=== PATIENT | female | born 1960 | race Caucasian/White ===

== ENCOUNTER 2022-03-05 10:49 | Inpatient (IN) | payer BC, SELFPAY ==
[2022-03-05] VITALS (13 sets, daily range): BP systolic 105–129; BP diastolic 53–79; PULSE 79–110; RESP 18–20; TEMP 36.8–38.9; O2SAT 94–100; BMI 33.1; BMI 34.1
--- NOTE | 2022-03-05 10:53 | ED.GENADULT ---
HPI - General Adult General Time Seen by Provider: 10:53 Date Seen: 03/05/22 Chief complaint: Flank Pain Stated complaint: Possible kidney stones Time Seen by Provider: 03/05/22 10:53 Source: patient, RN notes reviewed, old records reviewed and other (Urgent care provider) Mode of arrival: ambulatory Limitations: no limitations History of Present Illness HPI narrative: Otilia is a very pleasant 61-year-old female who states that she has had cancer x2 and recent left knee replacement who notes the sudden onset of left flank pain early this morning. This is associated with nausea but no vomiting. Patient denies fever but feels very hot. She has had kidney infection in the past and thought that is what this may be. However, she has no dysuria or hematuria. She has not had any chest pain unusual cough or unusual lower extremity edema. She has taken Tylenol for discomfort. It has not really helped. Movement does not seem to change her pain. New Patient initially went to urgent care. Back pain onset at 0700. Related Data Home Medications Medication Instructions Recorded Confirmed calcium carbonate 600 mg calcium 600 mg PO DAILY 02/20/22 03/05/22 (1,500 mg) tablet cholecalciferol (vitamin D3) 50 2,000 unit PO DAILY 02/20/22 03/05/22 mcg (2,000 unit) tablet cyanocobalamin (vitamin B-12) 500 500 mcg PO DAILY 02/20/22 03/05/22 mcg tablet gemfibrozil 600 mg tablet 600 mg PO QDAY 02/20/22 03/05/22 letrozole 2.5 mg tablet 2.5 mg PO QDAY 02/20/22 03/05/22 multivitamin 1 tab PO QDAY 02/20/22 03/05/22 venlafaxine 37.5 mg tablet 37.5 mg PO QDAY 02/20/22 03/05/22 aspirin 81 mg tablet,delayed 81 mg PO QDAY 02/21/22 03/05/22 release Allergies Allergy/AdvReac Type Severity Reaction Status Date / Time adhesive AdvReac localized Verified 02/21/22 10:40 rash latex AdvReac Rash Verified 02/21/22 10:40 CHROMIUM AND DERIVATIVES Allergy Uncoded 02/21/22 10:40 Lactose intolerance AdvReac Diarrhea Uncoded 02/21/22 10:40 METALS AdvReac Hives Uncoded 02/21/22 10:40 Review of Systems Status of ROS: Reports: 10 or more systems reviewed and unremarkable except as noted in History and below PFSH [facility] Medical History Anxiety Breast cancer Meniere's disease of right ear Surgical History H/O tubal ligation (1989) Status post bilateral breast reconstruction Status post bilateral mastectomy (03/21/17) Status post lymph node biopsy (~2006) Status post total left knee replacement (07/18/21) Status post total right knee replacement (07/08/18) Family History Mother Aneurysm Lung cancer Sister Colon cancer Social History Smoking Status: Former smoker How often do you have a drink containing alcohol: never AUDIT-C Alcohol total score: 0 Non-prescribed substance use: denies use Exam Const: Vital Signs, click to edit/add: Vital Signs - 24 hr 03/05/22 10:53 03/05/22 13:00 Temperature 98.3 F Pulse Rate [Pulse Oximeter] 79 86 Respiratory Rate 18 18 Blood Pressure [Le ft Upper Arm] 123/79 Pulse Oximetry 98 100 Oxygen Delivery Me thod Room Air Room Air Course Reevaluation(s) Reevaluation #1: Patient notes significant improvement in discomfort after Toradol. She is informed that a urinalysis strongly suspicious for infection but given the rapid onset of symptoms would recommend CT to rule out any evidence of a stone. She is in agreement. 1 mg of IV Rocephin is given at this time. Patient remains nontoxic in appearance. Reevaluation #2: Patient notes that morphine really has not helped her and states that she was reminded by her daughter that that medication often does not work for her. Patient is given Dilaudid 0.5 mg IV. Consultations Consultation #1: Dr. Olmedo, customer care consultant from [facility] contacted. Given stone, elevated white count and urinalysis suggestive of infection he does agree that patient needs to have stone removed. Suggests transfer to either [facility] or [facility] where his group works. We are currently attempting that. Otilia does have some discomfort coming back after initial pain relief with Toradol. She is agreeable to try morphine 2 mg IV. Vital Signs Vital signs: Initial Vital Signs Temperature 98.3 F 03/05/22 10:53 Temperature Source Temporal Artery Scan 03/05/22 10:53 Pulse Rate 79 03/05/22 10:53 Respiratory Rate 18 03/05/22 10:53 Blood Pressure 123/79 03/05/22 10:53 Blood Pressure Mean 93 03/05/22 10:53 Blood Pressure Position Supine 03/05/22 10:53 Pulse Oximetry 98 03/05/22 10:53 Oxygen Delivery Method 03/05/22 10:53 Vital Signs Temperature 98.3 F 03/05/22 10:53 Pulse Rate 79 03/05/22 10:53 Respiratory Rate 18 03/05/22 10:53 Blood Pressure 123/79 03/05/22 10:53 Pulse Oximetry 98 03/05/22 10:53 Oxygen Delivery Method 03/05/22 10:53 Temperature 98.3 F 03/05/22 10:53 Pulse Rate 89 03/05/22 14:28 Respiratory Rate 18 03/05/22 14:28 Blood Pressure 128/72 03/05/22 14:28 Pulse Oximetry 98 03/05/22 14:28 Oxygen Delivery Method 03/05/22 14:28 Medical Decision Making MDM Narrative Medical decision making narrative: 1. Pyelonephritis-patient is given Rocephin 1 g IV. Culture is pending. Fortunately no evidence of sepsis with normal pulse temp [place] [address]. CRP minimally elevated at 1.2. Creatinine normal at 0.8. 2. Ureteral stone -this is at the UVJ and measures 6.6 mm. Obviously with complication of urinary tract infection will need to have this removed. Spoken with urologist Dr. Olmedo who suggests transfer to [facility] or [facility] for procedure. 3. Hypercalcemia- 11.3 3. Disposition-will contact [facility] for transfer possibility. Addendum: Unfortunately [facility] is unable to accommodate patient today. We were able to speak to urologist once again and have arranged for transfer tomorrow morning as they are holding a bed for Otilia for the stone removal. She will stay at the [facility]. We will strain her urine in the hopes that she is able to pass this stone although given its size it is somewhat doubtful. Will keep her hydrated. She has no signs of sepsis at this time but of course is at high risk for sepsis. Patient did receive Rocephin and urologist is in agreement with this particular antibiotic. Would suggest repeat does at approximately midnight or 0200 hours. Being hospitalist call so that we have an accepting physician. Will arrange EMS transport for tomorrow morning as well. They are suggesting patient be at [place] at 0800 hours. Accepting physician is Dr. Chavez at [facility]. I am told that we should expect a phone call by 0600 hours which is permission to send patient to [facility]. Dr. Aponte, [facility] hospitalist is the accepting physician on site here. SARs is pending. Patient will need to strain urine while at the [facility]. If her stone does past she will no longer need to go to [facility] I have spoken with EMS who will tentatively schedule transfer at 0700. Medical Records Medical records reviewed: Yes I reviewed the patient's medical records Lab Data Lab results reviewed: Yes I reviewed the patient's lab results Labs: Lab Results 03/05/22 03/05/22 03/05/22 Range/Units 11:08 11:20 11:20 WBC 18.41 H (4.50-11.00) K/uL RBC 4.21 (4.00-5.20) m/uL Hgb 13.0 (12.0-16.0) gm/dL Hct 38.4 (33.0-51.0) % MCV 91 (80-100) fL MCH 31 (26-34) pg MCHC 34 (32-36) gm/dL RDW Coeff of Angelica 12.5 (11.5-15.5) % Plt Count 430 (140-440) K/uL Neut % (Auto) 71.0 (42.0-72.0) % Lymph % (Auto) 17.9 L (20-44) % [place] % (Auto) 8.6 (0.0-11.0) % Eos % (Auto) 2.1 (0.0-7.0) % Baso % (Auto) 0.2 (0.0-3.0) % Neut # (Auto) 13.10 H (1.7-7.0) K/uL Lymph # (Auto) 3.30 H (0.90-2.90) K/uL [place] # (Auto) 1.60 H (0.00-0.90) K/UL Eos # (Auto) 0.40 (0.00-0.50) K/uL Baso # (Auto) 0.00 (0.00-0.30) K/uL Abs Immat Gran (auto) 0.03 (0.00-0.30) K/uL Sodium 138 (135-149) mmol/L Potassium 3.5 L (3.6-5.1) mmol/L Chloride 99 (96-114) mmol/L Carbon Dioxide 27 (20-32) mmol/L BUN 14 (7-30) mg/dL Creatinine 0.8 (0.5-1.5) mg/dL Estimated Creat Clear 44.58 Estimated GFR 84 ml/min Glucose 111 (60-115) mg/dL Lactate (0.5-1.9) mmol/L Calcium 11.3 H (8.4-10.6) mg/dL Total Bilirubin 0.5 (0.1-1.5) mg/dL AST 51 H (12-35) U/L ALT 37 H (4-35) U/L Alkaline Phosphatase 96 (40-150) U/L C-Reactive Protein 1.2 H (0.5-1.0) mg/dL Total Protein 8.5 H (6.0-8.3) g/dL Albumin 5.0 (3.3-5.0) g/dL Urine Color Yellow (Yellow) Urine Appearance Cloudy A (Clear) Urine pH 6.0 (5.0-8.5) Ur Specific Addison 1.015 (1.000-1.030) Urine Protein 2+ A (Negative) Urine Glucose (UA) Negative (Negative) Urine Ketones Negative (Negative) Urine Blood 3+ A (Negative) Urine Nitrite Positive A (Negative) Urine Bilirubin Negative (Negative) Urine Urobilinogen 0.2 (0.2-1.0) Ur Leukocyte Esterase 3+ A (Negative) Urine RBC 2-5 A (0-2) Urine WBC 50-100 A (0-5) Ur Squamous Epith Cells Few (None-Few) Urine Bacteria Many A (None) Urine Mucus Few A (None) 03/05/22 Range/Units 13:37 WBC (4.50-11.00) K/uL RBC (4.00-5.20) m/uL Hgb (12.0-16.0) gm/dL Hct (33.0-51.0) % MCV (80-100) fL MCH (26-34) pg MCHC (32-36) gm/dL RDW Coeff of Angelica (11.5-15.5) % Plt Count (140-440) K/uL Neut % (Auto) (42.0-72.0) % Lymph % (Auto) (20-44) % [place] % (Auto) (0.0-11.0) % Eos % (Auto) (0.0-7.0) % Baso % (Auto) (0.0-3.0) % Neut # (Auto) (1.7-7.0) K/uL Lymph # (Auto) (0.90-2.90) K/uL [place] # (Auto) (0.00-0.90) K/UL Eos # (Auto) (0.00-0.50) K/uL Baso # (Auto) (0.00-0.30) K/uL Abs Immat Gran (auto) (0.00-0.30) K/uL Sodium (135-149) mmol/L Potassium (3.6-5.1) mmol/L Chloride (96-114) mmol/L Carbon Dioxide (20-32) mmol/L BUN (7-30) mg/dL Creatinine (0.5-1.5) mg/dL Estimated Creat Clear Estimated GFR ml/min Glucose (60-115) mg/dL Lactate 1.7 (0.5-1.9) mmol/L Calcium (8.4-10.6) mg/dL Total Bilirubin (0.1-1.5) mg/dL AST (12-35) U/L ALT (4-35) U/L Alkaline Phosphatase (40-150) U/L C-Reactive Protein (0.5-1.0) mg/dL Total Protein (6.0-8.3) g/dL Albumin (3.3-5.0) g/dL Urine Color (Yellow) Urine Appearance (Clear) Urine pH (5.0-8.5) Ur Specific Addison (1.000-1.030) Urine Protein (Negative) Urine Glucose (UA) (Negative) Urine Ketones (Negative) Urine Blood (Negative) Urine Nitrite (Negative) Urine Bilirubin (Negative) Urine Urobilinogen (0.2-1.0) Ur Leukocyte Esterase (Negative) Urine RBC (0-2) Urine WBC (0-5) Ur Squamous Epith Cells (None-Few) Urine Bacteria (None) Urine Mucus (None) Imaging Data CT scan - abdomen: Attestation: I have reviewed the pertinent imaging results. My impression: Multiple stones in right kidney. Stone noted at the distal aspect of the left ureter. Hydroureter present hydronephrosis present Radiologist's impression: No abnormal intra pulmonary nodular densities through the lung bases. Bilateral breast implants. Normal size cardiac silhouette without any pericardial fusion. No focal hepatic or splenic pathology. No pancreatic pathology. Gallbladder is unremarkable. No adrenal pathology. A 6.6 mm obstructing calculus very? close to the ureterovesical junction on the left with marked hydronephrosis and hydroureter. Multiple nonobstructing calculi identified in the intrarenal calices right kidney without any obstructive uropathy or perinephric pathology. Normal appendix. No retroperitoneal lymphadenopathy. No evidence of abdominal or pelvic ascites. Diverticulosis sigmoid colon without any CT evidence of diverticulitis or abscess. Calcified uterine fibroids. IMPRESSION: 1. A 6.6 mm obstructing calculus left ureterovesical junction with marked left-sided hydronephrosis and hydroureter. 2. Multiple nonobstructing renal calculi right kidney. 3. Calcified uterine fibroids. Critical Care Time Critical Care Time Critical Care Time: Yes Attestation: The patient required my highest level preparedness to intervene emergently and I personally spent this critical care time directly and personally managing the patient. This critical care time included: Obtaining a history; Examining the patient; Pulse oximetry; Ordering and reviewing of studies; Arranging urgent treatment with development of a management plan; Evaluation of patients response to treatment; Frequent reassessment discussions with other providers. This critical care time was performed to assess and manage the high probability of imminent life-threatening deterioration that could result in multiorgan failure. It was exclusive of separate billable procedures and treating other patients and teaching time. Total Critical Care Time in Minutes: 60
[2022-03-05 11:14] LABS: Appearance Urine Cloudy (Clear); Bilirubin Urine Negative (Negative); Blood Urine 3+ (Negative); Color Urine Yellow (Yellow); Glucose Urine Negative (Negative); Ketones Urine Negative (Negative); Leukocyte Esterase Urine 3+ (Negative); Nitrite Urine Positive (Negative); Protein Urine 2+ (Negative); Specific Gravity Urine 1.015 (1.000-1.030); Urobilinogen Urine 0.2 (0.2-1.0)
[2022-03-05] MEDS: KETOROLAC 15 MG/ML inj IVP (11:21)
[2022-03-05] MEDS: 0.9 % SODIUM CHLORIDE 500 ML 500 ML IV (11:21)
--- OUTSIDE RECORDS SUMMARY | 2022-03-05 11:22 | XMS_ITS ---
:1960 Author Care Team Providers Name Role Phone Nicole Moffett Primary Care Provider Unavailable Allergies None recorded. Medications None recorded. Problems None recorded. Procedures None recorded. Results Lab Results None recorded. Past Encounters 12/10/2020 Administrative Reason for Encounter; His tory and Physical Examination, Occupation Nicole Moffett PA-C: [address], [place] [address], Ph. Social History None recorded. Vaccine List None recorded. Plan of Care Reminders Provider Appointments None recorded. ? ? Lab None recorded. ? ? Referral None recorded. ? ? Procedures None recorded. ? ? Surgeries None recorded. ? ? Imaging None recorded. ? ? Vitals None recorded.
--- OUTSIDE RECORDS SUMMARY | 2022-03-05 11:22 | XMS_ITS | Clinical Summary ---
:1960 Author Organization [employer] [facility] [employer] [facility] [place] [address] Care Team Providers Name Role Phone KaristJazmine Primary Care Provider Allergies Active Allergy Reactions Severity Noted Date Comments Adhesive Rash High 03/22/2021 Adhesive Tape Rash High 02/25/2007 Lactose Diarrhea 01/06/2015 Latex Rash 05/21/2017 Chromium And Derivatives Rash 07/29/2014 All metals except gold and silver Unlisted Allergen (Include *Unknown 02/21/2017 h ayfever Detail In Comments) Trace Metals Hives High 07/08/2018 Medications Medication Sig Dispensed Refills Start End Date Status Date multivitamin (MVI) Take 1 tablet by 0 Active tablet mouth once daily. 2 acetaminophen Take 3 tablets by 0 Active (TYLENOL) 325 mg mouth once daily. 2 tablet Max acetaminophen dose: 4000mg in 24 hrs. loperamide (IMODIUM Take 4mg by mouth 0 Active A-D) 2 mg tablet with 1st loose 7 stool, then 2mg with each subsequent loose stool. Max 16 mg in 24 hrs letrozole (FEMARA) TK 1 T PO QD 3 Active 2.5 mg tablet 7 calcium Take 1 tablet by 200 tablet 4 Ac tive carbonate-vitamin mouth 2 times 8 D3, 600 mg-400 daily with meals. unit, 600 mg(1,500mg) -400 unit tablet cyanocobalamin Take 1 tablet by 90 tablet 3 Active (VITAMIN B-12) mouth once daily. 8 1,000 mcg tablet aspirin chewable 81 Take 1 tablet by 0 Active mg chewable tablet mouth once daily 8 with a meal. cholecalciferol Take 1 Capsule 0 Active (Vitamin D) 1,000 (1,000 units) by 1 unit capsule mouth once daily. venlafaxine TAKE 1 90 Tablet 1 Active (EFFEXOR) 37.5 mg TABLET(37.5 MG) 2 tabletIndications: BY MOUTH EVERY Anxiety disorder, MORNING unspecified type gemfibroziL (LOPID) TAKE 1 TABLET(600 90 Tablet 0 Active 600 mg MG) BY MOUTH 2 tabletIndications: EVERY DAY Mixed hyperlipidemia gemfibroziL (LOPID) Take 1 Tablet 90 tablet. 2 02/05 Discontinued 600 mg (600 mg) by mouth 1 22 tabletIndications: once daily. 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 y early UA/pelvic US needed. EGD and colonoscopy 2-3 years. ASA recommended daily. 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 04/2021 NIL Plan: Pap/HPV due 04/2022. Noted in OV 1 06/13/2020: Guidelines for Pap smear screening at this time are yearly Pap smears until age 65. Resolved Problems Problem Noted Date Resolved Date Trapezius strain 08/04/2010 05/04/2012 Depression with anxiety 12/27/2009 02/14/2012 Knee pain, left 12/27/2009 12/29/2009 Encounters Date Type Specialty Care Team Description 02/02/2022 Refill Jazmine Montanez DO Refil l Request (Gemfibrozil) 12/19/2021 Office Visit Jazmine Montanez DO Derm Problem (irregular mole on right breast x couple years/) 12/19/2021 Travel 12/16/2021 Travel 12/15/2021 Refill Jazmine Montanez DO Refil l Request (Venlafaxine) 12/06/2021 Telephone Yue Ortiz MD Resul ts from Last 3 Months Immunizations Name Administration Dates Next Due Influenza, IIV3 (Age >=3 years) 02/13/2012 Influenza, IIV4 04/13/2021, 04/07/2019, 03/01/2018, 03/14/2017, 03/09/2014, 02/12/2013 Influenza, IIV4 (=>6mos) MDV 04/03/2020 Td (Age >=7 Years) 03/01/2018 Tdap 11/22/2006 Zoster (Shingrix-RZV, recombinant) 08/02/2021, 05/10/2021 Family History Medical History Relation Name Comments Dementia Maternal Grandmother Heart Disease Maternal Uncle [place] AT 42 YEARS Cancer Mother lung Dementia Mother Cancer Other niece with uteri ne cancer, age 27. 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 Sex Assigned at Date Recorded Not on file Obstetrics History Last Filed Vital Signs Vital Sign Reading Time Taken Comments Blood Pressure 111/73 12/19/2021 3:16 PM CDT Pulse 102 12/19/2021 3:16 PM CDT Temperature 37.3 ??C (99.1 ??F) 12/02/2021 9:42 AM CDT Respiratory Rate 18 03/27/2018 10:45 AM CDT Oxygen Saturation 98% 12/19/2021 3:16 PM CDT Inhaled Oxygen Concentration - - Weight 78 kg (172 lb) 12/19/2021 3:16 PM CDT Height 154 cm (5' 0.63) 04/13/2021 2:35 PM [facility] Body Mass Index 32.9 04/13/2021 2:35 PM [facility] Plan of Treatment Health Maintenance Due Date Last Done Comments Mammogram for age 45-75 02/02/2019 02/02/2017, 01/12/2016, 01/06/2015, Additional history exists COVID-19 vaccine series (4 - 06/14/2021 03/22/2021, 021, Booster for Pfizer series) 08/28/2020 Influenza for age 50-64 02/02/2022 04/13/2021, 04/03/2020, 04/07/2019, Additional history exists BMI (ht and wt on same day) for 04/13/2022 04/13/2021, 12/03, age 18+ 04/14/2020, Additional history exists Pap test for age 21-65 04/13/2022 04/13/2021, 12/02/2018, 01/06/2015, Additional history exists Depression screening for age 12+ 04/15/2022 04/15/2021, 03/2021, 04/14/2020, Additional history exists Colonoscopy through age 75 04/12/2025 04/12/2020, , 04/12/2020, Additional history exists Lipids for age 45-75 05/10/2026 05/10/2021, 12/02/2018, 09/19/2017, Additional history exists Tetanus booster 03/01/2028 03/01/2018, 11/22/2006 Tdap Completed 11/22/2006 Hepatitis C screening for age Completed 01/08/2015 18-79 Zoster (shingles) series for age Completed 08/02/2021, 12/2020 50+ Medical Devices Implanted Type Area Stripper Shovel Operator Device Shelf Model / Identifier Expiration Serial / Date Lot [id number] 330cc [place] Rnd High Smooth Saline Right: [employer] [place] 01/10/2022 [id number] / Implanted: Qty: 1 on 03/27/2018 by Tarun Marie MD at [facility] [employer] [id number] / Explanted: at [facility] (Quantity not on file) [id number] Procedures Procedure Name Priority Date/Time Associated Diagnosis Comme nts PATH TISSUE EXAM Routine 12/19/2021 4:29 PM Skin lesion of Res ults for this CDT breast procedure are i n the results section. from Last 3 Months Results PATH TISSUE EXAM (12/19/2021 4:29 PM CDT) Component Value Ref Test Analysis Performed At [facility] gist Range Method Time Signature Case Report Pathology Report ?Case: [id number] ? 12/22/2021 [facility] Authorizing Provider: ??Jazmine Nogueira, DO ? Collected: ? 12/19/2021 1629 ? 2:48 PM CDT HEALTH Ordering Location: ? [facility] ?? Received: ?12/19/2021 1645 ? LABOR ATORY-C ? Clinic ? ENTRAL Pathologist: ? Katlyn Ray MD ? LABORATORY Specimen: ?Right Breast ? Final A) SKIN, RIGHT BREAST, LESION, EXCISION: 12/22/2021 [facility] Electronically Diagnosis 1. Cavernous hemangioma 2:48 PM T [facility] TH signed by 2. Negative for malignancy LAB ORDULCE-ARVIN Cedillo MD on LABORATORY 12/22/2021 at 2:48 PM Comment Seen in 12/22/2021 [facility] consultation 2:48 PM [facility] with Dr. Thompson. LABORATORY-C ENTRAL LABORATORY Clinical History of left 12/22/2021 [facility] Information breast cancer 2:48 PM [facility] treated with LABORATORY-C lumpectomy and ENTRAL radiation in LABORATORY 2006 and right breast cancer in 2017, treated with bilateral mastectomy ([id number]) and radiation. Changing skin lesion in the skin of the right breast. Gross A) Received in formalin, lab eled with the patient's name and date of , is a 1.2 x 1.0 cm skin biopsy. There is a 0.7 x 0.7 x 0.2 cm raised blue- bergeron lesion. The specimen is inked yellow, serially sectioned and entirely submitted in one cassette. 12/22/2021 [facility] Description 2:48 PM T [facility] Kemal Garg 12/20/2021 3:47 PM LABORATORY-C ENTRAL LABORATORY Microscopic The final diagnosis is based on microscopic examination of appropriate sections of all specimens. 12/22/2021 [facility] Description 2:48 PM [facility] LABORATORY-C ENTRAL LABORATORY Additional 12/22/2021 [facility] Information Interpreted at [facility], Central Laboratory - [address] [facility] [address], [place] [address] 2:48 PM CDT HEALTH LABORATORY-C ENTRAL LABORATORY Specimen Anatomical Collection Method Collection Time Receive d Time (Source) Location / / Volume Laterality Other (Right Non-Blood / 12/19/2021 4:29 PM 4:45 Breast) Unknown CDT PM CDT Jazmine Montanez DO PATHOLOGY/CYTOLOGY Performing Organization Address City/State/ZIP Code Phon e Number [employer] [address] [place] [address] LABORATORY-CENTRAL 2000 LABORATORY from Last 3 Months Insurance Payer Benefit Plan / Subscriber ID Effective Dates Phone Addre ss Type Group WC WORKERS WC TRAVELERS [id number] 2020-Presen [address] [place] [address] [employer] [place] [employer] [id number] 2018-Present [address] [address] [place] [address] ([place]) [place] [id number] CAREN GUERRA Workers Comp 06/04/[address] ([place]) [place] [phone] (Work) [employer] Comp Self [address] ([place] [facility] [place] [phone] (Work) Advance Directives Latest Code Status on File Code Status Date Activated Date Inactivated Comments Full Code 03/27/2018 6:47 AM 03/28/2018 2:35 AM Care Teams Go Cart Mechanic Relationship Specialty Start Date End Date Jazmine Montanez DO PCP - General 05/29/08
[2022-03-05 11:27] LABS: Basophils Percent Auto 0.2 % (0.0-3.0); Eosinophils Percent Auto 2.1 % (0.0-7.0); Hematocrit 38.4 % (33.0-51.0); Immature Granulocytes Abs Auto 0.03 K/uL (0.00-0.30); Lymphocytes Percent Auto 17.9 % (20-44); Mean Corpuscular HGB Conc 34 gm/dL (32-36); Mean Corpuscular Hemoglobin 31 pg (26-34); Mean Corpuscular Volume 91 fL (80-100); Monocytes Percent Auto 8.6 % (0.0-11.0); Platelet Count* 430 K/uL (140-440); RDW Coefficient of Variation % 12.5 % (11.5-15.5); Red Blood Count 4.21 m/uL (4.00-5.20); White Blood Count* 18.41 K/uL (4.50-11.00)
[2022-03-05 11:34] LABS: Slide Review Reflex No
[2022-03-05 11:38] LABS: Bacteria Urine Many; Mucus Urine Few; Squamous Epithelial Cell Urine Few (None-Few); WBC Urine 50-100 (0-5)
[2022-03-05 11:49] LABS: Chloride* 99 mmol/L (96-114); Potassium* 3.5 mmol/L (3.6-5.1); Sodium* 138 mmol/L (135-149)
[2022-03-05 11:51] LABS: Bilirubin Total* 0.5 mg/dL (0.1-1.5); Creatinine* 0.8 mg/dL (0.5-1.5); Est. Creatinine Clearance* 44.58; Estimated Glomerular Filt Rate 84 ml/min
[2022-03-05 11:52] LABS: Alanine Aminotransferase* 37 U/L (4-35); Alkaline Phosphatase* 96 U/L (40-150); Aspartate Amino Transferase* 51 U/L (12-35); Carbon Dioxide* 27 mmol/L (20-32); Total Protein* 8.5 g/dL (6.0-8.3)
[2022-03-05 11:53] LABS: Blood Urea Nitrogen* 14 mg/dL (7-30); Calcium* 11.3 mg/dL (8.4-10.6); Glucose* 111 mg/dL (60-115)
[2022-03-05 11:55] LABS: C Reactive Protein* 1.2 mg/dL (0.5-1.0)
--- NOTE | 2022-03-05 12:00 | CRLHL7_ITS ---
For Patients: As a result of the Century Cures Act, medical imaging exams and procedure reports are released immediately into your electronic medical record. You may view this report before your referring provider. If you have questions, please contact your health care provider. INDICATION: Left flank pain; history of breast cancer. Comparison: None. TECHNIQUE: CT abdomen and pelvis with intravenous contrast; coronal and sagittal reformats. FINDINGS: No abnormal intra pulmonary nodular densities through the lung bases. Bilateral breast implants. Normal size cardiac silhouette without any pericardial fusion. No focal hepatic or splenic pathology. No pancreatic pathology. Gallbladder is unremarkable. No adrenal pathology. A 6.6 mm obstructing calculus very close to the ureterovesical junction on the left with marked hydronephrosis and hydroureter. Multiple nonobstructing calculi identified in the intrarenal calices right kidney without any obstructive uropathy or perinephric pathology. Normal appendix. No retroperitoneal lymphadenopathy. No evidence of abdominal or pelvic ascites. Diverticulosis sigmoid colon without any CT evidence of diverticulitis or abscess. Calcified uterine fibroids. IMPRESSION: 1. A 6.6 mm obstructing calculus left ureterovesical junction with marked left-sided hydronephrosis and hydroureter. 2. Multiple nonobstructing renal calculi right kidney. 3. Calcified uterine fibroids. Please note that all CT scans at this facility use dose modulation, iterative reconstruction, and/or weight-based dosing when appropriate to reduce radiation dose to as low as reasonably achievable. Dictated by Edouard Ventura MD @ 03/05/2022 1:09:51 PM (Electronically Signed)
[2022-03-05] MEDS: cefTRIAXone 1 GM in 0.9 % SODIUM CHLORIDE Mini-bag 100 ML IVPB (13:00)
[2022-03-05] MEDS: MORPHINE 2 MG/ML inj IVP (14:07)
[2022-03-05 14:09] LABS: Lactate* 1.7 mmol/L (0.5-1.9)
[2022-03-05] MEDS: 0.9 % SODIUM CHLORIDE 1000 ml 1,000 ML IV ×2 (14:16→20:31)
[2022-03-05] MEDS: HYDROmorphone 0.5 mg/0.5 ml inj IVP ×2 (14:26→19:27)
[2022-03-05] MEDS: ONDANSETRON 2 MG/ML inj 4 MG IVP (14:26)
--- NOTE | 2022-03-05 14:27 | ED.NURSE ---
pt just received morphine but then talked to her daughter who reminded her morphine does not work for her. pt pain increasing to 5/10, dilaudid iv given
[2022-03-05 15:06] LABS: SARS PCR* Negative SARS-CoV-2 (Negative)
--- NOTE | 2022-03-05 16:43 | P.IMHP_ITS ---
Hospitalist- H&P: HPI History of Present Illness Time Seen by Provider: 16:30 Date Seen: 03/05/22 Chief complaint: Possible kidney stones Narrative: Otilia Florentino is a 61 year old female with h/o breast cancer who woke up this morning with malaise and left back/flank pain. She felt fine when she went to bed last night. She had a kidney infection a month ago that was treated as an outpatient with oral antibiotics and resolved. She says this pain feels like that. She tells me she has never had a stone before. She took acetaminophen this morning and the pain got better. She got coffee, fed the cats and cleaned their litter boxes, and then the pain came back and was more intense. She has had some increased frequency of urination this morning, feeling like she is not going completely and having to go again in just a few minutes. No other urinary symptoms. No fevers. She did have chills and nausea this morning. She went to urgent care and was told she would need a CT scan, so she came to the hospital ER where she was found to have a 6.6 mm obstructing calculus at the left ureterovesical junction. Dr. Mansfield spoke with Dr. Olmedo from [facility] [facility] who recommended giving Rocephin, admit, strain urine and transfer to [place] in the morning. She is feeling better now after Toradol and dilaudid. She tells me that morphine does not really work for her, but the Toradol and Dilaudid were helpful. Review of Systems Const: Reports: chills, fatigue and malaise; Denies: fever ENMT: Reports: post nasal drip; Denies: throat pain or dry mouth Cardio: Denies: chest pain, palpitations or shortness of breath with exertion Resp: Reports: cough (post nasal drip, seasonal allergies); Denies: shortness of breath or chest congestion GI: Reports: nausea; Denies: abdominal pain, vomiting, diarrhea, constipation, bloating or blood in stool : Reports: urinary frequency; Denies: painful urination, urinary urgency or blood in urine Musculo: Reports: back pain Integ/Breast: Denies: rash Neuro: Denies: headache or dizziness Endo: Reports: fatigue PFSH [facility] Medical History (Updated 03/05/22 @ 17:47 by Cheri Aponte MD) Anemia Anxiety Arthritis Breast cancer Diabetes Family history of colon cancer Hyperlipidemia Meniere's disease of right ear Pyelonephritis Surgical History (Updated 03/05/22 @ 17:41 by Cheri Aponte MD) H/O dilation and curettage H/O tubal ligation (1989) Status post bilateral breast reconstruction Status post bilateral mastectomy (03/21/17) Status post lymph node biopsy (~2006) 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 Denies EtOH, quit 1980. Denies recreational drug use. Full code. Highest level of school completed/degree received: Associate degree: academic program Smoking Status: Former smoker Do you use any of these nicotine containing products: None Second hand tobacco smoke exposure: Yes How often do you have a drink containing alcohol: never AUDIT-C Alcohol total score: 0 Non-prescribed substance use: denies use Caffeine: Yes service: No Meds Home Medications and Allergies Home Medications Medication Instructions Recorded Confirmed Type calcium carbonate 600 mg calcium 600 mg PO DAILY 02/20/22 03/05/22 History (1,500 mg) tablet cholecalciferol (vitamin D3) 50 2,000 unit PO DAILY 02/20/22 03/05/22 History mcg (2,000 unit) tablet cyanocobalamin (vitamin B-12) 500 500 mcg PO DAILY 02/20/22 03/05/22 History mcg tablet gemfibrozil 600 mg tablet 600 mg PO QDAY 02/20/22 03/05/22 History letrozole 2.5 mg tablet 2.5 mg PO QDAY 02/20/22 03/05/22 History multivitamin 1 tab PO QDAY 02/20/22 03/05/22 History venlafaxine 37.5 mg tablet 37.5 mg PO QDAY 02/20/22 03/05/22 History aspirin 81 mg tablet,delayed 81 mg PO QDAY 02/21/22 03/05/22 History release Allergies Allergy/AdvReac Type Severity Reaction Status Date / Time adhesive AdvReac localized Verified 02/21/22 10:40 rash latex AdvReac Rash Verified 02/21/22 10:40 CHROMIUM AND DERIVATIVES Allergy Uncoded 02/21/22 10:40 Lactose intolerance AdvReac Diarrhea Uncoded 02/21/22 10:40 METALS AdvReac Hives Uncoded 02/21/22 10:40 Exam Narrative: Exam Narrative: General: No acute distress. Awake alert oriented x3. Pleasant, talkative. HEENT: Normocephalic atraumatic, pupils equally round and reactive to light and accommodation. Oropharynx clear. Mucous membranes are dry. No cervical lymphadenopathy, thyromegaly or carotid bruits. No JVD. Cardiovascular: Regular rate and rhythm. No murmurs, gallops, or rubs. Chest: No increased work of breathing. Clear to auscultation bilaterally. No crackles or wheezes. Abdomen: Bowel sounds present. Soft, nondistended, nontender. No hepatosplenomegaly or masses. Some tenderness in the left CVA. Extremities: No edema, no cyanosis or clubbing. Skin: No jaundice, no pallor, no rashes. Const: Vital Signs, click to edit/add: Vital Signs - 24 hr 03/05/22 10:53 03/05/22 13:00 03/05/22 14:28 Temperature 98.3 F Pulse Rate [Pulse Oximeter] 79 86 89 Respiratory Rate 18 18 18 Blood Pressure [Le ft Arm] Blood Pressure [Le ft Upper Arm] 123/79 128/72 Pulse Oximetry 98 100 98 Oxygen Delivery Me thod Room Air Room Air Room Air 03/05/22 15:43 03/05/22 15:59 Temperature 98.3 F Pulse Rate [Pulse Oximeter] Respiratory Rate 18 18 Blood Pressure [Le ft Arm] 129/62 Blood Pressure [Le ft Upper Arm] Pulse Oximetry 98 98 Oxygen Delivery Me thod Room Air Room Air Hospitalist - H&P: Result Labs Labs: Short CBC 03/05/22 Range/Units 11:20 WBC 18.41 H (4.50-11.00) K/uL Hgb 13.0 (12.0-16.0) gm/dL Hct 38.4 (33.0-51.0) % Plt Count 430 (140-440) K/uL BMP 03/05/22 11:20 Sodium 138 Potassium 3.5 L Chloride 99 Carbon Dioxide 27 BUN 14 Creatinine 0.8 Glucose 111 Calcium 11.3 H Liver Function 03/05/22 Range/Units 11:20 Total Bilirubin 0.5 (0.1-1.5) mg/dL AST 51 H (12-35) U/L ALT 37 H (4-35) U/L Alkaline Phosphatase 96 (40-150) U/L Albumin 5.0 (3.3-5.0) g/dL Urine 03/05/22 Range/Units 11:08 Urine Color Yellow (Yellow) Urine Appearance Cloudy A (Clear) Urine pH 6.0 (5.0-8.5) Ur Specific [place] 1.015 (1.000-1.030) Urine Protein 2+ A (Negative) Urine Glucose (UA) Negative (Negative) Ordering Physician: Erika Mansfield MD Date of Service: 03/05/22 Procedure(s): CT abdomen pelvis w con Accession Number(s): [id number] cc: Jazmine Montanez DO; Erika Mansfield MD~ For Patients: As a result of the Century Cures Act, medical imaging exams and procedure reports are released immediately into your electronic medical record. You may view this report before your referring provider. If you have questions, please contact your health care provider. INDICATION: Left flank pain; history of breast cancer. Comparison: None. TECHNIQUE: CT abdomen and pelvis with intravenous contrast; coronal and sagittal reformats. FINDINGS: No abnormal intra pulmonary nodular densities through the lung bases. Bilateral breast implants. Normal size cardiac silhouette without any pericardial fusion. No focal hepatic or splenic pathology. No pancreatic pathology. Gallbladder is unremarkable. No adrenal pathology. A 6.6 mm obstructing calculus very close to the ureterovesical junction on the left with marked hydronephrosis and hydroureter. Multiple nonobstructing calculi identified in the intrarenal calices right kidney without any obstructive uropathy or perinephric pathology. Normal appendix. No retroperitoneal lymphadenopathy. No evidence of abdominal or pelvic ascites. Diverticulosis sigmoid colon without any CT evidence of diverticulitis or abscess. Calcified uterine fibroids. IMPRESSION: 1. A 6.6 mm obstructing calculus left ureterovesical junction with marked left-sided hydronephrosis and hydroureter. 2. Multiple nonobstructing renal calculi right kidney. 3. Calcified uterine fibroids. Please note that all CT scans at this facility use dose modulation, iterative reconstruction, and/or weight-based dosing when appropriate to reduce radiation dose to as low as reasonably achievable. Dictated by Edouard Ventura MD @ 03/05/2022 1:09:51 PM (Electronically Signed) Assessment and Plan Assessment and plan (1) Calculus of ureterovesical junction (UVJ): Problem comment: left Status: Acute Assessment and Plan: Hold ASA, planning transfer to [facility], Dr. Chavez, around 8 am tomorrow morning for urologic consultation and probable ureteral stent. Admit, IVF for volume depletion, strain urine, IV toradol and PO narcotics for pain control with IV narcotics for breakthrough pain. No further cardiopulmonary w/u needed prior to procedure. (2) Pyelonephritis of left kidney: Problem comment: associated with UVJ stone, no sepsis or hypotension Status: Acute Assessment and Plan: Rocephin IV, started in ER. (3) Volume depletion: Status: Acute Assessment and Plan: Give IVF. Encourage po fluids. (4) Hypokalemia: Problem comment: mild, asymptomatic Status: Acute Assessment and Plan: Replace orally, recheck in am. (5) Hypercalcemia: Problem comment: 11.3 Status: Acute Assessment and Plan: Asymptomatic. Give IVF and recheck in am. If remains elevated, will need further w/u including PTH.
[2022-03-05] MEDS: 0.9 % SODIUM CHLORIDE 1000 ml 1,000 ML 125 ML IV (17:05)
[2022-03-05] MEDS: POTASSIUM BICARB 25 MEQ EFFERVESCENT TAB PO ×2 (17:48→19:36)
--- NOTE | 2022-03-05 17:53 | P.DS_ITS ---
Transfer Discharge Sum: Prov Provider Date Seen: 03/05/22 Date of admission: 03/05/22 17:04 Primary care physician: Jazmine Montanez DO Admitting clinician: Cheri Aponte Attending physician on admission: Cheri Aponte Anticipated date of transfer: 03/06/22 Receiving physician/facility: Dr. Scott Roy, [facility] service DS: Diagnosis Discharge Diagnosis (1) Hypercalcemia: Status: Acute Problem details: 11.3 (2) Hypokalemia: Status: Acute Problem details: mild, asymptomatic (3) Volume depletion: Status: Acute (4) Calculus of ureterovesical junction (UVJ): Status: Acute Problem details: left (5) Pyelonephritis of left kidney: Status: Acute Problem details: associated with UVJ stone Transfer Discharge Sum: Med Medications Active and Home Medications: Home Medications calcium carbonate 600 mg calcium (1,500 mg) tablet 600 mg PO DAILY 02/20/22 [History Confirmed 03/05/22] cholecalciferol (vitamin D3) 50 mcg (2,000 unit) tablet 2,000 unit PO DAILY 02/20/22 [History Confirmed 03/05/22] cyanocobalamin (vitamin B-12) 500 mcg tablet 500 mcg PO DAILY 02/20/22 [History Confirmed 03/05/22] gemfibrozil 600 mg tablet 600 mg PO QDAY 02/20/22 [History Confirmed 03/05/22] letrozole 2.5 mg tablet 2.5 mg PO QDAY 02/20/22 [History Confirmed 03/05/22] multivitamin 1 tab PO QDAY 02/20/22 [History Confirmed 03/05/22] venlafaxine 37.5 mg tablet 37.5 mg PO QDAY 02/20/22 [History Confirmed 03/05/22] aspirin 81 mg tablet,delayed release 81 mg PO QDAY 02/21/22 [History Confirmed 03/05/22] Active Medications Hydromorphone HCl (Hydromorphone 0.5 Mg/0.5 Ml Inj) 0.2 - 0.5 mg IVP Q1H PRN PRN Reason: Pain Sodium Chloride (0.9 % Sodium Chloride 1000 Ml) 1,000 mls @ 125 mls/hr IV .Q8H CARLOS Last Admin: 03/05/22 17:05 Dose: 125 mls/hr Ceftriaxone Sodium 1 gm/ (Sodium Chloride) 100 mls @ 200 mls/hr IVPB Q24H [facility] Ketorolac Tromethamine (Ketorolac 15 Mg/Ml Inj) 15 mg IVP Q6H PRN Ondansetron HCl (Ondansetron 2 Mg/Ml Inj) 4 mg IVP Q4H PRN PRN Reason: Nausea Oxycodone HCl (Oxycodone 5 Mg Tablet) 5 - 10 mg PO Q4H PRN Potassium Bicarbonate (Potassium Bicarb 25 Meq Effervescent Tab) 25 meq PO Q2H CARLOS Stop: 03/05/22 19:31 Last Admin: 03/05/22 17:48 Dose: 25 meq Transfer Discharge Sum: Hosp Hospital Course Hospital course: Otilia Florentino is a 61 year old female admitted for obstructing left UVJ sto ne of 6.6 mm associated with pyelonephritis without sepsis. Given rocephin, pain control and IVF. Admitted with phone consultation to urology, Dr. Olmedo at [facility] and plan to transfer to [place] in am for urology consultation and ureteral stent. Time Spent with Patient Time attestation: Total time spent providing and/or coordinating transfer services: Exam Const: Vital Signs, click to edit/add: Vital Signs - 24 hr 03/05/22 10:53 03/05/22 13:00 03/05/22 14:28 Temperature 98.3 F Pulse Rate [Pulse Oximeter] 79 86 89 Respiratory Rate 18 18 18 Blood Pressure [Le ft Arm] Blood Pressure [Le ft Upper Arm] 123/79 128/72 Pulse Oximetry 98 100 98 Oxygen Delivery Me thod Room Air Room Air Room Air 03/05/22 15:43 03/05/22 15:59 Temperature 98.3 F Pulse Rate [Pulse Oximeter] Respiratory Rate 18 18 Blood Pressure [Le ft Arm] 129/62 Blood Pressure [Le ft Upper Arm] Pulse Oximetry 98 98 Oxygen Delivery Me thod Room Air Room Air Transfer Discharge Sum: Data Data Completed and Pending Completed studies during hospitalization: Ordering Physician: Erika Mansfield MD Date of Service: 03/05/22 Procedure(s): CT abdomen pelvis w con Accession Number(s): [id number] cc: Jazmine Montanez DO; Erika Mansfield MD~ For Patients: As a result of the 21st Century Cures Act, medical imaging exams and procedure reports are released immediately into your electronic medical record. You may view this report before your referring provider. If you have questions, please contact your health care provider. INDICATION: Left flank pain; history of breast cancer. Comparison: None. TECHNIQUE: CT abdomen and pelvis with intravenous contrast; coronal and sagittal reformats. FINDINGS: No abnormal intra pulmonary nodular densities through the lung bases. Bilateral breast implants. Normal size cardiac silhouette without any pericardial fusion. No focal hepatic or splenic pathology. No pancreatic pathology. Gallbladder is unremarkable. No adrenal pathology. A 6.6 mm obstructing calculus very close to the ureterovesical junction on the left with marked hydronephrosis and hydroureter. Multiple nonobstructing calculi identified in the intrarenal calices right kidney without any obstructive uropathy or perinephric pathology. Normal appendix. No retroperitoneal lymphadenopathy. No evidence of abdominal or pelvic ascites. Diverticulosis sigmoid colon without any CT evidence of diverticulitis or abscess. Calcified uterine fibroids. IMPRESSION: 1. A 6.6 mm obstructing calculus left ureterovesical junction with marked left-sided hydronephrosis and hydroureter. 2. Multiple nonobstructing renal calculi right kidney. 3. Calcified uterine fibroids. Please note that all CT scans at this facility use dose modulation, iterative reconstruction, and/or weight-based dosing when appropriate to reduce radiation dose to as low as reasonably achievable. Dictated by Edouard Ventura MD @ 03/05/2022 1:09:51 PM (Electronically Signed) Transfer Discharge Sum: A/P Plan Functional capacity at transfer: independent ambulation Discharge Plan Discharge Disposition: [facility] Date of Admission: 03/05/22 17:04 Primary Care Provider: Jazmine Montanez Discharge Medications: Continued letrozole 2.5 mg tablet 2.5 mg PO QDAY Label Comments: TAKE 1 TABLET BY MOUTH DAILY gemfibrozil 600 mg tablet 600 mg PO QDAY venlafaxine 37.5 mg tablet 37.5 mg PO QDAY multivitamin Tablet 1 tab PO QDAY calcium carbonate 600 mg calcium (1,500 mg) tablet 600 mg PO DAILY cyanocobalamin (vitamin B-12) 500 mcg tablet 500 mcg PO DAILY cholecalciferol (vitamin D3) 50 mcg (2,000 unit) tablet 2,000 unit PO DAILY aspirin 81 mg tablet,delayed release (DR/EC) 81 mg PO QDAY Discharge Orders: Discharge Order (Routine); Ordered 03/06/22 Ordered By: Liz Grullon Activity Level: No Restrictions Discharge Diet: Regular Follow Up Appointments: Jazmine Montanez DO [Primary Care Provider] - Forms: [facility] Info Instructions Hospital Course: Patient admitted on 03/05 with pyelonephritis, associated with a left UVJ stone, measuring 6.6 mm on imaging. No bed is available for transfer on hospital day 1, patient admitted overnight and transferred to [facility] on 03/06 for definitive Urological management. Overnight, patient did develop a fever with T-max of 102?. Her ceftriaxone was broadened to Zosyn. She had intermittent tachycardia, was never hypotensive. Urine culture is currently growing Gram-negative rods. Patient was comfortable with pain management and amenable to transfer to [facility] on hospital day 1.
--- NOTE | 2022-03-05 18:37 | PC.NURSE ---
Pt. up to floor from ED at 1520. Alert and oriented x4. pleasant and cooperative. Pt. complained of left flank pain and Dilaudid was administered in the ED with relief. Pt. has since reported pain to be 2-10. Pt. has a right arm restriction and an allergy to latex. Pt.'s urine will be strained for kidney stones. Plan for pt to be transferred to [place] for possible surgery 03/06.
[2022-03-05] MEDS: ACETAMINOPHEN 325 MG TABLET 650 MG PO (20:30)
--- NOTE | 2022-03-05 21:32 | PM.IMPN1 ---
Progress Note: A&P Assessment and plan (1) Calculus of ureterovesical junction (UVJ): Problem details: left Status: Acute (2) Pyelonephritis of left kidney: Problem details: associated with UVJ stone Status: Acute Assessment and Plan: Now signs of sepsis. Responding to IVF bolus. Increase VS checks to q2H. I have called Dr. Olmedo at [facility] urology who agrees that she would benefit from more urgent urologic intervention. There are currently no med/surg beds available at [facility]. We have also called [facility], [facility], [facility], and [facility] are no available beds at this time. Fortunately she is responding to IVF at this time. Will continue to monitor closely and attempt transfer again if requiring pressors as then she would meet criteria for an ICU bed. She remains accepted at [place] in the morning. (3) Volume depletion: Status: Acute Subjective Time Seen by Provider: 21:00 Date Seen: 03/05/22 Interval history: Nursing reported fever, lower BP and elevated HR. Otilia says she felt chilled, but is already feeling better after IVF bolus got started. Fever coming down again, SBP back up to 129 and HR now 116. Exam Narrative: Exam Narrative: General: No acute distress. Awake, alert, oriented x3. No pallor. No jaundice. Oropharynx: Clear. Mucous membranes slightly dry. Const: Vital Signs, click to edit/add: Vital Signs - 24 hr 03/05/22 10:53 03/05/22 13:00 03/05/22 14:28 Temperature 98.3 F Pulse Rate [Pulse Oximeter] 79 86 89 Pulse Rate [Right Pulse Oximeter] Respiratory Rate 18 18 18 Blood Pressure [Le ft Arm] Blood Pressure [Le ft Upper Arm] 123/79 128/72 Pulse Oximetry 98 100 98 Oxygen Delivery Me thod Room Air Room Air Room Air 03/05/22 15:43 03/05/22 15:59 03/05/22 17:04 Temperature 98.3 F 98.3 F Pulse Rate [Pulse Oximeter] Pulse Rate [Right Pulse Oximeter] 91 Respiratory Rate 18 18 18 Blood Pressure [Le ft Arm] 129/62 129/62 Blood Pressure [Le ft Upper Arm] Pulse Oximetry 98 98 98 Oxygen Delivery Ne thod Room Air Room Air Room Air 03/05/22 17:07 03/05/22 19:35 03/05/22 20:30 Temperature 102.0 F H 102 F H Pulse Rate [Pulse Oximeter] Pulse Rate [Right Pulse Oximeter] 110 H Respiratory Rate 20 Blood Pressure [Le ft Arm] 105/53 L Blood Pressure [Le ft Upper Arm] Pulse Oximetry 95 95 Oxygen Delivery Me thod Room Air 03/05/22 20:36 Temperature Pulse Rate [Pulse Oximeter] Pulse Rate [Right Pulse Oximeter] Respiratory Rate Blood Pressure [Le ft Arm] Blood Pressure [Le ft Upper Arm] Pulse Oximetry 94 Oxygen Delivery Me thod Labs Labs: Laboratory Results - last 24 hr 03/05/22 03/05/22 03/05/22 11:08 11:20 11:20 WBC 18.41 H RBC 4.21 Hgb 13.0 Hct 38.4 MCV 91 MCH 31 MCHC 34 RDW Coeff of Angelica 12.5 Plt Count 430 Neut % (Auto) 71.0 Lymph % (Auto) 17.9 L [place] % (Auto) 8.6 Eos % (Auto) 2.1 Baso % (Auto) 0.2 Neut # (Auto) 13.10 H Lymph # (Auto) 3.30 H [place] # (Auto) 1.60 H Eos # (Auto) 0.40 Baso # (Auto) 0.00 Abs Immat Gran (auto) 0.03 Sodium 138 Potassium 3.5 L Chloride 99 Carbon Dioxide 27 BUN 14 Creatinine 0.8 Estimated Creat Clear 44.58 Estimated GFR 84 Glucose 111 Lactate Calcium 11.3 H Total Bilirubin 0.5 AST 51 H ALT 37 H Alkaline Phosphatase 96 C-Reactive Protein 1.2 H Total Protein 8.5 H Albumin 5.0 Urine Color Yellow Urine Appearance Cloudy A Urine pH 6.0 Ur Specific [place] 1.015 Urine Protein 2+ A Urine Glucose (UA) Negative Urine Ketones Negative Urine Blood 3+ A Urine Nitrite Positive A Urine Bilirubin Negative Urine Urobilinogen 0.2 Ur Leukocyte Esterase 3+ A Urine RBC 2-5 A Urine WBC 50-100 A Ur Squamous Epith Cells Few Urine Bacteria Many A Urine Mucus Few A SARS-CoV-2 (PCR) 03/05/22 03/05/22 13:37 14:11 WBC RBC Hgb Hct MCV MCH MCHC RDW Coeff of Angelica Plt Count Neut % (Auto) Lymph % (Auto) [place] % (Auto) Eos % (Auto) Baso % (Auto) Neut # (Auto) Lymph # (Auto) [place] # (Auto) Eos # (Auto) Baso # (Auto) Abs Immat Gran (auto) Sodium Potassium Chloride Carbon Dioxide BUN Creatinine Estimated Creat Clear Estimated GFR Glucose Lactate 1.7 Calcium Total Bilirubin AST ALT Alkaline Phosphatase C-Reactive Protein Total Protein Albumin Urine Color Urine Appearance Urine pH Ur Specific [place] Urine Protein Urine Glucose (UA) Urine Ketones Urine Blood Urine Nitrite Urine Bilirubin Urine Urobilinogen Ur Leukocyte Esterase Urine RBC Urine WBC Ur Squamous Epith Cells Urine Bacteria Urine Mucus SARS-CoV-2 (PCR) Negative SARS-CoV-2
[2022-03-06 00:30] VITALS: BP 117/50; PULSE 95; RESP 20; TEMP 37.2; O2SAT 97
[2022-03-06 00:43] LABS: Lactate* 1.7 mmol/L (0.5-1.9)
[2022-03-06] MEDS: 0.9 % SODIUM CHLORIDE 1000 ml 1,000 ML 125 ML IV (02:45)
[2022-03-06] MEDS: OXYCODONE 5 MG TABLET PO (02:46)
[2022-03-06 04:30] VITALS: BP 116/61; PULSE 104; RESP 20; TEMP 37.7; O2SAT 92
--- NOTE | 2022-03-06 06:35 | PC.NURSE ---
Shift note: Low BP, increased temp and increased HR in PM, sepsis was triggered, charge nurse and MD were notified. Orders for IV bolus and close monitoring received. Pt is up independently, voiding frequently, urine is strained with no findings. Temperature subsided, pt's pain treated per eMAR with relief.
[2022-03-06 06:41] LABS: Ionized Calcium* 1.14 mmol/L (1.11-1.30)
[2022-03-06 06:45] LABS: Basophils Percent Auto 0.2 % (0.0-3.0); Eosinophils Percent Auto 0.8 % (0.0-7.0); Hematocrit 33.5 % (33.0-51.0); Hemoglobin* 11.3 gm/dL (12.0-16.0); Immature Granulocytes Abs Auto 0.16 K/uL (0.00-0.30); Lymphocytes Percent Auto 9.5 % (20-44); Mean Corpuscular HGB Conc 34 gm/dL (32-36); Mean Corpuscular Hemoglobin 31 pg (26-34); Mean Corpuscular Volume 93 fL (80-100); Monocytes Percent Auto 7.7 % (0.0-11.0); Neutrophils Percent Auto 81.1 % (42.0-72.0); Platelet Count* 361 K/uL (140-440); RDW Coefficient of Variation % 12.8 % (11.5-15.5); Red Blood Count 3.61 m/uL (4.00-5.20); White Blood Count* 23.26 K/uL (4.50-11.00)
[2022-03-06 06:54] LABS: Slide Review Reflex No
[2022-03-06 07:00] VITALS: PULSE 99; RESP 18
[2022-03-06 07:01] LABS: Chloride* 106 mmol/L (96-114)
[2022-03-06 07:02] LABS: Potassium* 4.2 mmol/L (3.6-5.1); Sodium* 138 mmol/L (135-149)
[2022-03-06 07:04] LABS: Creatinine* 0.9 mg/dL (0.5-1.5); Est. Creatinine Clearance* 44.58; Estimated Glomerular Filt Rate 73 ml/min
[2022-03-06 07:05] LABS: Blood Urea Nitrogen* 12 mg/dL (7-30); Calcium* 9.3 mg/dL (8.4-10.6); Carbon Dioxide* 24 mmol/L (20-32); Glucose* 110 mg/dL (60-115)
[2022-03-06] MEDS: PIPERACILLIN/TAZOBACTAM 3.375 GM in 0.9 % SODIUM CHLORIDE Mini-bag 100 ML IVPB (07:46)
[2022-03-06 08:00] VITALS: BP 126/56; PULSE 99; RESP 15; TEMP 37.2; O2SAT 93
[2022-03-06] MEDS: KETOROLAC 15 MG/ML inj IVP (08:30)
--- NOTE | 2022-03-06 09:29 | P.DS_ITS ---
DS: Providers Provider Date Seen: 03/06/22 Date of admission: 03/05/22 17:04 Primary care physician: Jazmine Montanez DO Admitting Clinician: Cheri Aponte MD Consults: Urology by phone 03/05 Attending Physician on discharge: Liz Grullon MD DS: Diagnosis Discharge Diagnosis (1) Calculus of ureterovesical junction (UVJ): Status: Acute Problem details: left (2) Pyelonephritis of left kidney: Status: Acute Problem details: associated with UVJ stone DS: Summary Hospital Course Hospital Course: Patient admitted on 03/05 with pyelonephritis, associated with a left UVJ stone, measuring 6.6 mm on imaging. No bed is available for transfer on hospital day 1, patient admitted overnight and transferred to [facility] on 03/06 for definitive Urological management. Overnight, patient did develop a fever with T-max of 102?. Her ceftriaxone was broadened to Zosyn. She had intermittent tachycardia, was never hypotensive. Urine culture is currently growing Gram-negative rods. Patient was comfortable with pain management and amenable to transfer to [facility] on hospital day 1. Status at Discharge Functional status at discharge: independent ambulation Time Spent with Patient Time attestation: Total time spent providing and/or coordinating discharge services: Time spent: Greater than 30 minutes Specific discharge activities: Coordinating discharge transfer, chart review, updating patient Exam Narrative: Exam Narrative: GEN: Alert and oriented, answering questions appropriate HEENT: Normal external ears, EOMIs bilaterally, no scleral icterus CV: RRR (rate in the 90s during my exam), no concerning murmurs, rubs, or gallops R: LCTA bilaterally without concerning wheezing, rales, or rhonchi Ext: wwp, no concerning edema Skin: No concerning skin lesions or rashes on exposed skin Neuro: Nonfocal Psych: Appropriate Const: Vital Signs, click to edit/add: Vital Signs - 24 hr 03/05/22 10:53 03/05/22 13:00 03/05/22 14:28 Temperature 98.3 F Pulse Rate [Pulse Oximeter] 79 86 89 Pulse Rate [Right Pulse Oximeter] Respiratory Rate 18 18 18 Blood Pressure [Le ft Arm] Blood Pressure [Le ft Upper Arm] 123/79 128/72 Pulse Oximetry 98 100 98 Oxygen Delivery Me thod Room Air Room Air Room Air 03/05/22 15:43 10/02/22 15:59 03/05/22 17:04 Temperature 98.3 F 98.3 F Pulse Rate [Pulse Oximeter] Pulse Rate [Right Pulse Oximeter] 91 Respiratory Rate 18 18 18 Blood Pressure [Le ft Arm] 129/62 129/62 Blood Pressure [Le ft Upper Arm] Pulse Oximetry 98 98 98 Oxygen Delivery Hi thod Room Air Room Air Room Air 03/05/22 17:07 03/05/22 19:35 03/05/22 20:30 Temperature 102.0 F H 102 F H Pulse Rate [Pulse Oximeter] Pulse Rate [Right Pulse Oximeter] 110 H Respiratory Rate 20 Blood Pressure [Le ft Arm] 105/53 L Blood Pressure [Le ft Upper Arm] Pulse Oximetry 95 95 Oxygen Delivery Hi thod Room Air 03/05/22 20:36 03/05/22 22:03 03/05/22 23:00 Temperature 99.6 F Pulse Rate [Pulse Oximeter] Pulse Rate [Right Pulse Oximeter] 110 H Respiratory Rate 20 Blood Pressure [Le ft Arm] Blood Pressure [Le ft Upper Arm] Pulse Oximetry 94 Oxygen Delivery Hi thod 03/05/22 22:30 03/06/22 00:30 03/06/22 04:30 Temperature 98.9 F 98.9 F 99.8 F H Pulse Rate [Pulse Oximeter] Pulse Rate [Right Pulse Oximeter] 104 H 95 104 H Respiratory Rate 20 20 20 Blood Pressure [Le ft Arm] 109/55 L 117/50 L 116/61 Blood Pressure [Le ft Upper Arm] Pulse Oximetry 97 97 92 Oxygen Delivery Hi thod Room Air Room Air Room Air DS: Data Data Completed and Pending Pending studies at discharge: Sensitivities for urine culture Labs on day of discharge: Labs from last 24 hours 03/06/22 03/06/22 03/06/22 06:39 06:39 06:39 WBC 23.26 H RBC 3.61 L Hgb 11.3 L Hct 33.5 MCV 93 MCH 31 MCHC 34 RDW Coeff of Angelica 12.8 Plt Count 361 Neut % (Auto) 81.1 H Lymph % (Auto) 9.5 L Weakley % (Auto) 7.7 Eos % (Auto) 0.8 Baso % (Auto) 0.2 Neut # (Auto) 18.90 H Lymph # (Auto) 2.20 Weakley # (Auto) 1.80 H Eos # (Auto) 0.20 Baso # (Auto) 0.00 Abs Immat Gran (auto) 0.16 Sodium 138 Potassium 4.2 Chloride 106 Carbon Dioxide 24 BUN 12 Creatinine 0.9 Estimated Creat Clear 44.58 Estimated GFR 73 Glucose 110 Lactate Calcium 9.3 Ionized Calcium Dee Dee 1.14 Total Bilirubin AST ALT Alkaline Phosphatase C-Reactive Protein Total Protein Albumin Urine Color Urine Appearance Urine pH Ur Specific [place] Urine Protein Urine Glucose (UA) Urine Ketones Urine Blood Urine Nitrite Urine Bilirubin Urine Urobilinogen Ur Leukocyte Esterase Urine RBC Urine WBC Ur Squamous Epith Cells Urine Bacteria Urine Mucus SARS-CoV-2 (PCR) 03/06/22 03/05/22 03/05/22 00:25 14:11 13:37 WBC RBC Hgb Hct MCV MCH MCHC RDW Coeff of Angelica Plt Count Neut % (Auto) Lymph % (Auto) Weakley % (Auto) Eos % (Auto) Baso % (Auto) Neut # (Auto) Lymph # (Auto) Weakley # (Auto) Eos # (Auto) Baso # (Auto) Abs Immat Gran (auto) Sodium Potassium Chloride Carbon Dioxide BUN Creatinine Estimated Creat Clear Estimated GFR Glucose Lactate 1.7 1.7 Calcium Ionized Calcium Dee Dee Total Bilirubin AST ALT Alkaline Phosphatase C-Reactive Protein Total Protein Albumin Urine Color Urine Appearance Urine pH Ur Specific [place] Urine Protein Urine Glucose (UA) Urine Ketones Urine Blood Urine Nitrite Urine Bilirubin Urine Urobilinogen Ur Leukocyte Esterase Urine RBC Urine WBC Ur Squamous Epith Cells Urine Bacteria Urine Mucus SARS-CoV-2 (PCR) Negative SARS-CoV-2 03/05/22 03/05/22 03/05/22 11:20 11:20 11:08 WBC 18.41 H RBC 4.21 Hgb 13.0 Hct 38.4 MCV 91 MCH 31 MCHC 34 RDW Coeff of Angelica 12.5 Plt Count 430 Neut % (Auto) 71.0 Lymph % (Auto) 17.9 L Weak[place] % (Auto) 8.6 Eos % (Auto) 2.1 Baso % (Auto) 0.2 Neut # (Auto) 13.10 H Lymph # (Auto) 3.30 H Weakley # (Auto) 1.60 H Eos # (Auto) 0.40 Baso # (Auto) 0.00 Abs Immat Gran (auto) 0.03 Sodium 138 Potassium 3.5 L Chloride 99 Carbon Dioxide 27 BUN 14 Creatinine 0.8 Estimated Creat Clear 44.58 Estimated GFR 84 Glucose 111 Lactate Calcium 11.3 H Ionized Calcium [place] Total Bilirubin 0.5 AST 51 H ALT 37 H Alkaline Phosphatase 96 C-Reactive Protein 1.2 H Total Protein 8.5 H Albumin 5.0 Urine Color Yellow Urine Appearance Cloudy A Urine pH 6.0 Ur Specific [place] 1.015 Urine Protein 2+ A Urine Glucose (UA) Negative Urine Ketones Negative Urine Blood 3+ A Urine Nitrite Positive A Urine Bilirubin Negative Urine Urobilinogen 0.2 Ur Leukocyte Esterase 3+ A Urine RBC 2-5 A Urine WBC 50-100 A Ur Squamous Epith Cells Few Urine Bacteria Many A Urine Mucus Few A SARS-CoV-2 (PCR) Preliminary micro results at discharge 03/05/22 11:08 Urine Culture - Preliminary Urine,Clean Catch Gram negative tracy Discharge Plan Discharge Disposition: [facility] Date of Admission: 03/05/22 17:04 Primary Care Provider: Jazmine Montanez Discharge Medications: Continued letrozole 2.5 mg tablet 2.5 mg PO QDAY Label Comments: TAKE 1 TABLET BY MOUTH DAILY gemfibrozil 600 mg tablet 600 mg PO QDAY venlafaxine 37.5 mg tablet 37.5 mg PO QDAY multivitamin Tablet 1 tab PO QDAY calcium carbonate 600 mg calcium (1,500 mg) tablet 600 mg PO DAILY cyanocobalamin (vitamin B-12) 500 mcg tablet 500 mcg PO DAILY cholecalciferol (vitamin D3) 50 mcg (2,000 unit) tablet 2,000 unit PO DAILY aspirin 81 mg tablet,delayed release (DR/EC) 81 mg PO QDAY Discharge Orders: Discharge Order (Routine); Ordered 03/06/22 Ordered By: Liz Grullon Activity Level: No Restrictions Discharge Diet: Regular Follow Up Appointments: Jazmine Montanez DO [Primary Care Provider] - Forms: [facility] Info Instructions Hospital Course: Patient admitted on 03/05 with pyelonephritis, associated with a left UVJ stone, measuring 6.6 mm on imaging. No bed is available for transfer on hospital day 1, patient admitted overnight and transferred to [facility] on 03/06 for definitive Urological management. Overnight, patient did develop a fever with T-max of 102?. Her ceftriaxone was broadened to Zosyn. She had intermittent tachycardia, was never hypotensive. Urine culture is currently growing Gram-negative rods. Patient was comfortable with pain management and amenable to transfer to [facility] on hospital day 1.
[2022-03-06] MEDS: CYANOCOBALAMIN (VITAMIN B-12) 500 MCG TABLET PO (09:31)
[2022-03-06] MEDS: CALCIUM CARBONATE 500 MG TABLET PO (09:32)
[2022-03-06] MEDS: VENLAFAXINE HCL 37.5 MG TABLET PO (09:32)
[2022-03-06] MEDS: MULTIVITAMIN/MINERALS 1 TABLET 1 TAB PO (09:32)
[2022-03-06] MEDS: gemfibroziL 600 MG TABLET PO (09:32)
--- NOTE | 2022-03-06 10:46 | PC.NURSE ---
shift [id number] pt this shift pleasant and cooperative. Conversing nicely, pain rated as mild per pt. Increased around 0900 and pain meds given see eMAR. Independent and walking in room, EMS here for transfer to [place]. Nurse to nurse report given. IV left in place.
== END 2022-03-06 09:45 | disposition short-term general hospital (02) | DRG 463 ==
LOC: ED 11:20 → MEDSURG 14:27
PROVIDERS: Admitting Provider Family Medicine; Emergency Provider Family Medicine; PCP Family Medicine; Visit Provider Family Medicine
DX: N13.6 Pyonephrosis (principal); N20.2 Calculus of kidney with calculus of ureter; E87.6 Hypokalemia; E86.9 Volume depletion, unspecified; R00.0 Tachycardia, unspecified; F41.9 Anxiety disorder, unspecified; E11.9 Type 2 diabetes mellitus without complications; Z96.653 Presence of artificial knee joint, bilateral; E78.5 Hyperlipidemia, unspecified; Z85.3 Personal history of malignant neoplasm of breast; H81.01 Meniere's disease, right ear
CPT/HCPCS: 36415; 74177; 80048; 80053; 81001; 82330; 83605; 85025; 86140; 87086; 87186; 87635; 99285; 99291; A9153; A9270; J0696; J1170; J1885; J2270; J2405; J2543; J7030; J7120; Q9967

== ENCOUNTER 2022-03-06 09:37 | Outpatient (CLI) | payer BC, SELFPAY ==
--- OUTSIDE RECORDS SUMMARY | 2022-04-14 11:11 | XMS_ITS | Encounter Summary ---
:1960 Author Care Team Providers Name Role Phone Jazmine Montanez Primary Care Provider [phone] Reason for Visit Kidney Stones Assessment and Plan 1. Kidney stone 1. Kidney stones - reviewed CT scan (03/05/22) - Left - 6 mm stone (UVJ) - Right - 14, 9, 6 mm stones (upper pole) - plan Right and Left ureteroscopy with laser lithotripsy, stone removal, and Right stent placement / Left removal /exchange - will need 24 Hr urine study in near fu ture ? cystoscopy, with ureteroscopy, with l ithotripsy, with insertion of ureteral stent (SURG) Discussion Note: None recorded.Patient educational handouts: No information available. Plan of Care Reminders Provider Appointments Established 10 05/15/2022 Gilbert willis MD 3:30PM Lab None recorded. ? ? Referral None recorded. ? ? Procedures None recorded. ? ? Surgeries Cystoscopy, with 03/20/2022 ? Ureteroscopy, with Lithotripsy, with Insertion of Ureteral Stent (SURG) Imaging None recorded. ? ? Medications Name Start Date ? ? acetaminophen 500 mg tablet ? aspirin 81 mg tablet,delayed release ? TAKE 1 TABLET BY MOUTH TWICE DAILY POST SURGERY FOR C LOT PREVENTION cholecalciferol (vit D3) 1,000 unit-vitamin K2 (MK4) 1 00 mcg tablet ? Take by oral route. cyanocobalamin (B12)-cobamamide 5,000 mcg-100 mcg subl ingual lozenge ? Place by sublingual route. gemfibrozil 600 mg tablet ? TAKE 1 TABLET BY MOUTH EVERY DAY letrozole 2.5 mg tablet ? TAKE 1 TABLET BY MOUTH DAILY Multi Vitamin ? venlafaxine 37.5 mg tablet ? TAKE 1 TABLET BY MOUTH EVERY MORNING Medications Administered None recorded. Vitals Height Weight 5 ft 1 in 172 lbs Results Lab Results None recorded. Allergies Code Code System Name Reaction Severity Onset Adhesive Tape ? ? ? 6211 RxNorm Lactose ? ? ? 5984245 RxNorm Latex ? ? ? Notes: trace metals Problems None recorded. Procedures Date Name Performed by ? 03/23/2022 Cystoscopy, with Ureteroscopy, with Info rmation not available Lithotripsy, with Insertion of Ureteral Stent (Surg) 04/04/2020 Colonoscopy Information not avai lable Notes: [facility] ? Ligation of Fallopian Tube Information n ot available ? Lumpectomy of Breast Information not mera ilable ? Breast Reconstruction Information not av ailable Vaccine List None recorded. Social History Tobacco Smoking Status Former Smoker What was the date of your most recent tobacco 04/03/2022 screening? When did you quit smoking? 16+yearssincelastcigarette Family History Relation Problem Onset Age of Age Notes Paternal Grandmother Family history of (No Information) N/A (No Notes) cancer of colon Sister Family history of (No Information) N/A (No No omar) cancer of colon Mother Family history of (No Information) N/A (No No omar) cancer Paternal Aunt Family history of (No Information) N/A (No N otes) cancer of colon Functional Status Unknown. Past Encounters 03/20/2022 Kidney Stone Gilbert Golden MD: [address] [place] [address], Ph. 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 </div><div>- s/p Left ureteral stent (03/07/22)</div><div>
</div><div>03/20/22 - She presents for follow-up on kidney stones. She has completed a course of Ceftin. She is feeling much better. She reports mild-moderatebladder irritation from hay stent. No fevers, chills, dysuria, or flank pain.</div><div>_ </div><div>CT scan (03/05/22) - Left - 6 mm stone (UVJ) - Right - 14, 9, 6 mm stones (upper pole)</div> Review of Systems ? Comprehensive General Adult ROS Reported By: Patient Constitutional: Constitutional: no fever, no chills Eyes: Eyes: no dry eyes, no vision change, no irritation Endocrine: Endocrine: no fatigue, no in creased thirst Cardiovascular: Cardiovascular: no chest sara n, no palpitations Integumentary: Skin: no rashes, no change i n skin color Respiratory: Respiratory: no wheezing, no cough, no shortness of breath Gastrointestinal: Gastrointestinal: no abdomin al pain, no nausea, no vomiting, no constipation, no GERD Musculoskeletal: Musculoskeletal: no neck sara n, no back pain Neurologic: Neurologic: no tremor, no di zziness, no numbness, no headaches Genitourinary: Genitourinary: no incontinen ce, no difficulty urinating ENMT: Ears: no ear pain. Mouth/Thr oat: no sore throat Allergic/Immunologic: Allergy/Immunologic: no itch ing, no hives Hematologic/Lymphatic: Hematologic/Lymphatic no swo llen glands, no excessive bleeding Psychiatric: Psych: no hallucinations, (n ormal) sleep disturbances: mismatch of sleep / wake pasha edule with lifestyle needs Physical Exam ? Urology Female Reported By: Patient Constitutional: General Appearance: healthy- appearing, well-nourished. Level of Distress: no acute distress Abdomen: Inspection and Palpation: so ft, no tenderness, no masses, no CVA tenderness Skin: General Appearance of extrem ities: no edema. Inspection and palpation: normal temperatur e, no rash, no lesions
--- OUTSIDE RECORDS SUMMARY | 2022-04-14 11:11 | XMS_ITS ---
:1960 Author Care Team Providers Name Role Phone LORENA FRANCE DO Primary Care Provider [phone] Allergies Code Code System Name Reaction Severity Status Onset Adhesive Tape ? ? Active ? 6211 RxNorm Lactose ? ? Active ? 5450186 RxNorm Latex ? ? Active ? Notes: trace metals Medications Name Status Start Date Stop Date ? ? acetaminophen 500 mg tablet Active ? Not available aspirin 81 mg tablet,delayed release Active ? Not available TAKE 1 TABLET BY MOUTH TWICE DAILY POST SURGERY FOR CLOT PREVEN TION cefuroxime axetil 250 mg tablet Completed ? 04/03/2022 cefuroxime axetil 500 mg tablet Completed ? 03/20/2022 celecoxib 200 mg capsule Completed ? 022 TAKE 1 CAPSULE BY MOUTH TWICE DAILY cephalexin 500 mg capsule Completed ? 2021 cholecalciferol (vit D3) 1,000 unit-vitamin K2 (MK4) 100 mcg tab let Active ? Not available Take by oral route. cyanocobalamin (B12)-cobamamide 5,000 mcg-100 mcg sublingual norman enge Active ? Not available Place by sublingual route. gemfibrozil 600 mg tablet Active ? Not av ailable letrozole 2.5 mg tablet Active ? Not avai lable TAKE 1 TABLET BY MOUTH DAILY loperamide Completed ? 04/03/2022 Multi Vitamin Active ? Not available oxycodone 5 mg tablet Completed ? 03/20/2022 oxycodone-acetaminophen 5 mg-325 mg tablet Completed ? 04/03/2022 phenazopyridine 200 mg tablet Completed ? Stimulant Laxative Plus 8.6 mg-50 mg tablet Completed ? 03/20/2022 TAKE 1 TABLET BY MOUTH TWICE DAILY. HOL D MEDICATION IF EXPERIENCING LOOSE STOOLS. sulfamethoxazole 800 mg-trimethoprim 160 mg tablet Completed ? 03/20/2022 TAKE 1 TABLET BY MOUTH EVERY MORNING AND EVERY EVENING FOR 5 DA YS venlafaxine 37.5 mg tablet Active ? Not a vailable Problems None recorded. Procedures Date Name Performed by ? 03/23/2022 Cystoscopy, with Ureteroscopy, with Info rmation not available Lithotripsy, with Insertion of Ureteral Stent (Surg) 04/04/2020 Colonoscopy Information not avai lable Notes: [facility] ? Ligation of Fallopian Tube Information n ot available ? Lumpectomy of Breast Information not mera ilable ? Breast Reconstruction Information not av ailable Results Lab Results None recorded. Past Encounters 04/03/2022 Kidney Stone Gilbert Golden MD: [address] [place] [address], Ph. 03/20/2022 Kidney Stone Gilbert Golden MD: [address] [place] [address], Ph. Social History Tobacco Smoking Status Former Smoker Vaccine List None recorded. Plan of Care Reminders Provider Appointments None recorded. ? ? Lab None recorded. ? ? Referral None recorded. ? ? Procedures None recorded. ? ? Surgeries None recorded. ? ? Imaging None recorded. ? ? Vitals 04/03/2022 09:40AM POST OP 10 Height Weight BMI 5 ft 1 in 172 lbs 32.5 kg/m2 03/20/2022 09:40AM POST OP 10 Height Weight 5 ft 1 in 172 lbs
--- OUTSIDE RECORDS SUMMARY | 2022-04-14 11:11 | XMS_ITS | Encounter Summary ---
:1960 Author Care Team Providers Name Role Phone Jazmine Montanez Primary Care Provider [phone] Reason for Visit Post Op Stent Removal Assessment and Plan 1. Kidney stone 1. Kidney stones - CT scan (03/05/22) - Left - 6 mm stone (UVJ) - Right - 14, 9, 6 mm stones (upper pole) - s/p Bilateral ureteroscopy with laser lithotripsy, stone removal - 03/23/22 - check 24 Hr urine study - assess risk factors for stone formation - encourage fluid intake (2.5 L per day) and Citrate intake - Follow-up in 4-6 weeks to discuss resu lts ? kidney stone, 24-hour urine panel Discussion Note: None recorded.Patient educational handouts: No information available. Plan of Care Reminders Provider Appointments Established 10 05/15/2022 Gilbert willis MD 3:30PM Lab Kidney Stone, 24-Hour Urine 04/03/2022 Giulia herrera Panel Referral None recorded. ? ? Procedures None recorded. ? ? Surgeries None recorded. ? ? Imaging None recorded. ? ? Medications Name [...] Medications Administered None recorded. Vitals Height Weight BMI 5 ft 1 in 172 lbs 32.5 kg/m2 Results Lab Results None recorded. Allergies Code Code System Name Reaction Severity Onset Adhesive Tape ? ? ? 6211 RxNorm Lactose ? ? ? 6532595 RxNorm Latex ? ? ? Notes: trace [...] of colon Functional Status Unknown. Past Encounters 04/03/2022 Kidney Stone Gilbert Golden MD: [email or web address] [address], Ph. 03/20/2022 Kidney Stone Gilbert Golden MD: [email or web address] [address], Ph. 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 </div><div>
</div><div>- s/p Left ureteral stent (03/07/22)</div><div>- s/p Bilateral URS / HLL (03/23/22) </div><div>- stone - 70% CaOx dihydrate and 30% CaOx monohydrate</div><div>
</div><div>03/20/22 - She presents for follow-up on kidney stones. She has completed a course of Ceftin. She is feeling much better. She reports mild-moderate bladder irritation from hay stent. No fevers, chills, dysuria, or flank pain.</div><div>
</div><div>04/03/22 - She presents for Right and Left stent removal. She reports bladder irritation and Right flank pain with activity.</div><div> </div><div>CT scan (03/05/22) - Left - 6 mm stone (UVJ) - Right - 14, 9, 6 mm stones (upper pole)</div> Review of Systems ? Comprehensive General Adult ROS Reported By: Patient Constitutional: Constitutional: no fever, no chills Eyes: Eyes: no dry eyes Endocrine: Endocrine: no fatigue Cardiovascular: Cardiovascular: no chest sara n Respiratory: Respiratory: no wheezing, no cough, no shortness of breath Gastrointestinal: Gastrointestinal: no abdomin al pain, no nausea Physical Exam ? Urology Female Reported By: Patient Constitutional: General Appearance: healthy- appearing, overweight. Level of Distress: no acute distress Abdomen: Inspection and Palpation: so ft, no tenderness, no masses, no CVA tenderness Skin: General Appearance of extrem ities: no edema. Inspection and palpation: normal temperatur e, no rash, no lesions
--- OUTSIDE RECORDS SUMMARY | 2022-04-14 11:11 | XMS_ITS | Clinical Summary ---
:1960 Author Organization [employer] [facility] [place] [address] Care Team Providers Name Role Phone Jazmine Montanez DO Primary Care Provider Allergies Active Allergy Reactions Severity Noted Date Comments Adhesive Rash High 03/22/2021 Adhesive Tape Rash High 02/25/2007 Lactose Diarrhea 01/06/2015 Latex Rash 05/21/2017 Chromium And Derivatives Rash 07/29/2014 All metals except gold and silver Unlisted Allergen (Include *Unknown 02/21/2017 h ayfever Detail In Comments) Trace Metals Hives High 07/08/2018 Medications Medication Sig Dispensed Refills Start End Status Date Date multivitamin (MVI) Take 1 tablet by 0 03/04/20 Active tablet mouth once daily. 12 acetaminophen Take 975 mg by 0 03/04/20 A ctive (TYLENOL) 325 mg mouth every 6 12 tablet hours if needed. Max acetaminophen dose: 4000mg in 24 hrs. loperamide Take 4mg by mouth 0 03/14/20 A ctive (IMODIUM) 2 mg with 1st loose 17 tablet stool, then 2mg with each subsequent loose stool. Max 16 mg in 24 hrs letrozole (FEMARA) Take 2.5 mg by 3 05/10/20 Active 2.5 mg tablet mouth once daily. 17 cyanocobalamin Take 1 tablet by 90 tablet 3 01/08/20 Active (VITAMIN B12) 1,000 mouth once daily. 18 mcg tablet aspirin chewable 81 Take 1 tablet by 0 01/08/20 Active mg chewable tablet mouth once daily 18 with a meal. cholecalciferol Take 1 Capsule 0 12/28/19 Active (VITAMIN D3) 1,000 (1,000 units) by 21 unit capsule mouth once daily. venlafaxine TAKE 1 90 Tablet 1 12/18/19 Active (EFFEXOR) 37.5 mg TABLET(37.5 MG) 22 tabletIndications: BY MOUTH EVERY Anxiety disorder, MORNING unspecified type gemfibroziL (LOPID) TAKE 1 TABLET(600 90 Tablet 0 02/06/20 Active 600 mg MG) BY MOUTH 22 tabletIndications: EVERY DAY Mixed hyperlipidemia oxyCODONE-acetamino Take 1 Tablet by 12 Tablet 0 03/23/20 Active phen (PERCOCET) mouth every 6 22 5-325 mg per hours if needed tabletIndications: for Pain. Max Post-operative acetaminophen state dose: 4000mg in 24 hrs. calcium Take 1 tablet. by 200 tablet 4 09/20/19 D iscontinued carbonate-vitamin mouth once daily 18 022 (*Med D3, 600 mg-400 with a meal. co mplete/Regime unit, 600 n mg(1,500mg) -400 com plete/Level unit tablet of care change) cefuroxime axetil Take 1 Tablet 16 Tablet 0 03/07/20 Discontinued (CEFTIN) 500 mg (500 mg) by mouth 22 022 (*Med tabletIndications: two times daily complete/Regime Left ureteral for 8 days. n stone, complete/L evel Pyelonephritis of ca re change) cefuroxime axetil Take 1 Tablet 6 Tablet 0 03/23/20 (CEFTIN) 250 mg (250 mg) by mouth 22 022 tabletIndications: two times daily Post-operative for 3 days. state phenazopyridine Take 1 Tablet 6 Tablet 0 03/23/20 (PYRIDIUM) 200 mg (200 mg) by mouth 22 022 tabletIndications: 3 times daily if Post-operative needed for Pain state for up to 2 days. 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 y early UA/pelvic US needed. EGD and colonoscopy 2-3 years. ASA recommended daily. Colonoscopy 04/2020 normal, repeat in 1 year for Álvarez syndrome Epicondylitis, lateral (tennis elbow) 05/04/2012 Colon polyp 04/18/2010 Overview: Colonoscopy 04/2010 polyps repeat in 3 y ears Colonoscopy 12/2013 normal repeat in 5 ye ars Colonoscopy 04/2020 normal, repeat in 1 year for Álvarez syndrome Chondromalacia, knee 12/29/2009 Mixed hyperlipidemia 12/27/2009 HSIL (high grade squamous intraepithelial lesion) on P ap smear of cervix 06/04/1997 Overview: 1997 HSIL, follow up not noted in chart. 04/2021 NIL Plan: Pap/HPV due 04/2022. Noted in OV 1 06/13/2020: Guidelines for Pap smear screening at this time are yearly Pap smears until age 65. Left ureteral stone Resolved Problems Problem Noted Date Resolved Date Trapezius strain 08/04/2010 05/04/2012 Depression with anxiety 12/27/2009 02/14/2012 Knee pain, left 12/27/2009 12/29/2009 Encounters Date Type Specialty Care Team Description 03/23/2022 Anesthesia Event Eliud Hennessy MD Janisch, Michael, NAVAL ARCHITECT SPECIALIST Student 03/23/2022 Surgery Gilbert Golden, Cystosc opy, bilateral MD ureteroscopy wi th laser lithotrip sy, right ureteral stent placement and l eft ureteral stent exchange. 03/23/2022 Hospital Encounter Gilbert Golden, P ost-operative state (Primary Dx) 03/22/2022 Travel 03/20/2022 Nurse/Clinic Staff Testing ( Pre-Procedure Only Testing ) 03/19/2022 Travel 03/17/2022 Preop Visit Jazmine Montanez, Pre-Op E felicity ROSEN (Procedure: cystoscopy, lef t ureteroscopy, w ith holmium laser lithotripsy , s tone removal 03/23 ) 03/17/2022 Travel 03/14/2022 Travel 03/10/2022 Office Visit Yu Pastor, Hospit al F/U PA (infection and stone); Immunization/In jection ; Immunization/In jection (COVID-19 vacci ne) 03/09/2022 Orders Only Staff, Other Clinical <No sc ans attached> 03/09/2022 Travel 03/08/2022 Patient Outreach Cassandra Huerta, RN Jasmin vera RN Care Management (LAC E 40 ); Hospital F/U (D D 03/07/22 Left ur eteral stone, Acute pyelonephritis, cystoscopy with left ureteral stent placement.) 03/07/2022 Anesthesia Event Jose Hernandez MD Chau, Ban James MD 03/07/2022 Surgery Gilbert Golden, CYSTOSC OPY LEFT RETROGRADE, LEF T URETERAL STENT PLACEMENT 03/06/2022 - Hospital Encounter [facility], Anw Hospitalists Left ureteral stone (Primary Dx); 03/07/2022 Of Pyelonephritis Altagracia Olea MD [facility], MD Radha Gimenez Ghaziuddin Ahmed, MEL Discharge Summary - Danelle Garcia MBBS - 03/07/2022 2:55 PM CDT Images from the original not e were not included. HOSPITALIST DISCHARGE SUMMAR Y ? ? [facility] Admission Date: 03/06/2022 Discharge Date: 03/07/2022 Discharge Plan: Otilia lindsey was discharged to home. 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 Hospital Course Ms. Otilia Florentino is a 61 y.o. female with a history of Álvarez syndrome, breast cancer and hypercholesterolemia who presents with left flank pain. ?? Per Chart Review, patient wa s in her usual state of health when she did develop left flank pain along with fever and chills. Patient was seen in outside emergency room. Her urine was suggestive of pyuri a and had significant flank tenderness. Urinalysis and blood cultures were done and patient was started on Rocephin. CT abdomen showed left UVJ 6.6mm stone. Patient was transferred to [facility] for further evaluation. On admission started on IV f luids and pain medicine and also on ceftriaxone. Urology consulted and patient underwent cystoscopy with left ureteral stent placement. Pain improved. Patient switched from c eftriaxone to Ceftin on disc harge for 8 more days. Stool cultures are pending at the time of discharge. Patient advised to follow-up with her PCP in 5 days and with urology in 2 weeks for stent removal and definitive treatment for her left ureteral stone. Recommendations for Outpatie nt Provider ? ? PCP: Jazmine Montanez, DO Recommendations for outpati ent provider Specific recommendations to be addressed at the follow up visit: Urien cultures pending at th e time of discharge. I have prescribd ceftin for 8 more days Got 2 doses of Ceftriaxone in the hospital. Please adjust according to culture and sensitivity results. Medication regimen changes: Ceftin for 8 days . Follow-up labs/imaging: CBC and BMP at the time of clinic appointment Other specialty follow-up no t included in DC orders: Urology in 2 weeks Special considerations: none . Functional evaluations: Fall Risk: Total Score (If 5 or > is High Risk): 1 (03/07/22 0200) NuDESC (>/=2 abnormal): 0 ( 03/07/22 0800) MOCA: // SLUMS: Discharge Medications Your Home Medicines START taking these medicines Instructions cefuroxime axetil 500 mg tab let For diagnoses: Left ureteral stone, Pyelonephritis Commonly known as: CEFTIN Take 1 Tablet (500 mg) by m outh two times daily for 8 days. CONTINUE taking these medici shakira Instructions acetaminophen 325 mg tablet Commonly known as: TYLENOL Take 975 mg by mouth every 6 hours if needed. Max acetaminophen dose: 4000mg in 24 hrs. aspirin chewable 81 mg chewa ble tablet Take 1 tablet by mouth once daily with a meal. calcium carbonate-vitamin D3 (600 mg-400 unit) 600 mg-10 mcg (400 unit) tablet Take 1 tablet. by mouth onc e daily with a meal. cholecalciferol 1,000 unit c apsule Commonly known as: VITAMIN D 3 Take 1 Capsule (1,000 units ) by mouth once daily. cyanocobalamin 1,000 mcg tab let Commonly known as: VITAMIN B 12 Take 1 tablet by mouth once daily. gemfibroziL 600 mg tablet For diagnoses: Mixed hyperli pidemia Commonly known as: LOPID TAKE 1 TABLET(600 MG) BY MO UTH EVERY DAY letrozole 2.5 mg tablet Commonly known as: FEMARA TK 1 T PO QD loperamide 2 mg tablet Commonly known as: IMODIUM Take 4mg by mouth with 1st loose stool, then 2mg with each subsequent loose stool. Max 16 mg in 24 hrs multivitamin tablet Commonly known as: MVI Take 1 tablet by mouth once daily. venlafaxine 37.5 mg tablet For diagnoses: Anxiety disor andrez, unspecified type Commonly known as: EFFEXOR TAKE 1 TABLET(37.5 MG) BY M OUTH EVERY MORNING Where to get your medicines These medications were sent to [facility] [phone] [id number] [id number] Hours: Open 24 Hours ?? cefuroxime axetil 500 mg tablet Pertinent Findings / Procedu res First weight: Last weight: Consultants Encounter Notes Consults from Tee Chang PA (Physician Efficiency Clerk) Diet / Activity / Follow-Up After Discharge Orders and I nstructions After Hospital Follow Up Ap pointment(s) Please call [phone] to make an appointment with Dr. Gilbert Golden in 2 weeks When to follow up: 11 to 14 days Patient Instruction post bl adder scan Same Day Discharge patients If unable to urinate in 6-8 hours after discharge, return to Emergency Room with your discharge instructions. Primary Care Provider follo w up appointment(s) Jazmine Montanez, DO When to follow up: 1 to 5 d ays Regular diet: - eat a wide variety of gaby ds, including fruits and vegetable, dairy, grains and meats - limit the amount of solid fat such as butter, margarine and shortening - get most of your fat sourc es from fish, nuts and vegetable oils Up as tolerated It is important to slowly r eturn to your regular level of activity. Start with 5-10 minutes at one time and slowly build to 30 minutes at one time. Save your energy by spreading out activities that make you tired. Rest as needed. Why were you at the [facility]? You were in the hospital fo r Left ureteral stone. Pending Studies Lab results that may not be resulted at time of discharge: (From admission through now) Start Ordered 03/06/22 1230 Blood culture Q1MIN, TODAY Start Priority Status 03/06/22 1230 TODAY Prelimin lauren result Details 03/06/22 1235 TODAY Prelimin lauren result Details 03/06/22 1223 Total time spent on discharg e coordination: 32 minutes. Patient was seen and examined today. MEL Nguyen Hospitalist, [facility] ? ? [phone] 03/05/2022 Orders Only Scanner <No scans attac hed> 02/02/2022 Refill Karist, Jazmine Goodrich, Refil l Request (Gemfibrozil) from Last 3 Months Immunizations Name Administration Dates Next Due COVID-19 vaccine ([facility] 03/10/2022 30mcg/0.3mL) 12YO+ BIVALENT BOOSTER PF, MDV Influenza, IIV3 (Age >=3 years) 02/13/2012 Influenza, IIV4 03/10/2022, 04/13/2021, 04/07/2019, 03/01/2018, 03/14/2017, 03/09/2014, 02/12/2013 Influenza, IIV4 (=>6mos) MDV 04/03/2020 Td (Age >=7 Years) 03/01/2018 Tdap 11/22/2006 Zoster (Shingrix-RZV, recombinant) 08/02/2021, 05/10/2021 Family History Medical History Relation Name Comments Dementia Maternal Grandmother Heart Disease Maternal Uncle [place] AT 42 YEARS Cancer Mother lung Dementia [...] Assigned at Date Recorded Not on file COVID-19 Exposure Response Date Recorded In the last 10 days, have you been in contact No / Unsure 03/22/2022 12:25 PM CDT with someone who was confirmed or suspected to have Coronavirus/COVID-19? Obstetrics History Last Filed Vital Signs Vital Sign Reading Time Taken Comments Blood Pressure 118/25 03/23/2022 1:00 PM CDT Pulse 80 03/23/2022 1:00 PM CDT Temperature 36.2 ??C (97.2 ??F) 03/23/2022 11:15 AM CDT Respiratory Rate 14 03/23/2022 12:45 PM CDT Oxygen Saturation 96% 03/23/2022 1:00 PM CDT Inhaled Oxygen Concentration - - Weight 78.1 kg (172 lb 1.6 oz) 03/23/2022 7:40 AM CDT Height 154.9 cm (5' 1) 03/23/2022 7:40 AM CDT Body Mass Index 32.52 03/23/2022 7:40 AM CDT Plan of Treatment Health Maintenance Due Date Last Done Comments Pneumococcal series for age 19-64 1966 (1 - PCV) Mammogram for age 45-75 02/02/2019 02/02/2017, 01/12/2016, 01/06/2015, Additional history exists BMI (ht and wt [...] series for age Completed 08/02/2021, 12/2020 50+ COVID-19 vaccine series Completed 03/10/2022, 03/22/2021, 09/18/2020, Additional history exists Influenza for age 50-64 Completed 03/10/2022, 04/13/2021, 04/03/2020, Additional history exists Medical Devices Implanted Type Area Math Interventionist Device Shelf Model / Identifier Expiration Serial / Date Lot [id number] 330cc Hazel Rnd High Smooth Saline Right: Mike Hazel 01/10/2022 [id number] / Implanted: Qty: 1 on 03/27/2018 by Tarun Marie MD at [facility] ViClone [id number] / Explanted: at [facility] (Quantity not on file) [id number] Stent Uret [id number] Silhouette - [id number] Left: A pplied Medical 03/21/2024 [id number] / Implanted: Qty: 1 on 03/07/2022 by Gilbert Workman MD at [facility] [employer] Gerda / [id number] Stent Uret [id number] Percuflex Hydroplus - [id number] Left: [facility] 01/12/2025 [id number] / Implanted: Qty: 1 on 03/23/2022 by Gilbert Workman MD at [facility] Ureter / [id number] Procedures Procedure Name Priority Date/Time Associated Comments Diagnosis XR RETROGRADE Routine 03/23/2022 11:05 Results fo r this PYELOGRAM W/WO KUB AM CDT procedure are in the results section. STONE ANALYSIS Today 03/23/2022 11:02 Results f or this AM CDT procedure are i n the results section. ENDOTRACHEAL TUBE Routine 03/23/2022 9:41 AM Resu lts for this CDT procedure are i n the results section. ENDOTRACHEAL TUBE Routine 03/23/2022 9:41 AM Resu lts for this CDT procedure are i n the results section. ENDOTRACHEAL TUBE Routine 03/23/2022 9:41 AM Resu lts for this CDT procedure are i n the results section. CYSTOSCOPY PLACEMENT Tier 2 03/23/2022 9:00 AM ureteral stone s and URETERAL STENT CDT kidney stones Case Notes C-ARM, HOLMIUM LITHOTRIPSY URETEROSCOPY WITH Tier 2 03/23/2022 9:00 AM CDT u reteral stones and LASER kidney stones Case Notes C-ARM, HOLMIUM COVID 19 Routine 03/20/2022 8:24 Screening Results for this AM CDT examination for procedure ar e in infectious disease the resul ts section. COVID 19 COLLECTION Routine 03/20/2022 8:24 Screening Resul ts for this AM CDT examination for procedure ar e in infectious disease the resul ts section. SCAN 03/09/2022 12:00 Results for this CORRESP-LABORATORY AM CDT procedure are in RESULTS the results section. XR RETROGRADE Routine 03/07/2022 12:45 Results fo r this PYELOGRAM W/WO KUB PM CDT procedure are in the results section. SUPRAGLOTTIC-LMA Routine 03/07/2022 11:42 Results for this AM CDT procedure are i n the results section. CYSTOSCOPY Class D Urgent 03/07/2022 11:06 UBJ STONE AND UTI PLACEMENT URETERAL AM CDT STENT RETROGRADES Special Needs WT 172 PLATELET COUNT Timed 03/07/2022 5:17 AM CDT Res ults for this procedure are in the resu lts section. WHITE BLOOD COUNT Early AM 03/07/2022 5:17 AM CDT Results for this procedure are in the resu lts section. MAGNESIUM Early AM 03/07/2022 5:17 AM CDT Resul ts for this procedure are in the resu lts section. BASIC METABOLIC PANEL Early AM 03/07/2022 5:17 AM CDT Results for this procedure are in the resu lts section. COVID 19 FEDERICA 03/07/2022 12:20 AM CDT Resu lts for this procedure are in the resu lts section. COVID 19 COLLECTION FEDERICA 03/07/2022 12:20 AM CDT Results for this procedure are in the resu lts section. SCAN-CARDIAC STRIP 03/07/2022 12:00 AM CDT Results for this procedure are in the resu lts section. BLOOD CULTURE Today 03/06/2022 4:28 PM CDT Resu lts for this procedure are in the resu lts section. POTASSIUM Timed 03/06/2022 4:21 PM CDT Resul ts for this procedure are in the resu lts section. MAGNESIUM Timed 03/06/2022 4:21 PM CDT Resul ts for this procedure are in the resu lts section. BLOOD CULTURE Today 03/06/2022 4:21 PM CDT Resu lts for this procedure are in the resu lts section. URINE CULTURE Today 03/06/2022 1:59 PM CDT Resu lts for this procedure are in the resu lts section. SCAN-CT INTERPRETATION 03/05/2022 12:00 AM CDT from Last 3 Months Results XR RETROGRADE PYELOGRAM W/WO KUB (03/23/2022 11:05 AM CDT)Only the most recent of2 resultswithin the time period is included. Anatomical Region Laterality Modality KIDNEYS, Abdomen Radio Fluoroscopy Specimen (Source) Anatomical Collection Method Collection Time Re ceived Time Location / / Volume Laterality 03/23/2022 11:50 AM CDT Narrative 03/23/2022 11:50 AM CDT For Patients: ??As a result of the Cures Act, medical imaging exams and procedure report s are released immediately into your [facility] medical record. ??You may view this report before your referring provider. ??If you have questions, please contact your health care provider. INDICATION: Stones. FINDINGS: Six views from a retrograde pyelogram sh ow placement of bilateral ureteral stents. 0.7 minutes of fluoro time. Dictated by Kartik Heart MD @ Mar 23 11:50AM (Electronically Signed) ?? Procedure Note Kartik Heart MD - 03/23/2022Forma tting of this note might be different from the original. For Patients: As a result of the Cures Act, medical imaging exams and procedure reports are released immediately into your electronic medical record. You may view this report before your referring provider. If you have questions, please contact [facility] health care provider. INDICATION: Stones. FINDINGS: Six views from a retrograde pyelogram sh ow placement of bilateral ureteral stents. 0.7 minutes of fluoro time. Dictated by Kartik Heart MD @ Mar 23 11:50AM (Electronically Signed) Gilbert Golden MD GENERAL IMAGING STONE ANALYSIS (03/23/2022 11:02 AM CDT) P athologist Signature Source Comment 03/28/2022 [facility] 1:08 PM T [facility] (CET) Comment: Left Ureter Color Brown 03/28/2022 1:08 PM CDT [facility] Size 3x3 mm 03/28/2022 1:08 PM CDT [facility] (CET) Comment: Multiple pieces received. ??Dimensions o f the largest piece reported. Weight 13 mg 03/28/2022 1:08 PM T [facility] (CE T) Composition Comment 03/28/2022 1:08 PM T [facility] (CE T) Comment: Percentage (Represents the % co mposition) Calcium Oxalate Monoh 30 % 03/28/2022 1:08 PM CDT [facility] (CET) Calcium Oxalate Dihyd 70 % 03/28/2022 1:08 PM T [facility] (CET) Comment Comment 03/28/2022 1:08 PM T [facility] (CET) Comment: Calculus received wet. Wet calculi must be dried before analysis, which delays reporting of resu lts. Leaving calculi wet (such as water, saline, blood, urine ) may lead to changes in composition. Photo Comment 03/28/2022 1:08 PM T [facility] (CET) Comment: Photograph will follow under a separate cover Comment: Comment 03/28/2022 1:08 PM T [facility] (CE T) Comment: Physician questions regarding Calculi An alysis contact [facility] at: [phone]. Please note: Comment 03/28/2022 1:08 PM CDT LAB ORP [facility] (CE T) Comment: Calculi report will follow via computer, mail or dental financial coordinator delivery. Disclaimer: Comment 03/28/2022 1:08 PM CDT [facility] Comment: This test was developed and its performa nce characteristics determined by [facility]. ??It has not been cleared or approved by the Food and Drug Administration. Specimen Anatomical Collection Method Collection Time Receive d Time (Source) Location / / Volume Laterality Calculi (stone) CALCULUS SPECIMEN Non-Blood / 03/23/2022 11:02 / Unknown Unknown AM CDT 11:41 AM CDT Narrative [facility] (CET) - 03/28/2022 1:08 PM CDT Performed at: ??01 - [facility] [address] [place], [place], [place] [id number] Computer Video Game Designer: Edison Reyna PhD, Phone: ?? [phone] Gilbert Golden MD SEND OUTS Performing Organization Address City/State/ZIP Code Phon e Number [facility] [address] [place], [place] [address] [facility]IC TESTING (CET) HCHG TUBE PR1, HCHG STYLET PR1, HCHG MOUTHPIECE PR1 (03/23/2022 9:41 AM CDT) Narrative Sandy Carr CRNA - 03/23/2022 9: 41 AM CDT Sandy Carr CRNA ? 03/23/2022 ??9:42 AM Procedure: ETT Patient location during procedure: OR ETT Properties Mask Ventilation: easy Final Technique: direct laryngoscopy Type: straight Cuffed: yes Tube Size: 7.5 mm Stylet: yes Laryngoscope Blade: Mac Blade Size: 3 Cormack-Lehane Grade View: 1 Insertion Attempts: 1 Placement Verification: auscultation, en d tidal CO2 and cuff palpation Assessment: pharynx clear, atraumatic an d dentition unchanged Secured at: 23 Measured From: lips Tooth guard used and removed: yes Bite Block: soft Difficulty: 0 (not difficult) Electronically signed by Janisch, Michae l, NAVAL ARCHITECT SPECIALIST Student ? Sandy Carr NAVAL ARCHITECT SPECIALIST ANESTHESIA PX NOTE ORDERABLE S COVID 19 (03/20/2022 8:24 AM CDT) [facility] Signature COVID 19 Negative Negative 03/21/2022 [facility] 12:52 PM CDT [facility] Comment: All PCR tests are subject to fa lse negative result due to variability in viral load and collection technique. A n egative result does not rule out a SARS-CoV-2 infection. Clinical correlation required . Specimen Anatomical Location / Collection Method Collection Idris e Received Time (Source) Laterality / Volume Other SPECIMEN FROM Non-Blood / 03/20/2022 8:24 03/21/2022 6:06 NASOPHARYNGEAL Unknown AM CDT AM CDT STRUCTURE / Unknown Narrative [facility] - 03/21/2022 12:52 PM CDT This test has been authorized by FDA und er an Emergency Use Authorization (EUA). This test is only authorized for the duration of time the declaration that circumstances exist justifying the authorization of th e emergency use of in vitro diagnostic tests for detection of SARS-CoV-2 virus and/or diagnosis of COVID-19 infection under section 564(b)(1) of the Act, 21 U.S.C. 360bbb-3(b)(1), unless the authorization is terminated or revoked sooner. Simon Pinedo MD MICROBIOLOGY Performing Organization Address City/State/ZIP Code Phon e Number [facility] [address] [place] [address] LABORATORY-CENTRAL 2000 LABORATORY COVID 19 COLLECTION [[id number]] (03/20/2022 8:24 AM CDT)Only the most recent of2 resultswithin the time period is included. [facility] Method Time Signature TESTING [facility] 03/21/2022 [facility] Laboratory 6:06 AM CDT LABORATORY-CE [facility] Comment: Specimen submitted to [facility] for testing. Specimen Anatomical Location / Collection Method Collection Idris e Received Time (Source) Laterality / Volume Other SPECIMEN FROM Non-Blood / 03/20/2022 8:24 03/20/2022 8:54 NASOPHARYNGEAL Unknown AM CDT AM CDT STRUCTURE / Unknown Simon Pinedo MD SEND OUTS Performing Organization Address City/State/ZIP Code Phon e Number [facility] [address] [place] [address] LABORATORY-CENTRAL 1999 LABORATORY SCAN CORRESP-LABORATORY RESULTS (03/09/2022 12:00 AM CDT) Narrative 03/09/2022 12:00 AM CDT This result has an attachment that is no t available. Ordered by an unspecified provider. Other Clinical Staff OTHER [facility] MASK PR5 (03/07/2022 11:42 AM CDT) Narrative Sandy Carr CRNA - 03/07/2022 11 :42 AM CDT Sandy Carr CRNA ? 03/07/2022 11:43 AM Procedure: Supraglottic Patient location during procedure: OR Supraglottic Airway Properties Mask Ventilation: easy Type: unique Tube Size: 4 Insertion Attempts: 1 [address] Verification: auscultation and CO2 detection Assessment Assessment: atraumatic Electronically signed by Meka Carr CRNA ? Sandy Carr [employer] SPECIALIST ANESTHESIA PX NOTE ORDERABLE S PLATELET COUNT (03/07/2022 5:17 AM CDT) P athologist Signature PLATELET COUNT 304 140 - 440 03/07/2022 [facility] thou/cu mm 6:01 AM CDT LABORATORY-CENT RAL LABORATORY MPV 10.2 6.5 - 11.0 03/07/2022 [facility] fL 6:01 AM CDT LABORATORY-CENT RAL LABORATORY Specimen Anatomical Collection Method / Collection Time Recei delilah Time (Source) Location / Volume Laterality Blood BLOOD SPECIMEN / Non-Lab 03/07/2022 5:17 03/07/20 22 5:44 Unknown Venipuncture / AM CDT AM CDT Unknown Altagracia Olea MD HEMATOLOGY Performing Organization Address City/[facility]/ZIP Code Phon e Number [facility] [address] [place] [address] LABORATORY-CENTRAL 1999 LABORATORY (ABNORMAL) White Blood Count (03/07/2022 5:17 AM CDT) Analysis Performed At Patho logist Time Signature WHITE BLOOD 14.3 (H) 4.5 - 11.0 03/07/2022 [facility] COUNT thou/cu mm 6:01 AM CDT LABORATORY-SONG TRAL LABORATORY NRBC 0.0 % 03/07/2022 [facility] 6:01 AM CDT LABORATORY-[facility] TRAL LABORATORY ABS NRBC 0.0 thou /cu 03/07/2022 [facility] mm 6:01 AM CDT LABORATORY-SONG TRAL LABORATORY Specimen Anatomical Collection Method / Collection Time Recei delilah Time (Source) Location / Volume Laterality Blood BLOOD SPECIMEN / Non-Lab 03/07/2022 5:17 03/07/20 22 5:44 Unknown Venipuncture / AM CDT AM CDT Unknown Altagracia Olea MD HEMATOLOGY Performing Organization Address City/State/ZIP Code Phon e Number [facility] [address] [place] [address] LABORATORY-CENTRAL 2000 LABORATORY Magnesium (03/07/2022 5:17 AM CDT)Only the most recent of2 resultswithin the time period is included. P athologist Signature MAGNESIUM 1.8 1.6 - 2.6 03/07/2022 [facility] mg/dL 6:20 AM CDT LABORATORY-CENTR AL LABORATORY Specimen Anatomical Collection Method / Collection Time Recei delilah Time (Source) Location / Volume Laterality Blood BLOOD SPECIMEN / Non-Lab 03/07/2022 5:17 03/07/20 22 5:44 Unknown Venipuncture / AM CDT AM CDT Unknown Altagracia Olea MD CHEMISTRY Performing Organization Address City/State/ZIP Code Phon e Number [facility] [address] [place] [address] LABORATORY-CENTRAL 2000 LABORATORY (ABNORMAL) Basic Metabolic Panel (03/07/2022 5:17 AM CDT) Analysis Performed At Patho logist Time Signature SODIUM 137 135 - 145 03/07/2022 [facility] mmol/L 6:19 AM CDT LABORATORY-SONG TRAL LABORATORY POTASSIUM 3.7 3.5 - 5.0 03/07/2022 [facility] mmol/L 6:19 AM CDT LABORATORY-SONG TRAL LABORATORY CHLORIDE 107 98 - 110 03/07/2022 [facility] mmol/L 6:19 AM CDT LABORATORY-SONG TRAL LABORATORY CO2,TOTAL 23 21 - 31 03/07/2022 [facility] mmol/L 6:19 AM CDT LABORATORY-SONG TRAL LABORATORY ANION GAP 7 5 - 18 03/07/2022 [facility] 6:19 AM CDT LABORATORY-SONG TRAL LABORATORY GLUCOSE 143 (H) 65 - 100 03/07/2022 [facility] mg/dL 6:19 AM CDT LABORATORY-SON[facility] TRAL LABORATORY CALCIUM 8.9 8.5 - 10.5 03/07/2022 [facility] mg/dL 6:19 AM CDT LABORATORY-SON[facility] TRAL LABORATORY BUN 11 8 - 25 03/07/2022 [facility] mg/dL 6:19 AM CDT LABORATORY-SON[facility] TRAL LABORATORY CREATININE 0.79 0.57 - 03/07/2022 [facility] 1.11 mg/dL 6:19 AM CDT LABORATORY-SON[facility] TRAL LABORATORY BUN/CREAT RATIO 14 10 - 20 03/07/2022 [facility] 6:19 AM CDT LABORATORY-SON[facility] TRAL LABORATORY eGFR 85 (L) >90 03/07/2022 [facility] mL/min/1.7 6:19 AM CDT LABORATORY-SONG 3m2 TRAL LABORATORY Comment: As of 2021, eGFR is calcu lated by the CKD-EPI creatinine equation without race adjustment. eGFR can be inf luenced by muscle mass, exercise, and diet. The reported eGFR is an estimation only and is only applicable if the renal function is stable. Specimen Anatomical Collection Method / Collection Time Recei delilah Time (Source) Location / Volume Laterality Blood BLOOD SPECIMEN / Non-Lab 03/07/2022 5:17 03/07/20 22 5:44 Unknown Venipuncture / AM CDT AM CDT Unknown Altagracia Olea MD CHEMISTRY Performing Organization Address City/State/ZIP Code Phon e Number [facility] [address] [place] [address] LABORATORY-CENTRAL 2000 LABORATORY COVID 19 (03/07/2022 12:20 AM CDT) Analysis Performed At Path logist Time Signature COVID 19 Negative Negative 03/07/2022 [facility] 5:03 AM CDT LABORATORY-[facility] MOLE[facility]ULAR TRAL LABORATORY Specimen Anatomical Location / Collection Method Collection Idris e Received Time (Source) Laterality / Volume Other SPECIMEN FROM Non-Blood / 03/07/2022 12:20 03/07/2022 NASOPHARYNGEAL Unknown AM CDT 12:45 AM CDT STRUCTURE / Unknown Narrative [facility] LABORATORY-CENTRAL LABORAT ORY - 03/07/2022 5:03 AM CDT All PCR tests are subject to false negative result due to variability in viral load and collection te chnique. A negative result does not rule out a SARS-CoV-2 infection. Clinical correlation required. This test has been authorized by FDA und er an Emergency Use Authorization (EUA). This test is only authorized for the duration of time the declaration that circumstances exist justifying the authorizati on of the emergency use of in vitro diag nostic tests for detection of SARS-CoV-2 virus and/or diagnosis of COVID-19 infection under section 564(b)(1) of the Act, 21 U.S.C. 360bbb-3(b) (1), unless the authorization is terminated or revoked sooner. Anneliese Elizondo RN MICROBIOLOGY Performing Organization Address City/State/ZIP Code Phon e Number [facility] [employer] [phone] [place] [id number] LABORATORY-CENTRAL 2000 LABORATORY SCAN-CARDIAC STRIP (03/07/2022 12:00 AM CDT) Narrative 03/07/2022 12:00 AM CDT This result has an attachment that is no t available. Ordered by an unspecified provider. Other Clinical Staff OTHER Blood culture (03/06/2022 4:28 PM CDT)Only the most recent of2 resultswithin the time period is included. athologist Signature CULTURE No Growth. 03/13/2022 [facility] 2:42 PM CDT LABORATORY-[facility] LABORATORY Specimen Anatomical Collection Method Collection Time Receive d Time (Source) Location / / Volume Laterality Blood BLOOD SPECIMEN / Butterfly / 03/06/2022 4:28 PM 03/06 4:38 Unknown Unknown CDT PM CDT Narrative [facility] LABORATORY-CENTRAL LABORAT ORY - 03/13/2022 2:42 PM CDT Low volume blood culture received; possi ble false negative culture. Altagracia Olea MD MICROBIOLOGY Performing Organization Address [facility]/ZIP Code Phon e Number [facility] [address] [place] [address] LABORATORY-CENTRAL 1999 LABORATORY POTASSIUM (03/06/2022 4:21 PM CDT) [facility] Signature POTASSIUM 3.6 3.5 - 5.0 03/06/2022 [facility] mmol/L 5:00 PM CDT LABORATORY-CENTR AL LABORATORY Specimen Anatomical Collection Method Collection Time Receive d Time (Source) Location / / Volume Laterality Blood BLOOD SPECIMEN / Line/Port / 03/06/2022 4:21 PM 03/06 4:36 Unknown Unknown CDT PM CDT Anneliese Elizondo RN CHEMISTRY Performing Organization Address City/State/ZIP Code Phon e Number [facility] [address] [place] [phone] LABORATORY-CENTRAL 2000 LABORATORY Urine culture - clean catch (03/06/2022 1:59 PM CDT) athologist Signature CULTURE No growth 03/07/2022 [facility] (<1,000 2:04 PM CDT LABORATORY-CENT CFU/mL) RAL LABORATORY Specimen Anatomical Collection Method Collection Time Receive d Time (Source) Location / / Volume Laterality Urine URINE SPECIMEN / Non-Blood / 03/06/2022 1:59 PM 03/06 2:27 Unknown Unknown CDT PM CDT Altagracia Olea MD MICROBIOLOGY Performing Organization Address City/State/ZIP Code Phon e Number [facility] [address] [place] [address] LABORATORY-CENTRAL 1999 LABORATORY SCAN-CT INTERPRETATION (03/05/2022 12:00 AM CDT) Narrative This result has an attachment that is no t available. Scanner OTHER from Last 3 Months Insurance Payer Benefit Plan / Subscriber ID Effective Dates Phone Addre ss Type Group WC WORK[employer] [id number] 2020-Presen [address] [place] [address] [employer] [place] [employer] [id number] 2018-Present [address] [address] [place] [address] (Home) [place]AM[place]UM[place] [id number] OTILIA FLORENTINO Workers Comp 06/04/[address] (Home) OLAMIDE KUMAR [phone] (Work) Otilia Florentino Workers Comp Self [address] (Home) [place]AM[place] KUMAR [phone] (Work) Advance Directives Latest Code Status on File Code Status Date Activated Date Inactivated Comments Full Code 03/23/2022 7:26 AM 03/23/2022 5:18 PM Code Status Discussion: Unable to Assess Preferences, Provid er to review later Full Code 03/06/2022 12:23 PM 03/07/2022 9:06 PM Code Status Discussion: Reviewed Preferences Full Code 03/27/2018 6:47 AM 03/28/2018 2:35 AM Care Teams [employer] Supervisor Relationship Specialty Start Date End Date Jazmine Montanez DO PCP - General 05/29/08
== END 2022-03-06 09:38 | disposition home or self-care (01) ==
LOC: AMB 04-14 11:09
PROVIDERS: PCP Family Medicine; Visit Provider Family Medicine
DX: N20.0 Calculus of kidney (principal)
CPT/HCPCS: A0425; A0426

== ENCOUNTER 2022-11-23 15:00 | Outpatient (RCR) | payer BC, SELFPAY | END 2023-03-27 23:59 | disposition home or self-care (01) | LOC: CCIC 15:00 | PROVIDERS: PCP Family Medicine; Visit Provider Physician Assistant | DX: C50.911 Malignant neoplasm of unspecified site of right female breast (principal); Z17.0 Estrogen receptor positive status [ER+]; Z79.811 Long term (current) use of aromatase inhibitors; Z90.13 Acquired absence of bilateral breasts and nipples; M81.0 Age-related osteoporosis without current pathological fracture; Z96.652 Presence of left artificial knee joint | CPT/HCPCS: 99212; 99213; 99214; 99215 ==

== ENCOUNTER 2023-09-10 07:56 | Outpatient (CLI) | payer BC, SELFPAY ==
--- OUTSIDE RECORDS SUMMARY | 2023-09-10 08:00 | XMS_ITS | Continuity of Care Document ---
Author Name Unknown Address [address] [place] [address] Phone [phone] Organization [facility] Address [address] [facility] [address] [place] [address] Care Team Providers Care Bill Checker Name Role Phone LORENA FRANCE Primary Care Provider Assessment No assessment recorded. Plan of Treatment Reminders Order Date Submit Date Provider Last Modified By Organization Details Last Modified Time Details Appointments None recorded. Lab None recorded. Referral None recorded. Procedures None recorded. Surgeries None recorded. Imaging XR, kidney + ureter + bladder 2023 024 [email or web address] [address] [facility] , [address] [place], [address], 4 08:43:58 US, kidney - Check Renal U/S - H/O Left hydronephro sis - [facility] ) 2023 024 [facility], [address] [place], [address], 4 04:38:31 Medication Orders None recorded. Patient TargetsNo targets recorded. Patient InstructionsNo instructions recorded. Reason for Referral None Reported. Results Created Date Observation Date Name Description Value Unit Range Abnormal Flag LastModifiedBy Organization Detail LastModifiedTime 08/16/1903/05/2022 CT, abdom en + pelvi s, w/ contr ast No observ ation record ed. [email or web address] Not Available 08/16/2023 14:12:18 08/22/19 24 08/22/2023 XR, kidne y + urete r + bladd er EXAM: XR, KIDNEY + URETER + BLADDE R LOCATI ON: [facility] DATE: 2023 INDICA TION: Calcul us of kidney . COMPAR RACHANA: CT abdome n and pelvis 2022. IMPRES MARLEEN: Simila r right renal calcul i, the larges t in the lower pole measur ing 8-9 mm. No convin cing calcul i overly ing the left kidney or ureter s. Nonobs tructi ve bowel gas patter n. Calcif ied uterin e fibroi ds. This report was electr onical ly interp reted by: Margie carranza MD on 2023 at 11:55 [email or web address] [facility] [address] [facility] [address], [place], [address], 08/30/2023 16:05:59 Result Notes Documentation Provider Name and Address Organization Details Recorded Time Xr, Kidney + Ureter + Bladder : EXAM: XR, KIDNEY + URETER + BLADDER LOCATION: [facility] DATE: 08/22/2023 INDICATION: Calculus of kidney. COMPARISON: CT abdomen and pelvis 02/21/2023. IMPRESSION: Similar right renal calculi, the largest in the lower pole measuring 8-9 mm. No convincing calculi overlying the left kidney or ureters. Nonobstructive bowel gas pattern. Calcified uterine fibroids. This report was electronically interpreted by: Howard Gonzalez MD on 08/22/2023 at 11:55 Gilbert Golden MD [address] [place] [address],[address], [place], [address], [facility] 08/30/2023 16:05:59 Problems Name Status Onset Date Resolution Date Notes Provider Name and Address Organization Details Recorded Time History of calculus of kidney Active 2 Gilbert Golden MD [address] [place] [address],[address], [place], [address], [facility] 05/15/2022 16:40:09 Problem Notes None recorded. Procedures Surgical History Date Name Laterality Status Provider Name and Address Organization Details Recorded Time 07/12/19 24 Colonoscopy completed Charlene fairchild [facility] 08/22/2023 12:05:57 04/16/20 23 Cystoscopy with foreign body/stent removal completed Gilbert Golden MD [address] [facility] [address], [place], [address], [facility] 04/15/2023 22:48:02 04/03/20 22 Cystoscopy with foreign body/stent removal completed Gilbert Golden MD [address] [facility] [address], [place], [address], [facility] 04/03/2022 09:37:49 04/03/20 22 Keflex post Cysto completed Charlene fairchild [facility] 04/03/2022 10:40:54 03/23/20 22 CYSTOSCOPY, WITH URETEROSCOPY, WITH LITHOTRIPSY, WITH INSERTION OF URETERAL STENT (SURG) [facility]28[facility] 12:46:24 Breast reconstruction completed Charlene fairchild [facility] 03/20/2022 10:22:36 [facility] 03/20/2022 10:22:46 [facility] fall[facility] tube [facility] 03/20/[facility]22 10:22:55 Imaging Results None recorded. Procedure Notes None recorded. Medical Equipment None Reported. Allergies Allergen ID Allergen Name Allergen Category Reaction Reaction Severity Criticality Documentation Date Start Date Code Code System Note Provider Name and Address Organization Details Recorded Time 481800 adhesive tape environme nt,medica tion Not available Not available Not available 03/20/2022 Charlene fairchild [facility] 2 10:19:53 789327 lactose food,medi cation Not available Not available Not available 03/20/2022 6211 RxNorm Charlene fairchild [facility] 2 10:20:17 563794 latex environme nt,medica tion Not available Not available Not available 03/20/2022 26855 91 RxNorm Charlene fairchild [facility] 2 10:20:34 Medications Name Sig Start Date Stop Date Status Note LastModified by Organization Details LastModified Time celecoxib 200 mg capsule TAKE 1 CAPSULE BY MOUTH TWICE DAILY 03/20 completed Not Available Not Available Not Available cefuroxime axetil 250 mg tablet 04/03 completed Not Available Not Available Not Available phenazopyri dine 200 mg tablet 08/21 completed Not Available Not Available Not Available alendronate 70 mg tablet active Not Available Not Available Not Available sulfamethox azole 800 mg-trimetho prim 160 mg tablet TAKE 1 TABLET BY MOUTH EVERY MORNING AND EVERY EVENING FOR 5 DAYS 03/20 completed Not Available Not Available Not Available peg-electro lyte solution 420 gram oral solution 02/21 completed Not Available Not Available Not Available aspirin 81 mg tablet,myra yed release TAKE 1 TABLET BY MOUTH TWICE DAILY POST SURGERY FOR CLOT PREVENTIO N active Not Available Not Available No t Available acetaminoph en 500 mg tablet active Not Available Not Available Not Available oxycodone-a cetaminophe n 5 mg-325 mg tablet TAKE 1 TABLET BY MOUTH EVERY 4 TO 8 HOURS NEEDED FOR PAIN 04/16 completed Not Available Not Available Not Available gemfibrozil 600 mg tablet TAKE 1 TABLET BY MOUTH DAILY active Not Available Not Available No t Available cephalexin 500 mg capsule 03/20 completed Not Available Not Available Not Available venlafaxine 37.5 mg tablet TAKE 1 TABLET BY MOUTH EVERY MORNING active Not Available Not Available No t Available cefuroxime axetil 500 mg tablet 03/20 completed Not Available Not Available Not Available letrozole 2.5 mg tablet TAKE 1 TABLET BY MOUTH DAILY 02/21 completed Not Available Not Available Not Available amoxicillin 875 mg-potassiu m clavulanate 125 mg tablet TAKE 1 TABLET BY MOUTH TWICE DAILY FOR 10 DAYS 04/16 completed Not Available Not Available Not Available oxycodone 5 mg tablet TAKE ONE-HALF TO 1 TABLET EVERY 4 TO 6 HOURS NEEDED. MAXIMUM DAILY DOSE IS 6. MINIMIZE WEAN OFF AND DISCONTIN UE FEDERICA 03/20 completed Not Available Not Available Not Available calcium 06/27 completed Not Available Not Available Not Available loperamide 04/03 completed Not Available Not Available Not Available Zyrtec active Not Available Not Availa ble Not Available Gavilyte-C 240 gram-22.72 gram-6.72 gram-5.84 gram oral solution DRINK 2 LITERS THE DAY BEFORE COLONOSCO PY AND 2 LITERS 6HR PRIOR TO COLONOSCO PY APPT 08/21 completed Not Available Not Available Not Available cyanocobala min (B12)-cobam amide 5,000 mcg-[address] by sublingua l route. active Not Available Not Available No t Available Multi Vitamin active Not Available Not Available Not Available Stimulant Laxative Plus 8.6 mg-50 mg tablet TAKE 1 TABLET BY MOUTH TWICE DAILY. HOLD MEDICATIO N IF EXPERIENC ING LOOSE STOOLS. 03/20 completed Not Available Not Available Not Available cholecalcif ariane (vit D3) 1,000 unit-vitami n K2 (MK4) 100 mcg tablet Take by oral route. active Not Available Not Available No t Available Vitals Date Recorded Body height Body mass index (BMI) Body weight Provider Name and Address Organization Details Last Updated DateTime 08/22/2023 154.94 cm 34 kg/m2 68344.63 g Charlene fairchild [facility] 08/22/2023 12:05:27 Social History Question Answer Notes LastModified by Organizat ion Details LastModified Time Tobacco Smoking Status Former Smoker OLAM[facility] 03/20/2022 10:23:13 When Did You Quit Smoking? 16+yearssinc elastcigaret te Information not available 03/20/2022 What Was The Date Of Your Most Recent Tobacco Screening? 08/22/2023 Information not available 08/22/2023 Sex: Female Functional Status None recorded. Mental Status None recorded. Family History Relationship Description Onset Age of this Age Resolved Age Notes Paternal Grandmother Family history of cancer of colon Sister Family history of cancer of colon Mother Family history of cancer Paternal Aunt Family history of cancer of colon Medical History Condition Response Other Y Kidney Stones Y Cancer Y Depression Y High Cholesterol Y Gynecological HistoryNo gynecological history recorded. Obstetrics History GPAL:G 0 P 0 0 0 0 Immunizations Vaccine Type Date Status Provider Name and Address Organization Details Recorded Time influenza, injectable, quadrivalent 04/03/2020 completed Gilbert Golden MD [address] [place] [address],[address], [place], [address], [facility] 02/21/2023 11:42:45 zoster recombinant 08/02/2021 completed Gilbert simmons MD [address] [place] [address],[address], [place], [address], [facility] 02/21/2023 11:42:45 zoster recombinant 05/10/2021 completed Gilbert simmons MD [address] [place] [address],[facility] [address], [place], [address] [place] [address], [facility] 02/21/2023 11:42:45 COVID-19, mRNA, LNP-S, PF, 30 mcg/0.3 mL dose 08/28/2020 completed Gilbert Golden MD [address] [place] [address],[address], [address], [facility] 02/21/2023 11:42:45 COVID-19, mRNA, LNP-S, PF, 30 mcg/0.3 mL dose 09/18/2020 completed Gilbert Golden MD [address] [place] [address],[address] [facility], [place], [address], [facility] 02/21/2023 11:42:45 COVID-19, mRNA, LNP-S, PF, 30 mcg/0.3 mL dose 03/22/2021 completed Gilbert Golden MD [address] [place] [address],[address] [place] [address], [address], [facility] 02/21/2023 11:42:45 COVID-19, mRNA, LNP-S, bivalent, PF, 30 mcg/0.3 mL dose 03/10/2022 completed Gilbert Golden MD [address] [place] [address],[address], [place], [address], [facility] 02/21/2023 11:42:45 Tdap 11/22/2006 completed Gilbert Golden MD [address] [place] [address],[address], [address], [facility] 02/21/2023 11:42:45 Influenza, seasonal, injectable 02/13/2012 completed Gilbert Golden MD [address] [place] [address],[address], [address], [facility] 02/21/2023 11:42:45 Td (adult), 2 Lf tetanus toxoid, preservative free, adsorbed 03/01/2018 completed Gilbert Golden MD [address] [place] [address],[address] [place] [address], [address], [facility] 02/21/2023 11:42:46 influenza, injectable, quadrivalent, preservative free 02/12/2013 completed Gilbert Golden MD [address] [place] [address],[address] [place] [address], [address], [facility] 02/21/2023 11:42:46 influenza, injectable, quadrivalent, preservative free 03/01/2018 completed Gilbert Golden MD [address] [place] [address],[address], [address], [facility] 02/21/2023 11:42:46 influenza, injectable, quadrivalent, preservative free 03/09/2014 completed Gilbert Golden MD [address] [place] [address],[address] [place] [address], [address], [facility] 02/21/2023 11:42:46 influenza, injectable, quadrivalent, preservative free 03/10/2022 completed Gilbert Golden MD [address] [place] [address],[address] [place] [address], [phone], [facility] 02/21/2023 11:42:46 influenza, injectable, quadrivalent, preservative free 03/14/2017 completed Gilbert Golden MD [address] [place] [address],[address] [place] [address], [address], [facility] 02/21/2023 11:42:46 influenza, injectable, quadrivalent, preservative free 04/07/2019 popeye Golden MD [address] [place] [address],[address] [place] [address], [address], [facility] 02/21/2023 11:42:46 influenza, injectable, quadrivalent, preservative free 04/13/2021 popeye Golden MD [address] [place] [address],[address] [place] [address], [address], [facility] 02/21/2023 11:42:46 Past Encounters Encounter ID Performer Location Encounter Start Date Encounter Closed Date Diagnosis/Indication Diagnosis SNOMED-CT Code [id number] Gilbert Golden MD [facility] [address] [place] [address] 08/22/2023 11:51:51 08/23/2023 08:43:58 History of calculus of kidney [id number] Kidney stone 86904018 Hydronephrosis 65030369 Health Concerns Section Related Observation LastModified by Organization Detai ls LastModified Time None Recorded Concern Status LastModified by Organization Details LastModified Time None Recorded Payers Encounter Date Sequence Insurance Name Policy Number Policy Sandoval Covered Member ID Sandoval Member ID Guarantor Name 08/22/2023 1 [employer] - [place]MO[place] [id number] Otilia Florentino [id number] Otilia Florentino Notes Date Note Type Note Provider Name and Address Organization Details Recorded Time 08/22/2023 text/html HPI Notes: 62 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 - s/p Left ureteral stent (03/07/22) - s/p Bilateral URS / HLL (03/23/22) - stone - 70% CaOx dihydrate and 30% CaOx monohydrate - s/p Bilateral ureteroscopy, Dilation of L ureteral stricture (distal) - (03/15/23) (Right kidney stones not seen) 05/15/22 - She presents for follow-up on kidney stones. She denies abdominal or flank pain - no bladder irritation. She states she is feeling much better - more energy. 02/21/23 - She presents for follow-up on kidney stones. She denies abdominal or flank pain. 04/16/23 - She presents for Left ureteral stent removal. She reports mild stent irritation in bladder. 06/27/23 - She presents for follow-up on kidney stones. She denies flank pain. 08/22/23 - She presents for follow-up on kidney stones. She denies flank pain. - KUB (08/22/23) - Right - 5 mm stone (upper pole) - 9 mm and 3 mm stones (mid-kidney) CT scan (03/05/22) - Left - 6 mm stone (UVJ) - Right - 14, 9, 6 mm stones (upper pole) CT scan (02/21/23) - Right - 9 mm (upper pole) - 10 mm & 8 mm stones (posterior mid-kidney) - Left - + severe hydronephrosis -with parenchymal thinning - ureter dilated to distal ureter) - no stones 24 Hr urine (04/24/22) - low UO (1.73 L) - high Calcium (233 mg) - normal - Oxalate (29 mg) - Citrate (507 mg) - Mg (64 mg) - Phos (0.556) - Uric acid (0.412) 24 Hr urine (05/07/23) - low UP (1.9 L) - high Calcium (219 mg) - low Citrate (444 mg) - high Sodium (172 mg) - normal - Oxalate (32 mg) - Mg (47 mg) - Phos (628 mg) - Uric acid (376 mg) KUB (08/22/23) - Right - 5 mm stone (upper pole) - 9 mm and 3 mm stones (mid-kidney) Gilbert Golden MD [address] [place] [address],[facility] [address], [place], [address], [facility] 08/22/2023 13:47:28 OBGyn Episode No OBEpisode recorded.
--- OUTSIDE RECORDS SUMMARY | 2023-09-10 08:00 | XMS_ITS | Continuity of Care Document ---
Author Name Unknown Address [address] [place] [address] Phone [phone] Organization [facility], [facility] Address [address] [place] [address] Care Team Providers Care Wood Last Maker Name Role Phone LORENA FRANCE Primary Care Provider Assessment No assessment recorded. Plan of Treatment Reminders Order Date Submit Date Provider Last Modified By Organization Details Last Modified Time Details Appointments None record ed. Lab None record ed. Referral None record ed. Procedures None record ed. Surgeries None record ed. Imaging None record ed. Medication Orders None record ed. Patient TargetsNo targets recorded. Patient Instructions Encounter Date Encounter Id Patient Instructions Last Modified By Organization Details Last Modified Time 06/27/2023 [id number] telephone - 6 minutes [email or web address] Not available 06/27/2023 13:26:13 Reason for Referral None Reported. 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 Problems Name Status Onset Date Resolution Date Notes Provider Name and Address Organization Details Recorded Time History of calculus of kidney Active Gilbert Golden MD [address] [place] [address],[address], [place], [address], [facility] 05/15/2022 16:40:09 Problem Notes None recorded. Procedures Surgical History Date Name Laterality Status Provider Name and Address Organization Details Recorded Time 07/12/19 24 Colonoscopy completed Charlene fairchild [facility] 08/22/2023 12:05:57 04/16/20 23 Cystoscopy with foreign body/stent removal completed Gilbert Golden MD [address] [place] [address],[address], [place], [address], [facility] 04/15/2023 22:48:02 04/03/20 22 Cystoscopy with foreign body/stent removal completed Gilbert Golden MD [address] [place] [address],[address], [place], [address], [facility] 04/03/2022 09:37:49 04/03/20 22 Keflex post Cysto completed Charlene fairchild [facility] 04/03/2022 10:40:54 03/23/20 22 CYSTOSCOPY, WITH URETEROSCOPY, WITH LITHOTRIPSY, WITH INSERTION OF URETERAL STENT (SURG) completed Mohini fairchild [facility] 03/28/2022 12:46:24 Breast reconstruction completed Charlene fairchild [facility] 03/20/2022 10:22:36 lumpectomy of breast completed Charlene fairchild [facility] 03/20/2022 10:22:46 [facility] 10:22:55 Imaging Results None recorded. Procedure Notes None recorded. Medical Equipment None Reported. Allergies Allergen ID Allergen Name Allergen Category Reaction Reaction Severity Criticality Documentation Date Start Date Code Code System Note Provider Name and Address Organization Details Recorded Time 692181 adhesive tape environme nt,medica tion Not available Not available Not available 03/20/2022 Charlene fairchild [facility] 2 10:19:53 844648 lactose food,medi cation Not available Not available Not available 03/20/2022 6211 RxNorm Charlene fairchild [facility] 2 10:20:17 911860 latex environme nt,medica tion Not available Not available Not available 03/20/2022 22379 91 RxNorm [facility] 10:20:34 Medications Name Sig Start Date [...] and Address Organization Details Last Updated DateTime 06/27/2023 154.94 cm 33.1 kg/m2 47634.66 g OLAMIDE Haq [facility] 06/27/2023 12:31:15 Social History Question Answer Notes LastModified by Organizat ion Details LastModified Time Tobacco Smoking Status Former Smoker Charlene Peralta [facility] 03/20/2022 10:23:13 When Did You Quit Smoking? 16+yearssinc elastcigaret te [id number] Information not available 03/20/2022 What Was The [...] Condition Response Other Y Kidney Stones Y Depression Y Cancer Y High Cholesterol Y Gynecological HistoryNo gynecological history recorded. Obstetrics History GPAL:G 0 P 0 0 0 0 Immunizations Vaccine Type Date Status Provider Name and Address Organization Details Recorded Time influenza, injectable, quadrivalent 04/03/2020 completed Gilbert Golden MD [address] [place] [address],[place] [address], [facility] 02/21/2023 11:42:45 zoster recombinant 08/02/2021 completed Gilbert simmons MD [address] [place] [address],[place] [address], [facility] 02/21/2023 11:42:45 zoster recombinant 05/10/2021 completed Gilbert simmons MD [address] [place] [address],[place] [address], [facility] 02/21/2023 11:42:45 COVID-19, mRNA, LNP-S, PF, 30 mcg/0.3 mL dose 08/28/2020 completed Gilbert Golden MD [address] [place] [address],[place] [address], [facility] 02/21/2023 11:42:45 COVID-19, mRNA, LNP-S, PF, 30 mcg/0.3 mL dose 09/18/2020 completed Gilbert Golden MD [address] [place] [address],[place] [address], [facility] 02/21/2023 11:42:45 COVID-19, mRNA, LNP-S, PF, 30 mcg/0.3 mL dose 03/22/2021 completed Gilbert Golden MD [address] [place] [address],[address], [address], [facility] 02/21/2023 11:42:45 COVID-19, mRNA, LNP-S, bivalent, PF, 30 mcg/0.3 mL dose 03/10/2022 completed Gilbert Golden MD [address] [place] [address],[address], [address], [facility] 02/21/2023 11:42:45 Tdap 11/22/2006 completed Gilbert Golden MD [address] [place] [address],[address], [address], [facility] 02/21/2023 11:42:45 Influenza, seasonal, injectable 02/13/2012 completed Gilbert Golden MD [address] [place] [address],[address], [address], [facility] 02/21/2023 11:42:45 Td (adult), 2 Lf tetanus toxoid, preservative free, adsorbed 03/01/2018 completed Gilbert Golden MD [address] [place] [address],[address], [address], [facility] 02/21/2023 11:42:46 influenza, injectable, quadrivalent, preservative free 02/12/2013 completed Gilbert Golden MD [address] [place] [address],[address], [address], [facility] 02/21/2023 11:42:46 influenza, injectable, quadrivalent, preservative free 03/01/2018 completed Gilbetr Golden MD [address] [place] [address],[address] [place] [address], [address], [facility] 02/21/2023 11:42:46 influenza, injectable, quadrivalent, preservative free 03/09/2014 completed Gilbert Golden MD [address] [place] [address],[address] [place] [address], [phone], [facility] 02/21/2023 11:42:46 influenza, injectable, quadrivalent, preservative free 03/10/2022 popeye Golden, MD [address] [place] [address],[address], [place], [address], [facility] 02/21/2023 11:42:46 influenza, injectable, quadrivalent, preservative free 03/14/2017 completed Gilbert Golden MD [address] [place] [address],[address], [place], [address], [facility] 02/21/2023 11:42:46 influenza, injectable, quadrivalent, preservative free 04/07/2019 popeye Golden MD [address] [place] [address],[address], [place], [address], [facility] 02/21/2023 11:42:46 influenza, injectable, quadrivalent, preservative free 04/13/2021 popeye Golden MD [address] [place] [address],[address] [place] [address], [phone], [facility] 02/21/2023 11:42:46 Past Encounters Encounter ID Performer Location Encounter Start Date Encounter Closed Date Diagnosis/Indication Diagnosis SNOMED-CT Code [id number] Gilbert Golden MD [facility] [address] [place] [address] 06/27/2023 12:30:09 06/27/2023 15:13:55 Kidney stone 08132617 Hydronephrosis 47978564 Health Concerns Section Related Observation LastModified by Organization Detai ls LastModified Time None Recorded Concern Status LastModified by Organization Details LastModified Time None Recorded Payers Encounter Date Sequence Insurance Name Policy Number Policy Sandoval Covered Member ID Sandoval Member ID Guarantor Name 06/27/2023 1 [facility] (MEDICAID REPLACEMENT - HMO) [id number] Otilia Florentino [id number] Otilia Florentino Notes Date Note Type Note Provider Name and Address Organization Details Recorded Time 06/27/2023 text/html HPI Notes: 62 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 - s/p Left ureteral stent (03/07/22) - s/p Bilateral URS / HLL (03/23/22) - stone - 70% CaOx dihydrate and 30% CaOx monohydrate - s/p Bilateral ureteroscopy, Dilation of L ureteral stricture (distal) - (03/15/23) 05/15/22 - She presents for follow-up on [...] on kidney stones. She denies flank pain. CT scan (03/05/22) - Left - 6 [...] (628 mg) - Uric acid (376 mg) Prior to conducting our telephone visit, the patient was apprised of the risks, benefits and alternatives to telephone visits including but not limited to poor audio quality, interrupted visits due to technological limitations, delays in medical evaluation and treatment due to deficiencies or failures of equipment, failure of security protocols resulting in a breach of privacy of personal medical information and a lack of access to complete medical records resulting in not fully informed. It was not possible for the patient to sign the privacy regulations, HIPAA release and assignment of benefits forms. The patient was given the opportunity to ask questions about these policies and gave verbal acknowledgement and approval of these policies as well as to hold this meeting by telephone. Lastly, the patient agreed to allowing their medication history to be pulled from a national pharmacy database to facilitate and coordinate their care. Gilbert Golden MD [address] [place] [address],[address], [place], [address], [facility] 06/27/2023 13:27:28 OBGyn Episode No OBEpisode recorded.
--- OUTSIDE RECORDS SUMMARY | 2023-09-10 08:00 | XMS_ITS | Data Portability ---
Author Name Unknown Address [address] [place] [address] Phone [phone] Organization [facility], [facility] Address [address] [facility] [address] [place] [address] Care Team Providers Care Counsel Name Role Phone EDILMALORENA Primary Care Provider Assessment No assessment recorded. Plan of Treatment Reminders Order Date Submit Date Provider Last Modified By Organization Details Last Modified Time Details Appointments None recorde d. Lab kidney stone, 24-hour urine panel 2022 023 [email or web address] Geno, [address], [place], [address], 3 08:35:02 kidney stone, 24-hour urine panel 2021 022 [email or web address] Diditz, [address], [place], [address], 2 10:44:06 Referral None recorde d. Procedures None recorde d. Surgeries cystosc opy, with uretero scopy, with retrogr oz uretero pyelogr am, with stent placeme nt (SURG) 2022 023 [email or web address] Not available 3 15:19:18 cystosc opy, with uretero scopy, with lithotr ipsy, with inserti on of uretera l stent (SURG) 2021 022 [email or web address] Not available 2 12:29:09 Imaging XR, kidney + ureter + bladder 03/20/ 2024 03/20/2 024 [email or web address] [facility] , [address] [place], [address], 4 08:43:58 US, kidney - Check Renal U/S - H/O Left hydrone phrosis - [facility]) 2023 024 [facility], [address] [place], [address], 4 04:38:31 XR, kidney + ureter + bladder 2022 023 [email or web address] [facility] , [address] [place], [address], 3 13:12:43 US, kidney 2022 023 [email or web address] [facility], [address] [place], [address], 3 09:10:46 XR, kidney + ureter + bladder - PREV HERE 02/21/232022 023 [facility] , [facility] [place], [address], 4 12:58:01 Medication Orders None recorde d. Patient TargetsNo targets recorded. Patient Instructions Encounter Date Encounter Id Patient Instructions Last Modified By Organization Details Last Modified Time 06/27/2023 [id number] telephone - 6 minutes [email or web address] Not available 06/27/2023 13:26:13 Reason for Referral None Reported. Results Created Date Observation Date Name Description Value Unit Range Abnormal Flag LastModifiedBy Organization Detail LastModifiedTime 05/07/2005/10/2023 LITHO LINK 24HR URINE PANEL cystine, urine, qualitative commen t Not Available [facility] ([facility]) [address] [facility], [place], [address], 05/10/2023 22:06:13 05/07/20 23 05/10/2023 LITHO LINK 24HR URINE PANEL urine volume (preserved) 1900 mL/24 _HR 500-40 00 Not Available [facility] ([facility]) [address] [facility], [place], [address], 05/10/2023 22:06:13 05/07/20 23 05/10/2023 LITHO LINK 24HR URINE PANEL calcium oxalate saturation 7.51 6.00-1 0.00 Not Available [facility] ([facility]) [address] [place], [address], 05/10/2023 22:06:13 05/07/20 23 05/10/2023 LITHO LINK 24HR URINE PANEL calcium, urine 219 mg/24 _HR <200 above high normal Not Available [facility] ([facility]) [address] [place], [address], 05/10/2023 22:06:13 05/07/20 23 05/10/2023 LITHO LINK 24HR URINE PANEL oxalate, urine 32 mg/24 _HR 20-40 Not Available [facility] ([facility]) [address] [place], [address], 05/10/2023 22:06:13 05/07/20 23 05/10/2023 LITHO LINK 24HR URINE PANEL citrate, urine 444 mg/24 _HR >550 below low normal Not Available [facility] ([facility]) [address] [place], [address], 05/10/2023 22:06:13 05/07/20 23 05/10/2023 LITHO LINK 24HR URINE PANEL calcium phosphate saturation 0.47 0.50-2 .00 below low normal Not Available [facility] ([facility]) [address] [place], [address], 05/10/2023 22:06:13 05/07/20 23 05/10/2023 LITHO LINK 24HR URINE PANEL pH, 24 HR, urine 5.757 5.800- 6.200 below low normal Not Available [facility] ([facility]) [address] [place], [address], 05/10/2023 22:06:13 05/07/20 23 05/10/2023 LITHO LINK 24HR URINE PANEL uric acid saturation 0.60 <1.00 Not Available [facility] ([facility]) [address] [place], [address], 05/10/2023 22:06:13 05/07/20 23 05/10/2023 LITHO LINK 24HR URINE PANEL uric acid, urine 367 mg/24 _HR <750 Not Available [facility] ([facility]) [address] [place], [address], 05/10/2023 22:06:13 05/07/20 23 05/10/2023 LITHO LINK 24HR URINE PANEL sodium, urine 172 mmol/ 24_HR 50-150 above high normal Not Available [facility] ([facility]) [address] [place], [address], 05/10/2023 22:06:13 05/07/20 23 05/10/2023 LITHO LINK 24HR URINE PANEL potassium, urine 43 mmol/ 24_HR 20-100 Not Available [facility] ([facility]) [address] [place], [address], 05/10/2023 22:06:13 05/07/20 23 05/10/2023 LITHO LINK 24HR URINE PANEL magnesium, urine 47 mg/24 _HR 30-120 Not Available [facility] ([facility]) [address] [place], [address], 05/10/2023 22:06:13 05/07/20 23 05/10/2023 LITHO LINK 24HR URINE PANEL phosphorus, urine 628 mg/24 _HR 600-12 00 Not Available [facility] ([facility]) [address] [place], [address], 05/10/2023 22:06:13 05/07/20 23 05/10/2023 LITHO LINK 24HR URINE PANEL ammonium, urine 22 mmol/ 24_HR 15-60 Not Available [facility] ([facility]) [address] [facility] [place], [address], 05/10/2023 22:06:13 05/07/20 23 05/10/2023 LITHO LINK 24HR URINE PANEL chloride, urine 173 mmol/ 24_HR 70-250 Not Available [facility] ([facility]) [address] [facility] [place], [address], 05/10/2023 22:06:13 05/07/20 23 05/10/2023 LITHO LINK 24HR URINE PANEL sulfate, urine 25 mEq/2 4_HR 20-80 Not Available [facility] ([facility]) [address] [facility] [place], [address], 05/10/2023 22:06:13 05/07/20 23 05/10/2023 LITHO LINK 24HR URINE PANEL urea nitrogen, urine 5.86 g/24_ HR 6.00-1 4.00 below low normal Not Available [facility] ([facility]) [address] [place] [place], [address], 05/10/2023 22:06:13 05/07/20 23 05/10/2023 LITHO LINK 24HR URINE PANEL protein catabolic rate 0.6 g/kg/ 24_HR 0.8-1. 4 below low normal Not Available [facility] ([facility]) [address] [place] [place], [address], 05/10/2023 22:06:13 05/07/20 23 05/10/2023 LITHO LINK 24HR URINE PANEL creatinine, urine 1123 mg/24 _HR not applic . Not Available [facility] ([facility]) [address] [place] [place], [address], 05/10/2023 22:06:13 05/07/20 23 05/10/2023 LITHO LINK 24HR URINE PANEL creatinine/k g body weight 14.2 mg/24 _HR/k g 8.7-20 .3 Not Available [facility] ([facility]) [address] [facility], [place], [address], 05/10/2023 22:06:13 05/07/20 23 05/10/2023 LITHO LINK 24HR URINE PANEL calcium/kg body weight 2.8 mg/24 _HR/k g <4.0 Not Available [facility] ([facility]) [address] [facility], [place], [address], 05/10/2023 22:06:13 05/07/20 23 05/10/2023 LITHO LINK 24HR URINE PANEL calcium/crea tinine ratio 195 mg/g_ creat 51-262 Not Available [facility] ([facility]) [address] [facility], [place], [address], 05/10/2023 22:06:13 05/07/20 23 05/10/2023 LITHO LINK 24HR URINE PANEL comment note Not Available [facility] ([facility]) [address] [facility], [place], [address], 05/10/2023 22:06:13 02/23/20 23 02/21/2023 CT, abdom en + pelvi s, w/o contr ast EXAM: CT, ABDOME N + PELVIS , W/O CONTRA ST [facility]ATI ON: [facility] DATE: 023 INDICA TION: Calcul us of kidney COMPAR RACHANA: None. TECHNI QUE: CT scan of the abdome n and pelvis was perfor med withou t IV contra st. Multip lanar reform ats were obtain ed. Dose reduct ion techni ques were used. CONTRA ST: None. FINDIN GS: LOWER CHEST: Normal . HEPATO BILIAR Y: Liver and gallbl adder within normal limits . PANCRE : Normal . SPLEEN : Normal . ADRENA L GLANDS : Normal . KIDNEY S/BLAD JACQUE: 9 x 5 mm, 8 x 7 mm and 9 x4 mm stones are noted within the right kidney . No right hydron ephros is. There is severe left hydron ephros is with atroph y of the left kidney . There is marked left hydrou reter with the ureter measur ing up to 2.3 cm in diamet er to the level of the distal ureter with narrow ing of the distal ureter sugges ting possib le strict ure. No left ureter al stone is identi fied. BOWEL: Divert iculos is of the colon. No acute inflam matory change . No obstru ction. LYMPH NODES: Normal . VASCUL ATURE: Unrema rkable . PELVIC ORGANS : Bladde r within normal limits . Fibroi ds are noted within the uterus . MUSCUL OSKELE BRAN: Bilate ral breast implan ts. Degene rative change s of the spine. IMPRES MARLEEN: 1. Marked left hydron ephros is and hydrou reter to the level of the distal ureter where there is narrow ing with no eviden ce of a stone sugges ting possib le distal ureter al strict ure. There is atroph y of the left kidney sugges ting long standi ng obstru ction. Recomm end consul tation with urolog y. 2. Three stones measur ing up to 9 mm are noted within the right kidney . No right hydron ephros is. This report was electr onical ly interp reted by: Pepe Sanchez MD on 2022 at 08:28 [facility] [address] [facility] [address], [place], [address], 02/27/2023 13:41:39 08/16/1903/05/2022 CT, abdom en + pelvi s, w/ contr ast No observ ation record ed. Not Available 08/16/2023 14:12:18 08/22/19 24 08/22/2023 XR, kidne y + urete r + bladd er EXAM: XR, KIDNEY + URETER + BLADDE R LOCATI ON: [facility] [place] DATE: 2023 INDICA TION: [...] carranza MD on 2023 at 11:55 [email or web address] [facility] [address], [place], [address], 08/30/2023 16:05:59 Result Notes Documentation Provider Name and Address Organization Details Recorded Time Ct, Abdomen + Pelvis, W/o Contrast : EXAM: CT, ABDOMEN + PELVIS, W/O CONTRAST [facility] DATE: 02/21/2023 INDICATION: Calculus of kidney COMPARISON: None. TECHNIQUE: CT scan of the abdomen and pelvis was performed without IV contrast. Multiplanar reformats were obtained. Dose reduction techniques were used. CONTRAST: None. FINDINGS: LOWER CHEST: Normal. HEPATOBILIARY: Liver and gallbladder within normal limits. PANCREAS: Normal. SPLEEN: Normal. ADRENAL GLANDS: Normal. KIDNEYS/BLADDER: 9 x 5 mm, 8 x 7 mm and 9 x4 mm stones are noted within the right kidney. No right hydronephrosis. There is severe left hydronephrosis with atrophy of the left kidney. There is marked left hydroureter with the ureter measuring up to 2.3 cm in diameter to the level of the distal ureter with narrowing of the distal ureter suggesting possible stricture. No left ureteral stone is identified. BOWEL: Diverticulosis of the colon. No acute inflammatory change. No obstruction. LYMPH NODES: Normal. VASCULATURE: Unremarkable. PELVIC ORGANS: Bladder within normal limits. Fibroids are noted within the uterus. MUSCULOSKELETAL: Bilateral breast implants. Degenerative changes of the spine. IMPRESSION: 1. Marked left hydronephrosis and hydroureter to the level of the distal ureter where there is narrowing with no evidence of a stone suggesting possible distal ureteral stricture. There is atrophy of the left kidney suggesting long standing obstruction. Recommend consultation with urology. 2. Three stones measuring up to 9 mm are noted within the right kidney. No right hydronephrosis. This report was electronically interpreted by: Pepe Sanchez MD on 02/22/2023 at 08:28 Charlene fairchild [facility] 02/27/2023 13:41:39 Xr, Kidney + Ureter + Bladder : EXAM: XR, KIDNEY + URETER + BLADDER LOCATION: [facility] DATE: 08/22/2023 INDICATION: Calculus of kidney. COMPARISON: CT abdomen and pelvis 02/21/2023. IMPRESSION: Similar right renal calculi, the largest in the lower pole measuring 8-9 mm. No convincing calculi overlying the left kidney or ureters. Nonobstructive bowel gas pattern. Calcified uterine fibroids. This report was electronically interpreted by: Howard Gonzalez MD on 08/22/2023 at 11:55 Gilbert Golden MD [address] [place] [address],[address], [address], [facility] 08/30/2023 16:05:59 Problems Name Status Onset Date Resolution Date Notes Provider Name and Address Organization Details Recorded Time History of calculus of kidney Active 2 Gilbert Golden MD [address] [place] [address],[address], [address], [facility] 05/15/2022 16:40:09 Problem Notes None recorded. Procedures Surgical History Date Name Laterality Status Provider Name and Address Organization Details Recorded Time 07/12/19 24 Colonoscopy completed Charlene fairchild [facility] 08/22/2023 12:05:57 04/16/20 23 Cystoscopy with foreign body/stent removal completed Gilbert Golden MD [address] [place] [address],[address] [place] [address], [address], [facility] 04/15/2023 22:48:02 04/03/20 22 Cystoscopy with foreign body/stent removal completed Gilbert Golden MD [address] [place] [address],[address], [address], [facility] 04/03/2022 09:37:49 04/03/20 22 Keflex post Cysto completed Charlene fairchild [facility] 04/03/2022 10:40:54 03/23/20 CYSTOSCOPY, WITH URETEROSCOPY, WITH LITHOTRIPSY, WITH INSERTION OF URETERAL STENT (SURG) [facility] 03/28/2022 12:46:24 Breast reconstruction completed Charlene Zuluagamoses fairchild [facility] 03/20/2022 10:22:36 lumpectomy of breast completed Charlenedaren fairchild [facility] 03/20/2022 10:22:46 ligation of fallopian tube completed [facility] 03/20/2022 10:22:55 Imaging Results Imaging Date Name Status LastModified by Organiz ation Details LastModified Time 02/21/2023 CT, abdomen + pelvis, w/o contrast completed [email or web address] [facility] [address], [place], [address], 02/27/2023 13:41:39 03/05/2022 CT, abdomen + pelvis, w/ contrast completed Information not available 08/16/2023 14:12:18 08/22/2023 XR, kidney + ureter + bladder completed [email or web address] [facility] [address], [place], [address], 08/30/2023 16:05:59 Procedure Notes None recorded. Medical Equipment None Reported. Allergies Allergen ID Allergen Name Allergen Category Reaction Reaction Severity Criticality Documentation Date Start Date Code Code System Note Provider Name and Address Organization Details Recorded Time 547057 adhesive tape environme nt,medica tion Not available Not available Not available 03/20/2022 Charlene fairchild [facility] 2 10:19:53 824879 lactose food,medi cation Not available Not available Not available 03/20/2022 6211 RxNorm Charlene fairchild [facility] 2 10:20:17 167006 latex environme nt,medica tion Not available Not available Not available 03/20/2022 40736 91 RxNorm Charlene Peralta [facility] 10:20:34 Medications Name Sig Start Date Stop [...] Available Vitals Date Recorded Body height Body weight Provider Name and Address Organization Details Last Updated DateTime 03/20/2022 154.94 cm 85297.89 g Charlene fairchild, [facility] 03/20/2022 10:30:15 Date Recorded Body height Body mass index (BMI) Body weight Provider Name and Address Organization Details Last Updated DateTime 04/03/2022 154.94 cm 32.5 kg/m2 25358.89 g Gilbert Golden MD [address] [place] [address], [phone] [place] [address] [facility] 04/03/2022 10:35:24 Date Recorded Body height Body mass index (BMI) Body weight Provider Name and Address Organization Details Last Updated DateTime 05/15/2022 154.94 cm 32.5 kg/m2 54829.89 g Gilbert Golden MD [address] [place] [address], [phone] [place] [address] [facility]rology 05/15/2022 16:39:40 Date Recorded Body height Body mass index (BMI) Body weight Provider Name and Address Organization Details Last Updated DateTime 02/21/2023 154.94 cm 33.1 kg/m2 55627.66 g Gilbert Golden MD [address] [place] [address],[address], [address] 02/21/2023 11:42:39 Date Recorded Body height Body mass index (BMI) Body weight Provider Name and Address Organization Details Last Updated DateTime 04/16/2023 154.94 cm 33.1 kg/m2 63362.66 g Joanne Villalobos [facility] 04/16/2023 10:31:35 Date Recorded Body height Body mass index (BMI) Body weight Provider Name and Address Organization Details Last Updated DateTime 06/27/2023 154.94 cm 33.1 kg/m2 68726.66 g Charlene Peralta [facility] 06/27/2023 12:31:15 Date Recorded Body height Body mass index (BMI) Body weight Provider Name and Address Organization Details Last Updated DateTime 08/22/2023 154.94 cm 34 kg/m2 43323.63 g Charlene Peralta [facility] 08/22/2023 12:05:27 Social History Question Answer Notes LastModified by Organizat ion Details LastModified Time Tobacco Smoking Status Former Smoker Charlene Peralta [facility] 03/20/2022 10:23:13 When Did You Quit Smoking? 16+yearssinc elastcigaret te Information not available 03/20/2022 What Was The Date Of Your Most Recent Tobacco Screening? 08/22/2023 [email or web address] Information not available 08/22/2023 Sex: Female Functional [...] injectable, quadrivalent 04/03/2020 completed Gilbert Golden MD [address] [facility] [address], [place], [address], [facility] 02/21/2023 11:42:45 zoster recombinant 08/02/2021 completed Gilbert simmons MD [address] [place] [address],[address], [place], [address], [facility] 02/21/2023 11:42:45 zoster recombinant 05/10/2021 completed Gilbert simmons MD [address] [place] [address],[address], [place], [address], [facility] 02/21/2023 11:42:45 COVID-19, mRNA, LNP-S, PF, 30 mcg/0.3 mL dose 08/28/2020 completed Gilbert Golden MD [address] [place] [address],[address], [place], [address], [facility] 02/21/2023 11:42:45 COVID-19, mRNA, LNP-S, PF, 30 mcg/0.3 mL dose 09/18/2020 completed Gilbert Golden MD [address] [place] [address],[address], [place], [address], [facility] 02/21/2023 11:42:45 COVID-19, mRNA, LNP-S, PF, 30 mcg/0.3 mL dose 03/22/2021 completed Gilbert Golden MD [address] [place] [address],[address], [place], [address], [facility] 02/21/2023 11:42:45 COVID-19, mRNA, LNP-S, bivalent, PF, 30 mcg/0.3 mL dose 03/10/2022 completed Gilbert Golden MD [address] [place] [address],[address], [address], [facility] 02/21/2023 11:42:45 Tdap 11/22/2006 completed Gilbert Golden MD [address] [place] [address],[address], [address], [facility] 02/21/2023 11:42:45 Influenza, seasonal, injectable 02/13/2012 completed Gilbert Golden MD [address] [place] [address],[address], [place], [address], [facility] 02/21/2023 11:42:45 Td (adult), 2 Lf tetanus toxoid, preservative free, adsorbed 03/01/2018 completed Gilbert Golden MD [address] [place] [address],[address], [address], [facility] 02/21/2023 11:42:46 influenza, injectable, quadrivalent, preservative free 02/12/2013 completed Gilbert Golden MD [address] [place] [address],[address], [place], [address], [facility] 02/21/2023 11:42:46 influenza, injectable, quadrivalent, preservative free 03/01/2018 completed Gilbert Golden MD [address] [place] [address],[address], [address], [facility] 02/21/2023 11:42:46 influenza, injectable, quadrivalent, preservative free 03/09/2014 completed Gilbert Golden MD [address] [place] [address],[address] [place] [address], [address], [facility] 02/21/2023 11:42:46 influenza, injectable, quadrivalent, preservative free 03/10/2022 completed Gilbert Golden MD [address] [place] [address],[address] [place] [address], [address], [facility] 02/21/2023 11:42:46 influenza, injectable, quadrivalent, preservative free 03/14/2017 completed Gilbert Golden MD [address] [place] [address],[address], [address], [facility] 02/21/2023 11:42:46 influenza, injectable, quadrivalent, preservative free 04/07/2019 completed Gilbert Golden MD [address] [place] [address],[address], [address], [facility] 02/21/2023 11:42:46 influenza, injectable, quadrivalent, preservative free 04/13/2021 completed Gilbert Golden MD [address] [place] [address],[address] [address], [facility] 02/21/2023 11:42:46 Past Encounters Encounter ID Performer Location Encounter Start Date Encounter Closed Date Diagnosis/Indication Diagnosis SNOMED-CT Code [id number] Gilbert Golden MD [facility] [address] [place] [id number] 03/20/2022 10:15:08 03/23/2022 16:37:09 Kidney stone [id number] MD EVER [facility]rett[facility] [address] [place] [id number] 04/03/2022 10:22:37 04/06/2022 14:32:09 Kidney stone [id number] MD EVER [facility] [address] [place] [id number] 05/15/2022 16:13:10 05/19/2022 13:26:11 Kidney stone [id number] MD EVER [facility] [address] [place] [id number] 02/21/2023 11:34:05 03/03/2023 15:27:44 Kidney stone 26306969 Hydronephrosis 10261631 [id number] MD EVER [facility] [address] [place] [id number] 04/16/2023 10:29:09 04/23/2023 20:19:01 Kidney stone 10246048 Hydronephrosis [id number] MD EVER [facility]rett[facility] [address] [place] [id number] 06/27/2023 12:30:09 06/27/2023 15:13:55 Kidney stone [id number] Hydronephrosis 26672564 [id number] MD EVER [facility] [address] [place] [id number] 08/22/2023 11:51:51 08/23/2023 08:43:58 History of calculus of kidney 783418834 Kidney stone 46952704 Hydronephrosis [id number] Health Concerns Section Related Observation LastModified by Organization Detai ls LastModified Time None Recorded Concern Status LastModified by Organization Details LastModified Time None Recorded Advance Directives Directive None Recorded Payers Encounter Date Sequence Insurance Name Policy Number Policy Sandvoal Covered Member ID Sandoval Member ID Guarantor Name 08/22/2023 1 [place] [id number] Otilia Florentino [id number] Otilia Clayton Chadd 06/27/2023 1 [place] [id number] Otilia L Chadd [id number] Otilia L Chadd 04/16/2023 1 [place] [id number] Otilia L Chadd [id number] Otilia L Chadd 02/21/2023 1 [place] [id number] Otilia L Chadd [id number] Otilia L Chadd 05/15/2022 1 [place] [id number] Otilia L Chadd [id number] Otilia L Chadd 04/03/2022 1 [place] [id number] Otilia L Chadd [id number] Otilia Clayton Chadd 03/20/2022 1 [place] [id number] Otilia Clayton Chadd [id number] tOilia Clayton Chadd Notes Date Note Type Note Provider Name and Address Organization Details Recorded Time 03/20/2022 text/html HPI Notes: 61 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 - s/p Left ureteral stent (03/07/22) 03/20/22 - She presents for follow-up on kidney stones. She has completed a course of Ceftin. She is feeling much better. She reports mild-moderate bladder irritation from hay stent. No fevers, chills, dysuria, or flank pain. _ CT scan (03/05/22) - Left - 6 mm stone (UVJ) - Right - 14, 9, 6 mm stones (upper pole) Gilbert Golden MD [address] [place] [address],[address], [id number], 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 - s/p Left ureteral stent (03/07/22) - s/p Bilateral URS / HLL (03/23/22) - stone - 70% CaOx dihydrate and 30% CaOx monohydrate 03/20/22 - She presents for follow-up on kidney stones. She has completed a course of Ceftin. She is feeling much better. She reports mild-moderate bladder irritation from hay stent. No fevers, chills, dysuria, or flank pain. 04/03/22 - She presents for Right and Left stent removal. She reports bladder irritation and Right flank pain with activity. _ CT scan (03/05/22) - Left - 6 mm stone (UVJ) - Right - 14, 9, 6 mm stones (upper pole) Gilbert Golden MD [address] [place] [address],[address], [address], 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 - s/p Left ureteral stent (03/07/22) - s/p Bilateral URS / HLL (03/23/22) - stone - 70% CaOx dihydrate and 30% CaOx monohydrate 03/20/22 - She presents for follow-up on kidney stones. She has completed a course of Ceftin. She is feeling much better. She reports mild-moderate bladder irritation from the stent. No fevers, chills, dysuria, or flank pain. 04/03/22 - She presents for Right and Left stent removal. She reports bladder irritation and Right flank pain with activity. 05/15/22 - She presents for follow-up on kidney stones. She denies abdominal or flank pain - no bladder irritation. She states she is feeling much better - more energy. _ CT scan (03/05/22) - Left - 6 mm stone (UVJ) - Right - 14, 9, 6 mm stones (upper pole) 24 Hr urine (04/24/22) - low UO (1.73 L) - high Calcium (233 mg) - normal - Oxalate (29 mg) - Citrate (507 mg) - Mg (64 mg) - Phos (0.556) - Uric acid (0.412) Gilbert Golden MD [address] [place] [address],[facility] [address], [place], [address], [facility] [place] [facility] 05/15/2022 19:07:04 02/21/2023 text/html HPI Notes: 62 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 - s/p Left ureteral stent (03/07/22) - s/p Bilateral URS / HLL (03/23/22) - stone - 70% CaOx dihydrate and 30% CaOx monohydrate 05/15/22 - She presents for follow-up on kidney stones. She denies abdominal or flank pain - no bladder irritation. She states she is feeling much better - more energy. 02/21/23 - She presents for follow-up on kidney stones. She denies abdominal or flank pain. - CT scan (02/21/23) - Right - 9 mm (upper pole) - 10 mm & 8 mm stones (posterior mid-kidney) - Left - + severe hydronephrosis - with parenchymal thinning - ureter dilated to distal ureter) - no stones CT scan (03/05/22) - Left - 6 [...] - Phos (0.556) - Uric acid (0.412) Gilbert Golden MD [address] [facility],[address], [place], [address], [facility] 02/27/2023 12:35:35 04/16/2023 text/html HPI Notes: 62 yo female with [...] She reports mild stent irritation in bladder. CT scan (03/05/22) - Left - 6 [...] - Phos (0.556) - Uric acid (0.412) Gilbert Golden MD [address] [place] [address],[address], [place], [address], [facility] 04/16/2023 14:22:21 06/27/2023 text/html HPI Notes: 62 yo female [...] and coordinate their care. Gilbert Golden MD [address] [place] [address],[address], [place], [address] 06/27/2023 13:27:28 08/22/2023 text/html HPI Notes: 62 yo female [...] 3 mm stones (mid-kidney) Gilbert Golden MD [address] [facility],[address], [place], [address], [facility] 08/22/2023 13:47:28 OBGyn Episode No OBEpisode recorded.
--- OUTSIDE RECORDS SUMMARY | 2023-09-10 08:00 | XMS_ITS | Clinical Summary ---
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 0 03/04/2012 Active acetaminophen (TYLENOL) 325 mg tablet Take 975 mg by mouth every 6 hours if needed. Max acetaminophen dose: 4000mg in 24 hrs. 0 03/04/2012 Active loperamide (IMODIUM) 2 mg tablet Take 4mg by mouth with 1st loose stool, then 2mg with each subsequent loose stool. Max 16 mg in 24 hrs 0 03/14/2017 Active cyanocobalamin (VITAMIN B12) 1,000 mcg tablet Take 1 tablet by mouth once daily. 90 tablet 3 01/07/2018 Active aspirin chewable 81 mg chewable tablet Take 1 tablet by mouth once daily with a meal. 0 01/07/2018 Active cholecalciferol (VITAMIN D3) 1,000 unit capsule Take 1 Capsule (1,000 units) by mouth once daily. 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 Take on empty stomach with full glass of water. Do not lie down for 1 hr. 12 Tablet 3 02/09/2023 Active polyethylene glycol-electrolyte (GOLYTELY) 236-22.74-6.74 -5.86 gram suspensionIndication s:Álvarez syndrome Drink 2 liters the day before colonoscopy and 2 liters 6 hours before colonoscopy appointment 4000 mL 07/02/2023 Active venlafaxine (EFFEXOR) 37.5 mg tabletIndications:An xiety disorder, unspecified type TAKE 1 TABLET(37.5 MG) BY MOUTH EVERY MORNING 90 Tablet 1 06/03/2023 Active gemfibroziL (LOPID) 600 mg tabletIndications:Mi xed hyperlipidemia TAKE 1 TABLET BY MOUTH DAILY 90 Tablet 3 06/06/2023 Active Hospital, Clinic, or Other Facility Administered Medication Ordered Dose Route Frequency Start Date End Date Status triamcinolone acetonide (KENALOG) injection 40 mgIndications:Arthritis of left glenohumeral joint,Biceps tendinosis of left shoulder,Labral tear of shoulder, degenerative, left 40 mg IArtic ONE TIME 09/07/2023 09/07/2023 Ended Active Problems Problem Noted Date Diagnosed Date Biceps tendinosis of left shoulder 09/07/2023 Labral tear of shoulder, degenerative, left 10/2023 Arthritis of left glenohumeral joint 09/07/2023 Chronic left shoulder pain 09/07/2023 Pyelonephritis 03/06/2022 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 yearly UA/pelvic US needed. EGD and colonoscopy 2-3 years. ASA recommended daily. 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 04/2021 NIL 11/2022 NIL/HPV negative Provider plan: next Pap smear will be at the time of her physical in April or May 2024 Left ureteral stone Resolved Problems Problem Noted Date Diagnosed Date Resolved Date Álvarez syndrome 04/14/2021 11/03/2022 Trapezius strain 08/04/2010 05/04/2012 Depression with anxiety 12/27/200902/02 Knee pain, left 12/27/2009 12/29/2009 Encounters Date Type Department Care Team Description 09/07/2023 8:15 AM CDT Ancillary Procedure [facility] [address] [place] [address] Arrived 09/07/2023 8:00 AM CDT Office Visit [facility] [address] [place] [address] Rick Cárdenas MD Consult (Left Shoulder) 09/07/2023 Travel 09/05/2023 Travel 09/03/2023 Telephone [facility] [address] [place] [address] Rick Cárdenas MD Appointment (Dr. Cárdenas 09/07/2023) 08/20/2023 8:00 AM CDT Ancillary Procedure [facility] [place] [address] 08/20/2023 Orders Only [facility] [address] [place] [address] KaristJazmine, <No scans attached> 08/20/2023 Travel 08/06/2023 7:45 AM RAZOR GRINDER Office Visit [facility] [address] [place] [address] Jazmine Montanez DO Arm Pain/problem (left arm-OMT); Immunization/Injecti on (COVID-19 vaccine) 08/06/2023 Travel 07/12/2023 10:00 AM RAZOR GRINDER Procedure Only [facility] [address] [place] [address] Ramos Le MD Procedure (Colonoscopy) 07/12/2023 Travel 07/09/2023 Travel 07/04/2023 10:15 AM RAZOR GRINDER Office Visit [facility] [address] [place] [address] Jazmine Montanez DO Arm Pain/problem (upper left arm pain-fell last October/getting worse range of motion/); Immunization/Injecti on (COVID-19 vaccine) 07/04/2023 Telephone [facility] [address] [place] [address] Ramos Le MD Appointment Reminder (Colonoscopy 07/12/23) 07/03/2023 Travel from Last 3 Months Immunizations Name Administration Dates Next Due COVID-19 Vaccine Spikevax (M oderna 50mcg/0.5mL) 12YO+ [id number] Formula PF 08/06/2023 COVID-19 vaccine (Pfizer-Bio NTech 30mcg/0.3mL) 12YO+ BIVALENT PF, MDV 03/10/2022 Influenza, IIV3 (Age >=3 years) 02/13/2012 Influenza, IIV4 03/07/2023, 2,04/13/2021,04/07/20 19,03/01/2018,03/14/2017,03/09/2014,02/12 Influenza, IIV4 (=>6mos) MDV 04/03/2020 Td (Age >=7 Years) 03/01/2018 Tdap 11/22/2006 Zoster (Shingrix-RZV, recombinant) 08/02/2021, Family History Medical History Relation Name Comments Dementia Maternal Grandmother Heart Disease Maternal Uncle [place] AT 42 YEA RS Cancer Mother lung Dementia Mother Cancer Other niece with uter ine cancer, age 27. Has had a hysterectomy Cancer-colon Paternal Aunt AT 39 YEARS Cancer-colon Paternal Grandmother Cancer Sister liver Cancer-colon Sister Relation Name Status Comments Maternal Grandmother Maternal Uncle Mother Other Paternal Aunt Paternal Grandmother Sister Social History Tobacco Use Types Packs/Day Years Used Date Smoking Tobacco: Former Cigarettes 1.5 20 1 07/05/1980 - 05/04/2001 Smokeless Tobacco: Never Tobacco Cessation:Counseling Given: Not Answered Comments:second hand smoke exposure Alcohol Use Standard Drinks/Week Comments No 0 (1 standard drink = 0.6 oz pur e alcohol) sober since 1980 PHQ-2 Answer Date Recorded PHQ-2 TOTAL SCORE 0 03/07/2023 Social Connections Answer Date Recorded Frequency of Communication with Friends and Fami ly 0 02/09/2023 Financial Resource Strain Answer Date R ecorded Difficulty of Paying Living Expenses 3 02/09/2023 Difficulty of Paying Living Expenses Not on file 02/09/2023 Food Insecurity Answer Date Recorded Worried About Running Out of Food in the Last Ye ar 1 02/09/2023 Transportation Needs Answer Date Record ed Lack of Transportation (Medical) 1 02/09/2023 Housing Stability Answer Date Recorded Unable to Pay for Housing in the Last Year 1 02/09/2023 Sex and Gender Information Value Date Recorded Sex Assigned at Not on file Gender Identity Not on file Sexual Orientation Not on file Obstetrics History Last Filed Vital Signs Vital Sign Reading Time Taken Comments Blood Pressure 148/82 08/06/2023 7:51 AM RAZOR GRINDER Pulse 79 08/06/2023 7:51 AM RAZOR GRINDER Temperature 36 ??C (96.8 ??F) 03/15/2023 4:15 PM CDT Respiratory Rate 14 07/12/2023 11:20 AM RAZOR GRINDER Oxygen Saturation 97% 08/06/2023 7:51 AM RAZOR GRINDER Inhaled Oxygen Concentration - - Weight 80.3 kg (177 lb) 07/04/2023 10:14 AM RAZOR GRINDER Height 154.9 cm (5' 1) 03/15/2023 11:53 AM CDT Body Mass Index 33.44 03/15/2023 11:53 AM CDT Plan of Treatment Upcoming Encounters Date Type Department Care Team (Late st Contact Info) Description 09/24/2023 11:30 AM CDT Office Visit [facility] [address] [place] [address] Jazmine Montanez DO [address] [place] [address] Health Maintenance Due Date Last Done Comments HIV for age 15-65 12/02/1975 Influenza for age 50-64 02/03/2024 03/07/20 23, 03/10/2022, 04/13/2021, Additional history exists BMI (ht and wt on same day) for age 18+ 03/07/2024 03/07/2023, 11/03/2022, 04/13/2021, Additional history exists Depression screening for age 12+ 03/07/2024 03/07/2023, 04/15/2021, 04/13/2021, Additional history exists Colonoscopy through age 75 07/12/202507/12, 07/12/2023, 07/12/2023, Additional history exists Pap test for age 21-65 11/03/2025 3, 11/03/2022, 04/13/2021, Additional history exists Lipids for age 45-75 05/10/2026 05/10/2021, 12/02/2018, 09/19/2017, Additional history exists Tetanus booster 03/01/2028 03/01/2018, 11/22/2006 Tdap Completed 11/22/2006 Hepatitis C screening for age 18-79 Completed 01/08/2015 Zoster (shingles) series for age 50+ Completed 08/02/2021, 05/10/2021 COVID-19 vaccine series Completed 08/06/19 24, 03/10/2022, 03/22/2021, Additional history exists Pneumococcal series for age 6-64 Aged Out No longer eligible based on patient's age to complete this topic Medical Devices Implanted Type Area Director Of Catering Device Identifier Shelf Expiration Date Model / Serial / Lot [id number] 8breast 330cc Hurricane Rnd High Smooth Saline Implanted:Qty: 1 on 03/27/2018 by Tarun Cardozo MD at [facility] Explanted:at [facility] (Quantity not on file) Left: Breast [employer] E[employer]ome 02/06/2022 [id number] / [id number] / [id number] 5breast 330cc Hurricane Rnd High Smooth Saline Implanted:Qty: 1 on 03/27/2018 by Tarun Cardozo MD at [facility] Explanted:at [facility] (Quantity not on file) Right: Breast J And J Hurricane Konjekt 01/10/2022 [id number]# / [id number] / [id number] Stent Uret [id number] Silhouette - [id number] Implanted:Qty: 1 on 03/07/2022 by Gilbert Golden MD at [facility] Left: Ureter [employer] Gerda 03/21/2024 [id number] / / [id number] Stent Uret [id number] Contour - [id number] Implanted:Qty: 1 on 03/23/2022 by Gilbert Golden MD at [facility] Right: Ureter [facility] 02/18/2024 [id number] / / [id number] Stent Uret [id number] Percuflex Hydroplus - [id number] Implanted:Qty: 1 on 03/23/2022 by Gilbert Golden MD at [facility] Left: Ureter [facility] 01/12/2025 [id number] / / [id number] Stent Uret [id number] Percuflex Hydroplus - [id number] Implanted:Qty: 1 on 03/15/2023 by Gilbert Golden MD at [facility] Left: Ureter [facility] [id number] / / [id number] Stent Tria Soft 6f X 22cm Implanted:Qty: 1 on 03/15/2023 by Gilbert Golden MD at [facility] Right: Ureter [id number] / / [id number] Description:STENT TRIA SOFT 6F X 22CM Procedures Procedure Name Priority Date/Time Associated Diagnosis Comments XR SHOULDER 4 VIEWS LEFT Routine 09/07/2023 8:04 AM CDT Left shoulder pain, unspecified chronicity MR SHOULDER LEFT WO Routine 08/20/2023 8 :42 AM CDT Arm pain, lateral, left Chronic left shoulder pain PATH TISSUE EXAM Routine 07/12/2023 10:5 2 AM RAZOR GRINDER History of colon polyps COLONOSCOPY 07/12/2023 10:16 AM RAZOR GRINDER HPV THIN PREP Routine 11/03/2022 2:30 PM CDT Screening for cervical cancer LIPID PANEL Routine 05/10/2021 8:30 AM RAZOR GRINDER Mixed hyperlipidemia ANTI HCV Routine 01/08/2015 8:07 AM CDT Need for hepatitis C screening test from Last 3 Months or Most Recently Relevant to Health Maintenance Results * XR SHOULDER 4 VIEWS LEFT (09/07/2023 8:04 AM CDT) Anatomical Region Laterality Modality SHOULDERS, SHOULDER L Computed R adiography 09/07/2023 4:22 PM CDT Impressions 09/07/2023 4:22 PM CDT Narrowing and spurring at the acromioclavicular and glenohumeral joints. No fracture. No rotator cuff calcific tendinitis. No fracture. Intact visualized ribs. Dictated by Yoandy Atkins MD @ 09/07/2023 4:22:56 PM (Electronically Signed) Narrative 09/07/2023 4:22 PM CDT For Patients: ??As a result of the Cures Act, medical imaging exams and procedure reports are released immediately into your electronic medical record. ??You may view this report before your referring provider. ??If you have questions, please contact your health care provider. Indication: Left shoulder pain Technique: Four views left shoulder Procedure Note Yoandy Atkins MD - 09/07/2023 For Patients: As a result of the Cures Act, medical imagingexams and procedure reports are released immediately into your electronicmedical record. You may view this report before your referring provider.If you have questions, please contact your health care provider. Indication: Left shoulder pain Technique: Four views left shoulder IMPRESSION: Narrowing and spurring at the acromioclavicular and glenohumeral joints.No fracture. No rotator cuff calcific tendinitis. No fracture. Intactvisualized ribs. Dictated by Yoandy Atkins MD @ 09/07/2023 4:22:56 PM (Electronically Signed) Rick Cárdenas MD GENERAL IMAGING * MR SHOULDER LEFT WO (08/20/2023 8:42 AM CDT) Anatomical Region Laterality Modality SHOULDER L Magnetic Resonan ce 08/20/2023 11:3 9 AM CDT Impressions 08/20/2023 11:39 AM CDT 1. Mucoid degeneration and some mild marginal tearing superior labrum with intra-articular biceps tendinosis and extra-articular mild tenosynovitis. 2. Mild subacromial/subdeltoid bursitis. 3. Moderate tendinosis and some shallow degenerative partial tearing supraspinatus. Tendinosis without significant tearing subscapularis and infraspinatus. 4. Moderate AC DJD. Dictated by Karri Ballesteros MD @ 08/20/2023 11:39:02 AM (Electronically Signed) Narrative 08/20/2023 11:39 AM CDT For Patients: ??As a result of the Cures Act, medical imaging exams and procedure reports are released immediately into your electronic medical record. ??You may view this report before your referring provider. ??If you have questions, please contact your health care provider. INDICATION: Lateral arm pain. COMPARISON: None provided. TECHNIQUE: Axial T1 and PD fat-sat, coronal PD, T2 and PD fat sat and sagittal PD and T2 left shoulder sequences. FINDINGS: Rotator cuff: Patchy tendinosis through the slightly thinned distal supraspinatus from some shallow marginal tearing. No high-grade partial or full-thickness tear. Intact footplate. Mild intermediate signal tendinosis without tearing infraspinatus. Intact teres minor. Intact subscapularis with some hazy tendinosis mildly expanding the inserting tendon. No rotator cuff muscle atrophy or edema. - Acromioclavicular joint and coracoacromial arch: Curved type 2 acromial undersurface. Moderate hypertrophic arthrosis AC joint without widening or significant inferior osteophyte. Thin line of fluid and synovitis in the subacromial/subdeltoid bursa. No clavicular dislocation or fracture. Subcoracoid interval is patent. - Biceps labral complex: Patchy intermediate signal mucoid change and minor degenerative tearing in the biceps anchor and superior labrum with extension into the intra-articular biceps without high-grade partial or full-thickness tear. Some mild intermediate signal expansion of the distal intra-articular biceps. Distal tendon has normal caliber and signal. Some fluid and synovitis in the tendon sheath for tenosynovitis. Mild blunting at the margins of the anterior, inferior and posterior labrum but no other significant tear or displacement. - Glenohumeral joint: Heterogeneous increased T2 signal and shallow irregular grade 2 thinning humeral head and upper half of the glenoid. No secondary degenerative change of significance. Small to near moderate-sized effusion with some hazy synovitis but no erosion and no intra-articular body. No capsulitis. - Bones and soft tissues: Deltoid bulk and signal is normal. No acute fracture or significant bone lesion. Visualized axilla is clear. Procedure Note Karri Ballesteros MD - 08/20/2023 For Patients: As a result of the Century Cures Act, medical imagingexams and procedure reports are released immediately into your electronicmedical record. You may view this report before your referring provider.If you have questions, please contact your health care provider. INDICATION: Lateral arm pain. COMPARISON: None provided. TECHNIQUE: Axial T1 and PD fat-sat, coronal PD, T2 and PD fat sat and sagittal PD andT2 left shoulder sequences. FINDINGS: Rotator cuff: Patchy tendinosis through the slightly thinned distalsupraspinatus from some shallow marginal tearing. No high-grade partial orfull-thickness tear. Intact footplate. Mild intermediate signal tendinosiswithout tearing infraspinatus. Intact teres minor. Intact subscapulariswith some hazy tendinosis mildly expanding the inserting tendon. Norotator cuff muscle atrophy or edema. - Acromioclavicular joint and coracoacromial arch: Curved type 2 acromialundersurface. Moderate hypertrophic arthrosis AC joint without widening orsignificant inferior osteophyte. Thin line of fluid and synovitis in thesubacromial/subdeltoid bursa. No clavicular dislocation or fracture.Subcoracoid interval is patent. - Biceps labral complex: Patchy intermediate signal mucoid change and minordegenerative tearing in the biceps anchor and superior labrum withextension into the intra-articular biceps without high-grade partial orfull-thickness tear. Some mild intermediate signal expansion of the distalintra-articular biceps. Distal tendon has normal caliber and signal. Somefluid and synovitis in the tendon sheath for tenosynovitis. Mild bluntingat the margins of the anterior, inferior and posterior labrum but no othersignificant tear or displacement. - Glenohumeral joint: Heterogeneous increased T2 signal and shallowirregular grade 2 thinning humeral head and upper half of the glenoid. Nosecondary degenerative change of significance. Small to nearmoderate-sized effusion with some hazy synovitis but no erosion and nointra-articular body. No capsulitis. - Bones and soft tissues: Deltoid bulk and signal is normal. No acutefracture or significant bone lesion. Visualized axilla is clear. IMPRESSION: 1. Mucoid degeneration and some mild marginal tearing superior labrum withintra-articular biceps tendinosis and extra-articular mildtenosynovitis. 2. Mild subacromial/subdeltoid bursitis. 3. Moderate tendinosis and some shallow degenerative partial tearingsupraspinatus. Tendinosis without significant tearing subscapularis andinfraspinatus. 4. Moderate AC DJD. Dictated by Karri Ballesteros MD @ 08/20/2023 11:39:02 AM (Electronically Signed) Jazminegee Dysonpapo DO MR * PATH TISSUE EXAM (07/12/2023 10:52 AM RAZOR GRINDER) Case Report Pathology Report ?Case: [id number] ? Authorizing Provider: ??Ramos Le MD ?? Collected: ? 07/12/2023 1052 ? Ordering Location: ? [facility] ?? Received: ?07/12/2023 1130 ? Clinic ? Pathologist: ? David Wells MD ? Specimen: ?Transverse Colon Polyp ? 07/13/2023 2:48 PM [facility]ZOR GRINDER [facility] Final Diagnosis A) COLON, TRANSVERSE, POLYPECTOMIES x 3: 1. Tubular adenomas (3) 2. Negative for high grade dysplasia 3. Per the colonoscopy report: ?? a. Polyp sizes: 2 mm - 3 mm ?? b. Resection: Complete ?? c. Retrieval: Complete 07/13/2023 2:48 PM RAZOR GRINDER [facility] Comment The clinical history of Álvarez syndrome is noted. 07/13/2023 2:48 PM RAZOR GRINDER [facility] Clinical Information Ms. Florentino is a 62 y.o. with history of Álvarez syndrome, undergoes surveillance colonoscopy resulting in polypectomy x 3. 07/13/2023 2:48 PM RAZOR GRINDER [facility] Gross Description A) Received in formalin are 3 leslie mucosal fragments ranging from 2 mm to 5 mm in greatest dimension, which are entirely submitted in one cassette. It is labeled with the patient's name and designated Ron Frank 07/12/2023 3:26 PM 07/13/2023 2:48 PM RAZOR GRINDER [facility] Microscopic Description The final diagnosis is based on microscopic examination of appropriate sections of all specimens. 07/13/2023 2:48 PM RAZOR GRINDER [facility] Additional Information Interpreted at [facility] [place] [facility] - [address] [place] [address] 07/13/2023 2:48 PM RAZOR GRINDER [facility] Other (Transverse Colon Polyp) Non-Blood / Unknown 07/12/2023 10:52 AM RAZOR GRINDER 07/12/2023 11:30 AM RAZOR GRINDER Ramos Le MD PATHOLOGY/CYTOLOG Y [facility] 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 The patient had a stable cardiopulmonary status and judged an adequate candidate for conscious sedation. The endoscope PCF-H190L [id number] was passed through the anus andadvanced to the cecum, identified by appendiceal orifice and ileocecal valve.The colonoscopy was performed without difficulty. The patient toleratedthe procedure well. The quality of the bowel preparation was good. The ileocecal valve, appendiceal orifice, and rectum were photographed. Complications: No immediate complications. Estimated Blood Loss & Specimen: Estimated blood loss: none. Specimen collected - Yes and sent to Laboratory Findings: The perianal and digital rectal examinations were normal. Two sessile polyps were found in the transverse colon. The polypswere 3 mm in size. These polyps were removed with a cold snare. Resectionand retrieval were complete. A 2 mm polyp was found in the transverse colon. The polyp wassessile. The polyp was removed with a cold biopsy forceps. Resection and retrieval were complete. The exam was otherwise without abnormality. Impressions/Post-Op Diagnosis: - Two 3 mm polyps in the transverse colon, removed with a cold snare. Resected and retrieved. - One 2 mm polyp in the transverse colon, removed with a cold biopsy forceps. Resected and retrieved. - The examination was otherwise normal. Recommendation: - Patient has a contact number available for emergencies. The signsand symptoms of potential delayed complications were discussed with the patient. Return to normal activities tomorrow. Written discharge instructions were provided to the patient. - Resume previous diet. - Continue present medications. - Await pathology results. - Repeat colonoscopy in 2 years for surveillance. Moderate Sedation: A time out was performed before the procedure. Moderate (conscious) sedation was administered by the endoscopy nurse and supervised bythe endoscopist. The following parameters were monitored: oxygensaturation, heart rate, blood pressure, EKG, CO2, respiratory rate, adequacy of pulmonary ventilation and reponse to care. Please refer to the patient's medical record flowsheets and nursing notes for moderate sedation details. Total physician intraservice time was 17 minutes. Ramos Le MD 07/12/2023 11:14:39 AM This report has been signed electronically. Note Initiated On: 07/12/2023 10:16 AM Procedure Code(s): --- Professional --- 62818, Colonoscopy, flexible; with removalof tumor(s), polyp(s), or other lesion(s) bysnare technique 22095, 59, Colonoscopy, flexible; withbiopsy, single or multiple Diagnosis Code(s): --- Professional --- D12.3, Benign neoplasm of transverse colon (hepatic flexure or splenic flexure) Z15.09, Genetic susceptibility to other malignant neoplasm CPT copyright 2021 [employer]. All rights reserved. The codes documented in this report are preliminary and upon supervisor vat house reviewmay be revised to meet current compliance requirements. Scope In: 10:45:01 AM Scope Withdrawal Time 0 hours 12 minutes 22 seconds Scope Out: 11:00:33 AM Ramos Le MD PROCEDURE ORD * HPV HIGH RISK (11/03/2022 2:30 PM CDT) TYPE 16 Negative Negative 11/08/2022 1:54 PM CDT [facility] TYPE 18 Negative Negative 11/08/2022 1:54 PM CDT [facility] OTHER HIGH RISK TYPES Negative Negative 11/08/2022 1:54 PM CDT [facility] Other (Cervical) Non-Blood / Unknown 11/03/2022 2:30 PM CDT 11/07/2022 9:29 AM CDT Narrative [facility] - 11/08/2022 1:54 PM CDT HPV types 16, 18, 31, 33, 35, 39, 45, 51, 52, 56, 58, 59, 66 and 68 DNA were undetectable or below the pre-set threshold. Methodology: Ryann Lisa 4800 HPV Test Jazmine Joleen Montanez DO MICROBIOLOGY [facility] [address] [place] [address], [place] * (ABNORMAL) LIPID PANEL (05/10/2021 8:30 AM RAZOR GRINDER) Pathologist [facility] CHOLESTEROL,TOTAL 177 100 - 199 mg/dL 05/10/2021 6:04 PM RAZOR GRINDER [facility] TRIGLYCERIDES 183(H) <150 mg/dL 05/10/2021 6:04 PM RAZOR GRINDER [facility] HDL CHOLESTEROL 39(L) >40 mg/dL 6:04 PM RAZOR GRINDER [facility] NON-HDL CHOLESTEROL 138 <145 mg/dl 05/10/2021 6:04 PM RAZOR GRINDER [facility] CHOL/HDL RATIO 4.54(H) <4.50 05/10/2021 6:04 PM RAZOR GRINDER [facility] LDL CHOLESTEROL 101 <=130 mg/dL 05/10/2021 6:04 PM RAZOR GRINDER [facility] VLDL CHOLESTEROL 37(H) <=30 mg/dL 05/10/2021 6:04 PM RAZOR GRINDER [facility] PROVIDER ORDERED STATUS RANDOM 05/10/2021 6:04 PM RAZOR GRINDER [facility] Blood BLOOD SPECIMEN / Unknown Venipuncture / Unknown 05/10/2021 8:30 AM RAZOR GRINDER 05/10/2021 8:34 AM RAZOR GRINDER Jazmine Montanez DO CHEMISTRY [facility] [address] [place] [address], [place] * ANTI HCV [53145.2] (01/08/2015 8:07 AM CDT) HEPATITIS C ANTIBODY Non-Reacti ve Non-Reacti ve 01/08/2015 1:31 PM CDT [facility] Blood specimen (specimen) BLOOD SPECIMEN / Unknown Venipuncture / Unknown 01/08/2015 8:07 AM CDT 01/08/2015 8:10 AM CDT Narrative [facility] - 01/08/2015 1:31 PM CDT Antibodies to HCV not detected; does not exclude the possibility of exposure to HCV. Jazmine Montanez DO SEND OUTS [facility] [address] [place] [address], from Last 3 Months or Most Recently Relevant to Health Maintenance Advance Directives * Full Code (Latest Code Status on File) Date Activated Date Inactivated Comments 03/15/2023 11:15 AM 03/15/2023 7:20 PM Question Answer Comments Code Status Discussion: Unable to Assess Preferences, Provider to review later * Full Code Date Activated Date Inactivated Comments 03/23/2022 7:26 AM 03/23/2022 5:18 PM Question Answer Comments Code Status Discussion: Unable to Assess Preferences, Provider to review later * Full Code Date Activated Date Inactivated Comments 03/06/2022 12:23 PM 03/07/2022 9:06 PM Question Answer Comments Code Status Discussion: Reviewed Preferences * Full Code Date Activated Date Inactivated Comments 03/27/2018 6:47 AM 03/28/2018 2:35 AM Care Teams Tieing Machine Operator Relationship Specialty Start Date End Date Jazmine Montanez DO PCP - General 05/29/08
--- NOTE | 2023-09-10 08:15 | US_ITS ---
Patient: CAREN GUERRA Facility:?[facility] Patient ID:?[id number] Site Patient ID:?[id number]. Site :?[id number] Study:?US-Abdomen/Pelvis RENAL-09/10/2023 8:58:54 AM Ordering Physician:?DORENE MANN M.D. Final Report: CLINICAL HISTORY: Follow-up hydronephrosis COMPARISON: CT 03/05/2022 TECHNIQUE: Cabrera scale and color Doppler images were acquired of the kidneys and urinary bladder. FINDINGS: Echogenic stones in the upper pole of the right kidney are present, measuring up to 8 millimeters, probably similar to the prior study. Incidental extrarenal pelvis bilaterally. No solid renal mass. The right kidney measures 11.0cm in length and the left kidney measures 8.8cm in length. The renal cortex measures 14 millimeters on the right and 8 millimeters on the left. The urinary bladder appears normal. Color Doppler images reveal a normal appearance of both ureteral jets. There is no evidence of bladder calculi or diverticula. IMPRESSION: Nonobstructing right renal calculi are probably similar. Resolution of previously noted left-sided hydronephrosis. Dictated by Yoandy Atkins MD @ 09/10/2023 11:40:23 AM Signed by:?Yoandy Atkins MD @09/10/2023 11:40:23 AM (Electronic Signature)
== END 2023-09-10 07:57 | disposition home or self-care (01) ==
LOC: US 07:57
PROVIDERS: PCP Family Medicine; Visit Provider Urology
DX: N13.30 Unspecified hydronephrosis (principal); N20.0 Calculus of kidney
CPT/HCPCS: 76775

== ENCOUNTER 2023-10-26 07:46 | Emergency (ER) | payer BC, SELFPAY ==
[2023-10-26 07:54] VITALS: BP 128/67; PULSE 82; RESP 18; TEMP 36.9; O2SAT 97; BMI 34.0
--- NOTE | 2023-10-26 08:11 | ED_ITS ---
HPI - Skin/Abscess/Foreign Bdy General Time Seen by Provider: 08:05 Date Seen: 10/26/23 Chief complaint: Skin/Abscess/Foreign Body Stated complaint: Infected cat bitr Time Seen by Provider: 10/26/23 08:04 Source: patient and RN notes reviewed Mode of arrival: ambulatory Limitations: no limitations History of Present Illness HPI narrative: This 62-year-old female presents with an infected cat bite on her right forearm. She was bit by a feral cat. There has been increasing pain, swelling and some clear drainage. She has had no fevers or chills. The feral cat is contained in the house and has been since 09/25/2023. It is eating and drinking, no change in behavior that they were concerned about. She will continue to quarantine this cat. MD complaint: other (Cat bite, infected) Tetanus up to date: yes (2017) Related Data Home Medications ?Medication ?Instructions ?Recorded ?Confirmed cholecalciferol (vitamin D3) 50 1,000 unit PO DAILY 02/20/22 09/17/23 mcg (2,000 unit) tablet cyanocobalamin (vitamin B-12) 500 1,000 mcg PO DAILY 02/20/22 09/17/23 mcg tablet gemfibrozil 600 mg tablet 600 mg PO QDAY 02/20/22 09/17/23 multivitamin 1 tab PO QDAY 02/20/22 09/17/23 venlafaxine 37.5 mg tablet 37.5 mg PO QDAY 02/20/22 09/17/23 aspirin 81 mg tablet,delayed 81 mg PO QDAY 02/21/22 09/17/23 release acetaminophen 325 mg tablet mg PRN 10/13/22 09/17/23 loperamide 2 mg capsule mg PRN 10/13/22 09/17/23 alendronate [Fosamax] PO 04/04/23 09/17/23 cetirizine 10 mg capsule (Zyrtec) 10 mg PO QDAY PRN 09/17/23 09/17/23 Previous Rx's ?Medication ?Instructions ?Recorded amoxicillin 875 mg-potassium 1 tab PO BID #20 tabs 10/26/23 clavulanate 125 mg tablet Allergies Allergy/AdvReac Type Severity Reaction Status Date / Time adhesive Allergy Intermediate localized Verified 09/17/23 13:33 rash latex Allergy Mild Rash Verified 09/17/23 13:33 tree and shrub pollen Allergy Mild Verified 09/17/23 13:33 contact metal agent Allergy Rash Verified 09/17/23 13:33 lactose Allergy Verified 09/17/23 13:33 Review of Systems Narrative: As per HPI. 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) Epicondylitis, lateral (tennis elbow) ?M77.10 - Lateral epicondylitis, unspecified elbow (ICD-10) Colon polyp ?K63.5 - Polyp of colon (ICD-10) Chondromalacia, knee ?M94.269 - Chondromalacia, unspecified knee (ICD-10) Family history of colon cancer ?Z80.0 - Family history of malignant neoplasm of digestive organs (ICD-10) Pyelonephritis ?N12 - Tubulo-interstitial nephritis, not specified as acute or chronic (ICD- 10) Breast cancer ?C50.919 - Malignant neoplasm of unspecified site of unspecified female breast (ICD-10) Anemia ?D64.9 - Anemia, unspecified (ICD-10) Diabetes ?E11.9 - Type 2 diabetes mellitus without complications (ICD-10) Hyperlipidemia ?E78.5 - Hyperlipidemia, unspecified (ICD-10) Arthritis ?M19.90 - Unspecified osteoarthritis, unspecified site (ICD-10) Anxiety ?F41.9 - Anxiety disorder, unspecified (ICD-10) Meniere's disease of right ear ?H81.01 - Meniere's disease, right ear (ICD-10) Surgical History S/P debridement (10/16/22) ?Z98.890 - Other specified postprocedural states (ICD-10) H/O dilation and curettage ?Z98.890 - Other specified postprocedural states (ICD-10) H/O tubal ligation (1989) ?Z98.51 - Tubal ligation status (ICD-10) Status post lymph node biopsy (~2006) ?Z98.890 - Other specified postprocedural states (ICD-10) Status post bilateral breast reconstruction ?Z98.890 - Other specified postprocedural states (ICD-10) Status post bilateral mastectomy (03/21/17) ?Z90.13 - Acquired absence of bilateral breasts and nipples (ICD-10) Status post total right knee replacement (07/08/18) ?Z96.651 - Presence of right artificial knee joint (ICD-10) Status post total left knee replacement (07/18/21) ?Z96.652 - Presence of left artificial knee joint (ICD-10) Family History Mother Aneurysm Lung cancer Dementia Tobacco abuse Sister Colon cancer Social History Narrative: Currently unemployed, quit smoking in 2000. Denies EtOH, quit 1980. Denies recreational drug use. Full code. Highest level of school completed/degree received: Associate degree: academic program Smoking Status: Former smoker Do you use any of these nicotine containing products: None Second hand tobacco smoke exposure: Yes How often do you have a drink containing alcohol: never AUDIT-C Alcohol total score: 0 Non-prescribed substance use: denies use Caffeine: Yes service: No Exam Const: Vital Signs, click to edit/add: Vital Signs - 24 hr 10/26/23 07:54 Temperature 98.4 F Pulse Rate [Pulse Oximeter] 82 Respiratory Rate 18 Blood Pressure [Le ft Upper Arm] 128/67 Pulse Oximetry 97 Oxygen Delivery Me thod Room Air Patient is alert, interactive, no apparent distress. She is ambulatory into the ED of her own accord. CV regular rate and rhythm no murmur, breathing easily on room air, lungs clear anteriorly. She has mild erythema and warmth surrounding for puncture wounds in her dorsal right forearm. There is about an 8 x 10 a belong area where this erythema and warmth is. I do not feel any fluctuance. She can fully flex and extend the elbow, has full mobility about the wrist, can make a full hand fitness specialist on the right, distal neurovascular is intact. I see no other evidence of erythema swelling outside the forearm. She has no limitation in motor abilities in the forearm at this point. Documenting provider has reviewed patient's vital signs: yes Course Course ED Course: This is a 62-year-old female with an infected cat bite on her right forearm. Her tetanus is up-to-date. It does not sound like she needs rabies as the CT is contained and not worrisome for any features of rabies itself. She is going to keep this animal contained. We will initiate oral antibiotics. I do not think she needs any baseline blood work or IV antibiotics at this point. We have discussed signs and symptoms for worsening including signs and symptoms of infected tenosynovitis. Vital Signs Vital signs: Initial Vital Signs Temperature 98.4 F 10/26/23 07:54 Temperature Source Temporal Artery Scan 10/26/23 07:54 Pulse Rate 82 10/26/23 07:54 Pulse Rhythm Regular 10/26/23 07:54 Respiratory Rate 18 10/26/23 07:54 Blood Pressure 128/67 10/26/23 07:54 Blood Pressure Mean 87 10/26/23 07:54 Blood Pressure Position Supine 10/26/23 07:54 Pulse Oximetry 97 10/26/23 07:54 Oxygen Delivery Method Room Air 10/26/23 07:54 Vital Signs Temperature 98.4 F 10/26/23 07:54 Pulse Rate 82 10/26/23 07:54 Respiratory Rate 18 10/26/23 07:54 Blood Pressure 128/67 10/26/23 07:54 Pulse Oximetry 97 10/26/23 07:54 Oxygen Delivery Method Room Air 10/26/23 07:54 Temperature 98.4 F 10/26/23 07:54 Pulse Rate 82 10/26/23 07:54 Respiratory Rate 18 10/26/23 07:54 Blood Pressure 128/67 10/26/23 07:54 Pulse Oximetry 97 10/26/23 07:54 Oxygen Delivery Method Room Air 10/26/23 07:54 Discharge Plan Discharge Clinical Impression: Infected cat bite of forearm Patient Disposition: Home, Self-Care Condition: Stable Instructions: Animal Bite (ED) Additional Instructions: Start Augmentin as soon as possible and take as prescribed, do complete the prescription. If you develop fever, have significant increasing erythema, pain any arm, start having limitations of ability to move the wrist due to pain in the forearm, feel the infection is worsening, you do need to be re-evaluated. Otherwise recommend elevating this arm, warm compresses or heat to the forearm until the infection is improving. Activity Level: Activity as Tolerated Prescriptions: New amoxicillin-pot clavulanate 875-125 mg tablet 1 tab PO BID Qty: 20 0RF No Action gemfibrozil 600 mg tablet 600 mg PO QDAY venlafaxine 37.5 mg tablet 37.5 mg PO QDAY multivitamin Tablet 1 tab PO QDAY cyanocobalamin (vitamin B-12) 500 mcg tablet 1,000 mcg PO DAILY cholecalciferol (vitamin D3) 50 mcg (2,000 unit) tablet 1,000 unit PO DAILY aspirin 81 mg tablet,delayed release (DR/EC) 81 mg PO QDAY Zyrtec 10 mg capsule 10 mg PO QDAY PRN alendronate [Fosamax] PO acetaminophen 325 mg tablet PRN Rx Instructions: NO MORE THAN 4000 MG/DAY loperamide 2 mg capsule PRN Follow Up/Referrals: Jazmine Montanez DO [Primary Care Provider] - Stand Alone Forms: [facility] Info Instructions
--- OUTSIDE RECORDS SUMMARY | 2023-10-26 08:27 | XMS_ITS | Clinical Summary ---
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 0 2 Active acetaminophen (TYLENOL) 325 mg tablet Take 975 mg by mouth every 6 hours if needed. Max acetaminophen dose: 4000mg in 24 hrs. 0 2 Active loperamide (IMODIUM) 2 mg tablet Take 4mg by mouth with 1st loose stool, then 2mg with each subsequent loose stool. Max 16 mg in 24 hrs 0 7 Active cyanocobalamin (VITAMIN B12) 1,000 mcg tablet Take 1 tablet by mouth once daily. 90 tablet 3 8 Active aspirin chewable 81 mg chewable tablet Take 1 tablet by mouth once daily with a meal. 0 08/06/201 8 Active cholecalciferol (VITAMIN D3) 1,000 unit capsule Take 1 Capsule (1,000 units) by mouth once daily. 0 1 Active venlafaxine (EFFEXOR) 37.5 mg tabletIndications: Anxiety disorder, unspecified type TAKE 1 TABLET(37.5 MG) BY MOUTH EVERY MORNING 90 Tablet 1 3 Active gemfibroziL (LOPID) 600 mg tabletIndications: Mixed hyperlipidemia TAKE 1 TABLET BY MOUTH DAILY 90 Tablet 3 4 Active Cetirizine (ZyrTEC) 10 mg cap 4 Active alendronate (FOSAMAX) 70 mg tabletIndications: Age-related osteoporosis without current pathological fracture TAKE 1 TABLET(70 MG) BY MOUTH 1 TIME A WEEK IN THE MORNING ON AN EMPTY STOMACH AND WITH FULL GLASS OF WATER. DO NOT LIE DOWN FOR 1 HOUR 12 Tablet 3 4 Active alendronate (FOSAMAX) 70 mg tabletIndications: Age-related osteoporosis without current pathological fracture Take 1 Tablet (70 mg) by mouth once a week in the morning. Take on empty stomach with full glass of water. Do not lie down for 1 hr. 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 01/08/2018 09/25/2023 Trapezius strain 08/04/2010 05/04/2012 Depression with anxiety 12/27/200902/02 Knee pain, left 12/27/2009 12/29/2009 Encounters Date Type Department Care Team Description 10/10/[address] [address] Jazmine Montanez DO Results (biopsy) 10/08/[address] [address] Jazmine Montanez DO Follow Up (Questions about directions following procedure) 10/06/[address] [address] Jazmine Montanez DO Refill Request (Alendronate) 10/05/2023 10:40 AM CDT Procedure Only [address] [address] Jazmine Montanez DO Procedure (endometrial biopsy) 10/05/2023 Travel 10/04/[address] [address] Jazmine Montanez DO Appointment (endobx) 10/02/2023 7:30 AM CDT Ancillary Procedure [address] [address] 10/02/2023 Telephone [facility] [address] [place] [address] Jazmine Montanez DO Referral (endometrial bx//) 10/02/2023 Travel 09/30/2023 Travel 09/24/2023 11:30 AM CDT Office Visit [facility] [address] [facility] [place] [address] Jazmine Montanez DO Vaginal Bleeding 09/23/2023 Travel 09/10/2023 Orders Only [facility] Scanner 1 scan: (1-Ord) [facility], 09/10/2023 09/07/2023 8:15 AM CDT Ancillary Procedure [facility] [address] [place] [address] 09/07/2023 8:00 AM CDT Office Visit [facility] [address] [facility] [address] Rick Cárdenas MD Consult (Left Shoulder) 09/07/2023 Travel 09/05/2023 Travel 09/03/2023 Telephone [facility] [place] [address] Rick Cárdenas MD Appointment (Dr. Cárdenas 09/07/2023) 08/20/2023 8:00 AM CDT Ancillary Procedure [facility] [address] [place] [address] 08/20/2023 Orders Only [address] [place] [address] Jazmine Montanez DO <No scans attached> 08/20/2023 Travel 08/06/2023 7:45 AM FILLER PICKER Office Visit [facility] [facility] [address] Jazmine Montanez DO Arm Pain/problem (left arm-OMT); Immunization/Injecti on (COVID-19 vaccine) 08/06/2023 Travel from Last 3 Months Immunizations Name Administration Dates Next Due COVID-19 Vaccine Spikevax (Zulay fernández 50mcg/0.5mL) 12YO+ [id number] Formula PF 08/06/2023 COVID-19 vaccine (Pfizer-Bio NTech 30mcg/0.3mL) 12YO+ BIVALENT PF, MDV 03/10/2022 Influenza, IIV3 (Age >=3 years) 02/13/2012 Influenza, IIV4 03/07/2023, 2,04/13/2021,04/07/20 19,03/01/2018,03/14/2017,03/09/2014,02/12 Influenza, IIV4 (=>6mos) MDV 04/03/2020 Td (Age >=7 Years) 03/01/2018 Tdap 11/22/2006 Zoster (Shingrix-RZV, recombinant) 08/02/2021, Family History Medical History Relation Name Comments Dementia Maternal Grandmother Heart Disease Maternal Uncle [place] AT 42 YEA RS Cancer Mother lung [...] Sign Reading Time Taken Comments Blood Pressure 134/82 10/05/2023 10:40 AM CDT Pulse 99 10/05/2023 10:40 AM CDT Temperature 36 ??C (96.8 ??F) 03/15/2023 4:15 PM CDT Respiratory Rate 14 07/12/2023 11:20 AM FILLER PICKER Oxygen Saturation 95% 10/05/2023 10:40 AM CDT Inhaled Oxygen Concentration - - Weight 81.2 kg (179 lb) 10/05/2023 10:40 AM CDT Height 154.9 cm (5' 1) 03/15/2023 11:53 AM CDT Body Mass Index 33.82 03/15/2023 11:53 AM CDT Plan of Treatment Upcoming Encounters Date Type Department Care Team (Late st Contact Info) Description 11/02/2023 1:00 PM CDT Orders Only [facility] [address] [place] [address] Lab, [facility] Maintenance Due Date Last Done Comments [...] Completed 08/02/2021, 05/10/2021 COVID-19 vaccine series Completed 08/06/19, 03/10/2022, 03/22/2021, Additional history exists Pneumococcal series for age 6-64 Aged Out No longer eligible based on patient's age to complete this topic Medical Devices Implanted Type Area Radiation Protection Technician Device Identifier Shelf Expiration Date Model / Serial / Lot [id number] 8breast 330cc Colrain Rnd High Smooth Saline Implanted:Qty: 1 on 03/27/2018 by Tarun Cardozo MD at [facility] Explanted:at [facility] (Quantity not on file) Left: Breast J And J Colrain Sunpreme 02/06/2022 [id number]# / [id number] / [id number] 5breast 330cc Colrain Rnd High Smooth Saline Implanted:Qty: 1 on 03/27/2018 by Tarun Cardozo MD at [facility] Explanted:at [facility] (Quantity not on file) Right: Breast [employer] Colrain Sunpreme 01/10/2022 [id number]# / [id number] / [id number] Stent Uret [id number] Silhouette - [id number] Implanted:Qty: 1 on 03/07/2022 by Gilbert Golden MD at [facility] Left: Ureter [employer] Gerda 03/21/2024 [id number] / / [id number] Stent Uret [id number] Contour - [id number] Implanted:Qty: 1 on 03/23/2022 by Gilbert Golden MD at [facility] Right: Ureter [facility] 02/18/2024 [id number] / / [id number] Stent Uret [id number] Percuflex Hydroplus - [id number] Implanted:Qty: 1 on 03/23/2022 by Gilbert Golden MD at [facility] Left: Ureter [facility] 01/12/2025 [id number] / / [id number] Stent Uret [id number] Percuflex Hydroplus - [id number] Implanted:Qty: 1 on 03/15/2023 by Gilbert Golden MD at [facility] Left: Ureter [facility] [id number] / / [id number] Stent Tria Soft 6f X 22cm Implanted:Qty: 1 on 03/15/2023 by Gilbert Golden MD at [facility] Right: Ureter [id number] / / [id number] Description:STENT TRIA SOFT 6F X 22CM Procedures Procedure Name Priority Date/Time Associated Diagnosis Comments PATH TISSUE EXAM Routine 10/05/2023 10:5 9 AM CDT Postmenopausal vaginal bleeding 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 PELVIS COMPLETE TA AND TV Routine 10/02/2023 8:05 AM CDT Postmenopausal vaginal bleeding Álvarez syndrome C-REACTIVE PROTEIN Add On 09/24/2023 12 :42 PM CDT Other elevated white blood cell (WBC) count CBC WITH AUTO DIFFERENTIAL Routine 09/24/2023 12:42 PM CDT Fatigue, unspecified type COMP METABOLIC PANEL Routine 09/24/2023 12:42 PM CDT Fatigue, unspecified type TSH WITH REFLEX Routine 09/24/2023 12:42 PM CDT Fatigue, unspecified type FERRITIN Routine 09/24/2023 12:42 PM CDT Fatigue, unspecified type CBC WITH AUTO DIFFERENTIAL Routine 09/24/2023 12:42 PM CDT Fatigue, unspecified type SCAN-ULTRASOUND REPORT 09/10/2023 12:00 AM CDT XR SHOULDER 4 VIEWS LEFT Routine 09/07/2023 8:04 AM CDT Left shoulder pain, unspecified chronicity MR SHOULDER LEFT WO Routine 08/20/2023 8 :42 AM CDT Arm pain, lateral, left Chronic left shoulder pain COLONOSCOPY 07/12/2023 10:16 AM FILLER PICKER HPV THIN PREP Routine 11/03/2022 2:30 PM CDT Screening for cervical cancer LIPID PANEL Routine 05/10/2021 8:30 AM FILLER PICKER Mixed hyperlipidemia ANTI HCV Routine 01/08/2015 8:07 AM CDT Need for hepatitis C screening test from Last 3 Months or Most Recently Relevant to Health Maintenance Results * PATH TISSUE EXAM (10/05/2023 10:59 AM CDT) Case Report Pathology Report ?Case: [id number] ? Authorizing Provider: ??Jazmine Montanez, ? Collected: ? 10/05/2023 1059 ? Ordering Location: ? [facility] ?? Received: ?10/05/2023 1306 ? Clinic ? Pathologist: ? Rico Ca MD ? Specimen: ?Endometrial Biopsy ? 10/10/2023 2:28 PM CDT [facility] Final Diagnosis A) ENDOMETRIUM, BIOPSY: 1. Fragments of benign endometrial polyp(s) 2. Background inactive endometrium 3. Negative for atypia and malignancy 4. Small fragments of benign endocervix are present 10/10/2023 2:28 PM CDT [facility] EN[facility]AL LAB[facility] Comment Case seen in consultation with Dr. Lou. 10/10/2023 2:28 PM CDT [facility] Clinical Information Post menopausal bleeding and thickened endometrium. History of recurrent breast cancer. 10/10/2023 2:28 PM CDT [facility] Gross Description A) Received in formalin, labeled with the patient's name and A, is a 2.4 x 1.6 x 0.3 cm aggregate of pink-leslie mucosa admixed with clotted blood and mucous. The specimen is entirely submitted in 1 cassette. JKT 10/08/2023 10/10/2023 2:28 PM CDT [facility]AL [facility] Microscopic Description The final diagnosis is based on microscopic examination of appropriate sections of all specimens. 10/10/2023 2:28 PM CDT [facility] ENTRAL LAB[facility] Additional Information Interpreted at [facility], Central Laboratory - [address] [facility] [address] [address] 10/10/2023 2:28 PM CDT [facility] EN[facility] Other (Endometrial Biopsy) Non-Blood / Unknown 10/05/2023 10:59 AM CDT 10/05/2023 1:06 PM CDT Jazmine Goodrich Detert DO PATHOLOGY/CYTOLOGY [facility]CENTRAL LAB[facility]ATORY [address] [place] [address], [place] * US PELVIS COMPLETE TA AND TV (10/02/2023 8:05 AM CDT) Anatomical Region Laterality Modality Pelvis Ultrasound 10/02/2023 10:2 0 AM CDT Impressions 10/02/2023 10:20 AM CDT Heterogeneous endometrium measuring 7 millimeters. Multiple uterine fibroids, some of which are calcified, similar to the prior study, measuring up to 2.3 cm. No mass effect upon the endometrium. Nonvisualization of the ovaries. Dictated by Yoandy Atkins MD @ 10/02/2023 10:20:36 AM (Electronically Signed) Narrative 10/02/2023 10:20 AM CDT For Patients: ??As a result of the Cures Act, medical imaging exams and procedure reports are released immediately into your electronic medical record. ??You may view this report before your referring provider. ??If you have questions, please contact your health care provider. INDICATION: Álvarez syndrome, postmenopausal bleeding COMPARISON: 12/09/2018 TECHNIQUE: 2D soto scale and color Doppler images were acquired of the pelvis using a transabdominal and transvaginal approach. FINDINGS: Sonographic images demonstrate a normal size and smooth outer contour of the uterus. Uterus measures 8.8 cm in length by 4.1 cm in AP diameter by 4.7 cm in transverse dimension. Posterior mid intramural fibroid with calcifications measures 10 x 7 x 11 millimeters. Partially exophytic right-sided uterine fibroid is present without calcifications measuring 2.3 x 1.5 x 2.0 cm. Calcified anterior mid fibroid measures 17 x 16 x 19 millimeters. Fibroids are similar to the prior study. The endometrial lining appears heterogeneous and measures 7 mm in composite thickness. The ovaries are not visualized. There are no suspicious fluid collections within the cul-de-sac. Procedure Note Yoandy Atkins MD - 10/02/2023 For Patients: As a result of the Cures Act, medical imagingexams and procedure reports are released immediately into your electronicmedical record. You may view this report before your referring provider.If you have questions, please contact your health care provider. INDICATION: Álvarez syndrome, postmenopausal bleeding COMPARISON: 12/09/2018 TECHNIQUE: 2D soto scale and color Doppler images were acquired of the pelvis using atransabdominal and transvaginal approach. FINDINGS: Sonographic images demonstrate a normal size and smooth outer contour ofthe uterus. Uterus measures 8.8 cm in length by 4.1 cm in AP diameter by4.7 cm in transverse dimension. Posterior mid intramural fibroid withcalcifications measures 10 x 7 x 11 millimeters. Partially exophyticright-sided uterine fibroid is present without calcifications measuring2.3 x 1.5 x 2.0 cm. Calcified anterior mid fibroid measures 17 x 16 x 19millimeters. Fibroids are similar to the prior study. The endometriallining appears heterogeneous and measures 7 mm in composite thickness. The ovaries are not visualized. There are no suspicious fluid collectionswithin the cul-de-sac. IMPRESSION: Heterogeneous endometrium measuring 7 millimeters. Multiple uterine fibroids, some of which are calcified, similar to theprior study, measuring up to 2.3 cm. No mass effect upon the endometrium. Nonvisualization of the ovaries. Dictated by Yoandy Atkins MD @ 10/02/2023 10:20:36 AM (Electronically Signed) Jazmine Montanez DO US * (ABNORMAL) CBC WITH AUTO DIFFERENTIAL (09/24/2023 12:42 PM CDT) WHITE BLOOD COUNT 11.2(H) 4.5 - 11.0 thou/cu mm 09/24/2023 12:50 PM CDT [facility] RED BLOOD COUNT 4.34 4.00 - 5.20 mil/cu mm 09/24/2023 12:50 PM CDT [facility] HEMOGLOBIN 13.5 12.0 - 16.0 g/dL 09/24/2023 12:50 PM CDT [facility] HEMATOCRIT 40.1 33.0 - 51.0 % 09/24/2023 12:50 PM CDT [facility] MCV 92 80 - 100 fL 09/24/2023 12:50 PM CDT [facility] MCH 31.1 26.0 - 34.0 pg 09/24/2023 12:50 PM CDT [facility] MCHC 33.7 32.0 - 36.0 g/dL 09/24/2023 12:50 PM CDT [facility] RDW 13.2 11.5 - 15.5 % 09/24/2023 12:50 PM CDT [facility] PLATELET COUNT 399 140 - 440 thou/cu mm 09/24/2023 12:50 PM CDT [facility] MPV 9.3 6.5 - 11.0 fL 09/24/2023 12:50 PM CDT [facility] % NEUT 64.6 % 09/24/2023 12:50 PM CDT [facility] % LYMPH 24.4 % 09/24/2023 12:50 PM CDT [facility] % MONO 8.2 % 09/24/2023 12:50 PM CDT [facility] % EOS 2.4 % 09/24/2023 12:50 PM CDT [facility] % BASO 0.4 % 09/24/2023 12:50 PM CDT [facility] ABSOLUTE NEUTROPHILS 7.2(H) 1.7 - 7.0 thou/cu mm 09/24/2023 12:50 PM CDT [facility] ABSOLUTE LYMPHOCYTES 2.7 0.9 - 2.9 thou/cu mm 09/24/2023 12:50 PM CDT [facility] ABSOLUTE MONOCYTES 0.9(H) <0.9 thou/cu mm 09/24/2023 12:50 PM CDT [facility] ABSOLUTE EOSINOPHILS 0.3 <0.5 thou/cu mm 09/24/2023 12:50 PM CDT [facility] ABSOLUTE BASOPHILS 0.0 <0.3 thou/cu mm 09/24/2023 12:50 PM CDT [facility] Blood BLOOD SPECIMEN / Unknown Venipuncture / Unknown 09/24/2023 12:42 PM CDT 09/24/2023 12:45 PM CDT Jzamine Montanez DO HEMATOLOGY [facility] [address] [place] [address], * TSH WITH REFLEX (09/24/2023 12:42 PM CDT) TSH 1.85 0.27 - 4.20 uIU/mL 09/25/2023 4:35 AM CDT [facility] Blood BLOOD SPECIMEN / Unknown Venipuncture / Unknown 09/24/2023 12:42 PM CDT 09/24/2023 12:45 PM CDT Narrative [facility] - 09/25/2023 4:35 AM CDT In Adults, TSH values between 5.00 and 10.00 uIU/ml do not necessarily indicate the presence of Hypothyroidism. Correlation with clinical findings such as presence of goiter and/or Thyroperoxidase (TPO) Antibody may be helpful. For more information please refer to DANNIE 2004; 291: 228-238. Jazmine Montanez DO CHEMISTRY Performing Organization Address [facility] Co de Phone Number [facility] [address] [place] [address], * C-REACTIVE PROTEIN (09/24/2023 12:42 PM CDT) C-REACTIVE PROTEIN 0.4 <0.5 mg/dL 09/25/2023 5:11 AM CDT [facility] Blood BLOOD SPECIMEN / Unknown Venipuncture / Unknown 09/24/2023 12:42 PM CDT 09/24/2023 12:45 PM CDT Jazmine Montanez DO CHEMISTRY [facility] [address] [place] [address], * FERRITIN (09/24/2023 12:42 PM CDT) FERRITIN 64.6 15.0 - 150.0 ng/mL 09/25/2023 4:35 AM CDT [facility] Blood BLOOD SPECIMEN / Unknown Venipuncture / Unknown 09/24/2023 12:42 PM CDT 09/24/2023 12:45 PM CDT Jazmine Goodrich Tarik DO CHEMISTRY [facility] [address] [place] [address], [place] * (ABNORMAL) COMP METABOLIC PANEL (09/24/2023 12:42 PM CDT) SODIUM 139 136 - 145 mmol/L 09/25/2023 4:35 AM CDT [facility] POTASSIUM 4.5 3.5 - 5.1 mmol/L 09/25/2023 4:35 AM T [facility] CHLORIDE 102 98 - 107 mmol/L 09/25/2023 4:35 AM T [facility] CO2,TOTAL 25 22 - 29 mmol/L 09/25/2023 4:35 AM T [facility] ANION GAP 12 5 - 18 09/25/2023 4:35 AM T [facility] GLUCOSE 82 70 - 99 mg/dL 09/25/2023 4:35 AM T [facility] CALCIUM 10.3(H) 8.8 - 10.2 mg/dL 09/25/2023 4:35 AM T [facility] BUN 14 8 - 23 mg/dL 09/25/2023 4:35 AM T [facility] CREATININE 1.04(H) 0.50 - 0.90 mg/dL 09/25/2023 4:35 AM T [facility] BUN/CREAT RATIO 13 10 - 20 4:35 AM T [facility] eGFR 61(L) >90 mL/min/1.7 3m2 09/25/2023 4:35 AM T [facility] Comment:As of 2021, eG FR is calculated by the CKD-EPI creatinine equation without race adjustment. ??eGFR can be influenced by muscle mass, exercise, and diet. ??The reported eGFR is an estimation only and is only applicable if the renal function is stable. ALBUMIN 5.0(H) 4.0 - 4.9 g/dL 09/25/2023 4:35 AM CDT [facility] PROTEIN,TOTAL 8.0 6.0 - 8.0 g/dL 09/25/2023 4:35 AM CDT [facility] BILIRUBIN,TOTAL 0.4 0.0 - 1.2 mg/dL 09/25/2023 4:35 AM CDT [facility] ALK PHOSPHATASE 101 35 - 104 IU/L 09/25/2023 4:35 AM CDT [facility] ALT (SGPT) 25 10 - 35 IU/L 09/25/2023 4:35 AM CDT [facility] AST (SGOT) 30 10 - 35 IU/L 09/25/2023 4:35 AM CDT [facility] Blood BLOOD SPECIMEN / Unknown Venipuncture / Unknown 09/24/2023 12:42 PM CDT 09/24/2023 12:45 PM CDT Jazmine Montanez DO [facility] [address] [place] [address], * SCAN-ULTRASOUND REPORT (09/10/2023 12:00 AM CDT) Anatomical Region Laterality Modality Other Scanner OTHER * XR SHOULDER 4 VIEWS LEFT (09/07/2023 [...] For Patients: As a result of the 21st Century Cures Act, medical imagingexams and procedure [...] MD @ 08/20/2023 11:39:02 AM (Electronically Signed) Jazmine Montanez DO MR * COLONOSCOPY (07/12/2023 10:16 AM FILLER PICKER) 07/12/2023 10:1 6 AM FILLER PICKER Narrative Transcriptions Ramos Le MD - 07/12/2023 [...] candidate for conscious sedation. The endoscope [id number] was passed through the anus andadvanced to [...] 10:16 AM Procedure Code(s): --- Professional --- 03959, Colonoscopy, flexible; with removalof tumor(s), polyp(s), or other lesion(s) byhong technique 07068, 59, Colonoscopy, flexible; withbiopsy, single or multiple Diagnosis Code(s): --- Professional --- D12.3, Benign neoplasm of transverse colon (hepatic flexure or splenic flexure) Z15.09, Genetic susceptibility to other malignant neoplasm CPT copyright 2021 [employer]. All rights reserved. The codes documented in this report are preliminary and upon desk monitor reviewmay be revised to meet current compliance requirements. Scope In: 10:45:01 AM Scope Withdrawal Time 0 hours 12 minutes 22 seconds Scope Out: 11:00:33 AM Ramos Le MD PROCEDURE ORD * HPV HIGH RISK (11/03/2022 2:30 PM CDT) TYPE 16 Negative Negative 11/08/2022 1:54 PM CDT [facility] TYPE 18 Negative Negative 11/08/2022 1:54 PM CDT [facility] OTHER HIGH RISK TYPES Negative Negative 11/08/2022 1:54 PM CDT [facility] Other (Cervical) Non-Blood / Unknown 11/03/2022 2:30 PM CDT 11/07/2022 9:29 AM CDT Narrative [facility] - 11/08/2022 1:54 PM CDT HPV types 16, 18, 31, 33, 35, 39, 45, 51, 52, 56, 58, 59, 66 and 68 DNA were undetectable or below the pre-set threshold. Methodology: Ryann Lisa 4800 HPV Test Jazmine Montanez DO MICROBIOLOGY [facility] [address] [place] [address], * (ABNORMAL) LIPID PANEL (05/10/2021 8:30 AM FILLER PICKER) CHOLESTEROL,TOTAL 177 100 - 199 mg/dL 05/10/2021 6:04 PM FILLER PICKER [facility] TRIGLYCERIDES 183(H) <150 mg/dL 05/10/2021 6:04 PM FILLER PICKER [facility] HDL CHOLESTEROL 39(L) >40 mg/dL 6:04 PM FILLER PICKER [facility] NON-HDL CHOLESTEROL 138 <145 mg/dl 05/10/2021 6:04 PM FILLER PICKER [facility] CHOL/HDL RATIO 4.54(H) <4.50 05/10/2021 6:04 PM FILLER PICKER [facility] LDL CHOLESTEROL 101 <=130 mg/dL 05/10/2021 6:04 PM FILLER PICKER [facility] VLDL CHOLESTEROL 37(H) <=30 mg/dL 05/10/2021 6:04 PM [facility] PROVIDER ORDERED STATUS RANDOM 05/10/2021 6:04 PM FILLER PICKER [facility] Blood BLOOD SPECIMEN / Unknown Venipuncture / Unknown 05/10/2021 8:30 AM FILLER PICKER 05/10/2021 8:34 AM FILLER PICKER Jazmine Montanez DO CHEMISTRY Performing Organization Address City/[facility]/ZIP Co de Phone Number [facility] [address] [place] [address], [place] * ANTI HCV [47597.2] (01/08/2015 8:07 AM CDT) HEPATITIS C ANTIBODY Non-Reacti ve Non-Reacti ve 01/08/2015 1:31 PM CDT [facility] Blood specimen (specimen) BLOOD SPECIMEN / Unknown Venipuncture / Unknown 01/08/2015 8:07 AM CDT 01/08/2015 8:10 AM CDT Narrative [facility] - 01/08/2015 1:31 PM CDT Antibodies to HCV not detected; does not exclude the possibility of exposure to HCV. Jazmine Montanez DO SEND OUTS [facility] [address] [place] [address], [place] from Last 3 Months or Most Recently [...] 6:47 AM 03/28/2018 2:35 AM Care Teams Senior Mechanical Estimator Relationship Specialty Start Date End Date Jazmine Montanez DO PCP - General 05/29/08
--- OUTSIDE RECORDS SUMMARY | 2023-10-26 08:27 | XMS_ITS | Continuity of Care Document ---
Author Organization [facility] Address [address] [place] [address] Care Team Providers Care Drop Shipment Clerk Name Role Phone LORENA FRANCE Primary Care Provider Assessment No assessment recorded. Plan of Treatment Reminders Order Date Submit Date Provider Last Modified By Organization Details Last Modified Time Details Appointments None recorded. Lab None recorded. Referral None recorded. Procedures None recorded. Surgeries None recorded. Imaging XR, kidney + ureter + bladder 2023 024 [facility] , [address] [place], [address], 4 10:02:02 US, kidney - Check Renal U/S - H/O Left hydronephro sis - [facility] [facility] 2023 024 [facility], [address] [place], [address], 4 08:47:18 Medication Orders None recorded. Patient TargetsNo targets [...] carranza MD on 2023 at 11:55 [email or web address] [facility] [place] [address] [facility] [address], [place], [address], 08/30/2023 16:05:59 09/11/19 24 09/10/2023 US, kidne y No observ ation record ed. [facility] [address] [place], [address], 09/12/2023 08:22:26 Result Notes Documentation Provider Name and Address Organization Details Recorded Time Xr, Kidney + Ureter + Bladder : EXAM: XR, KIDNEY + URETER + BLADDER [facility] DATE: 08/22/2023 INDICATION: Calculus of kidney. COMPARISON: CT abdomen and pelvis 02/21/2023. IMPRESSION: Similar right renal calculi, the largest in the lower pole measuring 8-9 mm. No convincing calculi overlying the left kidney or ureters. Nonobstructive bowel gas pattern. Calcified uterine fibroids. This report was electronically interpreted by: Howard Gonzalez MD on 08/22/2023 at 11:55 Gilbert Golden MD [address] [place] [address],[address], [address], [facility] 08/30/2023 16:05:59 Problems Name Status Onset Date Resolution Date Notes Provider Name and Address Organization Details Recorded Time History of calculus of kidney Active 2 Gilbert Golden MD [address] [place] [address],[address], [address], [facility] 05/15/2022 16:40:09 Problem Notes None recorded. Procedures Surgical History Date Name Laterality Status Provider Name and Address Organization Details Recorded Time 07/12/19 24 [facility] 12:05:57 04/16/20 23 Cystoscopy with foreign body/stent removal completed Gilbert Golden MD [address], [place], [address], [facility] 04/15/2023 22:48:02 04/03/20 22 Cystoscopy with foreign body/stent removal completed Gilbert Golden MD [address], [place], [address], [facility] 04/03/2022 09:37:49 04/03/20 22 Keflex post Cysto [facility] 04/03/2022 10:40:54 03/23/20 22 CYSTOSCOPY, WITH URETEROSCOPY, WITH LITHOTRIPSY, WITH INSERTION OF URETERAL STENT (SURG) completed Mohini Rasheed [facility] 03/28/2022 12:46:24 Breast reconstruction [facility] 03/20/2022 10:22:36 lumpectomy of breast completed Charlene Peralta [facility] 03/20/2022 10:22:46 ligation of fallopian tube completed Charlenedaren Zuluagaoza [facility] 03/20/2022 10:22:55 Imaging Results None recorded. Procedure Notes None recorded. Medical Equipment None Reported. Allergies Allergen ID Allergen Name Allergen Category Reaction Reaction Severity Criticality Documentation Date Start Date Code Code System Note Provider Name and Address Organization Details Recorded Time 257440 adhesive tape environme nt,medica tion Not available Not available Not available 03/20/2022 Charlene fairchild [facility] 2 10:19:53 340500 lactose food,medi cation Not available Not available Not available 03/20/2022 6211 RxNorm [facility] 2 10:20:17 513276 latex environme nt,medica tion Not available Not available Not available 03/20/2022 98052 91 RxNorm Charlene Peralta [facility] 2 10:20:34 Medications Name Sig Start Date [...] Updated DateTime 08/22/2023 154.94 cm 34 kg/m2 18154.63 g Charlene Peralta [facility] 08/22/2023 12:05:27 Social History Question Answer Notes LastModified by Organizat ion Details LastModified Time Tobacco Smoking Status Former Smoker Charlene fairchild [facility] 03/20/2022 10:23:13 When Did You Quit Smoking? 16+yearssinc elastcigaret te [id number] Information not available 03/20/2022 What Was The [...] injectable, quadrivalent 04/03/2020 completed Gilbert Golden MD [address] [place] [address],[address] [facility], [place], [address], [facility] 02/21/2023 11:42:45 zoster recombinant 08/02/2021 completed Gilbert simmons MD [address] [place] [address],[address], [address], [facility] 02/21/2023 11:42:45 zoster recombinant 05/10/2021 completed Gilbert simmons MD [address] [place] [address],[address], [place], [address], [facility] 02/21/2023 11:42:45 COVID-19, mRNA, LNP-S, PF, 30 mcg/0.3 mL dose 08/28/2020 completed Gilbert Golden MD [address] [place] [address],[address] [place] [address], [address], [facility] 02/21/2023 11:42:45 COVID-19, mRNA, LNP-S, PF, 30 mcg/0.3 mL dose 09/18/2020 completed Gilbert Golden MD [address] [place] [address],[address], [address], [facility] 02/21/2023 11:42:45 COVID-19, mRNA, LNP-S, PF, 30 mcg/0.3 mL dose 03/22/2021 completed Gilbert Golden MD [address] [place] [address],[address], [address], [facility] 02/21/2023 11:42:45 COVID-19, mRNA, LNP-S, bivalent, PF, 30 mcg/0.3 mL dose 03/10/2022 completed Gilbert Golden MD [address] [place] [address],[address], [address], [facility] 02/21/2023 11:42:45 Tdap 11/22/2006 completed Gilbert Golden MD [address] [place] [address],[address] [place] [address], [address], [facility] 02/21/2023 11:42:45 Influenza, seasonal, injectable 02/13/2012 completed Gilbert Golden MD [address] [facility] [address], [place], [address], [facility] 02/21/2023 11:42:45 Td (adult), 2 Lf tetanus toxoid, preservative free, adsorbed 03/01/2018 completed Gilbert Golden MD [address] [place] [address],[address], [place], [address], [facility] 02/21/2023 11:42:46 influenza, injectable, quadrivalent, preservative free 02/12/2013 completed Gilbert Golden MD [address] [place] [address],[address], [place], [address], [facility] 02/21/2023 11:42:46 influenza, injectable, quadrivalent, preservative free 03/01/2018 completed Gilbert Golden MD [address] [place] [address],[address], [place], [address], [facility] 02/21/2023 11:42:46 influenza, injectable, quadrivalent, preservative free 03/09/2014 completed Gilbert Golden MD [address] [place] [address],[address], [place], [address], [facility] 02/21/2023 11:42:46 influenza, injectable, quadrivalent, preservative free 03/10/2022 completed Gilbert Golden MD [address] [place] [address],[address], [place], [address], [facility] 02/21/2023 11:42:46 influenza, injectable, quadrivalent, preservative free 03/14/2017 completed Gilbert Golden MD [address] [place] [address],[address], [place], [address], [facility] 02/21/2023 11:42:46 influenza, injectable, quadrivalent, preservative free 04/07/2019 completed Gilbert Golden MD [address] [place] [address],[address], [place], [address], [facility] 02/21/2023 11:42:46 influenza, injectable, quadrivalent, preservative free 04/13/2021 completed Gilbert Golden MD [address] [place] [address],[address], [place], [address], [facility] 02/21/2023 11:42:46 Past Encounters Encounter ID Performer Location Encounter Start Date Encounter Closed Date Diagnosis/Indication Diagnosis SNOMED-CT Code [id number] Gilbert Golden MD [facility] [address] [place] [id number] 08/22/2023 11:51:51 08/23/2023 08:43:58 History of calculus of kidney 468444384 Kidney stone 25729736 Hydronephrosis 97356024 Health Concerns Section Related Observation LastModified by Organization Detai ls LastModified Time None Recorded Concern Status LastModified by Organization Details LastModified Time None Recorded Payers Encounter Date Sequence Insurance Name Policy Number Policy Sandoval Covered Member ID Sandoval Member ID Guarantor Name 08/22/2023 1 [employer] ([place] - [place]MO) [id number] Otilia Clayton Chadd [id number] Otilia Clayton Chadd Notes Date Note Type Note [...] 3 mm stones (mid-kidney) Gilbert Golden MD [address] [place] [address],[facility] [address], [place], [address], [facility] 08/22/2023 13:47:28 OBGyn Episode No OBEpisode recorded.
--- OUTSIDE RECORDS SUMMARY | 2023-10-26 08:27 | XMS_ITS | Data Portability ---
Author Organization [facility] Address [address] [place] [address] Care Team Providers Care Insurance Adjustor Name Role Phone LORENA FRANCE Primary Care Provider Assessment No assessment recorded. Plan of Treatment Reminders Order Date Submit Date Provider Last Modified By Organization Details Last Modified Time Details Appointments None recorde d. Lab kidney stone, 24-hour urine panel 2022 023 [email or web address] [employer]uling [employer], [address], [place], [address], 3 08:35:02 kidney stone, 24-hour urine panel 2021 022 [email or web address] [facility], [address], [place], [address], 2 10:44:06 Referral None recorde d. Procedures [...] kidney + ureter + bladder 2023 024 [email or web address] [facility] , [address] [place], [address], 4 10:02:02 US, kidney - Check Renal U/S - H/O Left hydrone phrosis - [facility] 2023 024 [facility], [address] [place], [address], 4 08:47:18 XR, kidney + ureter + bladder 2022 023 [email or web address] [facility] , [address] [place], [address], 3 13:12:43 US, kidney 2022 023 [email or web address] [facility], [address] [place], [address], 3 09:10:46 XR, kidney + ureter + bladder - PREV HERE 02/21/232022 023 [facility] , [address] [place], [address], 4 12:58:01 Medication Orders None recorde d. Patient TargetsNo targets recorded. Patient Instructions Encounter Date Encounter Id Patient Instructions Last Modified By Organization Details Last Modified Time 06/27/2023 [id number] telephone - 6 minutes [email or web address] Not available 06/27/2023 13:26:13 Reason for Referral None Reported. Results Created Date Observation Date Name Description Value Unit Range Abnormal Flag LastModifiedBy Organization Detail LastModifiedTime 05/07/2005/10/2023 LITHO LINK 24HR URINE PANEL cystine, urine, qualitative COMMEN T Not Available [facility] ([facility]) [address] [facility], [place], [address], 05/10/2023 22:06:13 05/07/20 23 05/10/2023 LITHO LINK 24HR URINE PANEL urine volume (preserved) 1900 mL/24 _HR 500-40 00 Not Available [facility] ([facility]) [address] [place], [address], 05/10/2023 22:06:13 05/07/20 23 05/10/2023 LITHO LINK 24HR URINE PANEL calcium oxalate saturation 7.51 6.00-1 0.00 Not Available [facility] ([facility]) [address] [place], [address], 05/10/2023 22:06:13 05/07/20 23 05/10/2023 LITHO LINK 24HR URINE PANEL calcium, urine 219 mg/24 _HR <200 above high normal Not Available [facility] ([facility]) [address] [facility], [place], [address], 05/10/2023 22:06:13 05/07/20 23 05/10/2023 LITHO LINK 24HR URINE PANEL oxalate, urine 32 mg/24 _HR 20-40 Not Available [facility] ([facility]) [address] [place], [address], 05/10/2023 22:06:13 05/07/20 23 05/10/2023 LITHO LINK 24HR URINE PANEL citrate, urine 444 mg/24 _HR >550 below low normal Not Available [facility] ([facility]) [address] [place], [address], 05/10/2023 22:06:13 05/07/20 23 05/10/2023 LITHO LINK 24HR URINE PANEL calcium phosphate saturation 0.47 0.50-2 .00 below low normal Not Available [facility] ([facility]) [address] [place], [address], 05/10/2023 22:06:13 05/07/20 23 05/10/2023 LITHO LINK 24HR URINE PANEL pH, 24 HR, urine 5.757 5.800- 6.200 below low normal Not Available [facility] ([facility]) [address] [facility], [place], [address], 05/10/2023 22:06:13 05/07/20 23 05/10/2023 LITHO LINK 24HR URINE PANEL uric acid saturation 0.60 <1.00 Not Available [facility] ([facility]) [address] [facility], [place], [address], 05/10/2023 22:06:13 05/07/20 23 05/10/2023 LITHO LINK 24HR URINE PANEL uric acid, urine 367 mg/24 _HR <750 Not Available [facility] ([facility]) [address] [facility], [place], [address], 05/10/2023 22:06:13 05/07/20 23 05/10/2023 LITHO LINK 24HR URINE PANEL sodium, urine 172 mmol/ 24_HR 50-150 above high normal Not Available [facility] ([facility]) [address] [facility], [place], [address], 05/10/2023 22:06:13 05/07/20 23 05/10/2023 LITHO LINK 24HR URINE PANEL potassium, urine 43 mmol/ 24_HR 20-100 Not Available [facility] ([facility]) [address] [facility], [place], [address], 05/10/2023 22:06:13 05/07/20 23 05/10/2023 LITHO LINK 24HR URINE PANEL magnesium, urine 47 mg/24 _HR 30-120 Not Available [facility] ([facility]) [address] [facility], [place], [address], 05/10/2023 22:06:13 05/07/20 23 05/10/2023 LITHO LINK 24HR URINE PANEL phosphorus, urine 628 mg/24 _HR 600-12 00 Not Available [facility] ([facility]) [address] [facility], [place], [address], 05/10/2023 22:06:13 05/07/20 23 05/10/2023 LITHO LINK 24HR URINE PANEL ammonium, urine 22 mmol/ 24_HR 15-60 Not Available [facility] ([facility]) [address] [facility], [place], [address], 05/10/2023 22:06:13 05/07/20 23 05/10/2023 LITHO LINK 24HR URINE PANEL chloride, urine 173 mmol/ 24_HR 70-250 Not Available [facility] ([facility]) [address] [facility], [place], [address], 05/10/2023 22:06:13 05/07/20 23 05/10/2023 LITHO LINK 24HR URINE PANEL sulfate, urine 25 mEq/2 4_HR 20-80 Not Available [facility] ([facility]) [address] [facility], [place], [address], 05/10/2023 22:06:13 05/07/20 23 05/10/2023 LITHO LINK 24HR URINE PANEL urea nitrogen, urine 5.86 g/24_ HR 6.00-1 4.00 below low normal Not Available [facility] ([facility]) [address] [facility], [place], [address], 05/10/2023 22:06:13 05/07/20 23 05/10/2023 LITHO LINK 24HR URINE PANEL protein catabolic rate 0.6 g/kg/ 24_HR 0.8-1. 4 below low normal Not Available [facility] ([facility]) [address] [facility], [place], [address], 05/10/2023 22:06:13 05/07/20 23 05/10/2023 LITHO LINK 24HR URINE PANEL creatinine, urine 1123 mg/24 _HR not applic . Not Available [facility] ([facility]) [address] [facility], [place], [address], 05/10/2023 22:06:13 05/07/20 23 05/10/2023 LITHO LINK 24HR URINE PANEL creatinine/k g body weight 14.2 mg/24 _HR/k g 8.7-20 .3 Not Available [facility] ([facility]) [address] [facility], [place], [address], 05/10/2023 22:06:13 05/07/20 23 05/10/2023 LITHO LINK 24HR URINE PANEL calcium/kg body weight 2.8 mg/24 _HR/k g <4.0 Not Available [facility] ([facility]) [address] [facility], [place], [address], 05/10/2023 22:06:13 05/07/20 23 05/10/2023 LITHO LINK 24HR URINE PANEL calcium/crea tinine ratio 195 mg/g_ creat 51-262 Not Available [facility] ([facility]) [address] [facility], [place], [address], 05/10/2023 22:06:13 05/07/20 23 05/10/2023 LITHO LINK 24HR URINE PANEL comment Note Not Available [facility] ([facility]) [address] [facility], [place], [address], 05/10/2023 22:06:13 02/23/20 23 02/21/2023 CT, abdom en + pelvi s, w/o contr ast EXAM: CT, ABDOME N + PELVIS , W/O CONTRA ST [facility]ATI [facility]: [facility] DATE: 023 INDICA TION: Calcul us of [...] Pepe Sanchez MD on 2022 at 08:28 [email or web address] [facility] [address], [place], [address], 02/27/2023 13:41:39 08/16/1903/05/2022 CT, abdom en + pelvi s, w/ contr ast No observ ation record ed. Not Available 08/16/2023 14:12:18 08/22/19 24 08/22/2023 XR, kidne y + urete r + bladd er EXAM: XR, KIDNEY + URETER + BLADDE R LOCATI ON: [facility] [place] DATE: 2023 INDICA TION: [...] carranza MD on 2023 at 11:55 [email or web address] [facility] [place] [address], [place], [address], 08/30/2023 16:05:59 09/11/19 24 09/10/2023 US, tabatha y Paz observ ation record ed. [facility] [address] [place], [address], 09/12/2023 08:22:26 Result Notes Documentation Provider Name and Address Organization Details Recorded Time Ct, Abdomen + Pelvis, W/o Contrast : EXAM: CT, ABDOMEN + PELVIS, W/O CONTRAST LOCATION: [facility] DATE: 02/21/2023 INDICATION: Calculus of kidney COMPARISON: [...] MD on 02/22/2023 at 08:28 Charlene fairchild [facility] 02/27/2023 13:41:39 Xr, Kidney + Ureter + Bladder : EXAM: XR, KIDNEY + URETER + BLADDER LOCATION: [facility] DATE: 08/22/2023 INDICATION: Calculus of kidney. COMPARISON: CT abdomen and pelvis 02/21/2023. IMPRESSION: Similar right renal calculi, the largest in the lower pole measuring 8-9 mm. No convincing calculi overlying the left kidney or ureters. Nonobstructive bowel gas pattern. Calcified uterine fibroids. This report was electronically interpreted by: Howard Gonzalez MD on 08/22/2023 at 11:55 Gilbert Golden MD [address] [place] [address],[address] [address], [facility] 08/30/2023 16:05:59 Problems Name Status Onset Date Resolution Date Notes Provider Name and Address Organization Details Recorded Time History of calculus of kidney Active 2 Gilbert Golden MD [address] [place] [address],[address] [address], [facility] 05/15/2022 16:40:09 Problem Notes None recorded. Procedures Surgical History Date Name Laterality Status Provider Name and Address Organization Details Recorded Time 07/12/19 24 Colonoscopy completed Charlene fairchild [facility] 08/22/2023 12:05:57 04/16/20 23 Cystoscopy with foreign body/stent removal completed Gilbert Golden MD [address] [place] [address],[address] [address], [facility] 04/15/2023 22:48:02 04/03/20 22 Cystoscopy with foreign body/stent removal completed Gilbert Golden MD [address] [place] [address],[address], [address], [facility] 04/03/2022 09:37:49 04/03/20 Keflex post Cysto completed Charlene fairchild [facility] 04/03/2022 10:40:54 03/23/20 CYSTOSCOPY, WITH URETEROSCOPY, WITH LITHOTRIPSY, WITH INSERTION OF URETERAL STENT (SURG) completed Mohinialbina Willslenora fairchild [facility] 03/28/2022 12:46:24 Breast reconstruction completed Charlene fairchild [facility] 03/20/2022 10:22:36 lumpectomy of breast completed Charlene fairchild [facility] 03/20/2022 10:22:46 ligation of fallopian tube completed Charlene fairchild [facility] 03/20/2022 10:22:55 Imaging Results Imaging Date Name Status LastModified by Organiz ation Details LastModified Time 02/21/2023 CT, abdomen + pelvis, w/o contrast completed [email or web address] [facility] [place] [address], [place], [address], 02/27/2023 13:41:39 03/05/2022 CT, abdomen + pelvis, w/ contrast completed Information not available 08/16/2023 14:12:18 08/22/2023 XR, kidney + ureter + bladder completed [email or web address] [facility] [place] [address], [place], [address], 08/30/2023 16:05:59 09/10/2023 US, kidney completed [facility] [address] [place], [address], 09/12/2023 08:22:26 Procedure Notes None recorded. Medical Equipment None Reported. Allergies Allergen ID Allergen Name Allergen Category Reaction Reaction Severity Criticality Documentation Date Start Date Code Code System Note Provider Name and Address Organization Details Recorded Time 912416 adhesive tape environme nt,medica tion Not available Not available Not available 03/20/2022 Charlene fairchild [facility] 10/17/202 2 10:19:53 491606 lactose food,medi cation Not available Not available Not available 03/20/2022 6211 [facility] 2 10:20:17 332376 latex environme nt,medica tion Not available Not available Not available 03/20/2022 85458 91 RxNorm Charlene Peralta [facility] 2 10:20:34 Medications Name Sig Start [...] Details Last Updated DateTime 03/20/2022 154.94 cm 72866.89 g Charlene Peralta [place] - [facility] 03/20/2022 10:30:15 Date Recorded Body height Body mass index (BMI) Body weight Provider Name and Address Organization Details Last Updated DateTime 04/03/2022 154.94 cm 32.5 kg/m2 40029.89 g Gilbert Golden MD [address] [place] [address],[address], [address], [place] - [facility] 04/03/2022 10:35:24 Date Recorded Body height Body mass index (BMI) Body weight Provider Name and Address Organization Details Last Updated DateTime 05/15/2022 154.94 cm 32.5 kg/m2 78430.89 g Gilbert Golden MD [address] [place] [address],[address], [address] 05/15/2022 16:39:40 Date Recorded Body height Body mass index (BMI) Body weight Provider Name and Address Organization Details Last Updated DateTime 02/21/2023 154.94 cm 33.1 kg/m2 20472.66 g Gilbert Golden MD [address] [facility],[address], [place], [address] 02/21/2023 11:42:39 Date Recorded Body height Body mass index (BMI) Body weight Provider Name and Address Organization Details Last Updated DateTime 04/16/2023 154.94 cm 33.1 kg/m2 15184.66 g Joanne Villalobos [facility] 04/16/2023 10:31:35 Date Recorded Body height Body mass index (BMI) Body weight Provider Name and Address Organization Details Last Updated DateTime 06/27/2023 154.94 cm 33.1 kg/m2 63291.66 g Charlene Peralta [facility] 06/27/2023 12:31:15 Date Recorded Body height Body mass index (BMI) Body weight Provider Name and Address Organization Details Last Updated DateTime 08/22/2023 154.94 cm 34 kg/m2 03056.63 g Charlene Peralta [facility] 08/22/2023 12:05:27 Social History Question Answer Notes LastModified by Organizat ion Details LastModified Time Tobacco Smoking Status Former Smoker Charlene fairchild, [facility] 03/20/2022 10:23:13 When Did You Quit Smoking? 16+yearssinc elastcigaret te [email or web address] Information not available 03/20/2022 What Was The Date Of Your Most Recent Tobacco Screening? 08/22/2023 [email or web address] Information not available 08/22/2023 Sex: Female Functional Status None recorded. Mental Status None recorded. Family History Relationship Description Onset Age of this Age Resolved Age Notes Paternal Grandmother Family history of cancer of colon Sister Family history of cancer of colon Mother Family history of cancer Paternal Aunt Family history of cancer of colon Medical History Condition Response Other Y Cancer Y Kidney Stones Y Depression Y High Cholesterol Y Gynecological HistoryNo gynecological history recorded. Obstetrics History GPAL:G 0 P 0 0 0 0 Immunizations Vaccine Type Date Status Provider Name and Address Organization Details Recorded Time influenza, injectable, quadrivalent 04/03/2020 completed Gilbert Golden MD [address] [place] [address],[address], [address], [facility] 02/21/2023 11:42:45 zoster recombinant 08/02/2021 completed Gilbert simmons MD [address] [place] [address],[address], [address], [facility] 02/21/2023 11:42:45 zoster recombinant 05/10/2021 completed Gilbert simmons MD [address] [place] [address],[address], [address], [facility] 02/21/2023 11:42:45 COVID-19, mRNA, LNP-S, PF, 30 mcg/0.3 mL dose 08/28/2020 completed Gilbert Golden MD [address] [place] [address],[address], [address], [facility] 02/21/2023 11:42:45 COVID-19, mRNA, LNP-S, PF, 30 mcg/0.3 mL dose 09/18/2020 completed Gilbert Golden MD [address] [place] [address],[address], [address], [facility] 02/21/2023 11:42:45 COVID-19, mRNA, LNP-S, PF, 30 mcg/0.3 mL dose 03/22/2021 completed Gilbert Golden MD [address] [place] [address],[address], [address], [facility] 02/21/2023 11:42:45 COVID-19, mRNA, LNP-S, bivalent, PF, 30 mcg/0.3 mL dose 03/10/2022 completed Gilbert Golden MD [address] [place] [address],[address] [address], [facility] 02/21/2023 11:42:45 Tdap 11/22/2006 completed Gilbert Golden MD [address] [place] [address],[address], [address], [facility] 02/21/2023 11:42:45 Influenza, seasonal, injectable 02/13/2012 completed Gilbert Golden MD [address] [place] [address],[address], [address], [facility] 02/21/2023 11:42:45 Td (adult), 2 Lf tetanus toxoid, preservative free, adsorbed 03/01/2018 completed Gilbert Golden MD [address] [place] [address],[address], [address], [facility] 02/21/2023 11:42:46 influenza, injectable, quadrivalent, preservative free 02/12/2013 completed Gilbert Golden MD [address] [place] [address],[address], [address], [facility] 02/21/2023 11:42:46 influenza, injectable, quadrivalent, preservative free 03/01/2018 completed Gilbert Golden MD [address] [place] [address],[address] [place] [address], [address], [facility] 02/21/2023 11:42:46 influenza, injectable, quadrivalent, preservative free 03/09/2014 completed Gilbert Golden MD [address] [place] [address],[address], [address], [facility] 02/21/2023 11:42:46 influenza, injectable, quadrivalent, preservative free 03/10/2022 completed Gilbert Golden MD [address] [place] [address],[address], [address], [facility] 02/21/2023 11:42:46 influenza, injectable, quadrivalent, preservative free 03/14/2017 completed Gilbert Golden MD [address] [place] [address],[address], [address], [facility] 02/21/2023 11:42:46 influenza, injectable, quadrivalent, preservative free 04/07/2019 completed Gilbert Golden MD [address] [place] [address],[address], [address], [facility] 02/21/2023 11:42:46 influenza, injectable, quadrivalent, preservative free 04/13/2021 completed Gilbert Golden MD [address] [place] [address],[address], [address], [facility] 02/21/2023 11:42:46 Past Encounters Encounter ID Performer Location Encounter Start Date Encounter Closed Date Diagnosis/Indication Diagnosis SNOMED-CT Code [id number] MD EVER [facility] [address] [place] [address] 03/20/2022 10:15:08 03/23/2022 16:37:09 Kidney stone [id number] MD EVER [facility] [address] [place] [address] 04/03/2022 10:22:37 04/06/2022 14:32:09 Kidney stone [id number] MD EVER [facility] [address] [place] [address] 05/15/2022 16:13:10 05/19/2022 13:26:11 Kidney stone [id number] MD EVER [facility] [address] [place] [address] 02/21/2023 11:34:05 03/03/2023 15:27:44 Kidney stone [id number] Hydronephrosis [id number] MD EVER [facility] [address] [place] [address] 04/16/2023 10:29:09 04/23/2023 20:19:01 Kidney stone 70437058 Hydronephrosis [id number] MD EVER [facility] [address] [place] [address] 06/27/2023 12:30:09 06/27/2023 15:13:55 Kidney stone 35942055 Hydronephrosis [id number] MD CHRIS JarrettEdinlauren [address] [place] [address] 08/22/2023 11:51:51 08/23/2023 08:43:58 History of calculus of kidney [id number] Kidney stone 55990215 Hydronephrosis 70551860 Health Concerns Section Related Observation LastModified by Organization Detai ls LastModified Time None Recorded Concern Status LastModified by Organization Details LastModified Time None Recorded Advance Directives Directive None Recorded Payers Encounter Date Sequence Insurance Name Policy Number Policy Sandoval Covered Member ID Sandoval Member ID Guarantor Name 08/22/2023 1 [place] [id number] Otilia L Chadd [id number] Otilia L Chadd 06/27/2023 1 [place] [id number] Otilia L Chadd [id number] Otilia L Chadd 04/16/2023 1 [place] [id number] Otilia L Chadd [id number] Otilia L Chadd 02/21/2023 1 [place] [id number] Otilia L Chadd [id number] Otilia L Chadd 05/15/2022 1 [place] [id number] Otilia L Chadd [id number] Otilia L Chadd 04/03/2022 1 [place] [id number] Otilia L Chadd [id number] Otilia L Chadd 03/20/2022 1 [place] [id number] Otilia L Chadd [id number] Otilia L Chadd Notes Date Note Type Note Provider [...] mm stones (upper pole) Gilbert Golden MD [address] [place] [address],[address], [address], [facility] 03/20/2022 21:52:12 04/03/2022 text/html HPI Notes: [...] mm stones (upper pole) Gilbert Golden MD [address] [place] [address],[address], [address], [facility] 04/04/2022 00:07:11 05/15/2022 text/html HPI Notes: [...] - Uric acid (0.412) Gilbert Golden MD [address] [place] [address],[address], [address] 05/15/2022 19:07:04 02/21/2023 text/html HPI Notes: [...] - Uric acid (0.412) Gilbert Golden MD [address] [place] [address],[address], [address], [facility] 02/27/2023 12:35:35 04/16/2023 text/html HPI Notes: [...] - Uric acid (0.412) Gilbert Golden MD [address] [place] [address],[address], [address], [facility] 04/16/2023 14:22:21 06/27/2023 text/html HPI Notes: [...] and coordinate their care. Gilbert Golden MD [address] [place] [address],[address], [place], [address], [facility] 06/27/2023 13:27:28 08/22/2023 text/html HPI Notes: [...] 3 mm stones (mid-kidney) Gilbert Golden MD [address] [place] [address],[address], [place], [address], [facility] 08/22/2023 13:47:28 OBGyn Episode No OBEpisode recorded.
== END 2023-10-26 08:28 | disposition home or self-care (01) ==
LOC: ED 08:25
PROVIDERS: Emergency Provider Family Medicine; PCP Family Medicine
DX: S51.851A Open bite of right forearm, initial encounter (principal); L08.9 Local infection of the skin and subcutaneous tissue, unspecified; W55.01XA Bitten by cat, initial encounter
CPT/HCPCS: 99283

== ENCOUNTER 2023-11-19 11:15 | Outpatient (RCR) | payer BC, SELFPAY ==
[2023-11-19 11:26] LABS: Basophils Absolute Auto 0.05 K/uL (0.00-0.30); Basophils Percent Auto 0.5 % (0.0-3.0); Eosinophils Absolute Auto 0.47 K/uL (0.00-0.50); Eosinophils Percent Auto 4.9 % (0.0-7.0); Hematocrit 42.5 % (33.0-51.0); Hemoglobin* 14.2 gm/dL (12.0-16.0); Immature Granulocytes Abs Auto 0.02 K/uL (0.00-0.30); Immature Granulocytes Pct Auto 0.2 %; Mean Corpuscular HGB Conc 33 gm/dL (32-36); Mean Corpuscular Hemoglobin 30 pg (26-34); Mean Corpuscular Volume 90 fL (80-100); Monocytes Percent Auto 7.9 % (0.0-11.0); Neutrophils Percent Auto 60.5 % (42.0-72.0); Platelet Count* 419 K/uL (140-440); RDW Coefficient of Variation % 11.9 % (11.5-15.5); Red Blood Count 4.71 m/uL (4.00-5.20)
[2023-11-19 11:30] LABS: Slide Review Reflex No
--- NOTE | 2024-01-14 15:25 | ONC.NURNOTE ---
Pt seen by surgeon at [facility] to evaluate right axillary lesion. Note reviewed by Deann Schaeffer PA-C and scanned into electronic record. No biopsy performed as lesion is now healed. Pt to follow up in one year.
== END 2024-03-15 23:59 | disposition home or self-care (01) ==
LOC: CCIC 11:15
PROVIDERS: PCP Family Medicine; Visit Provider Physician Assistant
DX: C50.911 Malignant neoplasm of unspecified site of right female breast (principal); Z17.0 Estrogen receptor positive status [ER+]; M81.0 Age-related osteoporosis without current pathological fracture; Z51.81 Encounter for therapeutic drug level monitoring; Z79.811 Long term (current) use of aromatase inhibitors
CPT/HCPCS: 36415; 85025; 99214; G0463

== ENCOUNTER 2023-12-07 19:18 | Emergency (ER) | payer BC, SELFPAY ==
[2023-12-07 19:22] VITALS: BP 132/72; PULSE 83; RESP 18; TEMP 36.1; O2SAT 93; BMI 35.0
--- NOTE | 2023-12-07 19:37 | ED_ITS ---
HPI - General Adult General Chief complaint: Abdominal Pain Stated complaint: unable to urinate Time Seen by Provider: 12/07/23 19:24 History of Present Illness HPI narrative: This 63-year-old female comes in with urinary retention. She had a hysterectomy done and was discharged from the hospital about 4 hours prior to arrival here. She had a Paez catheter in place that was removed this morning and has not been able to void urine since then. She arrives with normal vital signs. She does have some abdominal discomfort with urinary retention. She was on antibiotic treatment for this procedure. Related Data Home Medications ?Medication ?Instructions ?Recorded ?Confirmed cholecalciferol (vitamin D3) 50 1,000 unit PO DAILY 02/20/22 11/19/23 mcg (2,000 unit) tablet cyanocobalamin (vitamin B-12) 500 1,000 mcg PO DAILY 02/20/22 11/19/23 mcg tablet gemfibrozil 600 mg tablet 600 mg PO QDAY 02/20/22 11/19/23 multivitamin 1 tab PO QDAY 02/20/22 11/19/23 venlafaxine 37.5 mg tablet 37.5 mg PO QDAY 02/20/22 11/19/23 aspirin 81 mg tablet,delayed 81 mg PO QDAY 02/21/22 11/19/23 release acetaminophen 325 mg tablet mg PRN 10/13/22 11/19/23 loperamide 2 mg capsule mg PRN 10/13/22 11/19/23 cetirizine 10 mg capsule (Zyrtec) 10 mg PO QDAY PRN 09/17/23 11/19/23 alendronate [Fosamax] PO .weekly 11/19/23 11/19/23 Allergies Allergy/AdvReac Type Severity Reaction Status Date / Time adhesive Allergy Intermediate localized Verified 11/19/23 11:21 rash latex Allergy Mild Rash Verified 11/19/23 11:21 tree and shrub pollen Allergy Mild Verified 11/19/23 11:21 contact metal agent Allergy Rash Verified 11/19/23 11:21 lactose Allergy Verified 11/19/23 11:21 Review of Systems Status of ROS: Reports: 10 or more systems reviewed and unremarkable except as noted in History and below Narrative: Constitutional: No fevers, no weight gain or loss. Eyes: No discharge. No vision changes. HENT: No congestion, no sore throat, no ear pain. Cardiovascular: No chest pain, no palpitations. Respiratory: No shortness of breath, no wheezes, no cough. Gastrointestinal: No vomiting, no diarrhea. Abdominal pain status post hysterectomy. Genitourinary: Urinary retention. Musculoskeletal: Normal range of motion. Skin: No rashes, no pruritis. Neurological: No dizziness, weakness, sensory change, speech change. Endo/Heme/Allergies: No bruising or bleeding. No polydipsia. Pysch: no suicidality, no anxiety, no insomnia. All other systems reviewed and are negative. 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) Epicondylitis, lateral (tennis elbow) ?M77.10 - Lateral epicondylitis, unspecified elbow (ICD-10) Colon polyp ?K63.5 - Polyp of colon (ICD-10) Chondromalacia, knee ?M94.269 - Chondromalacia, unspecified knee (ICD-10) Family history of colon cancer ?Z80.0 - Family history of malignant neoplasm of digestive organs (ICD-10) Pyelonephritis ?N12 - Tubulo-interstitial nephritis, not specified as acute or chronic (ICD- 10) Breast cancer ?C50.919 - Malignant neoplasm of unspecified site of unspecified female breast (ICD-10) Anemia ?D64.9 - Anemia, unspecified (ICD-10) Diabetes ?E11.9 - Type 2 diabetes mellitus without complications (ICD-10) Hyperlipidemia ?E78.5 - Hyperlipidemia, unspecified (ICD-10) Arthritis ?M19.90 - Unspecified osteoarthritis, unspecified site (ICD-10) Anxiety ?F41.9 - Anxiety disorder, unspecified (ICD-10) Meniere's disease of right ear ?H81.01 - Meniere's disease, right ear (ICD-10) Surgical History S/P debridement (10/16/22) ?Z98.890 - Other specified postprocedural states (ICD-10) H/O dilation and curettage ?Z98.890 - Other specified postprocedural states (ICD-10) H/O tubal ligation (1989) ?Z98.51 - Tubal ligation status (ICD-10) Status post lymph node biopsy (~2006) ?Z98.890 - Other specified postprocedural states (ICD-10) Status post bilateral breast reconstruction ?Z98.890 - Other specified postprocedural states (ICD-10) Status post bilateral mastectomy (03/21/17) ?Z90.13 - Acquired absence of bilateral breasts and nipples (ICD-10) Status post total right knee replacement (07/08/18) ?Z96.651 - Presence of right artificial knee joint (ICD-10) Status post total left knee replacement (07/18/21) ?Z96.652 - Presence of left artificial knee joint (ICD-10) Family History Mother Aneurysm Lung cancer Dementia Tobacco abuse Sister Colon cancer Social History Narrative: Currently unemployed, quit smoking in 2000. Denies EtOH, quit 1980. Denies recreational drug use. 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 Highest level of school completed/degree received: Associate degree: academic program Smoking Status: Former smoker Do you use any of these nicotine containing products: None Second hand tobacco smoke exposure: Yes How often do you have a drink containing alcohol: never AUDIT-C Alcohol total score: 0 Non-prescribed substance use: denies use Caffeine: Yes service: No Exam Narrative: Exam Narrative: Constitutional: Well-developed, well-nourished, no acute distress. HEENT: Normocephalic, atraumatic. Neck: Normal range of motion. Nontender. Supple. Heart: Regular. No murmurs. Normal rate. Intact distal pulses. Lungs: Clear to auscultation. No chest discomfort. No wheezes, rhonchi, or rales. Abdomen: Decreased bowel sounds. Diffuse tenderness in the abdomen status post hysterectomy. Genitalia: Deferred. Back: No midline tenderness. Normal range of motion. Extremities: Normal range of motion. No injury. Skin: Intact. No rash. Warm. No erythema or pallor. Neurologic: No altered sensation. No weakness. Alert and oriented. Psychiatric: No suicidality. No anxiety or depression. No insomnia. Nursing notes and vitals signs are reviewed. Const: Vital Signs, click to edit/add: Vital Signs - 24 hr 12/07/23 19:22 Temperature 97.0 F L Pulse Rate [Right Pulse Oximeter] 83 Respiratory Rate 18 Blood Pressure [Le ft Upper Arm] 132/72 Pulse Oximetry 93 Oxygen Delivery Me thod Room Air Course Vital Signs Vital signs: Initial Vital Signs Temperature 97.0 F L 12/07/23 19:22 Temperature Source Temporal Artery Scan 12/07/23 19:22 Pulse Rate 83 12/07/23 19:22 Pulse Rhythm Regular 12/07/23 19:22 Respiratory Rate 18 12/07/23 19:22 Blood Pressure 132/72 12/07/23 19:22 Blood Pressure Mean 92 12/07/23 19:22 Blood Pressure Position Sitting 12/07/23 19:22 Pulse Oximetry 93 12/07/23 19:22 Oxygen Delivery Method Room Air 12/07/23 19:22 Vital Signs Temperature 97.0 F L 12/07/23 19:22 Pulse Rate 83 12/07/23 19:22 Respiratory Rate 18 12/07/23 19:22 Blood Pressure 132/72 12/07/23 19:22 Pulse Oximetry 93 12/07/23 19:22 Oxygen Delivery Method Room Air 12/07/23 19:22 Temperature 97.0 F L 12/07/23 19:22 Pulse Rate 83 12/07/23 19:22 Respiratory Rate 18 12/07/23 19:22 Blood Pressure 132/72 12/07/23 19:22 Pulse Oximetry 93 12/07/23 19:22 Oxygen Delivery Method Room Air 12/07/23 19:22 Medical Decision Making MDM Narrative Medical decision making narrative: This patient is retaining urine after a surgical procedure. She had a Paez catheter in place until this morning. A Paez catheter was placed again and urinalysis is obtained. The patient is instructed to keep the catheter in place for a couple days at least and follow up with primary physician for removal. Urinalysis is obtained and results are pending. Discharge Plan Discharge Clinical Impression: Acute urinary retention Patient Disposition: Home, Self-Care Condition: Improved Additional Instructions: Keep Paez catheter in place for 2-3 days then follow up with primary physician for removal. Return if worsening. Prescriptions: No Action gemfibrozil 600 mg tablet 600 mg PO QDAY venlafaxine 37.5 mg tablet 37.5 mg PO QDAY multivitamin Tablet 1 tab PO QDAY cyanocobalamin (vitamin B-12) 500 mcg tablet 1,000 mcg PO DAILY cholecalciferol (vitamin D3) 50 mcg (2,000 unit) tablet 1,000 unit PO DAILY aspirin 81 mg tablet,delayed release (DR/EC) 81 mg PO QDAY Zyrtec 10 mg capsule 10 mg PO QDAY PRN alendronate [Fosamax] PO .weekly acetaminophen 325 mg tablet PRN Rx Instructions: NO MORE THAN 4000 MG/DAY loperamide 2 mg capsule PRN Follow Up/Referrals: Jazmine Montanez DO [Primary Care Provider] - Stand Alone Forms: [facility] Info Instructions
--- OUTSIDE RECORDS SUMMARY | 2023-12-07 19:43 | XMS_ITS | Data Portability ---
Author Organization [facility] Address [address] [place] [address] Care Team Providers Care Cotton Broker Name Role Phone LORENA FRANCE Primary Care Provider [phone] Assessment No assessment recorded. Plan of Treatment Reminders Order Date Submit Date Provider Last Modified By Organization Details Last Modified Time Details Appointments None recorde d. Lab kidney stone, 24-hour urine panel 2022 023 [email or web address] Saber Hacer, [address], [place], [address], 3 08:35:02 Referral None recorde d. Procedures None recorde d. Surgeries cystosc opy, with uretero scopy, with retrogr oz uretero pyelogr am, with stent placeme nt (SURG) 2022 023 [email or web address] Not available 3 15:19:18 Imaging XR, kidney + ureter + bladder - PREV HERE 02/21/232022 023 [facility] , [address] [place], [address], 4 12:58:01 XR, kidney + ureter + bladder 2022 023 [email or web address] , [address] [place], [address], 3 13:12:43 US, kidney [email or web address] [facility], [address] [place], [address], 3 09:10:46 XR, kidney + ureter + bladder 2023 024 [email or web address] , [address], [place], [address], 4 10:02:02 US, kidney - Check Renal U/S - H/O Left hydrone phrosis - [facility] ([facility]) 2023 024 [facility], [address] [place], [address], 4 08:47:18 Medication Orders None recorde d. Patient TargetsNo targets recorded. Patient Instructions Encounter Date Encounter Id Patient Instructions Last Modified By Organization Details Last Modified Time 06/27/2023 [id number] telephone - 6 minutes [email or web address] Not available 06/27/2023 13:26:13 Reason for Referral None Reported. Results Created Date Observation Date Name Description Value Unit Range Abnormal Flag LastModifiedBy Organization Detail LastModifiedTime 05/07/2005/10/2023 LITHO LINK 24HR URINE PANEL cystine, urine, qualitative COMMEN T Not Available [facility] ([facility]) [address] [place], [address], 05/10/2023 22:06:13 05/07/20 23 05/10/2023 LITHO LINK 24HR URINE PANEL urine volume (preserved) 1900 mL/24 _HR 500-40 00 Not Available [facility] ([facility]) [address] [place], [address], 05/10/2023 22:06:13 05/07/20 23 05/10/2023 LITHO LINK 24HR URINE PANEL calcium oxalate saturation 7.51 6.00-1 0.00 Not Available [facility] ([facility]) [address] [place], [address], 05/10/2023 22:06:13 05/07/20 23 05/10/2023 LITHO LINK 24HR URINE PANEL calcium, urine 219 mg/24 _HR <200 above high normal Not Available [facility] ([facility]) [address] [place], [address], 05/10/2023 22:06:13 05/07/20 23 05/10/2023 LITHO LINK 24HR URINE PANEL oxalate, urine 32 mg/24 _HR 20-40 Not Available [facility] ([facility]) [address] [place], [address], 05/10/2023 22:06:13 05/07/20 23 05/10/2023 LITHO LINK 24HR URINE PANEL citrate, urine 444 mg/24 _HR >550 below low normal Not Available [facility] ([facility]) [address] [place], [address], 05/10/2023 22:06:13 05/07/20 23 05/10/2023 LITHO LINK 24HR URINE PANEL calcium phosphate saturation 0.47 0.50-2 .00 below low normal Not Available [facility] ([facility]) [address] [place], [address], 05/10/2023 22:06:13 05/07/20 23 05/10/2023 LITHO LINK 24HR URINE PANEL pH, 24 HR, urine 5.757 5.800- 6.200 below low normal Not Available [facility] ([facility]) [address] [place], [address], 05/10/2023 22:06:13 05/07/20 23 05/10/2023 LITHO LINK 24HR URINE PANEL uric acid saturation 0.60 <1.00 Not Available [facility] ([facility]) [address] [place], [address], 05/10/2023 22:06:13 05/07/20 23 05/10/2023 LITHO LINK 24HR URINE PANEL uric acid, urine 367 mg/24 _HR <750 Not Available [facility] ([facility]) [address] [facility], [place], [address], 05/10/2023 22:06:13 05/07/20 23 05/10/2023 LITHO LINK 24HR URINE PANEL sodium, urine 172 mmol/ 24_HR 50-150 above high normal Not Available [facility] ([facility]) [address] [place], [address], 05/10/2023 22:06:13 05/07/20 23 05/10/2023 LITHO LINK 24HR URINE PANEL potassium, urine 43 mmol/ 24_HR 20-100 Not Available [facility] ([facility]) [address] [facility], [place], [address], 05/10/2023 22:06:13 05/07/20 23 05/10/2023 LITHO LINK 24HR URINE PANEL magnesium, urine 47 mg/24 _HR 30-120 Not Available [facility] ([facility]) [address] [place], [address], 05/10/2023 22:06:13 05/07/20 23 05/10/2023 LITHO LINK 24HR URINE PANEL phosphorus, urine 628 mg/24 _HR 600-12 00 Not Available [facility] ([facility]) [address] [place], [address], 05/10/2023 22:06:13 05/07/20 23 05/10/2023 LITHO LINK 24HR URINE PANEL ammonium, urine 22 mmol/ 24_HR 15-60 Not Available [facility] ([facility]) [address] [place], [address], 05/10/2023 22:06:13 05/07/20 23 05/10/2023 LITHO LINK 24HR URINE PANEL chloride, urine 173 mmol/ 24_HR 70-250 Not Available [facility] ([facility]) [address] [facility], [place], [address], 05/10/2023 22:06:13 05/07/20 23 05/10/2023 LITHO LINK 24HR URINE PANEL sulfate, urine 25 mEq/2 4_HR 20-80 Not Available [facility] ([facility]) [address] [facility] [place], [address], 05/10/2023 22:06:13 05/07/20 23 05/10/2023 LITHO LINK 24HR URINE PANEL urea nitrogen, urine 5.86 g/24_ HR 6.00-1 4.00 below low normal Not Available [facility] ([facility]) [address] [facility] [place], [address], 05/10/2023 22:06:13 05/07/20 23 05/10/2023 LITHO LINK 24HR URINE PANEL protein catabolic rate 0.6 g/kg/ 24_HR 0.8-1. 4 below low normal Not Available [facility] ([facility]) [address] [facility] [place], [address], 05/10/2023 22:06:13 05/07/20 23 05/10/2023 LITHO LINK 24HR URINE PANEL creatinine, urine 1123 mg/24 _HR not applic . Not Available [facility] ([facility]) [address] [facility] [place], [address], 05/10/2023 22:06:13 05/07/20 23 05/10/2023 LITHO LINK 24HR URINE PANEL creatinine/k g body weight 14.2 mg/24 _HR/k g 8.7-20 .3 Not Available [facility] ([facility]) [address] [facility] [place], [address], 05/10/2023 22:06:13 05/07/20 23 05/10/2023 LITHO LINK 24HR URINE PANEL calcium/kg body weight 2.8 mg/24 _HR/k g <4.0 Not Available [facility] ([facility]) [address], [place], [address], 05/10/2023 22:06:13 05/07/20 23 05/10/2023 LITHO LINK 24HR URINE PANEL calcium/crea tinine ratio 195 mg/g_ creat 51-262 Not Available [facility] ([facility]) [address], [place], [address], 05/10/2023 22:06:13 05/07/20 23 05/10/2023 LITHO LINK 24HR URINE PANEL comment Note Not Available [facility] ([facility]) [address], [place], [address], 05/10/2023 22:06:13 02/23/20 23 02/21/2023 CT, abdom en + pelvi s, w/o contr ast EXAM: CT, ABDOME N + PELVIS , W/O CONTRA ST LOCATI ON: [facility] [place] DATE: 023 INDICA TION: Calcul us of [...] Pepe Sanchez MD on 2022 at 08:28 [email or web address] [facility] [place] [address], [place], [address], 02/27/2023 13:41:39 08/16/19 24 03/05/2022 CT, abdom en + pelvi s, w/ contr ast No observ ation record ed. Not Available 08/16/2023 14:12:18 08/22/19 24 08/22/2023 XR, kidne y + urete r + bladd er EXAM: XR, KIDNEY + URETER + BLADDE R LOCATI ON: [facility] [place] DATE: 2023 INDICA TION: [...] carranza MD on 2023 at 11:55 [email or web address] [facility] [place] [address] [facility] [address], [place], [address], 08/30/2023 16:05:59 09/11/19 24 09/10/2023 Dylan JORDAN ation record ed. [facility] [address] [place], [address], 09/12/2023 08:22:26 Result Notes Documentation Provider Name and Address Organization Details Recorded Time Ct, Abdomen + Pelvis, W/o Contrast : EXAM: CT, ABDOMEN + PELVIS, W/O CONTRAST LOCATION: [facility] [place] DATE: 02/21/2023 INDICATION: Calculus of kidney COMPARISON: [...] Pepe Sanchez MD on 02/22/2023 at 08:28 OLAMIDE Haq [facility] 02/27/2023 13:41:39 Xr, Kidney + Ureter + Bladder : EXAM: XR, KIDNEY + URETER + BLADDER LOCATION: [facility] DATE: 08/22/2023 INDICATION: Calculus of kidney. COMPARISON: CT abdomen and pelvis 02/21/2023. IMPRESSION: Similar right renal calculi, the largest in the lower pole measuring 8-9 mm. No convincing calculi overlying the left kidney or ureters. Nonobstructive bowel gas pattern. Calcified uterine fibroids. This report was electronically interpreted by: Howard Gonzalez MD on 08/22/2023 at 11:55 Gilbert Golden MD [address] [place] [address],[address], [place], [address], [facility] 08/30/2023 16:05:59 Problems Name Status Onset Date Resolution Date Notes Provider Name and Address Organization Details Recorded Time History of calculus of kidney Active Gilbert Golden MD [address] [place] [address],[address], [place], [address], [facility] 05/15/2022 16:40:09 Problem Notes None recorded. Procedures Surgical History Date Name Laterality Status Provider Name and Address Organization Details Recorded Time 07/12/19 24 Colonoscopy completed Charlene fairchild [facility] 08/22/2023 12:05:57 04/16/20 23 Cystoscopy with foreign body/stent removal completed Gilbert Golden MD [address] [place] [address],[address], [place], [address], [facility] 04/15/2023 22:48:02 04/03/20 22 Cystoscopy with foreign body/stent removal completed Gilbert Golden MD [address] [place] [address],[address], [place], [address], [facility] 04/03/2022 09:37:49 04/03/20 22 Keflex post Cysto completed Charlene fairchild [facility] 04/03/2022 10:40:54 03/23/20 22 CYSTOSCOPY, WITH URETEROSCOPY, WITH LITHOTRIPSY, WITH INSERTION OF URETERAL STENT (SURG) completed Mohini fairchild [facility] 03/28/2022 12:46:24 Breast reconstruction completed Charlene fairchild [facility] 03/20/2022 10:22:36 lumpectomy of breast completed Charlene fairchild [facility] 03/20/2022 10:22:46 ligation of fallopian tube completed Charlene fairchild [facility] 03/20/2022 10:22:55 Imaging Results Imaging Date Name Status LastModified by Organiz ation Details LastModified Time 02/21/2023 CT, abdomen + pelvis, w/o contrast completed [email or web address] [facility] [place] [address], [place], [address], 02/27/2023 13:41:39 03/05/2022 CT, abdomen + pelvis, w/ contrast completed Information not available 08/16/2023 14:12:18 08/22/2023 XR, kidney + ureter + bladder completed [email or web address] [facility] [place] [address], [place], [address], 08/30/2023 16:05:59 09/10/2023 US, kidney completed [facility] [address] [place], [address], 09/12/2023 08:22:26 Procedure Notes None recorded. Medical Equipment None Reported. Allergies Allergen ID Allergen Name Allergen Category Reaction Reaction Severity Criticality Documentation Date Start Date Code Code System Note Provider Name and Address Organization Details Recorded Time 712073 adhesive tape environme nt,medica tion Not available Not available Not available 03/20/2022 Charlene fairchild [facility] 2 10:19:53 580128 lactose food,medi cation Not available Not available Not available 03/20/2022 6211 RxNorm Charlene fairchild [facility] 2 10:20:17 786671 latex environme nt,medica tion Not available Not available Not available 03/20/2022 28756 91 RxNorm Charlene fairchild [facility] 2 10:20:34 Medications Name Sig [...] Updated DateTime 05/15/2022 154.94 cm 32.5 kg/m2 68213.89 g Gilbert Golden MD [address] [place] [address],[address], [address], [facility] 05/15/2022 16:39:40 Date Recorded Body height Body mass index (BMI) Body weight Provider Name and Address Organization Details Last Updated DateTime 02/21/2023 154.94 cm 33.1 kg/m2 93825.66 g Gilbert Golden MD [address] [place] [address],[address], [address], [facility] 02/21/2023 11:42:39 Date Recorded Body height Body mass index (BMI) Body weight Provider Name and Address Organization Details Last Updated DateTime 04/16/2023 154.94 cm 33.1 kg/m2 52871.66 g Joanne Villalobos [facility] 04/16/2023 10:31:35 Date Recorded Body height Body mass index (BMI) Body weight Provider Name and Address Organization Details Last Updated DateTime 06/27/2023 154.94 cm 33.1 kg/m2 03352.66 g Charlene Peralta [facility] 06/27/2023 12:31:15 Date Recorded Body height Body mass index (BMI) Body weight Provider Name and Address Organization Details Last Updated DateTime 08/22/2023 154.94 cm 34 kg/m2 67369.63 g Charlene Peralta [facility] 08/22/2023 12:05:27 Social History Question Answer Notes LastModified by Organizat ion Details LastModified Time Tobacco Smoking Status Former Smoker Charlene Peralta null, [facility] 03/20/2022 10:23:13 When Did You Quit Smoking? 16+yearssinc elastcigaret te [email or web address] Information not available 03/20/2022 What Was The Date Of Your Most Recent Tobacco Screening? 08/22/2023 [email or web address] Information not available 08/22/2023 Sex: Female Functional Status None recorded. Mental Status None recorded. Family History Relationship Description Onset Age of this Age Resolved Age Notes Paternal Grandmother Family history of cancer of colon Sister Family history of cancer of colon Mother Family history of malignant neoplasm Paternal Aunt Family history of cancer of colon Medical History Condition Response Other Y Kidney Stones Y Depression Y Cancer Y High Cholesterol Y Gynecological HistoryNo gynecological history recorded. Obstetrics History GPAL:G 0 P 0 0 0 0 Immunizations Vaccine Type Date Status Provider Name and Address Organization Details Recorded Time Influenza, split virus, quadrivalent, preservative 04/03/2020 completed Gilbert Golden MD [address] [place] [address],[place] [address], [facility] 02/21/2023 11:42:45 zoster recombinant 08/02/2021 completed Gilbert simmons MD [address] [place] [address],[place] [address], [facility] 02/21/2023 11:42:45 zoster recombinant 05/10/2021 completed Gilbert simmons MD [address] [place] [address],[place] [address], [facility] 02/21/2023 11:42:45 COVID-19, mRNA, LNP-S, PF, 30 mcg/0.3 mL dose 08/28/2020 completed Gilbert Golden MD [address] [place] [address],[place] [phone], [facility] 02/21/2023 11:42:45 COVID-19, mRNA, LNP-S, PF, 30 mcg/0.3 mL dose 09/18/2020 completed Gilbert Golden MD [address] [place] [address],[address], [address], [facility] 02/21/2023 11:42:45 COVID-19, mRNA, LNP-S, PF, 30 mcg/0.3 mL dose 03/22/2021 completed Gilbert Golden MD [address] [place] [address],[address], [address], [facility] 02/21/2023 11:42:45 COVID-19, mRNA, LNP-S, bivalent, PF, 30 mcg/0.3 mL dose 03/10/2022 completed Gilbert Golden MD [address] [place] [address],[address] [place] [address], [address], [facility] 02/21/2023 11:42:45 Tdap 11/22/2006 completed Gilbert Golden MD [address] [place] [address],[address], [address], [facility] 02/21/2023 11:42:45 Influenza, split virus, trivalent, preservative 02/13/2012 completed Gilbert Golden MD [address] [place] [address],[address], [address], [facility] 02/21/2023 11:42:45 Td (adult), 2 Lf tetanus toxoid, preservative free, adsorbed 03/01/2018 completed Gilbert Golden MD [address] [place] [address],[address], [address], [facility] 02/21/2023 11:42:46 Influenza, split virus, quadrivalent, PF 02/12/2013 completed Gilbert Golden MD [address] [place] [address],[address] [place] [address], [address], [facility] 02/21/2023 11:42:46 Influenza, split virus, quadrivalent, PF 03/01/2018 completed Gilbert Golden MD [address] [place] [address],[address], [place], [address], [facility] 02/21/2023 11:42:46 Influenza, split virus, quadrivalent, PF 03/09/2014 completed Gilbert Golden MD [address] [facility],[address], [place], [address], [facility] 02/21/2023 11:42:46 Influenza, split virus, quadrivalent, PF 03/10/2022 completed Gilbert Golden MD [address] [place] [address],[address], [place], [address], [facility] 02/21/2023 11:42:46 Influenza, split virus, quadrivalent, PF 03/14/2017 completed Gilbert Golden MD [address] [place] [address],[address], [place], [address], [facility] 02/21/2023 11:42:46 Influenza, split virus, quadrivalent, PF 04/07/2019 completed Gilbert Golden MD [address] [place] [address],[address], [place], [address], [facility] 02/21/2023 11:42:46 Influenza, split virus, quadrivalent, PF 04/13/2021 popeye Golden MD [address] [place] [address],[address], [place], [address], [facility] 02/21/2023 11:42:46 Past Encounters Encounter ID Performer Location Encounter Start Date Encounter Closed Date Diagnosis/Indication Diagnosis SNOMED-CT Code [id number] MD Giovani Jarrett [address] [place] [id number] 03/20/2022 10:15:08 03/23/2022 16:37:09 Kidney stone [id number] MD Giovani Jarrett [address] [place] [id number] 04/03/2022 10:22:37 04/06/2022 14:32:09 Kidney stone [id number] MD Giovani Jarrett [address] [place] [id number] 05/15/2022 16:13:10 05/19/2022 13:26:11 Kidney stone [id number] MD Giovani Jarrett [address] [place] [id number] 02/21/2023 11:34:05 03/03/2023 15:27:44 Kidney stone [id number] Hydronephrosis [id number] Gilbert Golden MD [facility] [address] [place] [id number] 04/16/2023 10:29:09 04/23/2023 20:19:01 Kidney stone [id number] Hydronephrosis [id number] Gilbert Golden MD _Erika [address] [place] [id number] 06/27/2023 12:30:09 06/27/2023 15:13:55 Kidney stone 65399856 Hydronephrosis [id number] Gilbert Golden MD [facility] [address] [place] [id number] 08/22/2023 11:51:51 08/23/2023 08:43:58 History of calculus of kidney [id number] Kidney stone [id number] Hydronephrosis [id number] Health Concerns Section Related Observation LastModified by Organization Detai ls LastModified Time None Recorded Concern Status LastModified by Organization Details LastModified Time None Recorded Advance Directives Directive None Recorded Payers Encounter Date Sequence Insurance Name Policy Number Policy Sandoval Covered Member ID Sandoval Member ID Guarantor Name 05/15/2022 1 [place] [id number] Otilia L Chadd [id number] Otilia L Chadd 02/21/2023 1 [place] [id number] Otilia L Chadd [id number] Otilia L Chadd 04/16/2023 1 [place] [id number] Otilia L Chadd [id number] Otilia L Chadd 06/27/2023 1 [place] [id number] Otilia L Chadd [id number] Otilia L Chadd 08/22/2023 1 [place] [id number] Otilia L Chadd [id number] Otilia Clayton Chadd Notes Date Note Type Note Provider Name and Address Organization Details Recorded Time 05/15/2022 text/html HPI Notes: 61 yo female [...] - Uric acid (0.412) Gilbert Golden MD [address] [facility],[address], [place], [address], [facility] 05/15/2022 19:07:04 02/21/2023 text/html HPI Notes: [...] - Uric acid (0.412) Gilbert Golden MD [address] [place] [address],[address], [place], [address], [facility] - [facility] 02/27/2023 12:35:35 04/16/2023 text/html HPI Notes: [...] - Uric acid (0.412) Gilbert Golden MD [address] [place] [address],[address], [place], [address], [facility] - [facility] 04/16/2023 14:22:21 06/27/2023 text/html HPI Notes: [...] and coordinate their care. Gilbert Golden MD [address] [place] [address],[address], [place], [address], [facility] - [facility] 06/27/2023 13:27:28 08/22/2023 text/html HPI Notes: [...] 3 mm stones (mid-kidney) Gilbert Golden MD [address] [facility],[address], [place], [address], [place] - [facility] 08/22/2023 13:47:28 OBGyn Episode No OBEpisode recorded.
--- OUTSIDE RECORDS SUMMARY | 2023-12-07 19:43 | XMS_ITS | Clinical Summary ---
Author Organization [facility] Address [place], [place] [address] Care Team Providers Care Complaint Specialist Name Role Phone Jazmine Montanez DO Primary [...] by mouth once daily. 0 12/27/2020 Active venlafaxine (EFFEXOR) 37.5 mg tabletIndications:An xiety disorder, unspecified type TAKE 1 TABLET(37.5 MG) BY MOUTH EVERY MORNING 90 Tablet 1 06/03/2023 Active gemfibroziL (LOPID) 600 mg tabletIndications:Mi xed hyperlipidemia TAKE 1 TABLET BY MOUTH DAILY 90 Tablet 3 06/06/2023 Active Cetirizine (ZyrTEC) 10 mg cap 07/05/2023 Active alendronate (FOSAMAX) 70 mg tabletIndications:Ag e-related osteoporosis without current pathological fracture TAKE 1 TABLET(70 MG) BY MOUTH 1 TIME A WEEK IN THE MORNING ON AN EMPTY STOMACH AND WITH FULL GLASS OF WATER. DO NOT LIE DOWN FOR 1 HOUR 12 Tablet 3 10/07/2023 Active oxyCODONE (ROXICODONE) 5 mg immediate release tabletIndications:Po st-op pain Take 1 Tablet (5 mg) by mouth every 4 hours if needed for Pain. 10 Tablet 12/07/2023 Active sennosides-docusate (SENOKOT S) (8.6-50 mg) tabletIndications:Po st-op pain Take 1-2 Tablets by mouth 2 times daily if needed for Constipation. 30 Tablet 12/07/2023 Active Active Problems Problem Noted Date Diagnosed Date Postmenopausal bleeding 12/07/2023 Hx of breast cancer 09/25/2023 Biceps tendinosis [...] Encounters Date Type Department Care Team Description 12/07/2023 8:12 AM CDT Anesthesia Event [facility] [address] [place] [address] Don Apodaca MD 12/07/2023 7:30 AM CDT - 12/07/2023 10:46 AM CDT Surgery [facility] [address], [place] [address] Niya Leyva MD ROBOTIC ASSISTED TOTAL LAPAROSCOPIC HYSTERECTOMY, BILATERAL SALPINGO-OOPHORECTOMY , INTRAOPERATIVE SENTINEL LYMPH NODE MAPPING AND SENTINEL PELVIC LYMPH NODE DISSECTIONS 12/07/2023 5:53 AM CDT - 12/07/2023 3:57 PM CDT Hospital Encounter [facility] [address] [place] [address] Niya Leyva MD Post-op pain (Primary Dx); Hydronephrosis, right Discharge Disposition: Home Self Care 12/07/2023 Travel 12/04/2023 Travel 12/03/2023 2:30 PM CDT Office Visit [facility] [address] [facility] [address] Pam Argueta MD Consult (Discuss biopsy under right arm) 12/03/2023 Travel 11/30/2023 Travel 11/21/2023 8:15 AM CDT Preop Visit [facility] [place] [address] Yu Pastor PA Preoperative Exam (12/07/23/ROBOTIC ASSISTED TOTAL LAPAROSCOPIC HYSTERECTOMY, BILATERAL SALPINGO-OOPHORECTOMY , INTRAOPERATIVE SENTINEL LYMPH NODE MAPPING AND SENTINEL PELVIC LYMPH NODE DISSECTIONS / / /Niya Leyva MD /) 11/21/2023 Travel 11/19/2023 Travel 11/02/2023 1:00 PM CDT Orders Only [facility] [place] [address] Lab, [place] [facility] 11/02/2023 Travel 10/30/2023 Travel 10/10/2023 Telephone [place] [address] [address] [place] [facility] [place] [address] Jazmine Montanez DO Results (biopsy) 10/08/2023 Telephone [facility] [place] [address] Jazmine Montanez DO Follow Up (Questions about directions following procedure) 10/06/[address] [place] [address] Jazmine Montanez DO Refill Request (Alendronate) 10/05/2023 10:40 AM CDT Procedure Only [facility] [place] [address] Jazmine Montanez DO Procedure (endometrial biopsy) 10/05/2023 Travel 10/04/[address] [place] [address] Jazmine Montanez DO Appointment (endobx) 10/02/2023 7:30 AM CDT Ancillary Procedure [address] [place] [address] 10/02/2023 Telephone [facility] [address] [place] [address] Jazmine Montanez DO Referral (endometrial bx//) 10/02/2023 Travel 09/30/2023 Travel 09/24/2023 11:30 AM CDT Office Visit [facility] [address] [place] [address] Jazmine Montanez DO Vaginal Bleeding 09/23/2023 Travel 09/10/2023 Orders Only [facility] Scanner 1 scan: (1-Ord) [facility], 09/10/2023 09/07/2023 8:15 AM CDT Ancillary Procedure [facility] [address] [place] [address] 09/07/2023 8:00 AM CDT Office Visit [facility] [address] [place] [address] Rick Cárdenas MD Consult (Left Shoulder) 09/07/2023 Travel from Last 3 Months Immunizations Name Administration Dates Next Due COVID-19 Vaccine Spikevax (M oderna 50mcg/0.5mL) 12YO+ 9081-4714 Formula PF 08/06/2023 COVID-19 vaccine (Pfizer-Bio NTech 30mcg/0.3mL) 12YO+ BIVALENT PF, MDV 03/10/2022 Influenza, IIV3 (Age >=3 years) 02/13/2012 Influenza, IIV4 03/07/2023,,04/13/2021,04/07/20 19,03/01/2018,03/14/2017,03/09/2014,02/12 Influenza, IIV4 (=>6mos) MDV 04/03/2020 Td (Age >=7 Years) 03/01/2018 Tdap 11/22/2006 Zoster (Shingrix-RZV, recombinant) 08/02/2021, Family History Medical History Relation Name Comments Dementia Maternal Grandmother Heart Disease Maternal Uncle [place] AT 42 YEA RS Cancer Mother lung [...] Sign Reading Time Taken Comments Blood Pressure 108/52 12/07/2023 3:00 PM CDT Pulse 72 12/07/2023 3:00 PM CDT Temperature 36 ??C (96.8 ??F) 12/07/2023 1:15 PM CDT Respiratory Rate 20 12/07/2023 3:00 PM CDT Oxygen Saturation 97% 12/07/2023 3:00 PM CDT Inhaled Oxygen Concentration - - Weight 83.9 kg (185 lb) 12/03/2023 2:33 PM CDT w ith shoes Height 154.7 cm (5' 0.91) 11/21/2023 8:25 AM CD T Body Mass Index 35.06 11/21/2023 8:25 AM CDT Plan of Treatment Upcoming Encounters Date Type Department Care Team (Late st Contact Info) Description 12/24/2023 3:00 PM CDT Office Visit [facility] [address] [place] [address] Pam Argueta MD [address] [place] [address] Scheduled Procedures Name Priority Associated Diagnoses Date/Ti me ROBOTIC ASSISTED LAPAROSCOPIC TOTAL HYSTERECTOMY XI Elective Post menopausal bleeding 12/07/2023 7:46 AM CDT Health Maintenance Due Date Last Done Comments HIV for age 15-65 12/02/1975 Influenza for age 50-64 02/03/2024 03/07/20 23, 03/10/2022, 04/13/2021, Additional history exists Depression screening for age 12+ 03/07/2024 03/07/2023, 04/15/2021, 04/13/2021, Additional history exists BMI (ht and wt on same day) for age 18+ 11/20/2024 11/21/2023, 03/07/2023, 11/03/2022, Additional history exists Colonoscopy through age 75 07/12/202507/12, 07/12/2023, 07/12/2023, Additional history exists Pap test for age 21-65 11/03/2025 , 11/03/2022, 04/13/2021, Additional history exists Lipids for [...] this topic Medical Devices Implanted Type Area Daub Color Mixer Device Identifier Shelf Expiration Date Model / Serial / Lot [id number] 8breast 330cc [place] Rnd High Smooth Saline Implanted:Qty: 1 on 03/27/2018 by Tarun Cardozo MD at [facility] Explanted:at [facility] (Quantity not on file) Left: Breast J And J Providence Madrone 02/06/2022 [id number]# / [id number] / [id number] 5breast 330cc Providence Rnd High Smooth Saline Implanted:Qty: 1 on 03/27/2018 by Tarun Cardozo MD at [facility] Explanted:at [facility] (Quantity not on file) Right: Breast J And J [place] Madrone 01/10/2022 [id number]# / [id number] / [id number] Stent Uret [id number] Silhouette - [id number] Implanted:Qty: 1 on 03/07/2022 by Gilbert Golden MD at [facility] Left: Ureter [employer] Gerda 03/21/2024 [id number] / / [id number] Stent Uret [id number] Contour - [id number] Implanted:Qty: 1 on 03/23/2022 by Gilbert Golden MD at [facility] Right: Ureter [facility] 02/18/2024 [id number] / / [id number] Stent Uret [id number] Percuflex Hydroplus - [id number] Implanted:Qty: 1 on 03/23/2022 by Gilbert Golden MD at [facility] Left: Ureter [facility] 01/12/2025 [id number] / / [id number] Stent Uret [id number] Percuflex Hydroplus - [id number] Implanted:Qty: 1 on 03/15/2023 by Gilbert Golden MD at [facility] Left: Ureter [facility] [id number] / / [id number] Stent Tria Soft 6f X 22cm Implanted:Qty: 1 on 03/15/2023 by Gilbert Golden MD at [facility] Right: Ureter [id number] / / [id number] Description:STENT TRIA SOFT 6F X 22CM Procedures Procedure Name Priority Date/Time Associated Diagnosis Comments CREATININE Today 12/07/2023 11:58 AM CDT PATH NON REPORTING SPECIALIST CYTOLOGY Today 12/07/2023 9:14 AM CDT ENDOTRACHEAL TUBE Routine 12/07/2023 8:3 6 AM CDT ENDOTRACHEAL TUBE Routine 12/07/2023 8:3 6 AM CDT GLUCOSE METER Timed 12/07/2023 7:35 AM CDT OR IMAGE CAPTURE Routine 12/07/2023 7:04 AM CDT TYPE & SCREEN Preop 12/07/2023 6:39 AM CDT HEMOGLOBIN Preop 12/07/2023 6:39 AM CDT TOXO NEG COMMENT [id number] Routine 11/02/2023 12:58 PM CDT Fatigue, unspecified type Other elevated white blood cell (WBC) count TOXOPLASMA GONDII AB IGG Routine 11/02/2023 12:58 PM CDT Fatigue, unspecified type Other elevated white blood cell (WBC) count TOXOPLASMA GONDII AB IGM Routine 11/02/2023 12:58 PM CDT Fatigue, unspecified type Other elevated white blood cell (WBC) count PATH TISSUE EXAM Routine 10/05/2023 10:5 9 [...] AM CDT Left shoulder pain, unspecified chronicity COLONOSCOPY 07/12/2023 10:16 AM FIREWALL ENGINEER HPV THIN PREP Routine 11/03/2022 2:30 PM CDT Screening for cervical cancer LIPID PANEL Routine 05/10/2021 8:30 AM FIREWALL ENGINEER Mixed hyperlipidemia ANTI HCV Routine 01/08/2015 8:07 AM CDT Need for hepatitis C screening test from Last 3 Months or Most Recently Relevant to Health Maintenance Results * (ABNORMAL) CREATININE (12/07/2023 11:58 AM CDT) eGFR 72(L) >90 mL/min/1.7 3m2 12/07/2023 12:52 PM CDT [facility] Internet college internation S[employer]L.[facility] Comment:As of 2021, eG FR is calculated by the CKD-EPI creatinine equation without race adjustment. ??eGFR can be influenced by muscle mass, exercise, and diet. ??The reported eGFR is an estimation only and is only applicable if the renal function is stable. CREATININE 0.90 0.50 - 0.90 mg/dL 12/07/2023 12:52 PM CDT [facility] Blood BLOOD SPECIMEN / Unknown Venipuncture / Unknown 12/07/2023 11:58 AM CDT 12/07/2023 12:06 PM CDT Yajaira SÁNCHEZ CHEMISTRY [facility] [address] [place] [address], * PATH NON REPORTING SPECIALIST CYTOLOGY (12/07/2023 9:14 AM CDT) Case Report Medical Cytology Report ? Case: [id number] ? Authorizing Provider: ??Niya Leyva MD ??Collected: ? 12/07/2023 0914 ? Ordering Location: ? [facility] ?Received: ?12/07/2023 0959 ? Hospital ? Pathologist: ? Miguel Salazar MD ? Specimen: ?Washings, Pelvic washings ? 12/07/2023 3:15 PM CDT [facility] Final Diagnosis PERITONEAL WASHINGS, CYTOLOGIC MATERIAL: Negative for malignancy in this sample 12/07/2023 3:15 PM CDT [facility] Gross Description A) SOURCE: Peritoneal washing The specimen consists of 100 cc of colorless hazy fluid from which the following is prepared: ? -1 Papanicolaou stained ThinPrep slide 12/07/2023 3:15 PM CDT [facility] Microscopic Description Specimen adequacy: Adequate for interpretation. All slides were reviewed. The microscopic appearance substantiates the diagnosis. All slides were reviewed microscopically. Specimen adequacy: Adequate for interpretation. The microscopic appearance substantiates the diagnosis. 12/07/2023 3:15 PM CDT [facility] Additional Information Cytology is screened at [facility] - [address], [place] [address] and [facility] - [address], [place] [address] and [facility] - [address] [place] [address] Interpreted at [facility] - [address], [place] [address] 12/07/2023 3:15 PM CDT [facility] Washing (Washings) 12/07/2023 9:14 AM CDT 12/07/2023 9:59 AM CDT Niya Leyva MD PATHOLOGY/CYTOLO GY [facility] [address] [place] [address], * HCHG TUBE PR1, HCHG STYLET PR1 (12/07/2023 8:36 AM CDT) Narrative Asim Vega CRNA - 12/07/2023 8:36 AM CDT Asim Vega CRNA ? 12/07/2023 ??8:38 AM Procedure: ETT Patient location during procedure: OR ETT Properties Mask Ventilation: easy Final Technique: direct laryngoscopy Type: straight Location: oral Cuffed: yes Tube Size: 7.0 mm Stylet: yes Laryngoscope Blade: Felder Blade Size: 2 Cormack-Lehane Grade View: 1 Insertion Attempts: 1 Placement Verification: auscultation, end tidal CO2 and symmetrical chest wall movement Assessment: pharynx clear, atraumatic and dentition unchanged Secured at: 20 Measured From: teeth Difficulty: 0 (not difficult) Notes: This patient came to the OR with a very thick and long hair braid. ?? Removing the pillow for intubation offset the neck ROM caused by the braid. Don Apodaca MD ANESTHESIA PX NOT E ORDERABLES * (ABNORMAL) GLUCOSE METER (12/07/2023 7:35 AM CDT) Pathologist [facility] GLUCOSE METER 108(H) 65 - 100 mg/dL 12/07/2023 7:36 AM CDT [facility] Blood BLOOD SPECIMEN / Unknown 12/07/2023 7:35 AM CDT 12/07/2023 7:36 AM CDT Niya Leyva MD CHEMISTRY Performing Organization Address City/[facility]/ZIP Co de Phone Number [facility] [address] [place] [address] * Type & Screen (12/07/2023 6:39 AM CDT) Pathologist [facility] ABORH A Rh Positive 12/07/2023 7:35 AM CDT [facility]Local[facility] ANTIBODY SCREEN Negative Negative 12/07/2023 7:35 AM CDT [facility]Local[facility]cles[facility] SPECIMEN EXPIRATION DATE/TIME 12/10/23 23:59 12/07/2023 7:35 AM CDT [facility] Tã Em [facility] Blood BLOOD SPECIMEN / Unknown Venipuncture / Unknown 12/07/2023 6:39 AM CDT 12/07/2023 6:53 AM CDT Yajaira SÁNCHEZ BLOOD BANK [facility] BLOOD BANK [address] [place] [address], * Hemoglobin - One Time (12/07/2023 6:39 AM CDT) Pathologist [facility] HEMOGLOBIN 13.3 12.0 - 16.0 g/dL 12/07/2023 7:02 AM CDT [facility] MCV 89 80 - 100 fL 12/07/2023 7:02 AM CDT [facility] Blood BLOOD SPECIMEN / Unknown Venipuncture / Unknown 12/07/2023 6:39 AM CDT 12/07/2023 6:53 AM CDT Yajaira SÁNCHEZ HEMATOLOGY Performing Organization Address City/[facility]/ZIP Co de Phone Number [facility] [address] [place] [address], * TOXO NEG COMMENT [id number] (11/02/2023 12:58 PM CDT) Pathologist [facility] Toxo Neg Comment Comment 11/05/2023 10:06 PM CDT [facility] Comment: It is presumed the patient has not been infected with and is not undergoing an acute infection with Toxoplasma. If symptoms persist, submit a new specimen after three weeks. Blood BLOOD SPECIMEN / Unknown Venipuncture / Unknown 11/02/2023 12:58 PM CDT 11/02/2023 12:59 PM CDT Narrative [facility] - 11/05/2023 10:06 PM CDT Performed at: ??01 - [address] ??[id number] Doweler: Lyudmila Hewitt MD, Phone: ??[phone] Jazmine Montanez DO SEND OUTS Performing Organization Address City/[facility]/ZIP Co de Phone Number [facility] ([facility]) [address] [place] [address], [place] * TOXOPLASMA GONDII AB IGM (11/02/2023 12:58 PM CDT) Pathologist [facility] Toxoplasma gondii Ab IgM <3.0 0.0 - 7.9 AU/mL 11/05/2023 10:06 PM CDT [facility] ([facility]) Comment: ? Negative ?<8.0 ? Equivocal ?8.0 - 9.9 ? Positive ?>9.9 Blood BLOOD SPECIMEN / Unknown Venipuncture / Unknown 11/02/2023 12:58 PM CDT 11/02/2023 12:59 PM CDT Narrative [facility] ([facility]) - 11/05/2023 10:06 PM CDT Performed at: ??01 - [facility] [address] [place] [address] ??[id number] Doweler: Lyudmila Hewitt MD, Phone: ??[phone] Jazmine Montanez DO SEND OUTS Performing Organization Address [facility]/State/[facility] Co de Phone Number [facility] ([facility]) [address] [place] [address], * TOXOPLASMA GONDII AB IGG (11/02/2023 12:58 PM CDT) [facility] Toxoplasma gondii Ab IgG <3.0 0.0 - 7.1 IU/mL 11/06/2023 5:10 AM CDT [facility] ([facility]) Comment: ? Negative ?<7.2 ? Equivocal ??7.2 - 8.7 ? Positive ?>8.7 Blood BLOOD SPECIMEN / Unknown Venipuncture / Unknown 11/02/2023 12:58 PM CDT 11/02/2023 12:59 PM CDT Narrative [facility] ([facility]) - 11/06/2023 5:10 AM CDT Performed at: ??01 - [facility] [address] [place], [place] ??[id number] Doweler: Judson Kay MD, Phone: ??[phone] Jazmine Montanez DO SEND OUTS [facility] ([facility]) [address] [place] [address], * PATH TISSUE EXAM (10/05/2023 10:59 AM CDT) Case Report Pathology Report ?Case: [id number] ? Authorizing Provider: ??Jazmine Montanez, DO ? Collected: ? 10/05/2023 1059 ? Ordering Location: ? [facility] ?? Received: ?10/05/2023 1306 ? Clinic ? Pathologist: ? Rico Ca MD ? Specimen: ?Endometrial Biopsy ? 10/10/2023 2:28 PM CDT [facility] Final Diagnosis A) ENDOMETRIUM, BIOPSY: 1. Fragments of benign endometrial polyp(s) 2. Background inactive endometrium 3. Negative for atypia and malignancy 4. Small fragments of benign endocervix are present 10/10/2023 2:28 PM T [facility] Comment Case seen in consultation with Dr. Lou. 10/10/2023 2:28 PM CDT [facility] Clinical Information Post menopausal bleeding and thickened endometrium. History of recurrent breast cancer. 10/10/2023 2:28 PM CDT [facility] Gross Description A) Received in formalin, labeled with the patient's name and A, is a 2.4 x 1.6 x 0.3 cm aggregate of pink-leslie mucosa admixed with clotted blood and mucous. The specimen is entirely submitted in 1 cassette. JKT 10/08/2023 10/10/2023 2:28 PM CDT [facility] Microscopic Description The final diagnosis is based on microscopic examination of appropriate sections of all specimens. 10/10/2023 2:28 PM CDT [facility] ENTRAL LABORATORY Additional Information Interpreted at [facility] - [address] [facility] [address], [place] [address] 10/10/2023 2:28 PM CDT [facility] Other (Endometrial Biopsy) Non-Blood / Unknown 10/05/2023 10:59 AM CDT 10/05/2023 1:06 PM CDT Jazmine Goodrich Detert DO PATHOLOGY/CYTOLOGY [facility] [address] [place] [address], [place] * US PELVIS COMPLETE TA AND [...] For Patients: ??As a result of the Century Cures Act, medical imaging exams and procedure [...] 11.0 thou/cu mm 09/24/2023 12:[address] [facility] RED BLOOD COUNT 4.34 4.00 - 5.20 mil/cu mm 09/24/2023 12:[address] [facility] HEMOGLOBIN 13.5 12.0 - 16.0 g/dL 09/24/2023 12:[address] [facility] HEMATOCRIT 40.1 33.0 - 51.0 % 09/24/2023 12:[address] [facility] MCV 92 80 - 100 fL 09/24/2023 12:[address] [facility] MCH 31.1 26.0 - 34.0 pg 09/24/2023 12:[address] [facility] MCHC 33.7 32.0 - 36.0 g/dL 09/24/2023 12:[address] [facility] RDW 13.2 11.5 - 15.5 % 09/24/2023 12:[address] [facility] PLATELET COUNT 399 140 - 440 thou/cu mm 09/24/2023 12:[address] [facility] MPV 9.3 6.5 - 11.0 fL 09/24/2023 12:[address] [facility] % NEUT 64.6 % 09/24/2023 12:[address] [facility] % LYMPH 24.4 % 09/24/2023 12:[address] [facility] % MONO 8.2 % 09/24/2023 12:[address] [facility] % EOS 2.4 % 09/24/2023 12:[address] [facility] % BASO 0.4 % 09/24/2023 12:[address] [facility] ABSOLUTE NEUTROPHILS 7.2(H) 1.7 - 7.0 thou/cu mm 09/24/2023 12:[address] [facility] ABSOLUTE LYMPHOCYTES 2.7 0.9 - 2.9 thou/cu mm 09/24/2023 12:[address] [facility] ABSOLUTE MONOCYTES 0.9(H) <0.9 thou/cu mm 09/24/2023 12:[address] [facility] ABSOLUTE EOSINOPHILS 0.3 <0.5 thou/cu mm 09/24/2023 12:[address] [facility] ABSOLUTE BASOPHILS 0.0 <0.3 thou/cu mm 09/24/2023 12:[address] [facility] Blood BLOOD SPECIMEN / Unknown Venipuncture / Unknown 09/24/2023 12:42 PM CDT 09/24/2023 12:45 PM CDT Jazmine Montanez DO HEMATOLOGY [facility] [address] [place] [address], * TSH WITH REFLEX (09/24/2023 12:42 PM CDT) TSH 1.85 0.27 - 4.20 uIU/mL 09/25/2023 4:35 AM CDT [facility] Blood BLOOD SPECIMEN / Unknown Venipuncture / Unknown 09/24/2023 12:42 PM CDT 09/24/2023 12:45 PM CDT Narrative [facility] - 09/25/2023 4:35 AM CDT In Adults, TSH values between 5.00 and 10.00 uIU/ml do not necessarily indicate the presence of Hypothyroidism. Correlation with clinical findings such as presence of goiter and/or Thyroperoxidase (TPO) Antibody may be helpful. For more information please refer to DANNIE 2004; 291: 228-238. Jazmine Montanez DO CHEMISTRY [facility] [address] [place] [address], * C-REACTIVE PROTEIN (09/24/2023 12:42 PM CDT) C-REACTIVE PROTEIN 0.4 <0.5 mg/dL 09/25/2023 5:11 AM CDT [facility] Blood BLOOD SPECIMEN / Unknown Venipuncture / Unknown 09/24/2023 12:42 PM CDT 09/24/2023 12:45 PM CDT Jazmine Montanez DO CHEMISTRY [facility] [address] [place] [address], [place] * FERRITIN (09/24/2023 12:42 PM CDT) FERRITIN 64.6 15.0 - 150.0 ng/mL 09/25/2023 4:35 AM CDT [facility] Blood BLOOD SPECIMEN / Unknown Venipuncture / Unknown 09/24/2023 12:42 PM CDT 09/24/2023 12:45 PM CDT Jazmine Joleen Montanez DO CHEMISTRY Performing Organization Address City/[facility] Co de Phone Number [facility] [address] [place] [address], [place] * (ABNORMAL) COMP METABOLIC PANEL (09/24/2023 12:42 PM CDT) SODIUM 139 136 - 145 mmol/L 09/25/2023 4:35 AM CDT [facility] POTASSIUM 4.5 3.5 - 5.1 mmol/L 09/25/2023 4:35 AM CDT [facility] CHLORIDE 102 98 - 107 mmol/L 09/25/2023 4:35 AM CDT [facility] CO2,TOTAL 25 22 - 29 mmol/L 09/25/2023 4:35 AM CDT [facility] ANION GAP 12 5 - 18 09/25/2023 4:35 AM CDT [facility] GLUCOSE 82 70 - 99 mg/dL 09/25/2023 4:35 AM CDT [facility] CALCIUM 10.3(H) 8.8 - 10.2 mg/dL 09/25/2023 4:35 AM CDT [facility] [facility] BUN 14 8 - 23 mg/dL 09/25/2023 4:35 AM CDT [facility] CREATININE 1.04(H) 0.50 - 0.90 mg/dL 09/25/2023 4:35 AM T [facility] BUN/CREAT RATIO 13 10 - 20 4:35 AM T [facility] eGFR 61(L) >90 mL/min/1.7 3m2 09/25/2023 4:35 AM T [facility] Comment:As of 2021, eG FR is calculated by the CKD-EPI creatinine equation without race adjustment. ??eGFR can be influenced by muscle mass, exercise, and diet. ??The reported eGFR is an estimation only and is only applicable if the renal function is stable. ALBUMIN 5.0(H) 4.0 - 4.9 g/dL 09/25/2023 4:35 AM CDT [facility] PROTEIN,TOTAL 8.0 6.0 - 8.0 g/dL 09/25/2023 4:35 AM CDT [facility] BILIRUBIN,TOTAL 0.4 0.0 - 1.2 mg/dL 09/25/2023 4:35 AM CDT [facility] ALK PHOSPHATASE 101 35 - 104 IU/L 09/25/2023 4:35 AM T [facility] ALT (SGPT) 25 10 - 35 IU/L 09/25/2023 4:35 AM T [facility] AST (SGOT) 30 10 - 35 IU/L 09/25/2023 4:35 AM T [facility] Blood BLOOD SPECIMEN / Unknown Venipuncture / Unknown 09/24/2023 12:42 PM CDT 09/24/2023 12:45 PM CDT Jazmine Dysont DO CHEMISTRY [facility] [address] [place] [address], [place] * SCAN-ULTRASOUND REPORT (09/10/2023 12:00 AM CDT) [...] Signed) Rick Cárdenas MD GENERAL IMAGING * COLONOSCOPY (07/12/2023 10:16 AM FIREWALL ENGINEER) 07/12/2023 10:1 6 AM FIREWALL ENGINEER Narrative Transcriptions Ramos Le MD - 07/12/2023 [...] candidate for conscious sedation. The endoscope [id number] was passed through the anus andadvanced to [...] 10:16 AM Procedure Code(s): --- Professional --- 91979, Colonoscopy, flexible; with removalof tumor(s), polyp(s), or other lesion(s) bysnare technique 82754, 59, Colonoscopy, flexible; withbiopsy, single or multiple Diagnosis Code(s): --- Professional --- D12.3, Benign neoplasm of transverse colon (hepatic flexure or splenic flexure) Z15.09, Genetic susceptibility to other malignant neoplasm CPT copyright 2021 [employer]. All rights reserved. The codes documented in this report are preliminary and upon architecture internship reviewmay be revised to meet current compliance requirements. Scope In: 10:45:01 AM Scope Withdrawal Time 0 hours 12 minutes 22 seconds Scope Out: 11:00:33 AM Ramos Le MD PROCEDURE ORD * HPV HIGH RISK (11/03/2022 2:30 PM CDT) TYPE 16 Negative Negative 11/08/2022 1:54 PM CDT [facility] TYPE 18 Negative Negative 11/08/2022 1:54 PM CDT [facility] OTHER HIGH RISK TYPES Negative Negative 11/08/2022 1:54 PM CDT [facility] Other (Cervical) Non-Blood / Unknown 11/03/2022 2:30 PM CDT 11/07/2022 9:[address] [facility] - 11/08/2022 1:54 PM CDT HPV types 16, 18, 31, 33, 35, 39, 45, 51, 52, 56, 58, 59, 66 and 68 DNA were undetectable or below the pre-set threshold. Methodology: Ryann Lisa 4800 HPV Test Jazmine Montanez DO MICROBIOLOGY [facility] [address] [place] [address], * (ABNORMAL) LIPID PANEL (05/10/2021 8:30 AM FIREWALL ENGINEER) CHOLESTEROL,TOTAL 177 100 - 199 mg/dL 05/10/2021 6:04 PM [facility] TRIGLYCERIDES 183(H) <150 mg/dL 05/10/2021 6:04 PM [facility] HDL CHOLESTEROL 39(L) >40 mg/dL 6:04 PM [facility] NON-HDL CHOLESTEROL 138 <145 mg/dl 05/10/2021 6:04 PM [facility] CHOL/HDL RATIO 4.54(H) <4.50 05/10/2021 6:04 PM [facility] LDL CHOLESTEROL 101 <=130 mg/dL 05/10/2021 6:04 PM [facility] VLDL CHOLESTEROL 37(H) <=30 mg/dL 05/10/2021 6:04 PM [facility] PROVIDER ORDERED STATUS RANDOM 05/10/2021 6:04 PM FIREWALL ENGINEER [facility] Blood BLOOD SPECIMEN / Unknown Venipuncture / Unknown 05/10/2021 8:30 AM FIREWALL ENGINEER 05/10/2021 8:34 AM FIREWALL ENGINEER Jazmine Montanez DO [facility] [address] [place] [address], * ANTI HCV [90587.2] (01/08/2015 8:07 AM CDT) HEPATITIS C ANTIBODY Non-Reacti ve Non-Reacti ve 01/08/2015 1:31 PM CDT [facility] Blood specimen (specimen) BLOOD SPECIMEN / Unknown Venipuncture / Unknown 01/08/2015 8:07 AM CDT 01/08/2015 8:10 AM CDT Narrative [facility] - 01/08/2015 1:31 PM CDT Antibodies to HCV not detected; does not exclude the possibility of exposure to HCV. Jazmine Montanez DO SEND OUTS Performing Organization Address City/[facility]/ZIP Co de Phone Number [facility] [address] [place] [address], from Last 3 Months or Most Recently Relevant to Health Maintenance Advance Directives * Full Code (Latest Code Status on File) Date Activated Date Inactivated Comments 12/07/2023 6:06 AM 12/07/2023 6:07 PM Question Answer Comments Code Status Discussion: Unable to Assess Preferences, Provider to review later * Full Code Date Activated Date Inactivated Comments 03/15/2023 11:15 [...] 6:47 AM 03/28/2018 2:35 AM Care Teams Complaint Specialist Relationship Specialty Start Date End Date Jazmine Montanez DO PCP - General 05/29/08
[2023-12-07 20:41] LABS: Appearance Urine Clear (Clear); Bilirubin Urine Negative (Negative); Blood Urine Trace-intact (Negative); Color Urine Yellow (Yellow); Glucose Urine Negative (Negative); Ketones Urine Negative (Negative); Leukocyte Esterase Urine 1+ (Negative); Nitrite Urine Negative (Negative); Protein Urine Negative (Negative); Specific Gravity Urine >= 1.030 (1.000-1.030); Urobilinogen Urine 0.2 (0.2-1.0); pH Urine 5.5 (5.0-8.5)
[2023-12-07 20:48] LABS: Squamous Epithelial Cell Urine Few (None-Few)
== END 2023-12-07 20:41 | disposition home or self-care (01) ==
LOC: ED 19:41
PROVIDERS: Emergency Provider Emergency Medicine Emergency Medical Services; PCP Family Medicine
DX: R33.9 Retention of urine, unspecified (principal)
CPT/HCPCS: 51702; 81001; 87086; 99283; 99284

== ENCOUNTER 2023-12-19 09:48 | Outpatient (CLI) | payer BC, SELFPAY ==
--- OUTSIDE RECORDS SUMMARY | 2023-12-19 09:52 | XMS_ITS | Clinical Summary ---
Author Organization [facility] Address [place], [place] [address] Care Team Providers Care Telephone Operator Receptionist Name Role Phone Jazmine Montanez DO Primary [...] Encounters Date Type Department Care Team Description 12/18/2023 Refill [facility] [address] [place] [address] Jazmine Montanez DO Refill Request (Venlafaxine) 12/10/2023 10:40 AM CDT Nurse/Clinic Staff Only [facility] [address] [place] [address] Procedure (Remove catheter/) 12/10/2023 Travel 12/10/2023 Telephone [facility] [address] [place] [address] Jazmine Montanez DO Need Meds ((oxyCODONE (ROXICODONE) 5 mg immediate release tablet )) 12/07/2023 8:12 AM CDT Anesthesia Event [facility] [address] [place] [address] Don Apodaca MD 12/07/2023 7:30 AM CDT - 12/07/2023 10:46 AM CDT Surgery [facility] [address] [place] [address] Niya Leyva MD ROBOTIC ASSISTED TOTAL LAPAROSCOPIC HYSTERECTOMY, BILATERAL SALPINGO-OOPHORECTOMY , INTRAOPERATIVE SENTINEL LYMPH NODE MAPPING AND SENTINEL PELVIC LYMPH NODE DISSECTIONS 12/07/2023 5:53 AM CDT - 12/07/2023 3:57 PM CDT Hospital Encounter [facility] [address] [place] [address] Niya Leyva MD Post-op pain (Primary Dx); Hydronephrosis, right Discharge Disposition: Home Self Care 12/07/2023 Travel 12/04/2023 Travel 12/03/2023 2:30 PM CDT Office Visit [facility] [address] [place] [address] Pam Argueta MD Consult (Discuss biopsy under right arm) 12/03/2023 Travel 11/30/2023 Travel 11/21/2023 8:15 AM CDT Preop Visit [facility] [address] [facility] [place] [address] Yu Pastor PA Preoperative Exam (12/07/23/ROBOTIC ASSISTED TOTAL LAPAROSCOPIC HYSTERECTOMY, BILATERAL SALPINGO-OOPHORECTOMY , INTRAOPERATIVE SENTINEL LYMPH NODE MAPPING AND SENTINEL PELVIC LYMPH NODE DISSECTIONS / / /Niya Leyva MD /) 11/21/2023 Travel 11/19/2023 Travel 11/02/2023 1:00 PM CDT Orders Only [facility] [address] [facility] [place] [address] Lab, [place] 11/02/2023 Travel 10/30/2023 Travel 10/10/2023 Telephone [facility] [address] [facility] [place] [address] Jazmine Montanez, Results (biopsy) 10/08/2023 Telephone [facility] [address] [place] [address] Jazmine Montanez, Follow Up (Questions about directions following procedure) 10/06/2023 Refill [facility] [address] [facility] [place] [address] Jazmine Montanez DO Refill Request (Alendronate) 10/05/2023 10:40 AM CDT Procedure Only [facility] [address] [place] [address] Jazmine Montanez DO Procedure (endometrial biopsy) 10/05/2023 Travel 10/04/2023 Telephone [facility] [address] [place] [address] Jazmine Montanez DO Appointment (endobx) 10/02/2023 7:30 AM CDT Ancillary Procedure [facility] [address] [place] [address] 10/02/2023 Telephone [facility] [address] [place] [address] Jazmine Montanez DO Referral (endometrial bx//) 10/02/2023 Travel 09/30/2023 Travel 09/24/2023 11:30 AM CDT Office Visit [facility] [address] [place] [address] Jazmine Montanez DO Vaginal Bleeding 09/23/2023 Travel from Last 3 Months Immunizations Name Administration Dates Next Due COVID-19 Vaccine Spikevax (M oderna 50mcg/0.5mL) 12YO+ [id number] Formula PF 08/06/2023 COVID-19 vaccine (Gamgee-Bio NTech 30mcg/0.3mL) 12YO+ BIVALENT PF, MDV 03/10/2022 Influenza, IIV3 (Age >=3 years) 02/13/2012 Influenza, IIV4 03/07/2023,,04/13/2021,04/07/20 19,03/01/2018,03/14/2017,03/09/2014,02/12 Influenza, IIV4 (=>6mos) MDV 04/03/2020 Td (Age >=7 Years) 03/01/2018 Tdap 11/22/2006 Zoster (Shingrix-RZV, recombinant) 08/02/2021, Family History Medical History Relation Name Comments Dementia Maternal Grandmother Heart Disease Maternal Uncle NC AT 42 YEA RS Cancer Mother lung [...] Description 12/24/2023 3:00 PM CDT Office Visit [facility] [address] [place] [address] Pam Argueta MD [address] [place] [address] Health Maintenance Due Date Last Done Comments [...] this topic Medical Devices Implanted Type Area Chemical Engraver Device Identifier Shelf Expiration Date Model / Serial / Lot [id number] 8breast 330cc Holgate Rnd High Smooth Saline Implanted:Qty: 1 on 03/27/2018 by Tarun Cardozo MD at [facility] Explanted:at [facility] (Quantity not on file) Left: Breast J [employer] J [employer] [facility] 02/06/2022 [id number]# / [id number] / [id number] 5breast 330cc Holgate Rnd High Smooth Saline Implanted:Qty: 1 on 03/27/2018 by Tarun Cardozo MD at [facility] Explanted:at [facility] (Quantity not on file) Right: Breast J [employer] J [employer] [facility] 01/10/2022 [id number]# / [id number] / [id number] Stent Uret [id number] Silhouette - [id number] Implanted:Qty: 1 on 03/07/2022 by Gilbert Golden MD at [facility] Left: Ureter [employer] Gerda 03/21/2024 [id number] / / [id number] Stent Uret [id number] Contour - [id number] Implanted:Qty: 1 on 03/23/2022 by Gilbert Golden MD at [facility] Right: Ureter [facility] 02/18/2024 [id number] / / [id number] Stent Uret [id number] Percuflex Hydroplus - [id number] Implanted:Qty: 1 on 03/23/2022 by Gilbert Golden MD at [facility] Left: Ureter [facility] 01/12/2025 [id number] / / [id number] Stent Uret [id number] Percuflex Hydroplus - [id number] Implanted:Qty: 1 on 03/15/2023 by Gilbert Golden MD at [facility] Left: Ureter [facility] [id number] / / [id number] Stent Tria Soft 6f X 22cm Implanted:Qty: 1 on 03/15/2023 by Gilbert Golden MD at [facility] Right: Ureter [id number] / / [id number] Description:STENT TRIA SOFT 6F X 22CM Procedures Procedure Name Priority Date/Time Associated Diagnosis Comments CREATININE Today 12/07/2023 11:58 AM CDT PATH TISSUE EXAM Today 12/07/2023 9:25 AM CDT PATH NON PHYSICAL EDUCATION DEPARTMENT CHAIR CYTOLOGY Today 12/07/2023 9:14 AM CDT ENDOTRACHEAL TUBE Routine 12/07/2023 8:3 6 AM CDT ENDOTRACHEAL TUBE Routine 12/07/2023 8:3 6 AM CDT ROBOTIC ASSISTED LAPAROSCOPIC TOTAL HYSTERECTOMY XI Elective 12/07/2023 7:46 AM CDT Post menopausal bleeding Case Notes LITHOTOMY GLUCOSE METER Timed 12/07/2023 7:35 AM CDT OR IMAGE CAPTURE Routine 12/07/2023 7:04 AM CDT TYPE & SCREEN Preop 12/07/2023 6:39 AM CDT HEMOGLOBIN Preop 12/07/2023 6:39 AM CDT TOXO NEG COMMENT [id number] Routine 11/02/2023 12:58 PM CDT Fatigue, unspecified type Other elevated white blood cell (WBC) count TOXOPLASMA GONDII AB IGG Routine 11/02/2023 12:58 PM CDT Fatigue, unspecified type Other elevated white blood cell (WBC) count TOXOPLASMA GONDII AB IGM Routine 11/02/2023 12:58 PM CDT Fatigue, unspecified type Other elevated white blood cell (WBC) count PATH TISSUE EXAM Routine 10/05/2023 10:59 AM CDT Postmenopausal vaginal bleeding 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 PELVIS COMPLETE TA AND TV Routine 10/02/2023 8:05 AM CDT Postmenopausal vaginal bleeding Álvarez syndrome C-REACTIVE PROTEIN Add On 09/24/2023 12:42 PM CDT Other elevated white blood cell [...] 09/24/2023 12:42 PM CDT Fatigue, unspecified type COLONOSCOPY 07/12/2023 10:16 AM MUNITIONS HANDLER HPV THIN PREP Routine 11/03/2022 2:30 PM CDT Screening for cervical cancer LIPID PANEL Routine 05/10/2021 8:30 AM MUNITIONS HANDLER Mixed hyperlipidemia ANTI HCV Routine 01/08/2015 8:07 AM CDT Need for hepatitis C screening test from Last 3 Months or Most Recently Relevant to Health Maintenance Results * (ABNORMAL) CREATININE (12/07/2023 11:58 AM CDT) eGFR 72(L) >90 mL/min/1.7 3m2 12/07/2023 12:52 PM CDT [facility] Comment:As of 2021, eG FR is calculated by the CKD-EPI creatinine equation without race adjustment. ??eGFR can be influenced by muscle mass, exercise, and diet. ??The reported eGFR is an estimation only and is only applicable if the renal function is stable. CREATININE 0.90 0.50 - 0.90 mg/dL 12/07/2023 12:52 PM CDT [facility] Blood BLOOD SPECIMEN / Unknown Venipuncture / Unknown 12/07/2023 11:58 AM CDT 12/07/2023 12:06 PM CDT Yajaira SÁNCHEZ CHEMISTRY [email or web address] LABORATORY-CENTRAL LABORATORY [address] [place] [address], * PATH TISSUE EXAM (12/07/2023 9:25 AM CDT) Only the most recent of2 resultswithin the time period is included. Case Report Pathology Report ?Case: [id number] ? Authorizing Provider: ??Niya Leyva MD ??Collected: ? 12/07/2023 0925 ? Ordering Location: ? [facility] ?Received: ?12/07/2023 0933 ? Hospital ? Pathologist: ? Lala Morales MD ? Specimens: ?? A) - Other, Right pelvic sentinel lymph node ? B) - Other, Right pelvic sentinel lymph node #2 ? C) - Tissue, Other, left pelvic sentinel lymph node ? D) - Uterus, Cervix, Bilateral Fallopian Tubes and Ovaries ? 12/10/2023 2:06 PM CDT [email or web address] LABORATORY-C ENTRAL LABORATORY Final Diagnosis A) RIGHT PELVIC SENTINEL LYMPH NODES, EXCISION: 1. Three benign lymph nodes 2. One node with endosalpingiosis check uterus 3. Negative for malignancy B) RIGHT PELVIC SENTINEL LYMPH NODES, EXCISION: 1. Two benign lymph nodes 2. Negative for malignancy C) LEFT PELVIC SENTINEL LYMPH NODES, EXCISION: 1. One benign lymph node with endosalpingiosis 2. Negative for malignancy D) UTERUS WITH CERVIX, OVARIES, ??AND FALLOPIAN TUBES, TOTAL HYSTERECTOMY WITH BILATERAL SALPINGO-OOPHORECT MECHELLE: 1. Cervix: Unremarkable 2. Endometrium: Endometrial polyp with background inactive endometrium 3. Myometrium: Leiomyomas (subserosal and intramural) 4. Uterine serosa: Unremarkable 5. Right ovary: Benign simple cysts 6. Left ovary: Benign simple cysts 7. Right fallopian tube: Unremarkable 8. Left fallopian tube: Adnexal vessels present, no definite fallopian tube 9. Uterine weight: 116 grams 10. Negative for malignancy 12/10/2023 2:06 PM CDT [email or web address] LABORATORY-C ENTRAL LABORATORY Clinical Information Álvarez syndrome and PMB 12/10/2023 2:06 PM CDT [email or web address] LABORATORY-C ENTRAL LABORATORY Gross Description A) Received fresh labeled with the patient's name and right pelvic sentinel lymph node, is a 1.0 cm aggregate of adipose tissue. Within the adipose tissue, two possible leslie/pink lymph nodes are identified averaging 0.4 cm in greatest dimension. The specimen is entirely submitted in two cassettes: 1. Two possible lymph nodes, in toto 2. Remaining adipose tissue Time and date in formalin: 0932 on 12/07/2023 B) Received fresh labeled with the patient's name and right pelvic sentinel lymph node #2, is a 3.0 cm aggregate of adipose tissue. Within the adipose tissue two possible leslie/pink lymph nodes are identified measuring 1.0 and 1.2 cm in greatest dimension. The lymph nodes are sectioned and the specimen is entirely submitted in three cassettes: 1. One lymph node, bisected 2. One lymph node, sectioned 3. Remaining adipose tissue Time and date in formalin: 0937 on 12/07/2023 C) Received fresh labeled with the patient's name and left pelvic sentinel lymph node, is a 1.4 cm leslie/pink lymph node with minimal attached adipose tissue. Lymph node is trisected and entirely submitted in two cassettes. Time and date in formalin: 1004 on 12/07/2023 D) Received fresh, labeled with the patient's name and uterus, cervix, bilateral fallopian tubes and ovaries, is a 116 gram(uterus and cervix weight only), 11 x 7 x 3.6 cm ??hysterectomy and bilateral adnexa specimen. The 3.0 cm long, 3.2 cm diameter cervix has a 0.9 cm patent cervical os. The serosa is leslie-pink and smooth with two subserosal nodules identified. The nodules range from 1 to 1.8 cm and display firm whorled white/leslie cut surface. No areas of hemorrhage or necrosis are identified.The ectocervical mucosa is smooth with a distinct squamocolumnar junction. The endocervical canal is patent. The paracervical and parametrial soft tissue margins are inked: Anterior: Blue Posterior: Green The 5.0 x 4.3 cm triangular endometrial cavity is lined by red-leslie glistening, polypoidal endometrium (0.2-0.4 cm thick). A discrete mass is not identified. The 2.5 cm thick myometrium is leslie/pink and extensively trabeculated with multiple intramural nodules identified ranging from 0.6 to 1.8 cm in greatest dimension. The largest nodule is focally calcified. The remainder of the nodules have firm whorled white-leslie cut surfaces. The right fimbriated fallopian tube measures 2.8 cm long by 0.4 cm in diameter. It displays a smooth surface and patent lumen on cut section. The attached intact smooth pink/leslie right ovary measures 3.5 x 2 x 1.8 cm. The ovary is sectioned to reveal multiple unilocular cyst cavities ranging from 0.3 to 0.6 cm in greatest dimension. The cavity displays a smooth wall and containing clear serous fluid. No papillations or Amberly is identified. The remainder of the ovarian parenchyma is leslie-pink and rubbery. The smooth leslie-pink intact left ovary measures 3 x 2 x 1.8 cm. The ovary is sectioned revealing a 1.2 cm unilocular cavity containing clear serous fluid. The cyst wall is smooth without papillations or discrepancies identified. The remainder of the cut surface is are leslie-pink and rubbery. Attached to the ovary is a 2.8 cm aggregate of hemorrhagic adnexal soft tissue. No discrete fimbriated fallopian tube is identified grossly. Receptionist Telephone Operator sections are submitted: 1. Anterior cervix 2. Posterior cervix 3. Subserosal nodules 4-5. Full-thickness anterior endomyometrium (serosa inked black) 6-7. Full-thickness posterior endomyometrium (serosa inked black) 8-13. Remainder of anterior endometrium submitted cervix to fundus 14-19. Remainder of the posterior endometrium submitted cervix to fundus 20. Smaller intramural nodules 21. Largest calcified intramural nodule 22. Entire right fimbria 23-25. Entire right fallopian tube submitted proximal to distal 26-30 entire right ovary 31-35. Entire left ovary 36-39 entire left adnexal soft tissue Time and date in formalin: 1004 on 12/07/2023 STN 12/07/2023 12/10/2023 2:06 PM CDT [facility] Microscopic Description The final diagnosis is based on microscopic examination of appropriate sections of all specimens. 12/10/2023 2:06 PM CDT [facility] Additional Information Interpreted at [facility], Central Laboratory - [address], [place] [address] 12/10/2023 2:06 PM CDT [facility] ENTRAL LABORAT[facility] Tissue (Other) 12/07/2023 9: 25 AM CDT 12/07/2023 9:33 AM CDT Tissue specimen (specimen) (Other) 12/07/2023 9:27 AM CDT 12/07/2023 9:33 AM CDT Tissue specimen (specimen) TISSUE SPECIMEN / Unknown 12/07/2023 9:35 AM CDT 12/07/2023 9:58 AM CDT Tissue specimen (specimen) (Uterus, Cervix, Bilateral Fallopian Tubes and Ovaries) 12/07/2023 9:46 AM CDT 12/07/2023 9:58 AM CDT Niya Leyva MD PATHOLOGY/CYTOLO GY [facility] LABORATORY-CENTRAL LABORATORY [address] [place] [address], * PATH NON PHYSICAL EDUCATION DEPARTMENT CHAIR CYTOLOGY (12/07/2023 9:14 AM CDT) Case Report Medical Cytology Report ? Case: [id number] ? Authorizing Provider: ??Niya Leyva MD ??Collected: ? 12/07/2023 0914 ? Ordering Location: ? [facility] ?Received: ?12/07/2023 0959 ? Hospital ? Pathologist: ? Miguel Salazar MD ? Specimen: ?Washings, Pelvic washings ? 12/07/2023 3:[address] [facility] Final Diagnosis PERITONEAL WASHINGS, CYTOLOGIC MATERIAL: Negative for malignancy in this sample 12/07/2023 3:[address] [facility] Gross Description A) SOURCE: Peritoneal washing The specimen consists of 100 cc of colorless hazy fluid from which the following is prepared: ? -1 Papanicolaou stained ThinPrep slide 12/07/2023 3:[address] [facility] Microscopic Description Specimen adequacy: Adequate for interpretation. All slides were reviewed. The microscopic appearance substantiates the diagnosis. All slides were reviewed microscopically. Specimen adequacy: Adequate for interpretation. The microscopic appearance substantiates the diagnosis. 12/07/2023 3:[address] [facility] Additional Information Cytology is screened at [facility][1] Laboratory - [address], [place] [address] and [facility] - [address] [place] [address] [facility] Laboratory - [address] [place] [address] Interpreted at [facility][1] Laboratory - [address], [place] [address] 12/07/2023 3:[address] [facility] Washing (Washings) 12/07/2023 9:14 AM CDT 12/07/2023 9:59 AM CDT Niya Leyva MD PATHOLOGY/CYTOLO GY Performing Organization Address City/State/[facility] Co de Phone Number [facility] [address] [place] [address], * HCHG TUBE PR1, HCHG STYLET PR1 [...] GLUCOSE METER (12/07/2023 7:35 AM CDT) Pathologist [facility] GLUCOSE METER 108(H) 65 - 100 mg/dL 12/07/2023 7:36 AM CDT [facility] Blood BLOOD SPECIMEN / Unknown 12/07/2023 7:35 AM CDT 12/07/2023 7:36 AM CDT Niya Leyva MD [facility] [address] [place] [address], [place] * Type & Screen (12/07/2023 6:39 AM CDT) Pathologist [facility] ABORH A Rh Positive 12/07/2023 7:35 AM CDT [facility] LAB BLOOD BANK ANTIBODY SCREEN Negative Negative 12/07/2023 7:35 AM CDT [facility] LAB BLOOD BANK SPECIMEN EXPIRATION DATE/TIME 12/10/23 23:59 12/07/2023 7:35 AM CDT [facility] BLOOD BANK Blood BLOOD SPECIMEN / Unknown Venipuncture / Unknown 12/07/2023 6:39 AM CDT 12/07/2023 6:53 AM CDT Yajaira SÁNCHEZ BLOOD BANK Performing Organization Address [facility]/ZIP Co de Phone Number [facility] BLOOD BANK [address] [place] [address], * Hemoglobin - One Time (12/07/2023 6:39 AM CDT) Pathologist [facility] HEMOGLOBIN 13.3 12.0 - 16.0 g/dL 12/07/2023 7:02 AM CDT [facility] MCV 89 80 - 100 fL 12/07/2023 7:02 AM CDT [facility] Blood BLOOD SPECIMEN / Unknown Venipuncture / Unknown 12/07/2023 6:39 AM CDT 12/07/2023 6:53 AM CDT Yajaira SÁNCHEZ HEMATOLOGY Performing Organization Address [facility] Co de Phone Number [facility] [address] [place] [address], * TOXO NEG COMMENT [id number] (11/02/2023 12:58 PM CDT) Pathologist [facility] Toxo Neg Comment Comment 11/05/2023 10:06 PM CDT [facility] Comment: It is presumed the patient has not been infected with and is not undergoing an acute infection with Toxoplasma. If symptoms persist, submit a new specimen after three weeks. Blood BLOOD SPECIMEN / Unknown Venipuncture / Unknown 11/02/2023 12:58 PM CDT 11/02/2023 12:59 PM CDT Narrative [facility] - 11/05/2023 10:06 PM CDT Performed at: ??[address] - [address] ??[id number] Hospitalist Program Director: Lyudmila Hewitt MD, Phone: ??[phone] Jazmine Dysont DO SEND OUTS Performing Organization Address [facility] Co de Phone Number [facility] [address] [place] [address], * TOXOPLASMA GONDII AB IGM (11/02/2023 12:58 PM CDT) Pathologist [facility] Toxoplasma gondii Ab IgM <3.0 0.0 - 7.9 AU/mL 11/05/2023 10:06 PM CDT [facility] Comment: ? Negative ?<8.0 ? Equivocal ?8.0 - 9.9 ? Positive ?>9.9 Blood BLOOD SPECIMEN / Unknown Venipuncture / Unknown 11/02/2023 12:58 PM CDT 11/02/2023 12:59 PM CDT Narrative [facility] ([facility] - 11/05/2023 10:06 PM CDT Performed at: ??[address] - [address] ??[id number] Hospitalist Program Director: Lyudmila Hewitt MD, Phone: ??[phone] Jazmine Montanez DO SEND OUTS Performing Organization Address [facility] de Phone Number [facility] [address] [place] [address], * TOXOPLASMA GONDII AB IGG (11/02/2023 12:58 PM CDT) Toxoplasma gondii Ab IgG <3.0 0.0 - 7.1 IU/mL 11/06/2023 5:10 AM CDT [facility] ([facility]) Comment: ? Negative ?<7.2 ? Equivocal ??7.2 - 8.7 ? Positive ?>8.7 Blood BLOOD SPECIMEN / Unknown Venipuncture / Unknown 11/02/2023 12:58 PM CDT 11/02/2023 12:59 PM CDT Narrative [facility] ([facility]) - 11/06/2023 5:10 AM CDT Performed at: ??01 - [facility] [address] [place] [address] ??[id number] Hospitalist Program Director: Judson Kay MD, Phone: ??[phone] Jazmine Montanez DO SEND OUTS [facility] ([facility]) [address] [place] [address], * PELVIS COMPLETE TA AND TV (10/02/2023 8:05 [...] @ 10/02/2023 10:20:36 AM (Electronically Signed) Jazmine Goodrich Tarik DO US * (ABNORMAL) CBC WITH AUTO DIFFERENTIAL (09/24/2023 12:42 PM CDT) WHITE BLOOD COUNT 11.2(H) 4.5 - 11.0 thou/cu mm 09/24/2023 12:50 PM CDT [facility] RED BLOOD COUNT 4.34 4.00 - 5.20 mil/cu mm 09/24/2023 12:50 PM CDT [facility] HEMOGLOBIN 13.5 12.0 - 16.0 g/dL 09/24/2023 12:50 PM CDT [facility] HEMATOCRIT 40.1 33.0 - 51.0 % 09/24/2023 12:50 PM CDT [facility] MCV 92 80 - 100 fL 09/24/2023 12:50 PM CDT [facility] MCH 31.1 26.0 - 34.0 pg 09/24/2023 12:50 PM CDT [facility] MCHC 33.7 32.0 - 36.0 g/dL 09/24/2023 12:50 PM CDT [facility] RDW 13.2 11.5 - 15.5 % 09/24/2023 12:50 PM CDT [facility] PLATELET COUNT 399 140 - 440 thou/cu mm 09/24/2023 12:50 PM CDT [facility] MPV 9.3 6.5 - 11.0 fL 09/24/2023 12:50 PM CDT [facility] % NEUT 64.6 % 09/24/2023 12:50 PM CDT [facility] % LYMPH 24.4 % 09/24/2023 12:50 PM CDT [facility] % MONO 8.2 % 09/24/2023 12:50 PM CDT [facility] % EOS 2.4 % 09/24/2023 12:50 PM CDT [facility] % BASO 0.4 % 09/24/2023 12:50 PM CDT [facility] ABSOLUTE NEUTROPHILS 7.2(H) 1.7 - 7.0 thou/cu mm 09/24/2023 12:50 PM CDT [facility] ABSOLUTE LYMPHOCYTES 2.7 0.9 - 2.9 thou/cu mm 09/24/2023 12:50 PM CDT [facility] ABSOLUTE MONOCYTES 0.9(H) <0.9 thou/cu mm 09/24/2023 12:50 PM CDT [facility] ABSOLUTE EOSINOPHILS 0.3 <0.5 thou/cu mm 09/24/2023 12:50 PM CDT [facility] ABSOLUTE BASOPHILS 0.0 <0.3 thou/cu mm 09/24/2023 12:50 PM CDT [facility] Blood BLOOD SPECIMEN / Unknown Venipuncture / Unknown 09/24/2023 12:42 PM CDT 09/24/2023 12:45 PM CDT Jazmine Dysont DO HEMATOLOGY [facility] [address] [place] [address], * TSH WITH REFLEX (09/24/2023 12:42 PM CDT) TSH 1.85 0.27 - 4.20 uIU/mL 09/25/2023 4:35 AM CDT [facility] Blood BLOOD SPECIMEN / Unknown Venipuncture / Unknown 09/24/2023 12:42 PM CDT 09/24/2023 12:45 PM CDT Narrative [facility] - 09/25/2023 4:35 AM CDT In Adults, TSH values between 5.00 and 10.00 uIU/ml do not necessarily indicate the presence of Hypothyroidism. Correlation with clinical findings such as presence of goiter and/or Thyroperoxidase (TPO) Antibody may be helpful. For more information please refer to DANNIE 2004; 291: 228-238. Jazmine Montanez DO CHEMISTRY Performing Organization Address City/[facility]/ZIP Co de Phone Number [facility] [address] [place] [address], * C-REACTIVE PROTEIN (09/24/2023 12:42 PM CDT) C-REACTIVE PROTEIN 0.4 <0.5 mg/dL 09/25/2023 5:11 AM CDT [facility] Blood BLOOD SPECIMEN / Unknown Venipuncture / Unknown 09/24/2023 12:42 PM CDT 09/24/2023 12:45 PM CDT Jazmine Montanez DO CHEMISTRY Performing Organization Address [facility] Co de Phone Number [facility] [address] [place] [address], * FERRITIN (09/24/2023 12:42 PM CDT) FERRITIN 64.6 15.0 - 150.0 ng/mL 09/25/2023 4:35 AM CDT [facility] Blood BLOOD SPECIMEN / Unknown Venipuncture / Unknown 09/24/2023 12:42 PM CDT 09/24/2023 12:45 PM CDT Jazmine Goodrich Tarik DO CHEMISTRY Performing Organization Address City/[facility] Co de Phone Number [facility] [address] [place] [address], * (ABNORMAL) COMP METABOLIC PANEL (09/24/2023 12:42 PM CDT) SODIUM 139 136 - 145 mmol/L 09/25/2023 4:35 AM [facility] POTASSIUM 4.5 3.5 - 5.1 mmol/L 09/25/2023 4:35 AM [facility] CHLORIDE 102 98 - 107 mmol/L 09/25/2023 4:35 AM [facility] CO2,TOTAL 25 22 - 29 mmol/L 09/25/2023 4:35 AM [facility] ANION GAP 12 5 - 18 09/25/2023 4:35 AM [facility] GLUCOSE 82 70 - 99 mg/dL 09/25/2023 4:35 AM [facility] CALCIUM 10.3(H) 8.8 - 10.2 mg/dL 09/25/2023 4:35 AM [facility] BUN 14 8 - 23 mg/dL 09/25/2023 4:35 AM [facility] CREATININE 1.04(H) 0.50 - 0.90 mg/dL 09/25/2023 4:35 AM [facility] BUN/CREAT RATIO 13 10 - 20 4:35 AM [facility] eGFR 61(L) >90 mL/min/1.7 3m2 09/25/2023 4:35 AM [facility] Comment:As of 2021, eG FR is calculated by the CKD-EPI creatinine equation without race adjustment. ??eGFR can be influenced by muscle mass, exercise, and diet. ??The reported eGFR is an estimation only and is only applicable if the renal function is stable. ALBUMIN 5.0(H) 4.0 - 4.9 g/dL 09/25/2023 4:35 AM [facility] PROTEIN,TOTAL 8.0 6.0 - 8.0 g/dL 09/25/2023 4:35 AM [facility] BILIRUBIN,TOTAL 0.4 0.0 - 1.2 mg/dL 09/25/2023 4:35 AM [facility] ALK PHOSPHATASE 101 35 - 104 IU/L 09/25/2023 4:35 AM CDT [facility] ALT (SGPT) 25 10 - 35 IU/L 09/25/2023 4:35 AM CDT [facility] AST (SGOT) 30 10 - 35 IU/L 09/25/2023 4:35 AM CDT [facility] Blood BLOOD SPECIMEN / Unknown Venipuncture / Unknown 09/24/2023 12:42 PM CDT 09/24/2023 12:45 PM CDT Jazmine Montanez DO CHEMISTRY [facility] [address] [place] [address], [place] * COLONOSCOPY (07/12/2023 10:16 AM MUNITIONS HANDLER) 07/12/2023 10:1 6 AM MUNITIONS HANDLER Narrative Transcriptions Ramos Le MD - 07/12/2023 [...] candidate for conscious sedation. The endoscope [id number] was passed through the anus andadvanced to [...] 10:16 AM Procedure Code(s): --- Professional --- 23588, Colonoscopy, flexible; with removalof tumor(s), polyp(s), or other lesion(s) bysnare technique 40721, 59, Colonoscopy, flexible; withbiopsy, single or multiple Diagnosis Code(s): --- Professional --- D12.3, Benign neoplasm of transverse colon (hepatic flexure or splenic flexure) Z15.09, Genetic susceptibility to other malignant neoplasm CPT copyright 2021 [employer] [place] [employer]. All rights reserved. The codes documented in this report are preliminary and upon agricultural systems specialist reviewmay be revised to meet current compliance requirements. Scope In: 10:45:01 AM Scope Withdrawal Time 0 hours 12 minutes 22 seconds Scope Out: 11:00:33 AM Ramos Le MD PROCEDURE ORD * HPV HIGH RISK (11/03/2022 2:30 PM CDT) TYPE 16 Negative Negative 11/08/2022 1:54 PM CDT [facility] TYPE 18 Negative Negative 11/08/2022 1:54 PM CDT [facility] OTHER HIGH RISK TYPES Negative Negative 11/08/2022 1:54 PM CDT [facility] Other (Cervical) Non-Blood / Unknown 11/03/2022 2:30 PM CDT 11/07/2022 9:29 AM CDT Narrative [facility] - 11/08/2022 1:54 PM CDT HPV types 16, 18, 31, 33, 35, 39, 45, 51, 52, 56, 58, 59, 66 and 68 DNA were undetectable or below the pre-set threshold. Methodology: Ryann Lisa 4800 HPV Test Jazmine Montanez DO MICROBIOLOGY [facility] [address] [place] [address], [place] * (ABNORMAL) LIPID PANEL (05/10/2021 8:30 AM MUNITIONS HANDLER) CHOLESTEROL,TOTAL 177 100 - 199 mg/dL 05/10/2021 6:04 PM M[employer]ITIONS HAND[employer]ER [facility] TRIGLYCERIDES 183(H) <150 mg/dL 05/10/2021 6:04 PM M[employer]ITIONS HANDLER [facility] HDL CHOLESTEROL 39(L) >40 mg/dL 6:04 PM M[employer]ITIONS HAND[employer]ER [facility] NON-HDL CHOLESTEROL 138 <145 mg/dl 05/10/2021 6:04 PM M[employer]ITIONS HANDLER [facility] CHOL/HDL RATIO 4.54(H) <4.50 05/10/2021 6:04 PM M[employer]ITIONS HAND[employer]ER [facility] LDL CHOLESTEROL 101 <=130 mg/dL 05/10/2021 6:04 PM MUNITIONS HAND[employer]ER [facility] VLDL CHOLESTEROL 37(H) <=30 mg/dL 05/10/2021 6:04 PM M[employer]ITIONS HANDLER [facility] PROVIDER ORDERED STATUS RANDOM 05/10/2021 6:04 PM M[employer]ITIONS HANDLER [facility] Blood BLOOD SPECIMEN / Unknown Venipuncture / Unknown 05/10/2021 8:30 AM MUNITIONS HANDLER 05/10/2021 8:34 AM MUNITIONS HANDLER Jazmine Montanez DO CHEMISTRY [facility] [address] [place] [address], [place] * ANTI HCV [99747.2] (01/08/2015 8:07 AM CDT) HEPATITIS C ANTIBODY Non-Reacti ve Non-Reacti ve 01/08/2015 1:31 PM CDT [facility] Blood specimen (specimen) BLOOD SPECIMEN / Unknown Venipuncture / Unknown 01/08/2015 8:07 AM CDT 01/08/2015 8:10 AM CDT Narrative [facility] - 01/08/2015 1:31 PM CDT Antibodies to HCV not detected; does not exclude the possibility of exposure to HCV. Jazmine Montanez DO SEND OUTS [facility] [address] [place] [address], from Last 3 Months or Most Recently [...] 6:47 AM 03/28/2018 2:35 AM Care Teams Telephone Operator Receptionist Relationship Specialty Start Date End Date Jazmine Montanez DO PCP - General 05/29/08
--- NOTE | 2023-12-19 10:00 | CRLHL7_ITS ---
For Patients: As a result of the Century Cures Act, medical imaging exams and procedure reports are released immediately into your electronic medical record. You may view this report before your referring provider. If you have questions, please contact your health care provider. Indication: History of kidney stone Technique: Noncontrast CT abdomen and pelvis Please note that all CT scans at this facility use dose modulation, iterative reconstruction, and/or weight-based dosing when appropriate to reduce radiation dose to as low as reasonably achievable. Comparison: 03/05/2022 Findings: Multiple right renal stones are present measuring up to 9 millimeters. Larger stone within the right renal pelvis on the prior study is no longer present. Also, there is no longer presence of a distal left ureteral stone. However, left renal cortical atrophy has developed. Chronic mild prominence of the left proximal ureter is present. No right-sided hydronephrosis. Visualized breast implants are intact. Lung bases are clear. Noncontrast enhanced liver, gallbladder, spleen and pancreas appear normal. Normal adrenal glands. Small sliding hiatal hernia. Subcentimeter retroperitoneal lymph nodes are unchanged. Chronic mild areas of linear density are noted within the left lower pelvic fat. No bladder stone. Sigmoid diverticulosis. No bowel obstruction. Appendix normal. Postop changes of hysterectomy. There is a ovoid collection of fluid within the left side of the pelvis measuring 4.8 cm. Pelvic free fluid also present. Ovoid area density containing air bubbles within the midline of the pelvis measures 7.8 cm. No fracture. Impression: Decreased stone burden within the right kidney. Residual stones measure up to 9 millimeters within the right kidney. Interval development of left renal cortical atrophy with chronic prominence of the left proximal ureter. Resolution of the previously noted distal left ureteral stone. Postop changes of hysterectomy. Complex area of soft tissue density within the midline of the deep pelvis measuring approximately 7.8 cm containing bubbles of air could represent postop hematoma. Additionally, there appears to be a collection of fluid within the left upper pelvis measuring 4.8 cm which could represent abscess. Numerous subcentimeter retroperitoneal lymph nodes are similar. Please note that all CT scans at this facility use dose modulation, iterative reconstruction, and/or weight-based dosing when appropriate to reduce radiation dose to as low as reasonably achievable. Dictated by Yoandy Atkins MD @ 12/20/2023 10:17:49 AM (Electronically Signed)
== END 2023-12-19 09:49 | disposition home or self-care (01) ==
PROVIDERS: PCP Family Medicine; Visit Provider Urology
DX: N20.0 Calculus of kidney (principal); R59.0 Localized enlarged lymph nodes
CPT/HCPCS: 74176

== ENCOUNTER 2024-01-08 09:47 | Emergency (ER) | payer BC, SELFPAY ==
[2024-01-08] VITALS (36 sets, daily range): BP systolic 97–139; BP diastolic 62–87; PULSE 79–96; RESP 16–20; TEMP 36.3; O2SAT 90–97; BMI 33.6
--- NOTE | 2024-01-08 10:40 | CRLHL7_ITS ---
For Patients: As a result of the Century Cures Act, medical imaging exams and procedure reports are released immediately into your electronic medical record. You may view this report before your referring provider. If you have questions, please contact your health care provider. Indication: Pain x1 day, history of prior hysterectomy Technique: Volumetric multidetector CT images of the abdomen and pelvis were obtained after the administration of intravenous contrast. 84 cc Isovue 370 low osmolar intravenous contrast Comparison: None available. Findings: The lung bases are clear. There is a trace amount of perihepatic fluid. There is no obvious associated free air. The adjacent liver is otherwise grossly preserved in attenuation and enhancement. The portal vein is patent. The gallbladder is unremarkable without evidence of radiopaque calculus. There is no significant common biliary ductal dilatation or abrupt cut off. The spleen is normal in enhancement and size. There is a small hiatal hernia. There is mild thickening of the gastric antrum and gastric rugal folds. The pancreas is normal in enhancement without significant atrophy. The adrenal glands are unremarkable. There is atrophy of the left kidney and compensatory hypertrophy of the right kidney. There are prominent bilateral collecting systems with likely extrarenal pelvis. There is nonobstructive calculi within the right collecting system. There is heterogeneous enhancement of the superior pole of the right kidney. There are moderately dilated fluid-filled loops of central small bowel likely representing ileus versus obstructive changes with decompressed appearance of the colon. There is colonic diverticulosis with suggestion of mild thickening of the sigmoid colon. The appendix is unremarkable. There is no significant mesenteric, retroperitoneal, or pelvic sidewall lymph nodes. The aorta is nonaneurysmal. There is no significant atherosclerotic disease appreciated. There is demonstration of prior hysterectomy with a rim enhancing fluid collection centered within the predominantly left hemipelvis measuring up to 7.0 x 4.2 centimeters in greatest dimension. There is no intra-abdominal free air. The anterior abdominal wall is intact without significant hernias. The lumbar vertebral body heights are grossly maintained in satisfactory alignment without evidence of displaced fracture, lytic or blastic lesion. Impression: Demonstration of a pelvic rim enhancing fluid collection measuring 7.0 x 4.2 centimeters in greatest dimensions likely representing an abscess. There is abutment of the adjacent vaginal cuff as well as mild abutment of the adjacent sigmoid colon. Findings could represent development of a postoperative abscess status post hysterectomy versus sequela low-grade adjacent diverticulitis. Moderately dilated, fluid-filled central small bowel loops likely representing ileus versus obstruction. Somewhat heterogeneous enhancement of the superior pole of the right kidney which may represent underlying pyelonephritis changes. Correlate with urinalysis. Trace perihepatic fluid. Please note that all CT scans at this facility use dose modulation, iterative reconstruction, and/or weight-based dosing when appropriate to reduce radiation dose to as low as reasonably achievable. Dictated by Glynn Perera MD @ 01/08/2024 11:55:18 AM (Electronically Signed)
--- NOTE | 2024-01-08 10:43 | ED_ITS ---
HPI - Abdominal Pain General Chief Complaint: Abdominal Pain Stated Complaint: Vomiting, weakness Time Seen by Provider: 01/08/24 10:22 History of Present Illness HPI narrative: This 63-year-old female comes in reporting abdominal pain that is constant with crampy episodes and began last night. She has had nausea and vomiting but no diarrhea. She does not report any fevers. She did take some Zofran at home but continued to have the same symptoms. 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 Related Data Home Medications ?Medication ?Instructions ?Recorded ?Confirmed cholecalciferol (vitamin D3) 50 1,000 unit PO DAILY 02/20/22 11/19/23 mcg (2,000 unit) tablet cyanocobalamin (vitamin B-12) 500 1,000 mcg PO DAILY 02/20/22 11/19/23 mcg tablet gemfibrozil 600 mg tablet 600 mg PO QDAY 02/20/22 11/19/23 multivitamin 1 tab PO QDAY 02/20/22 11/19/23 venlafaxine 37.5 mg tablet 37.5 mg PO QDAY 02/20/22 11/19/23 aspirin 81 mg tablet,delayed 81 mg PO QDAY 02/21/22 11/19/23 release acetaminophen 325 mg tablet mg PRN 10/13/22 11/19/23 loperamide 2 mg capsule mg PRN 10/13/22 11/19/23 cetirizine 10 mg capsule (Zyrtec) 10 mg PO QDAY PRN 09/17/23 11/19/23 alendronate [Fosamax] PO .weekly 11/19/23 11/19/23 Allergies Allergy/AdvReac Type Severity Reaction Status Date / Time adhesive Allergy Intermediate localized Verified 01/08/24 11:27 rash latex Allergy Mild Rash Verified 01/08/24 11:27 tree and shrub pollen Allergy Mild Verified 01/08/24 11:27 contact metal agent Allergy Rash Verified 01/08/24 11:27 lactose Allergy Verified 01/08/24 11:27 Review of Systems Status of ROS Reports: 10 or more systems reviewed and unremarkable except as noted in History and below Narrative Constitutional: No fevers, no weight gain or loss. Eyes: No discharge. No vision changes. HENT: No congestion, no sore throat, no ear pain. Cardiovascular: No chest pain, no palpitations. Respiratory: No shortness of breath, no wheezes, no cough. Gastrointestinal: Lower abdominal pain with nausea and vomiting. Genitourinary: No dysuria, no hematuria. Musculoskeletal: Normal range of motion. Skin: No rashes, no pruritis. Neurological: No dizziness, weakness, sensory change, speech change. Endo/Heme/Allergies: No bruising or bleeding. No polydipsia. Pysch: no suicidality, no anxiety, no insomnia. All other systems reviewed and are negative. 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 (ICD-10) Epicondylitis, lateral (tennis elbow) ?M77.10 - Lateral epicondylitis, unspecified elbow (ICD-10) Colon polyp ?K63.5 - Polyp of colon (ICD-10) Chondromalacia, knee ?M94.269 - Chondromalacia, unspecified knee (ICD-10) Family history of colon cancer ?Z80.0 - Family history of malignant neoplasm of digestive organs (ICD-10) Pyelonephritis ?N12 - Tubulo-interstitial nephritis, not specified as acute or chronic (ICD- 10) Breast cancer ?C50.919 - Malignant neoplasm of unspecified site of unspecified female breast (ICD-10) Anemia ?D64.9 - Anemia, unspecified (ICD-10) Diabetes ?E11.9 - Type 2 diabetes mellitus without complications (ICD-10) Hyperlipidemia ?E78.5 - Hyperlipidemia, unspecified (ICD-10) Arthritis ?M19.90 - Unspecified osteoarthritis, unspecified site (ICD-10) Anxiety ?F41.9 - Anxiety disorder, unspecified (ICD-10) Meniere's disease of right ear ?H81.01 - Meniere's disease, right ear (ICD-10) Surgical History S/P debridement (10/16/22) ?Z98.890 - Other specified postprocedural states (ICD-10) H/O dilation and curettage ?Z98.890 - Other specified postprocedural states (ICD-10) H/O tubal ligation (1989) ?Z98.51 - Tubal ligation status (ICD-10) Status post lymph node biopsy (~2006) ?Z98.890 - Other specified postprocedural states (ICD-10) Status post bilateral breast reconstruction ?Z98.890 - Other specified postprocedural states (ICD-10) Status post bilateral mastectomy (03/21/17) ?Z90.13 - Acquired absence of bilateral breasts and nipples (ICD-10) Status post total right knee replacement (07/08/18) ?Z96.651 - Presence of right artificial knee joint (ICD-10) Status post total left knee replacement (07/18/21) ?Z96.652 - Presence of left artificial knee joint (ICD-10) Family History Mother Aneurysm Lung cancer Dementia Tobacco abuse Sister Colon cancer Social History Narrative: Currently unemployed, quit smoking in 2000. Denies EtOH, quit 1980. Denies recreational drug use. 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 Highest level of school completed/degree received: Associate degree: academic program Smoking Status: Former smoker What tobacco products do you use: cigarettes Smoking quit date/years: >15 years ago Do you use any of these nicotine containing products: None Second hand tobacco smoke exposure: Yes How often do you have a drink containing alcohol: never AUDIT-C Alcohol total score: 0 Non-prescribed substance use: denies use Caffeine: Yes service: No Exam Narrative: Exam Narrative: Constitutional: Well-developed, well-nourished, no acute distress. HEENT: Normocephalic, atraumatic. Neck: Normal range of motion. Nontender. Supple. Heart: Regular. No murmurs. Normal rate. Intact distal pulses. Lungs: Clear to auscultation. No chest discomfort. No wheezes, rhonchi, or rales. Abdomen: Decreased bowel sounds. Diffuse tenderness in the lower abdomen. Rebound tenderness is positive. Genitalia: Deferred. Back: No midline tenderness. Normal range of motion. Extremities: Normal range of motion. No injury. Skin: Intact. No rash. Warm. No erythema or pallor. Neurologic: No altered sensation. No weakness. Alert and oriented. Psychiatric: No suicidality. No anxiety or depression. No insomnia. Nursing notes and vitals signs are reviewed. Const: Vital Signs, click to edit/add: Vital Signs - 24 hr 01/08/24 09:55 01/08/24 11:00 01/08/24 11:08 Temperature 97.4 F L Pulse Rate 82 Pulse Rate [Pulse Oximeter] 85 86 Respiratory Rate 20 Blood Pressure [Le ft Upper Arm] 136/87 Pulse Oximetry 97 93 96 Oxygen Delivery Me thod Room Air Room Air 01/08/24 11:15 01/08/24 11:30 01/08/24 12:15 Temperature Pulse Rate 82 Pulse Rate [Pulse Oximeter] 79 82 Respiratory Rate 16 16 Blood Pressure [Le ft Upper Arm] 112/66 Pulse Oximetry 97 95 93 Oxygen Delivery Me thod Room Air Room Air Course Vital Signs Vital signs: Initial Vital Signs Temperature 97.4 F L 01/08/24 09:55 Temperature Source Temporal Artery Scan 01/08/24 09:55 Pulse Rate 85 01/08/24 09:55 Pulse Rhythm Regular 01/08/24 09:55 Respiratory Rate 20 01/08/24 09:55 Blood Pressure 136/87 01/08/24 09:55 Blood Pressure Mean 103 01/08/24 09:55 Blood Pressure Position Right Lateral 01/08/24 09:55 Pulse Oximetry 97 01/08/24 09:55 Oxygen Delivery Method Room Air 01/08/24 09:55 Vital Signs Temperature 97.4 F L 01/08/24 09:55 Pulse Rate 85 01/08/24 09:55 Respiratory Rate 20 01/08/24 09:55 Blood Pressure 136/87 01/08/24 09:55 Pulse Oximetry 97 01/08/24 09:55 Oxygen Delivery Method Room Air 01/08/24 09:55 Temperature 97.4 F L 01/08/24 09:55 Pulse Rate 82 01/08/24 12:15 Respiratory Rate 16 01/08/24 12:15 Blood Pressure 112/66 01/08/24 12:15 Pulse Oximetry 93 01/08/24 12:15 Oxygen Delivery Method Room Air 01/08/24 12:15 Medications Administered Medications: Discontinued Medications Generic Name Dose Route Start Last Admin Trade Name Liz PRN Reason Stop Dose Admin Hydromorphone HCl 0.5 mg 01/08/24 10:40 01/08/24 10:59 Hydromorphone 0.5 Mg/0.5 Ml Inj IVP 01/08/24 10:41 0.5 mg ONCE ONE Administration Sodium Chloride 1,000 mls @ 1,000 mls/hr 01/08/24 10:45 01/08/24 12:00 0.9 % Sodium Chloride 1000 Ml IV 01/08/24 11:44 Infused .Q1H CARLOS Infusion Ondansetron HCl 4 mg 01/08/24 10:40 01/08/24 10:57 Ondansetron 2 Mg/Ml Inj IVP 01/08/24 10:41 4 mg ONCE ONE Administration MDM - Abdominal Pain MDM Narrative Medical decision making narrative: This patient comes in with abdominal pain as described above. She arrives with normal vital signs and was telling me initially she thought it might have been some food that she ate last night. On exam she has decreased bowel sounds with rebound tenderness and pain in the lower abdomen also involving the right lower quadrant. I recommended CT imaging. An IV was established where she received a L of normal saline, Dilaudid 0.5 mg, and Zofran 4 mg. This brought good relief to her symptoms. CT imaging is remarkable for a fluid collection in the pelvis that is suspicious for a abscess. This is most likely secondary to her hysterectomy that occurred about a month ago at [facility]. I did speak with the flight mechanic physician here who recommended transfer back to [facility] for interventional radiology drainage of the abscess. I spoke with the physician on-call there, Dr. Roca, who agrees to her transfer there for ongoing management. Lab Data Labs: Lab Results 01/08/24 Range/Units 10:51 WBC 19.03 H (4.50-11.00) K/uL RBC 5.05 (4.00-5.20) m/uL Hgb 14.6 (12.0-16.0) gm/dL Hct 45.5 (33.0-51.0) % MCV 90 (80-100) fL MCH 29 (26-34) pg MCHC 32 (32-36) gm/dL RDW Coeff of Angelica 12.1 (11.5-15.5) % Plt Count 485 H (140-440) K/uL Neut % (Auto) 89.3 H (42.0-72.0) % Lymph % (Auto) 6.1 L (20-44) % Hart % (Auto) 4.2 (0.0-11.0) % Eos % (Auto) 0.2 (0.0-7.0) % Baso % (Auto) 0.1 (0.0-3.0) % Neut # (Auto) 17.00 H (1.7-7.0) K/uL Lymph # (Auto) 1.20 (0.90-2.90) K/uL Hart # (Auto) 0.80 (0.00-0.90) K/UL Eos # (Auto) 0.00 (0.00-0.50) K/uL Baso # (Auto) 0.00 (0.00-0.30) K/uL Abs Immat Gran (auto) 0.00 (0.00-0.30) K/uL Imm/Tot Granulo (auto) 0.1 % Sodium 142 (135-149) mmol/L Potassium 3.9 (3.6-5.1) mmol/L Chloride 104 (96-114) mmol/L Carbon Dioxide 26 (20-32) mmol/L Anion Gap 12 (7-15) mEq/L BUN 14 (7-30) mg/dL Creatinine 0.8 (0.5-1.5) mg/dL Estimated Creat Clear 41.36 Estimated GFR 83 ml/min Glucose 129 H (60-115) mg/dL Calcium 10.0 (8.4-10.6) mg/dL Imaging Data CT scan - abdomen: Radiologist's impression: Demonstration of a pelvic rim enhancing fluid collection measuring 7.0 x 4.2 centimeters in greatest dimensions likely representing an abscess. There is abutment of the adjacent vaginal cuff as well as mild abutment of the adjacent sigmoid colon. Findings could represent development of a postoperative abscess status post hysterectomy versus sequela low-grade adjacent diverticulitis. Moderately dilated, fluid-filled central small bowel loops likely representing ileus versus obstruction. Somewhat heterogeneous enhancement of the superior pole of the right kidney which may represent underlying pyelonephritis changes. Correlate with urinalysis. Trace perihepatic fluid. Discharge Plan Discharge Clinical Impression: Abscess of female pelvis Patient Disposition: [facility] Condition: Unchanged Prescriptions: No Action gemfibrozil 600 mg tablet 600 mg PO QDAY venlafaxine 37.5 mg tablet 37.5 mg PO QDAY multivitamin Tablet 1 tab PO QDAY cyanocobalamin (vitamin B-12) 500 mcg tablet 1,000 mcg PO DAILY cholecalciferol (vitamin D3) 50 mcg (2,000 unit) tablet 1,000 unit PO DAILY aspirin 81 mg tablet,delayed release (DR/EC) 81 mg PO QDAY Zyrtec 10 mg capsule 10 mg PO QDAY PRN alendronate [Fosamax] PO .weekly acetaminophen 325 mg tablet PRN Rx Instructions: NO MORE THAN 4000 MG/DAY loperamide 2 mg capsule PRN Follow Up/Referrals: Jazmine Montanez DO [Primary Care Provider] - Stand Alone Forms: [facility] Info Instructions
--- OUTSIDE RECORDS SUMMARY | 2024-01-08 10:45 | XMS_ITS | Clinical Summary ---
Author Organization [facility] Address [place], [place] [address] Care Team Providers Care Care Consultant Name Role Phone Jazmine Montanez DO Primary [...] mouth once daily with a meal. 0 8 Active cholecalciferol (VITAMIN D3) 1,000 unit capsule Take 1 Capsule (1,000 units) by mouth once daily. 0 1 Active gemfibroziL (LOPID) 600 mg tabletIndications: Mixed [...] 1 HOUR 12 Tablet 3 4 Active oxyCODONE (ROXICODONE) 5 mg immediate release tabletIndications: Post-op pain Take 1 Tablet (5 mg) by mouth every 4 hours if needed for Pain. 10 Tablet 4 Active sennosides-docusat e (SENOKOT S) (8.6-50 mg) tabletIndications: Post-op pain Take 1-2 Tablets by mouth 2 times daily if needed for Constipation. 30 Tablet 4 Active venlafaxine (EFFEXOR) 37.5 mg tabletIndications: Anxiety disorder, unspecified type TAKE 1 TABLET(37.5 MG) BY MOUTH EVERY MORNING 90 Tablet 1 4 Active venlafaxine (EFFEXOR) 37.5 mg tabletIndications: Anxiety disorder, unspecified type TAKE 1 TABLET(37.5 MG) BY MOUTH EVERY MORNING 90 Tablet 1 3 12/20/19 24 Discontinued Active Problems Problem Noted Date [...] Encounters Date Type Department Care Team Description 12/24/2023 3:00 PM CDT Office Visit [facility] [address] [place] [address] Pam Argueta MD Consult (Lesion right arm/axilla) 12/24/2023 Travel 12/22/2023 Travel 12/19/2023 Orders Only [facility] Scanner 1 scan: (1-Ord) [facility], ABDOMEN AND PELVIS, 12/19/2023 12/18/2023 Refill [facility] [address] [place] [address] Jazmine Montanze DO Refill Request (Venlafaxine) 12/10/2023 10:40 AM CDT Nurse/Clinic Staff Only [facility] [address] [facility] [address] Procedure (Remove catheter/) 12/10/2023 Travel 12/10/2023 Telephone [facility] [address] [facility] [address] TarikJazmine, DO Need Meds ((oxyCODONE (ROXICODONE) 5 mg immediate release tablet )) 12/07/2023 8:12 AM CDT Anesthesia Event [facility] [address], [place] [address] Don Apodaca MD 12/07/2023 7:30 AM CDT - 12/07/2023 10:46 AM CDT Surgery [facility] [address] [place] [address] Niya Leyva MD ROBOTIC ASSISTED TOTAL LAPAROSCOPIC HYSTERECTOMY, BILATERAL SALPINGO-OOPHORECTOMY , INTRAOPERATIVE SENTINEL LYMPH NODE MAPPING AND SENTINEL PELVIC LYMPH NODE DISSECTIONS 12/07/2023 5:53 AM CDT - 12/07/2023 3:57 PM CDT Hospital Encounter [facility] [address], [place] [address] Niya Leyva MD Post-op pain (Primary Dx); Hydronephrosis, right Discharge Disposition: Home Self Care 12/07/2023 Travel 12/04/2023 Travel 12/03/2023 2:30 PM CDT Office Visit [facility] [address] [facility] [place] [address] Pam Argueta MD Consult (Discuss biopsy under right arm) 12/03/2023 Travel 11/30/2023 Travel 11/21/2023 8:15 AM CDT Preop Visit [facility] [address] [facility] [address] Yu Pastor PA Preoperative Exam (12/07/23/ROBOTIC ASSISTED TOTAL LAPAROSCOPIC HYSTERECTOMY, BILATERAL SALPINGO-OOPHORECTOMY , INTRAOPERATIVE SENTINEL LYMPH NODE MAPPING AND SENTINEL PELVIC LYMPH NODE DISSECTIONS / / /Niya Leyva MD /) 11/21/2023 Travel 11/19/2023 Travel 11/02/2023 1:00 PM CDT Orders Only [facility] [address] [place] [address] Lab, [place] [facility] 11/02/2023 Travel 10/30/2023 Travel 10/10/2023 Telephone [facility] [address] [place] [address] Jazmine Montanez, DO Results (biopsy) 10/08/2023 Telephone [facility] [address] [place] [address] [address] Jazmine Montanez, DO Follow Up (Questions about directions following procedure) from Last 3 Months Immunizations Name Administration Dates Next Due COVID-19 Vaccine Spikevax (M oderna 50mcg/0.5mL) 12YO+ 2813-0524 Formula PF 08/06/2023 COVID-19 vaccine ([employer] 30mcg/0.3mL) 12YO+ BIVALENT PF, MDV 03/10/2022 Influenza, IIV3 (Age >=3 years) 02/13/2012 Influenza, IIV4 03/07/2023,,04/13/2021,04/07/20 19,03/01/2018,03/14/2017,03/09/2014,02/12 Influenza, IIV4 (=>6mos) MDV 04/03/2020 Td (Age >=7 Years) 03/01/2018 Tdap 11/22/2006 Zoster (Shingrix-RZV, recombinant) 08/02/2021, Family History Medical History Relation Name Comments Dementia Maternal Grandmother Heart Disease Maternal Uncle [place] AT 42 YEA RS Cancer Mother lung [...] Sign Reading Time Taken Comments Blood Pressure 124/79 12/24/2023 2:52 PM CDT Pulse 84 12/24/2023 2:52 PM CDT Temperature 36 ??C (96.8 ??F) 12/07/2023 1:15 PM CDT Respiratory Rate 20 12/07/2023 3:00 PM CDT Oxygen Saturation 98% 12/24/2023 2:52 PM CDT Inhaled Oxygen Concentration - - Weight 77.8 kg (171 lb 9.6 oz) 12/24/2023 2:52 P M CDT Height 154.7 cm (5' 0.91) 11/21/2023 8:25 AM CD T Body Mass Index 32.52 11/21/2023 8:25 AM CDT Plan of Treatment Health Maintenance Due Date Last Done Comments HIV for age 15-65 12/02/1975 Influenza for age 50-64 02/03/2024 03/07/20, 03/10/2022, 04/13/2021, Additional history exists Depression screening [...] this topic Medical Devices Implanted Type Area Grid Operator Device Identifier Shelf Expiration Date Model / Serial / Lot [id number] 8breast 330cc Jackson Rnd High Smooth Saline Implanted:Qty: 1 on 03/27/2018 by Tarun Cardozo MD at [facility] Explanted:at [facility] (Quantity not on file) Left: Breast [employer] Web[employer] 02/06/2022 [id number]# / [id number] / [id number] 5breast 330cc Jackson Rnd High Smooth Saline Implanted:Qty: 1 on 03/27/2018 by Tarun Cardozo MD at [facility] Explanted:at [facility] (Quantity not on file) Right: Breast [employer] Web[employer] 01/10/2022 [id number]# / [id number] / [id number] Stent Uret [id number] Silhouette - [id number] Implanted:Qty: 1 on 03/07/2022 by Gilbert Golden MD at [facility] Left: [facility] medidametrics Medical [employer] Gerda 03/21/2024 [id number] / / [id number] Stent Uret [id number] Contour - [id number] Implanted:Qty: 1 on 03/23/2022 by Gilbert Golden MD at [facility] Right: Ureter [facility] 02/18/2024 [id number] / / [id number] Stent Uret [id number] Percuflex Hydroplus - [id number] Implanted:Qty: 1 on 03/23/2022 by Gilbret Golden MD at [facility] Left: Ureter [facility] 01/12/2025 [id number] / / [id number] Stent Uret [id number] Percuflex Hydroplus - [id number] Implanted:Qty: 1 on 03/15/2023 by Gilbert Golden MD at [facility] Left: Ureter [facility] [id number] / / [id number] Stent Tria Soft 6f X 22cm Implanted:Qty: 1 on 03/15/2023 by Gilbert Golden MD at [facility] Right: Ureter [id number] / / [id number] Description:STENT TRIA SOFT 6F X 22CM Procedures Procedure Name Priority Date/Time Associated Diagnosis Comments SCAN-CT INTERPRETATION 12/19/2023 12:00 AM CDT CREATININE Today 12/07/2023 11:58 AM CDT PATH TISSUE EXAM Today 12/07/2023 9:25 AM CDT PATH NON CHIEF STEWARD/STEWARDESS CYTOLOGY Today 12/07/2023 9:14 AM CDT ENDOTRACHEAL [...] 12/07/2023 6:39 AM CDT TOXO NEG COMMENT [id number] Routine 11/02/2023 12:58 PM CDT Fatigue, unspecified type Other elevated white blood cell (WBC) count TOXOPLASMA GONDII AB IGG Routine 11/02/2023 12:58 PM CDT Fatigue, unspecified type Other elevated white blood cell (WBC) count TOXOPLASMA GONDII AB IGM Routine 11/02/2023 12:58 PM CDT Fatigue, unspecified type Other elevated white blood cell (WBC) count COLONOSCOPY 07/12/2023 10:16 AM ELECTRICIAN'S ASSISTANT HPV THIN PREP Routine 11/03/2022 2:30 PM CDT Screening for cervical cancer LIPID PANEL Routine 05/10/2021 8:30 AM ELECTRICIAN'S ASSISTANT Mixed hyperlipidemia ANTI HCV Routine 01/08/2015 8:07 AM CDT Need for hepatitis C screening test from Last 3 Months or Most Recently Relevant to Health Maintenance Results * SCAN-CT INTERPRETATION (12/19/2023 12:00 AM CDT) Anatomical Region Laterality Modality Other Scanner OTHER * (ABNORMAL) CREATININE (12/07/2023 11:58 AM CDT) eGFR 72(L) >90 mL/min/1.7 3m2 12/07/2023 12:52 PM CDT [email or web address] Comment:As of 2021, eG FR is calculated by the CKD-EPI creatinine equation without race adjustment. ??eGFR can be influenced by muscle mass, exercise, and diet. ??The reported eGFR is an estimation only and is only applicable if the renal function is stable. CREATININE 0.90 0.50 - 0.90 mg/dL 12/07/2023 12:52 PM CDT [email or web address] Blood BLOOD SPECIMEN / Unknown Venipuncture / Unknown 12/07/2023 11:58 AM CDT 12/07/2023 12:06 PM CDT Yajaira SÁNCHEZ CHEMISTRY [facility]-CENTRAL LABORATORY [address] [place] [address], * PATH TISSUE EXAM (12/07/2023 9:25 AM CDT) Case Report Pathology Report ?Case: [id number] ? Authorizing Provider: ??Niya Leyva MD ??Collected: [...] and Ovaries ? 12/10/2023 2:06 PM CDT [facility] ENTRAL LABORATORY Final Diagnosis A) RIGHT [...] Negative for malignancy 12/10/2023 2:06 PM CDT [facility] Clinical Information Álvarez syndrome and PMB 12/10/2023 2:06 PM CDT [facility] Gross Description A) Received [...] discrete fimbriated fallopian tube is identified grossly. Antique Collector sections are submitted: 1. Anterior cervix 2. [...] on 12/07/2023 STN 12/07/2023 12/10/2023 2:06 PM T [facility] [employer] [facility]- ENTRAL LABORATORY Microscopic Description The final diagnosis is based on microscopic examination of appropriate sections of all specimens. 12/10/2023 2:06 PM T [facility] [employer] [facility]-C ENTRAL LABORATORY Additional Information Interpreted at [facility], Central Laboratory - [address] [facility] [address], [place] [address] 12/10/2023 2:06 PM T [facility]-C ENTRAL LABORATORY Tissue (Other) 12/07/2023 9: 25 AM CDT 12/07/2023 9:33 AM CDT Tissue specimen (specimen) (Other) 12/07/2023 9:27 AM CDT 12/07/2023 9:33 AM CDT Tissue specimen (specimen) TISSUE SPECIMEN / Unknown 12/07/2023 9:35 AM CDT 12/07/2023 9:58 AM CDT Tissue specimen (specimen) (Uterus, Cervix, Bilateral Fallopian Tubes and Ovaries) 12/07/2023 9:46 AM CDT 12/07/2023 9:58 AM CDT Niya Leyva MD PATHOLOGY/CY[facility]OLO [facility] LAB[facility]-CENTRAL LABORATORY [address] [place] [address], * PATH NON CHIEF STEWARD/STEWARDESS CYTOLOGY (12/07/2023 9:14 AM CDT) Case Report Medical Cytology Report ? Case: [id number] ? Authorizing Provider: ??Niya Leyva MD ??Collected: ? 12/07/2023 0914 ? Ordering Location: ? [facility] ?Received: ?12/07/2023 0959 ? Hospital ? Pathologist: ? Miguel Salazar MD ? Specimen: ?Washings, Pelvic washings ? 12/07/2023 3:15 PM CDT [facility] Final Diagnosis PERITONEAL WASHINGS, CYTOLOGIC MATERIAL: Negative for malignancy in this sample 12/07/2023 3:15 PM CDT [facility] Gross Description A) SOURCE: Peritoneal washing The specimen consists of 100 cc of colorless hazy fluid from which the following is prepared: ? -1 Papanicolaou stained ThinPrep slide 12/07/2023 3:15 PM CDT [facility] Microscopic Description Specimen adequacy: Adequate for interpretation. All slides were reviewed. The microscopic appearance substantiates the diagnosis. All slides were reviewed microscopically. Specimen adequacy: Adequate for interpretation. The microscopic appearance substantiates the diagnosis. 12/07/2023 3:15 PM CDT [facility] Additional Information Cytology is screened at [facility] Central Laboratory - [address], [place] [address] and [facility] Laboratory - [address] [place] [address] and [facility] - [address] [place] [address] Interpreted at [facility] Central Laboratory - [address], [place] [address] 12/07/2023 3:[address] [facility] Washing (Washings) 12/07/2023 9:14 AM CDT 12/07/2023 9:59 AM CDT Niya Leyva MD PATHOLOGY/CYTOLO GY Performing Organization Address City/[facility]/ZIP Co de Phone Number [facility] [address] [place] [address], * HCHG TUBE PR1, HCHG STYLET PR1 [...] (ABNORMAL) GLUCOSE METER (12/07/2023 7:35 AM CDT) GLUCOSE METER 108(H) 65 - 100 mg/dL 12/07/2023 7:36 AM CDT [facility] Blood BLOOD SPECIMEN / Unknown 12/07/2023 7:35 AM CDT 12/07/2023 7:36 AM CDT Niya Leyva MD CHEMISTRY Performing Organization Address City/[facility]/ZIP Co de Phone Number [facility] [address] [place] [address], [place] * Type & Screen (12/07/2023 6:39 AM CDT) ABORH A Rh Positive 12/07/2023 7:35 AM CDT [facility] BLOOD BANK ANTIBODY SCREEN Negative Negative 12/07/2023 7:35 AM CDT [facility] BLOOD BANK SPECIMEN EXPIRATION DATE/TIME 12/10/23 23:59 12/07/2023 7:35 AM CDT [facility] B[facility]OD BANK Blood BLOOD SPECIMEN / Unknown Venipuncture / Unknown 12/07/2023 6:39 AM CDT 12/07/2023 6:53 AM CDT Yajaira SÁNCHEZ BLOOD BANK Performing Organization Address City/[facility]/ZIP Co de Phone Number [facility] BLOOD BANK [address] [place] [address], * Hemoglobin - One Time (12/07/2023 6:39 AM CDT) Pathologist [facility] HEMOGLOBIN 13.3 12.0 - 16.0 g/dL 12/07/2023 7:02 AM CDT [facility] MCV 89 80 - 100 fL 12/07/2023 7:02 AM CDT [facility] Blood BLOOD SPECIMEN / Unknown Venipuncture / Unknown 12/07/2023 6:39 AM CDT 12/07/2023 6:53 AM CDT Yajaira SÁNCHEZ HEMATOLOGY Performing Organization Address City/[facility]/ZIP Co de Phone Number [facility] [address] [place] [address], * TOXO NEG COMMENT [id number] (11/02/2023 12:58 PM CDT) Toxo Neg Comment Comment 11/05/2023 10:06 PM CDT [facility] Comment: It is presumed the patient has not been infected with and is not undergoing an acute infection with Toxoplasma. If symptoms persist, submit a new specimen after three weeks. Blood BLOOD SPECIMEN / Unknown Venipuncture / Unknown 11/02/2023 12:58 PM CDT 11/02/2023 12:59 PM CDT Narrative [facility] - 11/05/2023 10:06 PM CDT Performed at: ??[address] ??[id number] Clinical Geneticist: Lyudmila Hewitt MD, Phone: ??[phone] Jazmine Montanez DO SEND OUTS Performing Organization Address [facility] Co de Phone Number [facility] ([facility]) [address] [place] [address], * TOXOPLASMA GONDII AB IGM (11/02/2023 12:58 PM CDT) Toxoplasma gondii Ab IgM <3.0 0.0 - 7.9 AU/mL 11/05/2023 10:06 PM CDT [facility] ([facility]) Comment: ? Negative ?<8.0 ? Equivocal ?8.0 - 9.9 ? Positive ?>9.9 Blood BLOOD SPECIMEN / Unknown Venipuncture / Unknown 11/02/2023 12:58 PM CDT 11/02/2023 12:59 PM CDT [facility]IC TESTING ([facility]) - 11/05/2023 10:06 PM CDT Performed at: ??[address] ??[id number] Clinical Geneticist: Lyudmila Hewitt MD, Phone: ??[phone] Jazminegee Montanez DO SEND OUTS Performing Organization Address [facility]/ZIP Co de Phone Number [facility] ([facility]) [address] * TOXOPLASMA GONDII AB IGG (11/02/2023 12:58 PM CDT) Toxoplasma gondii Ab IgG <3.0 0.0 - 7.1 IU/mL 11/06/2023 5:10 AM CDT [facility] ([facility]) Comment: ? Negative ?<7.2 ? Equivocal ??7.2 - 8.7 ? Positive ?>8.7 Blood BLOOD SPECIMEN / Unknown Venipuncture / Unknown 11/02/2023 12:58 PM CDT 11/02/2023 12:59 PM CDT Narrative [facility] ([facility]) - 11/06/2023 5:10 AM CDT Performed at: ??[address] ??[id number] Clinical Geneticist: Judson Kay MD, Phone: ??[phone] Jazmine Montanez DO SEND OUTS [facility] ([facility]) [address] [place] [address], * COLONOSCOPY (07/12/2023 10:16 AM ELECTRICIAN'S ASSISTANT) 07/12/2023 10:1 6 AM ELECTRICIAN'S ASSISTANT Narrative Transcriptions Ramos Le MD - 07/12/2023 [...] candidate for conscious sedation. The endoscope [id number] was passed through the anus andadvanced to [...] 10:16 AM Procedure Code(s): --- Professional --- 73994, Colonoscopy, flexible; with removalof tumor(s), polyp(s), or other lesion(s) bysnare technique 02979, 59, Colonoscopy, flexible; withbiopsy, single or multiple Diagnosis Code(s): --- Professional --- D12.3, Benign neoplasm of transverse colon (hepatic flexure or splenic flexure) Z15.09, Genetic susceptibility to other malignant neoplasm CPT copyright 2021 [employer]. All rights reserved. The codes documented in this report are preliminary and upon sanding machine tender automatic reviewmay be revised to meet current compliance requirements. Scope In: 10:45:01 AM Scope Withdrawal Time 0 hours 12 minutes 22 seconds Scope Out: 11:00:33 AM Ramos Le MD PROCEDURE ORD * HPV HIGH RISK (11/03/2022 2:30 PM CDT) TYPE 16 Negative Negative 11/08/2022 1:54 PM CDT [facility] TRA LABORATORY TYPE 18 Negative Negative 11/08/2022 1:54 PM CDT [facility] OTHER HIGH RISK TYPES Negative Negative 11/08/2022 1:54 PM CDT [facility] Other (Cervical) Non-Blood / Unknown 11/03/2022 2:30 PM CDT 11/07/2022 9:29 AM CDT Narrative [facility] - 11/08/2022 1:54 PM CDT HPV types 16, 18, 31, 33, 35, 39, 45, 51, 52, 56, 58, 59, 66 and 68 DNA were undetectable or below the pre-set threshold. Methodology: Ryann Lisa 4800 HPV Test Jazmine Montanez DO MICROBIOLOGY [facility] [address] [place] [address], [place] * (ABNORMAL) LIPID PANEL (05/10/2021 8:30 AM ELECTRICIAN'S ASSISTANT) CHOLESTEROL,TOTAL 177 100 - 199 mg/dL 05/10/2021 6:04 PM [facility] TRAL LABORAT[facility] TRIGLYCERIDES 183(H) <150 mg/dL 05/10/2021 6:04 PM [facility] HDL CHOLESTEROL 39(L) >40 mg/dL 6:04 PM [facility] NON-HDL CHOLESTEROL 138 <145 mg/dl 05/10/2021 6:04 PM [facility] CHOL/HDL RATIO 4.54(H) <4.50 05/10/2021 6:04 PM [facility] LDL CHOLESTEROL 101 <=130 mg/dL 05/10/2021 6:04 PM [facility] VLDL CHOLESTEROL 37(H) <=30 mg/dL 05/10/2021 6:04 PM [facility] PROVIDER ORDERED STATUS RANDOM 05/10/2021 6:[address] [facility] Blood BLOOD SPECIMEN / Unknown Venipuncture / Unknown 05/10/2021 8:30 AM ELECTRICIAN'S ASSISTANT 05/10/2021 8:34 AM ELECTRICIAN'S ASSISTANT Jazmine Montanez DO CHEMISTRY [facility] LABORAT[facility]-CENTRAL LABORATORY [address] [place] [address], [place] * ANTI HCV [91619.2] (01/08/2015 8:07 AM CDT) HEPATITIS C ANTIBODY Non-Reacti ve Non-Reacti ve 01/08/2015 1:31 PM CDT [facility] TRAL [facility] Blood specimen (specimen) BLOOD SPECIMEN / Unknown Venipuncture / Unknown 01/08/2015 8:07 AM CDT 01/08/2015 8:10 AM CDT Narrative [facility]-CENTRAL LABORATORY - 01/08/2015 1:31 PM CDT Antibodies to HCV not detected; does not exclude the possibility of exposure to HCV. Jazmine Montanez DO SEND OUTS [facility]AL LABORATORY [address] [place] [address], from Last 3 Months or Most Recently [...] 6:47 AM 03/28/2018 2:35 AM Care Teams Care Consultant Relationship Specialty Start Date End Date Jazmine Montanez DO PCP - General 05/29/08
[2024-01-08] MEDS: 0.9 % SODIUM CHLORIDE 1000 ml 1,000 ML IV (10:53)
[2024-01-08] MEDS: ONDANSETRON 2 MG/ML inj 4 MG IVP (10:57)
[2024-01-08] MEDS: HYDROmorphone 0.5 mg/0.5 ml inj IVP ×2 (10:59→14:30)
[2024-01-08 11:00] LABS: Basophils Percent Auto 0.1 % (0.0-3.0); Eosinophils Percent Auto 0.2 % (0.0-7.0); Hematocrit 45.5 % (33.0-51.0); Hemoglobin* 14.6 gm/dL (12.0-16.0); Immature Granulocytes Pct Auto 0.1 %; Lymphocytes Percent Auto 6.1 % (20-44); Mean Corpuscular HGB Conc 32 gm/dL (32-36); Mean Corpuscular Hemoglobin 29 pg (26-34); Mean Corpuscular Volume 90 fL (80-100); Monocytes Percent Auto 4.2 % (0.0-11.0); Neutrophils Percent Auto 89.3 % (42.0-72.0); Platelet Count* 485 K/uL (140-440); RDW Coefficient of Variation % 12.1 % (11.5-15.5); Red Blood Count 5.05 m/uL (4.00-5.20); White Blood Count* 19.03 K/uL (4.50-11.00)
[2024-01-08 11:04] LABS: Slide Review Reflex No
[2024-01-08 11:11] LABS: Chloride* 104 mmol/L (96-114); Sodium* 142 mmol/L (135-149)
[2024-01-08 11:12] LABS: Potassium* 3.9 mmol/L (3.6-5.1)
[2024-01-08 11:14] LABS: Anion Gap 12 mEq/L (7-15); Blood Urea Nitrogen* 14 mg/dL (7-30); Carbon Dioxide* 26 mmol/L (20-32); Creatinine* 0.8 mg/dL (0.5-1.5); Est. Creatinine Clearance* 41.36; Estimated Glomerular Filt Rate 83 ml/min
[2024-01-08 11:15] LABS: Glucose* 129 mg/dL (60-115)
== END 2024-01-08 16:39 | disposition short-term general hospital (02) ==
PROVIDERS: Emergency Provider Emergency Medicine Emergency Medical Services; PCP Family Medicine
DX: N73.9 Female pelvic inflammatory disease, unspecified (principal)
CPT/HCPCS: 36415; 74177; 80048; 85025; 96361; 96374; 96375; 96376; 99284; 99285; J1170; J2405; J7030; Q9967

== ENCOUNTER 2024-01-08 16:26 | Outpatient (CLI) | payer BC, SELFPAY ==
--- OUTSIDE RECORDS SUMMARY | 2024-01-12 09:25 | XMS_ITS | Clinical Summary ---
Author Organization [facility] Address [place], [place] [address] Care Team Providers Care Pitting Machine Operator Name Role Phone Jazmine Montanez [...] 1 tablet by mouth once daily. 0 03/04/20 12 Active acetaminophen (TYLENOL) 325 mg tablet Take 975 mg by mouth every 6 hours if needed. Max acetaminophen dose: 4000mg in 24 hrs. 0 03/04/20 12 Active cyanocobalamin (VITAMIN B12) 1,000 mcg tablet Take 1 tablet by mouth once daily. 90 tablet 3 01/08/20 18 Active aspirin chewable 81 mg chewable tablet Take 1 tablet by mouth once daily with a meal. 0 01/08/20 18 Active cholecalciferol (VITAMIN D3) 1,000 unit capsule Take 1 Capsule (1,000 units) by mouth once daily. 0 12/28/19 21 Active gemfibroziL (LOPID) 600 mg tabletIndications: Mixed hyperlipidemia TAKE 1 TABLET BY MOUTH DAILY 90 Tablet 3 06/06/19 24 Active alendronate (FOSAMAX) 70 mg tabletIndications: Age-related osteoporosis without current pathological fracture TAKE 1 TABLET(70 MG) BY MOUTH 1 TIME A WEEK IN THE MORNING ON AN EMPTY STOMACH AND WITH FULL GLASS OF WATER. DO NOT LIE DOWN FOR 1 HOUR 12 Tablet 3 10/07/19 24 Active venlafaxine (EFFEXOR) 37.5 mg tabletIndications: Anxiety disorder, unspecified type TAKE 1 TABLET(37.5 MG) BY MOUTH EVERY MORNING 90 Tablet 1 12/20/19 24 Active cetirizine (ZYRTEC) 10 mg tablet Take 10 mg by mouth once daily. Active ondansetron (ZOFRAN ODT) 4 mg disintegrating tabletIndications: Nausea Place 1 Tablet (4 mg) on the tongue every 8 hours if needed for Nausea/Vomiting. 30 Tablet 01/11/20 24 Active oxyCODONE (ROXICODONE) 5 mg immediate release tabletIndications: Pelvic abscess in female Take 1 Tablet (5 mg) by mouth every 4 hours if needed for Pain (For moderate to severe pain.). 5 Tablet 01/11/20 24 Active amoxicillin-clavul anate (AUGMENTIN) 875-125 mg tabletIndications: Pelvic abscess in female Take 1 Tablet by mouth two times daily with meals for 11 days. 22 Tablet 01/11/20 24 024 Active loperamide (IMODIUM) 2 mg tablet Take 4mg by mouth with 1st loose stool, then 2mg with each subsequent loose stool. Max 16 mg in 24 hrs 0 03/14/20 17 024 Discontinued(*P atient states no longer taking) venlafaxine (EFFEXOR) 37.5 mg tabletIndications: Anxiety disorder, unspecified type TAKE 1 TABLET(37.5 MG) BY MOUTH EVERY MORNING 90 Tablet 1 06/03/20 23 024 Discontinued Cetirizine (ZyrTEC) 10 mg cap 07/05/19 24 024 Discontinued(*P atient states no longer taking) oxyCODONE (ROXICODONE) 5 mg immediate release tabletIndications: Post-op pain Take 1 Tablet (5 mg) by mouth every 4 hours if needed for Pain. 10 Tablet 12/07/19 24 024 Discontinued(*P atient states no longer taking) sennosides-docusat e (SENOKOT S) (8.6-50 mg) tabletIndications: Post-op pain Take 1-2 Tablets by mouth 2 times daily if needed for Constipation. 30 Tablet 12/07/19 24 024 Discontinued(*P atient states no longer taking) Active Problems Problem Noted Date Diagnosed Date Pelvic abscess in female 01/08/2024 Overview: Seen on CT scan at [place] Nephrolithiasis 01/08/2024 Overview: Right kidney seen on CT at outside hospital on 01/08/2024 Postmenopausal bleeding 12/07/2023 Hx of breast cancer [...] Encounters Date Type Department Care Team Description 01/08/2024 5:48 PM CDT - 01/11/2024 3:18 PM CDT Hospital Encounter [facility] [address] [place] [address] [facility] Hospitalists [facility], MD Alexandru Hernandez, MD Gina Galvin, MD Philipp Noble, MD Akanksha Obregon, True Rushing MD Nausea (Primary Dx); Pelvic abscess in female Discharge Disposition: Home Self Care 01/08/2024 Orders Only [facility] Scanner 1 scan: (1-Ord) [facility], CT ABD PELVIS W CON, 01/08/2024 12/24/2023 3:00 PM CDT Office Visit [facility] [address] [place] [address] Pam Argueta MD Consult (Lesion right arm/axilla) 12/24/2023 Travel 12/22/2023 Travel 12/19/2023 Orders Only [facility] Scanner 1 scan: (1-Ord) [facility], ABDOMEN AND PELVIS, 12/19/2023 12/18/2023 Refill [facility] [address] [facility] [place] [address] Jazmine Montanez DO Refill Request (Venlafaxine) 12/10/2023 10:40 AM CDT Nurse/Clinic Staff Only [facility] [address] [place] [address] Procedure (Remove catheter/) 12/10/2023 Travel 12/10/2023 Telephone [facility] [address] [facility] [address] TarikJazmine, Need Meds ((oxyCODONE (ROXICODONE) 5 mg immediate release tablet )) 12/07/2023 8:12 AM CDT Anesthesia Event [facility] [address] [place] [address] Don Apodaca MD 12/07/2023 7:30 AM CDT - 12/07/2023 10:46 AM CDT Surgery [facility] [address] [place] [address] Niya Leyva MD ROBOTIC ASSISTED TOTAL LAPAROSCOPIC HYSTERECTOMY, BILATERAL SALPINGO-OOPHORECTOM Y, INTRAOPERATIVE SENTINEL LYMPH NODE MAPPING AND SENTINEL PELVIC LYMPH NODE DISSECTIONS 12/07/2023 5:53 AM CDT - 12/07/2023 3:57 PM CDT Hospital Encounter [facility] [address] [place] [address] Niya Leyva MD Post-op pain (Primary Dx); Hydronephrosis, right Discharge Disposition: Home Self Care 12/07/2023 Travel 12/04/2023 Travel 12/03/2023 2:30 PM CDT Office Visit [facility] [address] [facility] [place] [address] Pam Argueta MD Consult (Discuss biopsy under right arm) 12/03/2023 Travel 11/30/2023 Travel 11/21/2023 8:15 AM CDT Preop Visit [facility] [address] [facility] [place] [address] Yu Pastor PA Preoperative Exam (12/07/23/ROBOTIC ASSISTED TOTAL LAPAROSCOPIC HYSTERECTOMY, BILATERAL SALPINGO-OOPHORECTOM Y, INTRAOPERATIVE SENTINEL LYMPH NODE MAPPING AND SENTINEL PELVIC LYMPH NODE DISSECTIONS / / /Niya Leyva MD /) 11/21/2023 Travel 11/19/2023 Travel 11/02/2023 1:00 PM CDT Orders Only [facility] [address] [facility] [place] [address] Lab, [facility] 11/02/2023 Travel 10/30/2023 Travel from Last 3 Months Immunizations Name Administration Dates Next Due COVID-19 Vaccine Spikevax (M oderna 50mcg/0.5mL) 12YO+ 4271-3402 Formula PF 08/06/2023 COVID-19 vaccine (Pfizer-Bio NTech 30mcg/0.3mL) 12YO+ BIVALENT PF, MDV 03/10/2022 Influenza, IIV3 (Age >=3 years) 02/13/2012 Influenza, IIV4 03/07/2023, 2,04/13/2021,04/07/20 19,03/01/2018,03/14/2017,03/09/2014,02/12 Influenza, IIV4 (=>6mos) MDV 04/03/2020 Td (Age >=7 Years) 03/01/2018 Tdap 11/22/2006 Zoster (Shingrix-RZV, recombinant) 08/02/2021, Family History Medical History Relation Name Comments Dementia Maternal Grandmother Heart Disease Maternal Uncle ND AT 42 YEA RS Cancer Mother lung [...] Sign Reading Time Taken Comments Blood Pressure 121/58 01/11/2024 8:00 AM CDT Pulse 77 01/11/2024 8:00 AM CDT Temperature 36.8 ??C (98.3 ??F) 01/11/2024 8:00 AM CD T Respiratory Rate 18 01/11/2024 8:00 AM CDT Oxygen Saturation 94% 01/11/2024 8:00 AM CDT Inhaled Oxygen Concentration - - Weight 77.8 kg (171 lb 9.6 oz) 12/24/2023 2:52 P M CDT Height 154.7 cm (5' 0.91) 11/21/2023 8:25 AM CD T Body Mass Index 32.52 11/21/2023 8:25 AM CDT Plan of Treatment Upcoming Encounters Date Type Department Care Team (Late st Contact Info) Description 01/14/2024 3:10 PM CDT Office Visit [facility] [address] [place] [address] Vanessa Bee DO [address] [place] [address] Health Maintenance Due Date Last Done Comments [...] this topic Medical Devices Implanted Type Area Luggage Repairer Device Identifier Shelf Expiration Date Model / Serial / Lot [id number] 8breast 330cc [place] Rnd High Smooth Saline Implanted:Qty: 1 on 03/27/2018 by Tarun Cardozo MD at [facility] Explanted:at [facility] (Quantity not on file) Left: Breast [employer] [place] [employer] 02/06/2022 [id number]# / [id number] / [id number] 5breast 330cc [place] Rnd High Smooth Saline Implanted:Qty: 1 on 03/27/2018 by Tarun Cardozo MD at [facility] Explanted:at [facility] (Quantity not on file) Right: Breast [employer] [place] [employer] 01/10/2022 [id number]# / [id number] / [id number] Stent Uret [id number] Silhouette - [id number] Implanted:Qty: 1 on 03/07/2022 by Gilbert Golden MD at [facility] Left: Ureter [employer] 03/21/2024 [id number] / / [id number] Stent Uret [id number] Contour - [id number] Implanted:Qty: 1 on 03/23/2022 by Gilbert Golden MD at [facility] Right: Ureter [facility] 02/18/2024 [id number] / / [id number] Stent Uret [id number] Perc[employer]lex Hydroplus - [id number] Implanted:Qty: 1 on 03/23/2022 by Gilbert Golden MD at [facility] Left: Ureter [facility] 01/12/2025 [id number] / / [id number] Stent Uret [id number] Percuflex Hydroplus - [id number] Implanted:Qty: 1 on 03/15/2023 by Gilbert Golden MD at [facility] Left: Ureter [facility] [id number] / / [id number] Stent Tria Soft 6f X 22cm Implanted:Qty: 1 on 03/15/2023 by Gilbert Golden MD at [facility] Right: Ureter [id number] / / [id number] Description:STENT TRIA SOFT 6F X 22CM Procedures Procedure Name Priority Date/Time Associated Diagnosis Comments CBC W PLT NO DIFF Early AM 01/11/2024 6:1 5 AM CDT CBC W PLT NO DIFF Today 01/10/2024 12:25 PM CDT ANAEROBIC CULTURE Today 01/09/2024 3:5 9 PM CDT AEROBIC BACTERIAL CULTURE, STAIN Today 01/09/2024 3:[address] ASPIRATION PELVIS Routine 01/09/2024 3:56 PM CDT SCAN CORRESP-IMAGING 01/09/2024 2:05 PM CDT PROTIME-INR Early AM 01/09/2024 4:55 AM CDT PLATELET COUNT Early AM 01/09/2024 4:54 AM CDT HEMOGLOBIN Early AM 01/09/2024 4:54 AM CDT WHITE BLOOD COUNT Early AM 01/09/2024 4:5 4 AM CDT CREATININE Early AM 01/09/2024 4:54 AM CDT POTASSIUM Early AM 01/09/2024 4:54 AM CDT SODIUM Early AM 01/09/2024 4:54 AM CDT SCAN-CT INTERPRETATION 01/08/2024 12:00 AM CDT SCAN-CT INTERPRETATION 12/19/2023 12:00 AM CDT CREATININE Today 12/07/2023 11:58 AM CDT PATH TISSUE EXAM Today 12/07/2023 9:25 AM CDT PATH NON PLANT PRODUCTION MANAGER CYTOLOGY Today 12/07/2023 9:14 AM CDT ENDOTRACHEAL [...] 12/07/2023 6:39 AM CDT TOXO NEG COMMENT [id number] Routine 11/02/2023 12:58 PM CDT Fatigue, unspecified type Other elevated white blood cell (WBC) count TOXOPLASMA GONDII AB IGG Routine 11/02/2023 12:58 PM CDT Fatigue, unspecified type Other elevated white blood cell (WBC) count TOXOPLASMA GONDII AB IGM Routine 11/02/2023 12:58 PM CDT Fatigue, unspecified type Other elevated white blood cell (WBC) count COLONOSCOPY 07/12/2023 10:16 AM BRANCH ADMINISTRATOR HPV THIN PREP Routine 11/03/2022 2:30 PM CDT Screening for cervical cancer LIPID PANEL Routine 05/10/2021 8:30 AM BRANCH ADMINISTRATOR Mixed hyperlipidemia ANTI HCV Routine 01/08/2015 8:07 AM CDT Need for hepatitis C screening test from Last 3 Months or Most Recently Relevant to Health Maintenance Results * (ABNORMAL) CBC W PLT NO DIFF (01/11/2024 6:15 AM CDT) Only the most recent of2 resultswithin the time period is included. WHITE BLOOD COUNT 11.2(H) 4.5 - 11.0 thou/cu mm 01/11/2024 6:45 AM CDT [facility] RED BLOOD COUNT 3.85(L) 4.00 - 5.20 mil/cu mm 01/11/2024 6:45 AM CDT [facility] HEMOGLOBIN 11.0(L) 12.0 - 16.0 g/dL 01/11/2024 6:45 AM CDT [facility] HEMATOCRIT 35.0 33.0 - 51.0 % 01/11/2024 6:45 AM CDT [facility] MCV 91 80 - 100 fL 01/11/2024 6:45 AM CDT [facility] MCH 28.6 26.0 - 34.0 pg 01/11/2024 6:45 AM CDT [facility] MCHC 31.4(L) 32.0 - 36.0 g/dL 01/11/2024 6:45 AM CDT [facility] RDW 12.2 11.5 - 15.5 % 01/11/2024 6:45 AM CDT [facility] PLATELET COUNT 366 140 - 440 thou/cu mm 01/11/2024 6:45 AM CDT [facility] MPV 9.3 6.5 - 11.0 fL 01/11/2024 6:45 AM CDT [facility] NRBC 0.0 % 01/11/2024 6:45 AM CDT [facility] ABS NRBC 0.0 thou /cu mm 01/11/2024 6:45 AM CDT [facility] Blood BLOOD SPECIMEN / Unknown Venipuncture / Unknown 01/11/2024 6:15 AM CDT 01/11/2024 6:30 AM CDT Yajaira SÁNCHEZ HEMATOLOGY [facility] [address] [place] [address], * CT ASPIRATION PELVIS (01/09/2024 3:56 PM CDT) Anatomical Region Laterality Modality Pelvis Computed Tomogra phy, Other, Other Narrative 01/09/2024 5:17 PM CDT RADIOLOGY POST PROCEDURE NOTE ?? 01/09/2024 Otilia Florentino [id number] INFORMEDCONSENT: In my discussion, prior to the signing of the consent, I reviewed the procedure, benefits, risks, long-term effects, treatment options, possible use of pain or sedation medications, and how the procedure will meet the treatment goal with the patient and/or family. The patient was given ample time to ask questions. All questions were answered. ?? MODERATESEDATION: Under physician supervision, midazolam and fentanyl were administered intravenously for moderate sedation. Pulse oximetry, heart rate, and blood pressure were continuously monitored by a trained, dedicated nurse. The physician who performed the procedure provided 15 minutes of intra-service time with the patient. INDICATIONS: Deep fluid collection in the cul-de-sac. PROCEDURE PERFORMED: CT-guided aspiration from transgluteal approach. PROCEDURE NARRATIVE : Procedure was explained to the patient. ??Consent form obtained. ??Under CT guidance patient placed in the lateral position [id number]. ??Under CT guidance local anesthesia applied under sterile condition followed by placement of YUEH catheter through left transgluteal approach. ??The collection appear quite dense on the CAT scan. ??We were able to aspirate about 1 cc of old blood. ??This was sent to laboratory evaluation. ??The collection appeared to be old clotted blood. ??No evidence of purulent material. ??A catheter was not placed to avoid possibly infecting he hematoma. PATIENT POSITION: RPO ANTISEPTIC PREPARATION and BARRIER TECHNIQUES USED: ??Skin was prepped and draped in the usual sterile fashion. IMAGING GUIDANCE FOR ACCESS / PROCEDURE: ??CT ?Permanently recorded images are archived in PACS. ACCESS LOCATION / SITE / TECHNIQUE: Left transgluteal approach EQUIPMENT UTILIZED: [employer] catheter 5 Malay size. CLOSURE: ??none RADIATION DOSE: ?? total exam DLP: 706 mGy-cm MEDICATIONS GIVEN: ??versed 1 mg IV and fentanyl 50 mcg IV. ??1% Lidocaine was used for local anesthesia. SPECIMEN(S): 1 cc of old dark blood. COMPLICATIONS: no complications noted DRAINS: ??None ?? ESTIMATED BLOOD LOSS: ??Less than 10 cc. PHYSICIAN(S) AND ASSISTANTS (if any): ??Tavo Ace MD Additional Comments: Please call with questions. Tavo Ace MD [place] Protocol A. Pre-procedure verification complete yes 1-relevant information / documentation available, reviewed and properly matched to the patient; 2-consent accurate and complete, 3-equipment and supplies available B. Site marking complete Yes Site marked if not in continuous attendance with patient C. TIME OUT completed yes Time Out was conducted just prior to starting procedure to verify the eight required elements: 1-patient identity, 2-consent accurate and complete, 3-position, 4-correct side/site marked (if applicable), 5-procedure, 6-relevant images / results properly labeled and displayed (if applicable), 7-antibiotics / irrigation fluids (if applicable), 8-safety precautions. Please note that all CT scans at this facility use dose modulation, iterative reconstruction, and/or weight-based dosing when appropriate to reduce radiation dose to as low as reasonably achievable. Marjorie SÁNCHEZ CT * SCAN CORRESP-IMAGING (01/09/2024 2:05 PM CDT) Anatomical Region Laterality Modality Other Narrative 01/09/2024 2:05 PM CDT Ordered by an unspecified provider. Other Clinical Staff OTHER * (ABNORMAL) INR AM (01/09/2024 4:55 AM CDT) INR 1.2 <1.3 01/09/2024 5:13 AM CDT [facility] PROTIME 13.1(H) 10.3 - 12.3 sec 01/09/2024 5:13 AM CDT [facility] Blood BLOOD SPECIMEN / Unknown Venipuncture / Unknown 01/09/2024 4:55 AM CDT 01/09/2024 5:01 AM CDT Narrative [facility] - 01/09/2024 5:13 AM CDT ?Therapeutic Range 2.0-3.0 for most anticoagulated patients 2.5-3.5 or 4.0 for high risk patients The INR is only used for patients on stable oral anticoagulant therapy. It makes no significant contribution to the diagnosis or treatment of patients whose Protime is prolonged for other reasons. INR results are increased when heparin levels exceed 1.0 U/mL, which corresponds to an aPTT >125 seconds if the patient is on UFH. Ana Maria Luevano MD HEMATOLOGY [facility] [address] [place] [id number], * PLATELET COUNT (01/09/2024 4:54 AM CDT) Pathologist [facility] PLATELET COUNT 371 140 - 440 thou/cu mm 01/09/2024 5:09 AM CDT [facility] MPV 9.1 6.5 - 11.0 fL 01/09/2024 5:09 AM CDT [facility] Blood BLOOD SPECIMEN / Unknown Venipuncture / Unknown 01/09/2024 4:54 AM CDT 01/09/2024 5:00 AM CDT Ana Maria Luevano MD HEMATOLOGY Performing Organization Address [facility] Co de Phone Number [facility] [address] [place] [phone], [place] * (ABNORMAL) WHITE BLOOD COUNT (01/09/2024 4:54 AM CDT) [facility] WHITE BLOOD COUNT 18.7(H) 4.5 - 11.0 thou/cu mm 01/09/2024 5:09 AM CDT [facility] NRBC 0.0 % 01/09/2024 5:09 AM CDT [facility] ABS NRBC 0.0 thou /cu mm 01/09/2024 5:09 AM CDT [facility] Blood BLOOD SPECIMEN / Unknown Venipuncture / Unknown 01/09/2024 4:54 AM CDT 01/09/2024 5:00 AM CDT Ana Maria Luevano MD HEMATOLOGY Performing Organization Address [facility] de Phone Number [facility] [address] [place] [address], [place] * (ABNORMAL) HEMOGLOBIN (01/09/2024 4:54 AM CDT) Only the most recent of2 resultswithin the time period is included. [facility] HEMOGLOBIN 11.1(L) 12.0 - 16.0 g/dL 01/09/2024 5:09 AM CDT [facility] MCV 93 80 - 100 fL 01/09/2024 5:09 AM CDT [facility] Blood BLOOD SPECIMEN / Unknown Venipuncture / Unknown 01/09/2024 4:54 AM CDT 01/09/2024 5:00 AM CDT Ana Maria Luevano MD HEMATOLOGY Performing Organization Address [facility] Co de Phone Number [facility] [address] [place] [address], [place] * SODIUM (01/09/2024 4:54 AM CDT) SODIUM 140 136 - 145 mmol/L 01/09/2024 5:29 AM CDT [facility] Blood BLOOD SPECIMEN / Unknown Venipuncture / Unknown 01/09/2024 4:54 AM CDT 01/09/2024 5:01 AM CDT Ana Maria Luevano MD CHEMISTRY Performing Organization Address City/[facility]/ZIP Co de Phone Number [facility] [address] [place] [address], * POTASSIUM (01/09/2024 4:54 AM CDT) POTASSIUM 3.8 3.5 - 5.1 mmol/L 01/09/2024 5:29 AM CDT [facility] Blood BLOOD SPECIMEN / Unknown Venipuncture / Unknown 01/09/2024 4:54 AM CDT 01/09/2024 5:01 AM CDT Ana Maria Luevano MD CHEMISTRY Performing Organization Address [facility] de Phone Number [facility] [address] [place] [address], * (ABNORMAL) CREATININE (01/09/2024 4:54 AM CDT) Only the most recent of2 resultswithin the time period is included. eGFR 56(L) >90 mL/min/1.7 3m2 01/09/2024 5:29 AM CDT [facility] Comment:As of 2021, eG FR is calculated by the CKD-EPI creatinine equation without race adjustment. ??eGFR can be influenced by muscle mass, exercise, and diet. ??The reported eGFR is an estimation only and is only applicable if the renal function is stable. CREATININE 1.11(H) 0.50 - 0.90 mg/dL 01/09/2024 5:29 AM CDT [facility] Blood BLOOD SPECIMEN / Unknown Venipuncture / Unknown 01/09/2024 4:54 AM CDT 01/09/2024 5:01 AM CDT Ana Maria Luevano MD CHEMISTRY [facility] [address] [place] [address], * SCAN-CT INTERPRETATION (01/08/2024 12:00 AM CDT) Only the most recent of2 resultswithin the time period is included. Anatomical Region Laterality Modality Other Scanner OTHER * PATH TISSUE EXAM (12/07/2023 9:25 AM CDT) Case Report Pathology Report ?Case: [id number] ? Authorizing Provider: ??Niya Leyva MD ??Collected: ? 12/07/2023 09 ? Ordering Location: ? [facility] ?Received: ?12/07/2023 0933 ? Hospital ? Pathologist: ? Lala Morales MD ? Specimens: ?? A) - Other, Right pelvic sentinel lymph node ? B) - Other, Right pelvic sentinel lymph node #2 ? C) - Tissue, Other, left pelvic sentinel lymph node ? D) - Uterus, Cervix, Bilateral Fallopian Tubes and Ovaries ? 12/10/2023 2:06 PM CDT [facility] Final Diagnosis A) RIGHT [...] Negative for malignancy 12/10/2023 2:06 PM CDT [facility] Clinical Information Álvarez syndrome and PMB 12/10/2023 2:06 PM CDT [facility] Gross Description A) Received [...] discrete fimbriated fallopian tube is identified grossly. [employer] sections are submitted: 1. Anterior cervix 2. [...] on 12/07/2023 STN 12/07/2023 12/10/2023 2:06 PM [facility] Microscopic Description The final diagnosis is based on microscopic examination of appropriate sections of all specimens. 12/10/2023 2:06 PM [facility] Additional Information Interpreted at [facility] - [address] [facility] [address], [place] [address] 12/10/2023 2:06 PM CDT [facility] Tissue (Other) 12/07/2023 9: 25 [...] Leyva MD PATHOLOGY/CYTOLO GY Performing Organization Address City/State/[facility] Co de Phone Number [facility] [address] [place] [address], * PATH NON PLANT PRODUCTION MANAGER CYTOLOGY (12/07/2023 9:14 AM CDT) Case Report Medical Cytology Report ? Case: [id number] ? Authorizing Provider: ??Niya Leyva MD ??Collected: ? 12/07/2023 0914 ? Ordering Location: ? [facility] ?Received: ?12/07/2023 0959 ? Hospital ? Pathologist: ? Miguel Salazar MD ? Specimen: ?Washings, Pelvic washings ? 12/07/2023 3:15 PM CDT [facility] Final Diagnosis PERITONEAL WASHINGS, CYTOLOGIC MATERIAL: Negative for malignancy in this sample 12/07/2023 3:15 PM T [facility] Gross Description A) SOURCE: Peritoneal washing The specimen consists of 100 cc of colorless hazy fluid from which the following is prepared: ? -1 Papanicolaou stained ThinPrep slide 12/07/2023 3:15 PM CDT [facility] Microscopic Description Specimen adequacy: Adequate for interpretation. All slides were reviewed. The microscopic appearance substantiates the diagnosis. All slides were reviewed microscopically. Specimen adequacy: Adequate for interpretation. The microscopic appearance substantiates the diagnosis. 12/07/2023 3:15 PM CDT [facility] Additional Information Cytology is screened at [facility] - [address], [place] [address] and [facility] - [address], [place] [address] and [facility] - [address] [place] [address] Interpreted at [facility] - [address], [place] [address] 12/07/2023 3:15 PM T [facility] Washing (Washings) 12/07/2023 9:14 AM CDT 12/07/2023 9:59 AM CDT Niya Leyva MD PATHOLOGY/CYTOLO GY Performing Organization Address City/[facility]/ZIP Co de Phone Number [facility] [address] [place] [address], * HCHG TUBE PR1, HCHG STYLET PR1 [...] - 100 mg/dL 12/07/2023 7:36 AM CDT [facility] Blood BLOOD SPECIMEN / Unknown 12/07/2023 7:35 AM CDT 12/07/2023 7:36 AM CDT Niya Leyva MD CHEMISTRY Performing Organization Address [facility] Co de Phone Number [facility] [address] [place] [phone], [place] * Type & Screen (12/07/2023 6:39 AM CDT) Pathologist [facility] ABORH A Rh Positive 12/07/2023 7:35 AM CDT [facility] B[facility]OD [facility] ANTIBODY SCREEN Negative Negative 12/07/2023 7:35 AM CDT [facility] SPECIMEN EXPIRATION DATE/TIME 12/10/23 23:59 12/07/2023 7:35 AM CDT [facility] Blood BLOOD SPECIMEN / Unknown Venipuncture / Unknown 12/07/2023 6:39 AM CDT 12/07/2023 6:53 AM CDT Yajaira SÁNCHEZ BLOOD BANK [facility] BLOOD BANK [address] [place] [address], * TOXO NEG COMMENT [id number] (11/02/2023 12:58 PM CDT) [facility] Toxo Neg Comment Comment 11/05/2023 10:06 PM CDT [facility] Comment: It is presumed the patient has not been infected with and is not undergoing an acute infection with Toxoplasma. If symptoms persist, submit a new specimen after three weeks. Blood BLOOD SPECIMEN / Unknown Venipuncture / Unknown 11/02/2023 12:58 PM CDT 11/02/2023 12:59 PM CDT Narrative [facility] ([facility]) - 11/05/2023 10:06 PM CDT Performed at: ??[address] - [address] ??[id number] Housing Relocation: Lyudmila Hewitt MD, Phone: ??[phone] Jazmine Montanez DO SEND OUTS [facility] ([facility]) [address] [place] [id number], * TOXOPLASMA GONDII AB IGM (11/02/2023 12:58 PM CDT) Pathologist [facility] Toxoplasma gondii Ab IgM <3.0 0.0 - 7.9 AU/mL 11/05/2023 10:06 PM CDT [facility] ([facility]) Comment: ? Negative ?<8.0 ? Equivocal ?8.0 - 9.9 ? Positive ?>9.9 Blood BLOOD SPECIMEN / Unknown Venipuncture / Unknown 11/02/2023 12:58 PM CDT 11/02/2023 12:59 PM CDT Narrative [facility] ([facility]) - 11/05/2023 10:06 PM CDT Performed at: ??[address] ??[id number] Housing Relocation: Lyudmila Hewitt MD, Phone: ??[phone] Jazmine Montanez DO SEND OUTS Performing Organization Address [facility]/State/[facility] Co de Phone Number [facility] ([facility]) [address] [place] [id number], * TOXOPLASMA GONDII AB IGG (11/02/2023 12:58 PM CDT) Pathologist [facility] Toxoplasma gondii Ab IgG <3.0 0.0 - 7.1 IU/mL 11/06/2023 5:10 AM CDT [facility] ([facility]) Comment: ? Negative ?<7.2 ? Equivocal ??7.2 - 8.7 ? Positive ?>8.7 Blood BLOOD SPECIMEN / Unknown Venipuncture / Unknown 11/02/2023 12:58 PM CDT 11/02/2023 12:59 PM CDT Narrative [facility] ([facility]) - 11/06/2023 5:10 AM CDT Performed at: ??01 - [facility] [employer] [place], [place] ??[id number] Housing Relocation: Judson Kay MD, Phone: ??[phone] Jazmine Montanez DO SEND OUTS [facility] ([facility]) [address] [place] [address], * COLONOSCOPY (07/12/2023 10:16 AM BRANCH ADMINISTRATOR) 07/12/2023 10:1 6 AM BRANCH ADMINISTRATOR Narrative Transcriptions Ramos Le MD - 07/12/2023 [...] candidate for conscious sedation. The endoscope [id number] was passed through the anus andadvanced to [...] 10:16 AM Procedure Code(s): --- Professional --- 90963, Colonoscopy, flexible; with removalof tumor(s), polyp(s), or other lesion(s) bysnare technique 48258, 59, Colonoscopy, flexible; withbiopsy, single or multiple Diagnosis Code(s): --- Professional --- D12.3, Benign neoplasm of transverse colon (hepatic flexure or splenic flexure) Z15.09, Genetic susceptibility to other malignant neoplasm CPT copyright 2021 [employer]. All rights reserved. The codes documented in this report are preliminary and upon telesales agent reviewmay be revised to meet current compliance requirements. Scope In: 10:45:01 AM Scope Withdrawal Time 0 hours 12 minutes 22 seconds Scope Out: 11:00:33 AM Ramos Le MD PROCEDURE ORD * HPV HIGH RISK (11/03/2022 2:30 PM CDT) TYPE 16 Negative Negative 11/08/2022 1:54 PM CDT [facility] TYPE 18 Negative Negative 11/08/2022 1:54 PM CDT [facility] LAB[facility] OTHER HIGH RISK TYPES Negative Negative 11/08/2022 1:54 PM CDT [facility] Other (Cervical) Non-Blood / Unknown 11/03/2022 2:30 PM CDT 11/07/2022 9:29 AM [facility]T [facility] - 11/08/2022 1:54 PM CDT HPV types 16, 18, 31, 33, 35, 39, 45, 51, 52, 56, 58, 59, 66 and 68 DNA were undetectable or below the pre-set threshold. Methodology: Ryann Lisa 4800 HPV Test Jazmine Joleen Montanez DO MICROBIOLOGY [facility] [address] [place] [address], [place] * (ABNORMAL) LIPID PANEL (05/10/2021 8:30 AM BRANCH ADMINISTRATOR) CHOLESTEROL,TOTAL 177 100 - 199 mg/dL 05/10/2021 6:04 PM BRANCH ADMINISTRATOR [facility] TRIGLYCERIDES 183(H) <150 mg/dL 05/10/2021 6:04 PM BRANCH ADMINISTRATOR [facility] HDL CHOLESTEROL 39(L) >40 mg/dL 6:04 PM BRANCH ADMINISTRATOR [facility] NON-HDL CHOLESTEROL 138 <145 mg/dl 05/10/2021 6:04 PM BRANCH ADMINISTRATOR [facility] CHOL/HDL RATIO 4.54(H) <4.50 05/10/2021 6:04 PM BRANCH ADMINISTRATOR [facility] LDL CHOLESTEROL 101 <=130 mg/dL 05/10/2021 6:04 PM BRANCH ADMINISTRATOR [facility] VLDL CHOLESTEROL 37(H) <=30 mg/dL 05/10/2021 6:04 PM BRANCH ADMINISTRATOR [facility] LAB[facility] PROVIDER ORDERED STATUS RANDOM 05/10/2021 6:04 PM BRANCH ADMINISTRATOR [facility] Blood BLOOD SPECIMEN / Unknown Venipuncture / Unknown 05/10/2021 8:30 AM BRANCH ADMINISTRATOR 05/10/2021 8:34 AM BRANCH ADMINISTRATOR Jazmine Montanez DO CHEMISTRY [facility] [address] [place] [address], [place] * ANTI HCV [84944.2] (01/08/2015 8:07 AM CDT) HEPATITIS C ANTIBODY Non-Reacti ve Non-Reacti ve 01/08/2015 1:31 PM CDT [facility] Blood specimen (specimen) BLOOD SPECIMEN / Unknown Venipuncture / Unknown 01/08/2015 8:07 AM CDT 01/08/2015 8:10 AM CDT Narrative [facility] - 01/08/2015 1:31 PM CDT Antibodies to HCV not detected; does not exclude the possibility of exposure to HCV. Jazmine Montanez DO SEND OUTS [facility] [address] [place] [address], from Last 3 Months or Most Recently Relevant to Health Maintenance Advance Directives * Full Code (Latest Code Status on File) Date Activated Date Inactivated Comments 01/08/2024 6:50 PM 01/11/2024 5:23 PM Would not want to be kept alive on machines if she would be a vegetable. 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
--- OUTSIDE RECORDS SUMMARY | 2024-01-12 09:25 | XMS_ITS | Data Portability ---
Author Organization [facility] Address [address] [place] [address] Care Team Providers Care Tray Delivery Aide Name Role Phone LORNEA FRANCE Primary Care Provider Assessment No assessment recorded. Plan of Treatment Reminders Order Date Submit Date Provider Last Modified By Organization Details Last Modified Time Details Appointments None recorde d. Lab kidney stone, 24-hour urine panel 2022 023 [email or web address] [facility], [address], [place], [address], 3 08:35:02 Referral None recorde d. Procedures None recorde d. Surgeries cystosc opy, with uretero scopy, with retrogr oz uretero pyelogr am, with stent placeme nt (SURG) 2022 023 [email or web address] Not available 3 15:19:18 Imaging XR, kidney + ureter + bladder - PREV HERE 02/21/[address] [facility] , [address] [place], [address], 4 12:58:01 XR, kidney + ureter + bladder [facility]22 [email or web address] , [address] [place], [address], 3 13:12:43 US, kidney 2022 023 [email or web address] [facility], [address] [place], [address], 3 09:10:46 XR, kidney + ureter + bladder 2023 024 [email or web address] , [address], [place], [address], 4 10:02:02 US, kidney - Check Renal U/S - H/O Left hydrone phrosis - [facility] ([facility]) 2023 024 [facility], [address] [place], [address], 4 08:47:18 Medication Orders None recorde d. Patient TargetsNo targets recorded. Patient Instructions Encounter Date Encounter Id Patient Instructions Last Modified By Organization Details Last Modified Time 06/27/2023 [id number] telephone - 6 minutes [email or web address] Not available 06/27/2023 13:26:13 Reason for Referral None Reported. Results Created Date Observation Date Name Description Value Unit Range Abnormal Flag LastModifiedBy Organization Detail LastModifiedTime 05/07/2005/10/2023 LITHO LINK 24HR URINE PANEL cystine, urine, qualitative COMMEN T Not Available [facility] ([facility]) [address] [place], [address], 05/10/2023 22:06:13 05/07/20 23 05/10/2023 LITHO LINK 24HR URINE PANEL urine volume (preserved) 1900 mL/24 _HR 500-40 00 Not Available [facility] ([facility]) [address] [place], [address], 05/10/2023 22:06:13 05/07/20 23 05/10/2023 LITHO LINK 24HR URINE PANEL calcium oxalate saturation 7.51 6.00-1 0.00 Not Available [facility] ([facility]) [address] [place], [address], 05/10/2023 22:06:13 05/07/20 23 05/10/2023 LITHO LINK 24HR URINE PANEL calcium, urine 219 mg/24 _HR <200 above high normal Not Available [facility] ([facility]) [address] [place], [address], 05/10/2023 22:06:13 05/07/20 23 05/10/2023 LITHO LINK 24HR URINE PANEL oxalate, urine 32 mg/24 _HR 20-40 Not Available [facility] ([facility]) [address] [place], [address], 05/10/2023 22:06:13 05/07/20 23 05/10/2023 LITHO LINK 24HR URINE PANEL citrate, urine 444 mg/24 _HR >550 below low normal Not Available [facility] ([facility]) [address] [place], [address], 05/10/2023 22:06:13 05/07/20 23 05/10/2023 LITHO LINK 24HR URINE PANEL calcium phosphate saturation 0.47 0.50-2 .00 below low normal Not Available [facility] ([facility]) [address] [place], [address], 05/10/2023 22:06:13 05/07/20 23 05/10/2023 LITHO LINK 24HR URINE PANEL pH, 24 HR, urine 5.757 5.800- 6.200 below low normal Not Available [facility] ([facility]) [address] [place], [address], 05/10/2023 22:06:13 05/07/20 23 05/10/2023 LITHO LINK 24HR URINE PANEL uric acid saturation 0.60 <1.00 Not Available [facility] ([facility]) [address] [place], [address], 05/10/2023 22:06:13 05/07/20 23 05/10/2023 LITHO LINK 24HR URINE PANEL uric acid, urine 367 mg/24 _HR <750 Not Available [facility] ([facility]) [address] [facility], [place], [address], 05/10/2023 22:06:13 05/07/20 23 05/10/2023 LITHO LINK 24HR URINE PANEL sodium, urine 172 mmol/ 24_HR 50-150 above high normal Not Available [facility] ([facility]) [address] [place], [address], 05/10/2023 22:06:13 05/07/20 23 05/10/2023 LITHO LINK 24HR URINE PANEL potassium, urine 43 mmol/ 24_HR 20-100 Not Available [facility] ([facility]) [address] [facility], [place], [address], 05/10/2023 22:06:13 05/07/20 23 05/10/2023 LITHO LINK 24HR URINE PANEL magnesium, urine 47 mg/24 _HR 30-120 Not Available [facility] ([facility]) [address] [place], [address], 05/10/2023 22:06:13 05/07/20 23 05/10/2023 LITHO LINK 24HR URINE PANEL phosphorus, urine 628 mg/24 _HR 600-12 00 Not Available [facility] ([facility]) [address] [place], [address], 05/10/2023 22:06:13 05/07/20 23 05/10/2023 LITHO LINK 24HR URINE PANEL ammonium, urine 22 mmol/ 24_HR 15-60 Not Available [facility] ([facility]) [address] [place], [address], 05/10/2023 22:06:13 05/07/20 23 05/10/2023 LITHO LINK 24HR URINE PANEL chloride, urine 173 mmol/ 24_HR 70-250 Not Available [facility] ([facility]) [address] [facility], [place], [address], 05/10/2023 22:06:13 05/07/20 23 05/10/2023 LITHO LINK 24HR URINE PANEL sulfate, urine 25 mEq/2 4_HR 20-80 Not Available [facility] ([facility]) [address] [facility] [place], [address], 05/10/2023 22:06:13 05/07/20 23 05/10/2023 LITHO LINK 24HR URINE PANEL urea nitrogen, urine 5.86 g/24_ HR 6.00-1 4.00 below low normal Not Available [facility] ([facility]) [address] [facility] [place], [address], 05/10/2023 22:06:13 05/07/20 23 05/10/2023 LITHO LINK 24HR URINE PANEL protein catabolic rate 0.6 g/kg/ 24_HR 0.8-1. 4 below low normal Not Available [facility] ([facility]) [address] [facility] [place], [address], 05/10/2023 22:06:13 05/07/20 23 05/10/2023 LITHO LINK 24HR URINE PANEL creatinine, urine 1123 mg/24 _HR not applic . Not Available [facility] ([facility]) [address] [facility] [place], [address], 05/10/2023 22:06:13 05/07/20 23 05/10/2023 LITHO LINK 24HR URINE PANEL creatinine/k g body weight 14.2 mg/24 _HR/k g 8.7-20 .3 Not Available [facility] ([facility]) [address] [facility] [place], [address], 05/10/2023 22:06:13 05/07/20 23 05/10/2023 LITHO LINK 24HR URINE PANEL calcium/kg body weight 2.8 mg/24 _HR/k g <4.0 Not Available [facility] ([facility]) [address], [place], [address], 05/10/2023 22:06:13 05/07/20 23 05/10/2023 LITHO LINK 24HR URINE PANEL calcium/crea tinine ratio 195 mg/g_ creat 51-262 Not Available [facility] ([facility]) [address], [place], [address], 05/10/2023 22:06:13 05/07/20 23 05/10/2023 LITHO LINK 24HR URINE PANEL comment Note Not Available [facility] ([facility]) [address], [place], [address], 05/10/2023 22:06:13 02/23/20 23 02/21/2023 CT, abdom en + pelvi s, w/o contr ast EXAM: CT, ABDOME N + PELVIS , W/O CONTRA ST LOCATI ON: [facility] [place] DATE: 023 INDICA TION: Calcul us of [...] Pepe Sanchez MD on 2022 at 08:28 [email or web address] [facility] [place] [address], [place], [address], 02/27/2023 13:41:39 08/16/19 24 03/05/2022 CT, abdom [...] carranza MD on 2023 at 11:55 [email or web address] [facility] [place] [address] [facility] [address], [place], [address], 08/30/2023 16:05:59 09/11/19 24 09/10/2023 Dylan JORDAN ation record ed. [facility] [address] [place], [address], 09/12/2023 08:22:26 Result Notes None recorded. Problems Name Status Onset Date Resolution Date Notes Provider Name and Address Organization Details Recorded Time History of calculus of kidney Active 2 Gilbert Golden MD [address] [place] [address],[address], [place], [address], [facility] 05/15/2022 16:40:09 Problem Notes None recorded. Procedures Surgical History Date Name Laterality Status Provider Name and Address Organization Details Recorded Time 07/12/19 24 Colonoscopy completed Charlene fairchild [facility] [place] 08/22/2023 12:05:57 04/16/20 23 Cystoscopy with foreign body/stent removal completed Gilbert Golden MD [address] [place] [address],[address], [place], [address], [facility] 04/15/2023 22:48:02 04/03/20 22 Cystoscopy with foreign body/stent removal completed Gilbert Golden MD [address] [place] [address],[address], [place], [address], [facility] 04/03/2022 09:37:49 04/03/20 22 Keflex post Cysto completed Charlene fairchild [facility] 04/03/2022 10:40:54 03/23/20 22 CYSTOSCOPY, WITH URETEROSCOPY, WITH LITHOTRIPSY, WITH INSERTION OF URETERAL STENT (SURG) completed Mohini fairchild [facility] [place] 03/28/2022 12:46:24 Breast reconstruction completed Charlene fairchild [facility] [place] 03/20/2022 10:22:36 lumpectomy of breast completed Charlene fairchild [facility] [place] 03/20/2022 10:22:46 ligation of fallopian tube completed Charlene fairchild [facility] 03/20/2022 10:22:55 Imaging Results Imaging Date Name Status LastModified by Organiz ation Details LastModified Time 02/21/2023 CT, abdomen + pelvis, w/o contrast completed [email or web address] [facility] [place] [address], [place], [address], 02/27/2023 13:41:39 03/05/2022 CT, abdomen + pelvis, w/ contrast completed Information not available 08/16/2023 14:12:18 08/22/2023 XR, kidney + ureter + bladder completed [email or web address] [facility] [place] [address], [place], [address], 08/30/2023 16:05:59 09/10/2023 US, kidney completed [facility] [address] [place] [address], [address], 09/12/2023 08:22:26 Procedure Notes None recorded. Medical Equipment None Reported. Allergies Allergen ID Allergen Name Allergen Category Reaction Reaction Severity Criticality Documentation Date Start Date Code Code System Note Provider Name and Address Organization Details Recorded Time 106586 adhesive tape environme nt,medica tion Not available Not available Not available 03/20/2022 Charlene fairchild [facility] 2 10:19:53 254680 lactose food,medi cation Not available Not available Not available 03/20/2022 6211 RxNorm Charlene fairchild [facility] 2 10:20:17 209655 latex environme nt,medica tion Not available Not available Not available 03/20/2022 66743 91 RxPazrm Charlene fairchild [facility] 2 10:20:34 Medications Name Sig Start [...] Updated DateTime 05/15/2022 154.94 cm 32.5 kg/m2 81540.89 g Gilbert Golden MD [address] [place] [address],[address], [address] 05/15/2022 16:39:40 Date Recorded Body height Body mass index (BMI) Body weight Provider Name and Address Organization Details Last Updated DateTime 02/21/2023 154.94 cm 33.1 kg/m2 59400.66 g Gilbert Golden MD [address] [place] [address], [address] [place] [address] 02/21/2023 11:42:39 Date Recorded Body height Body mass index (BMI) Body weight Provider Name and Address Organization Details Last Updated DateTime 04/16/2023 154.94 cm 33.1 kg/m2 79020.66 g Joanne Villalobos [facility] 04/16/2023 10:31:35 Date Recorded Body height Body mass index (BMI) Body weight Provider Name and Address Organization Details Last Updated DateTime 06/27/2023 154.94 cm 33.1 kg/m2 53955.66 g Charlene Peralta [facility] 06/27/2023 12:31:15 Date Recorded Body height Body mass index (BMI) Body weight Provider Name and Address Organization Details Last Updated DateTime 08/22/2023 154.94 cm 34 kg/m2 55743.63 g Charlene Peralta [facility] 08/22/2023 12:05:27 Social History Question Answer Notes LastModified by Organizat ion Details LastModified Time Tobacco Smoking Status Former Smoker Charlene Peralta [facility] 03/20/2022 10:23:13 When Did You Quit Smoking? 16+yearssinc elastcigaret te [email or web address] Information not available 03/20/2022 What Was The Date Of Your Most Recent Tobacco Screening? 08/22/2023 [email or web address] Information not available 08/22/2023 Sex: Female Functional [...] quadrivalent, preservative 04/03/2020 completed Gilbert Golden MD [address] [place] [address],[place] [address], [facility] 02/21/2023 11:42:45 zoster recombinant 08/02/2021 completed Gilbert simmons MD [address] [place] [address],[place] [address], [facility] 02/21/2023 11:42:45 zoster recombinant 05/10/2021 completed Gilbert simmons MD [address] [place] [address],[place] [address], [facility] 02/21/2023 11:42:45 COVID-19, mRNA, LNP-S, PF, 30 mcg/0.3 mL dose 08/28/2020 completed Gilbert Golden MD [address] [place] [address],[place] [address], [facility] 02/21/2023 11:42:45 COVID-19, mRNA, LNP-S, PF, 30 mcg/0.3 mL dose 09/18/2020 completed Gilbert Golden MD [address] [place] [address],[address], [facility] 02/21/2023 11:42:45 COVID-19, mRNA, LNP-S, PF, 30 mcg/0.3 mL dose 03/22/2021 completed Gilbert Golden MD [address] [place] [address],[address], [address], [facility] 02/21/2023 11:42:45 COVID-19, mRNA, LNP-S, bivalent, PF, 30 mcg/0.3 mL dose 03/10/2022 completed Gilbert Golden MD [address] [place] [address],[address], [address], [facility] 02/21/2023 11:42:45 Tdap 11/22/2006 completed Gilbert Golden MD [address] [place] [address],[address], [address], [facility] 02/21/2023 11:42:45 Influenza, split virus, trivalent, preservative 02/13/2012 completed Gilbert Golden MD [address] [place] [address],[address], [address], [facility] 02/21/2023 11:42:45 Td (adult), 2 Lf tetanus toxoid, preservative free, adsorbed 03/01/2018 completed Gilbert Golden MD [address] [place] [address],[address], [address], [facility] 02/21/2023 11:42:46 Influenza, split virus, quadrivalent, PF 02/12/2013 completed Gilbert Golden MD [address] [place] [address],[address], [address], [facility] 02/21/2023 11:42:46 Influenza, split virus, quadrivalent, PF 03/01/2018 completed Gilbert Golden MD [address] [place] [address],[address], [address], [facility] 02/21/2023 11:42:46 Influenza, split virus, quadrivalent, PF 03/09/2014 completed Gilbert Golden MD [address] [place] [address],[address] [place] [address], [address], [facility] 02/21/2023 11:42:46 Influenza, split virus, quadrivalent, PF 03/10/2022 completed Gilbert Golden MD [address], [place], [address], [facility] 02/21/2023 11:42:46 Influenza, split virus, quadrivalent, PF 03/14/2017 completed Gilbert Golden MD [address] [facility],[address], [place], [address], [facility] 02/21/2023 11:42:46 Influenza, split virus, quadrivalent, PF 04/07/2019 completed Gilbert Golden MD [address], [place], [address], [facility] 02/21/2023 11:42:46 Influenza, split virus, quadrivalent, PF 04/13/2021 completed Gilbert Golden MD [address] [facility],[address], [place], [address], [facility] 02/21/2023 11:42:46 Past Encounters Encounter ID Performer Location Encounter Start Date Encounter Closed Date Diagnosis/Indication Diagnosis SNOMED-CT Code [id number] MD EVER [facility] [address] [place] [id number] 03/20/2022 10:15:08 03/23/2022 16:37:09 Kidney stone [id number] MD EVER [facility] [address] [place] [id number] 04/03/2022 10:22:37 04/06/2022 14:32:09 Kidney stone [id number] MD EVER [facility] [address] [place] [address] 05/15/2022 16:13:10 05/19/2022 13:26:11 Kidney stone 62570993 [id number] MD Giovani Jarrett [address] [place] [address] 02/21/2023 11:34:05 03/03/2023 15:27:44 Kidney stone 09595755 Hydronephrosis [id number] MD Giovani Jarrett [address] [place] [address] 04/16/2023 10:29:09 04/23/2023 20:19:01 Kidney stone [id number] Hydronephrosis [id number] Gilbert Golden MD [facility] [address] [place] [id number] 06/27/2023 12:30:09 06/27/2023 15:13:55 Kidney stone 38977254 Hydronephrosis [id number] Gilbert Golden MD [facility] [address] [place] [id number] 08/22/2023 11:51:51 08/23/2023 08:43:58 History of calculus of kidney 431923296 Kidney stone [id number] Hydronephrosis [id number] Health Concerns Section Related Observation LastModified by Organization Detai ls LastModified Time None Recorded Concern Status LastModified by Organization Details LastModified Time None Recorded Advance Directives Directive None Recorded Payers Encounter Date Sequence Insurance Name Policy Number Policy Sandoval Covered Member ID Sandoval Member ID Guarantor Name 05/15/2022 1 [place] [id number] Otilia L Chadd [id number] Otilia L Chadd 02/21/2023 1 [place] [id number] Otilia L Chadd [id number] Otilia L Chadd 04/16/2023 1 [place] [id number] Otilia L Chadd [id number] Otilia L Chadd 06/27/2023 1 [place] [id number] Otilia L Chadd [id number] Otilia L Chadd 08/22/2023 1 [place] [id number] Otilia L Chadd [id number] Otilia L Chadd Notes Date Note Type [...] - Uric acid (0.412) Gilbert Golden MD [address] [place] [address],[facility] [address], [address], [facility] [place] [facility] 05/15/2022 19:07:04 02/21/2023 text/html HPI Notes: [...] - Uric acid (0.412) Gilbert Golden MD [address] [place] [address],[facility] [address], [address], [facility] [place] [facility] 02/27/2023 12:35:35 04/16/2023 text/html HPI Notes: [...] - Uric acid (0.412) Gilbert Golden MD [address] [place] [address],[address], [place], [address], [facility] [place] [facility] 04/16/2023 14:22:21 06/27/2023 text/html HPI Notes: [...] and coordinate their care. Gilbert Golden MD [address] [place] [address],[address], [place], [address], [facility] [place] [facility] 06/27/2023 13:27:28 08/22/2023 text/html HPI Notes: [...] 3 mm stones (mid-kidney) Gilbert Golden MD [address] [facility],[address], [place], [address], [facility] [place] [facility] 08/22/2023 13:47:28 OBGyn Episode No OBEpisode recorded.
== END 2024-01-08 16:27 | disposition home or self-care (01) ==
LOC: AMB 01-12 09:23
PROVIDERS: PCP Family Medicine; Visit Provider Emergency Medicine Emergency Medical Services
DX: N73.9 Female pelvic inflammatory disease, unspecified (principal)
CPT/HCPCS: A0425; A0427

== ENCOUNTER 2024-01-25 10:42 | Outpatient (CLI) | payer BC, SELFPAY ==
--- OUTSIDE RECORDS SUMMARY | 2024-01-25 10:50 | XMS_ITS | Clinical Summary ---
Author Organization [facility] Address [place], [place] [address] Care Team Providers Care Communications Station Manager Name Role Phone Jazmine Montanez DO Primary [...] 4000mg in 24 hrs. 0 2 Active cyanocobalamin (VITAMIN B12) 1,000 mcg tablet Take 1 tablet by mouth once daily. 90 tablet 3 8 Active aspirin chewable 81 mg chewable tablet Take 1 tablet by mouth once daily with a meal. 0 8 Active cholecalciferol (VITAMIN D3) 1,000 unit capsule Take 1 Capsule (1,000 units) by mouth once daily. 0 1 Active gemfibroziL (LOPID) 600 mg tabletIndications:M ixed hyperlipidemia TAKE 1 TABLET BY MOUTH DAILY 90 Tablet 3 4 Active venlafaxine (EFFEXOR) 37.5 mg tabletIndications:A nxiety disorder, unspecified type TAKE 1 TABLET(37.5 MG) BY MOUTH EVERY MORNING 90 Tablet 1 4 Active cetirizine (ZYRTEC) 10 mg tablet Take 10 mg by mouth once daily. Active ondansetron (ZOFRAN ODT) 4 mg disintegrating tabletIndications:N ausea Place 1 Tablet (4 mg) on the tongue every 8 hours if needed for Nausea/Vomiting. 30 Tablet 4 Active oxyCODONE (ROXICODONE) 5 mg immediate release tabletIndications:P elvic abscess in female Take 1 Tablet (5 mg) by mouth every 4 hours if needed for Pain (For moderate to severe pain.). 5 Tablet 4 Active alendronate (FOSAMAX) 70 mg tabletIndications:A ge-related osteoporosis without current pathological fracture Take 1 Tablet (70 mg) by mouth once a week in the morning. Take on empty stomach with full glass of water. Do not lie down for 1 hr. 12 Tablet 3 4 Active loperamide (IMODIUM) 2 mg tablet Take 4mg by mouth with 1st loose stool, then 2mg with each subsequent loose stool. Max 16 mg in 24 hrs 0 7 01/08/20 24 Discontinue d(*Patient states no longer taking) Cetirizine (ZyrTEC) 10 mg cap 4 01/08/20 24 Discontinue d(*Patient states no longer taking) alendronate (FOSAMAX) 70 mg tabletIndications:A ge-related osteoporosis without current pathological fracture TAKE 1 TABLET(70 MG) BY MOUTH 1 TIME A WEEK IN THE MORNING ON AN EMPTY STOMACH AND WITH FULL GLASS OF WATER. DO NOT LIE DOWN FOR 1 HOUR 12 Tablet 3 4 01/14/20 24 Discontinue d(Reorder (E-cancel not sent)) oxyCODONE (ROXICODONE) 5 mg immediate release tabletIndications:P ost-op pain Take 1 Tablet (5 mg) by mouth every 4 hours if needed for Pain. 10 Tablet 4 01/08/20 24 Discontinue d(*Patient states no longer taking) sennosides-docusate (SENOKOT S) (8.6-50 mg) tabletIndications:P ost-op pain Take 1-2 Tablets by mouth 2 times daily if needed for Constipation. 30 Tablet 4 01/08/20 24 Discontinue d(*Patient states no longer taking) amoxicillin-clavula eagle (AUGMENTIN) 875-125 mg tabletIndications:P elvic abscess in female Take 1 Tablet by mouth two times daily with meals for 11 days. 22 Tablet 4 01/22/20 24 Active Problems Problem Noted Date Diagnosed Date Pelvic abscess in female 01/08/2024 Overview: Seen on CT scan at [place] [facility] 01/08/2024 Overview: Right kidney seen on [...] Encounters Date Type Department Care Team Description 01/14/2024 10:40 AM CDT Office Visit [facility] [address] [place] [address] Jazmine Montanez DO Hospital F/U (post operative pelvic hematoma) 01/14/2024 Travel 01/14/2024 Patient Outreach [facility] [address] [place] [address] Chelly Marcano, RN Primary RN Care Management; Hospital F/U (LACE 22) 01/14/2024 Telephone [facility] [address] [place] [address] Jazmine Montanez DO Appointment 01/13/2024 Travel 01/08/2024 5:48 PM CDT - 01/11/2024 3:18 PM CDT Hospital Encounter [facility] [address] [place] [address] [facility], [facility] Hospitalists Of [facility], MD Alexandru Hernandez, MD Gina Galvin, MD Philipp Noble, MD Akanksha Obregon, True Rushing MD Nausea (Primary Dx); Pelvic abscess in female Discharge Disposition: Home Self Care 01/08/2024 Orders Only [facility] Scanner 1 scan: (1-Ord) [facility], CT ABD PELVIS W CON, 01/08/2024 12/24/2023 3:00 PM CDT Office Visit [facility] [address] [place] [address] Pam Argueta MD Consult (Lesion right arm/axilla) 12/24/2023 Travel 12/22/2023 Travel 12/19/2023 Orders Only [facility] Scanner 1 scan: (1-Ord) [facility], ABDOMEN AND PELVIS, 12/19/2023 12/18/2023 Refill [facility] [address] [place] [address] Jazmine Montanez DO Refill Request (Venlafaxine) 12/10/2023 10:40 AM CDT Nurse/Clinic Staff Only [facility] [address] [place] [address] Procedure (Remove catheter/) 12/10/2023 Travel 12/10/2023 Telephone [facility] [address] [place] [address] Jazmine Montanez DO Need Meds ((oxyCODONE (ROXICODONE) 5 mg immediate release tablet )) 12/07/2023 8:12 AM CDT Anesthesia Event [facility] [address] [place] [address] Don Apodaca MD 12/07/2023 7:30 AM CDT - 12/07/2023 10:46 AM CDT Surgery [facility] [address] [place] [address] Niya Leyva MD ROBOTIC ASSISTED TOTAL LAPAROSCOPIC HYSTERECTOMY, BILATERAL SALPINGO-OOPHORECTOM Y, INTRAOPERATIVE SENTINEL LYMPH NODE MAPPING AND SENTINEL PELVIC LYMPH NODE DISSECTIONS 12/07/2023 5:53 AM CDT - 12/07/2023 3:57 PM CDT Hospital Encounter [facility] [address] [place] [address] Niya Leyva MD Post-op pain (Primary Dx); Hydronephrosis, right Discharge Disposition: Home Self Care 12/07/2023 Travel 12/04/2023 Travel 12/03/2023 2:30 PM CDT Office [facility] [address] [facility] [address] Pam Argueta MD Consult (Discuss biopsy under right arm) 12/03/2023 Travel 11/30/2023 Travel 11/21/2023 8:15 AM CDT Preop Visit [facility] [address] [place] [address] Yu Pastor PA Preoperative Exam (12/07/23/ROBOTIC ASSISTED TOTAL LAPAROSCOPIC HYSTERECTOMY, BILATERAL SALPINGO-OOPHORECTOM Y, INTRAOPERATIVE SENTINEL LYMPH NODE MAPPING AND SENTINEL PELVIC LYMPH NODE DISSECTIONS / / /Niya Leyva MD /) 11/21/2023 Travel 11/19/2023 Travel 11/02/2023 1:00 PM CDT Orders Only [facility] [address] [facility] [address] [facility], [facility] 11/02/2023 Travel 10/30/2023 Travel from Last 3 Months Immunizations Name Administration Dates Next Due COVID-19 Vaccine Spikevax (M oderna 50mcg/0.5mL) 12YO+ 0113-0334 Formula PF 08/06/2023 COVID-19 vaccine (Pfizer-Bio NTech 30mcg/0.3mL) 12YO+ BIVALENT PF, MDV 03/10/2022 Influenza, IIV3 (Age >=3 years) 02/13/2012 Influenza, IIV4 03/07/2023,,04/13/2021,04/07/20 19,03/01/2018,03/14/2017,03/09/2014,02/12 Influenza, IIV4 (=>6mos) MDV 04/03/2020 Td (Age >=7 Years) 03/01/2018 Tdap 11/22/2006 Zoster (Shingrix-RZV, recombinant) 08/02/2021, Family History Medical History Relation Name Comments Dementia Maternal Grandmother Heart Disease Maternal Uncle [place] AT 42 YEA RS Cancer Mother lung [...] Sign Reading Time Taken Comments Blood Pressure 134/83 01/14/2024 10:44 AM CDT Pulse 84 01/14/2024 10:44 AM CDT Temperature 36.8 ??C (98.2 ??F) 01/14/2024 10:44 AM C DT Respiratory Rate 18 01/11/2024 8:00 AM CDT Oxygen Saturation 96% 01/14/2024 10:44 AM CDT Inhaled Oxygen Concentration - - Weight 78 kg (172 lb) 01/14/2024 10:44 AM CDT Height 154.7 cm (5' 0.91) 11/21/2023 8:25 AM CD T Body Mass Index 32.6 11/21/2023 8:25 AM CDT Plan of Treatment [...] this topic Medical Devices Implanted Type Area Site Reliability Engineer Device Identifier Shelf Expiration Date Model / Serial / Lot [id number] 8breast 330cc Nadya Villasenor High Smooth Saline Implanted:Qty: 1 on 03/27/2018 by Tarun Cardozo MD at [facility] Explanted:at [facility] (Quantity not on file) Left: Breast [employer] J Bensata 02/06/2022 [id number]# / [id number] / [id number] 5breast 330cc Nadya Villasenor High Smooth Saline Implanted:Qty: 1 on 03/27/2018 by Tarun Cardozo MD at [facility] Explanted:at [facility] (Quantity not on file) Right: Breast [employer] Bensata 01/10/2022 [id number]# / [id number] / [id number] Stent Uret [id number] Silhouette - [id number] Implanted:Qty: 1 on 03/07/2022 by Gilbert Golden MD at [facility] Left: Ureter [employer] Gerda 03/21/2024 [id number] / / [id number] Stent Uret [id number] Contour - [id number] Implanted:Qty: 1 on 03/23/2022 by Gilbert Golden MD at [facility] Right: Ureter [facility] 02/18/2024 [id number] / / [id number] Stent Uret [id number] Percuflex Hydroplus - [id number] Implanted:Qty: 1 on 03/23/2022 by Gilbert Golden MD at [facility] Left: Ureter [facility] 01/12/2025 [id number] / / [id number] Stent Uret [id number] Percuflex Hydroplus - [id number] Implanted:Qty: 1 on 03/15/2023 by Gilbert Golden MD at [facility] Left: Ureter [facility] [id number] / / [id number] Stent Tria Soft 6f X 22cm Implanted:Qty: 1 on 03/15/2023 by Gilbert Golden MD at [facility] Right: Ureter [id number] / / [id number] Description:STENT TRIA SOFT 6F X 22CM Procedures [...] Today 12/07/2023 9:25 AM CDT PATH NON TERRAZZO SUPERVISOR CYTOLOGY Today 12/07/2023 9:14 AM CDT ENDOTRACHEAL [...] 12/07/2023 6:39 AM CDT TOXO NEG COMMENT [id number] Routine 11/02/2023 12:58 PM CDT Fatigue, unspecified type Other elevated white blood cell (WBC) count TOXOPLASMA GONDII AB IGG Routine 11/02/2023 12:58 PM CDT Fatigue, unspecified type Other elevated white blood cell (WBC) count TOXOPLASMA GONDII AB IGM Routine 11/02/2023 12:58 PM CDT Fatigue, unspecified type Other elevated white blood cell (WBC) count COLONOSCOPY 07/12/2023 10:16 AM IMMIGRATION ATTORNEY HPV THIN PREP Routine 11/03/2022 2:30 PM CDT Screening for cervical cancer LIPID PANEL Routine 05/10/2021 8:30 AM IMMIGRATION ATTORNEY Mixed hyperlipidemia ANTI HCV Routine 01/08/2015 8:07 AM CDT Need for hepatitis C screening test from Last 3 Months or Most Recently Relevant to Health Maintenance Results * (ABNORMAL) CBC W PLT NO DIFF (01/11/2024 6:15 AM CDT) Only the most recent of2 resultswithin the time period is included. WHITE BLOOD COUNT 11.2(H) 4.5 - 11.0 thou/cu mm 01/11/2024 6:45 AM CDT [facility] RED BLOOD COUNT 3.85(L) 4.00 - 5.20 mil/cu mm 01/11/2024 6:45 AM CDT [facility] HEMOGLOBIN 11.0(L) 12.0 - 16.0 g/dL 01/11/2024 6:45 AM CDT [facility] HEMATOCRIT 35.0 33.0 - 51.0 % 01/11/2024 6:45 AM CDT [facility] MCV 91 80 - 100 fL 01/11/2024 6:45 AM CDT [facility] MCH 28.6 26.0 - 34.0 pg 01/11/2024 6:45 AM CDT [facility] MCHC 31.4(L) 32.0 - 36.0 g/dL 01/11/2024 6:45 AM CDT [facility] RDW 12.2 11.5 - 15.5 % 01/11/2024 6:45 AM CDT [facility] PLATELET COUNT 366 140 - 440 thou/cu mm 01/11/2024 6:45 AM CDT [facility] MPV 9.3 6.5 - 11.0 fL 01/11/2024 6:45 AM CDT [facility] NRBC 0.0 % 01/11/2024 6:45 AM CDT [facility] ABS NRBC 0.0 thou /cu mm 01/11/2024 6:45 AM CDT [facility] Blood BLOOD SPECIMEN / Unknown Venipuncture / Unknown 01/11/2024 6:15 AM CDT 01/11/2024 6:30 AM CDT Yajaira SÁNCHEZ HEMATOLOGY [facility] [address] [place] [address], * AEROBIC BACTERIAL CULTURE, STAIN (01/09/2024 3:59 PM CDT) CULTURE No Growth. 01/14/2024 9:35 AM CDT [facility] GRAM STAIN 1+ PMNs 01/14/2024 9:35 AM CDT [facility] GRAM STAIN No RBCs 01/14/2024 9:35 AM CDT [facility] GRAM STAIN No Epithelial cells 01/14/2024 9:35 AM CDT [facility] GRAM STAIN No organisms seen 01/14/2024 9:35 AM CDT [facility] Other SPECIMEN FROM ABSCESS / Unknown Non-Blood / Unknown 01/09/2024 3:59 PM CDT 01/09/2024 4:36 PM CDT Tavo Ace MD MICROBIOLOGY [facility] [address] [place] [address], [place] * ANAEROBIC CULTURE (01/09/2024 3:59 PM CDT) CULTURE No anaerobes isolated 01/14/2024 3:19 PM CDT [facility] Other SPECIMEN FROM ABSCESS / Unknown Non-Blood / Unknown 01/09/2024 3:59 PM CDT 01/09/2024 4:36 PM CDT Tavo Ace MD MICROBIOLOGY Performing Organization Address [facility] Co de Phone Number [facility] [address] [place] [address], [place] * CT ASPIRATION PELVIS (01/09/2024 3:56 PM CDT) Anatomical Region Laterality Modality Pelvis Computed Tomogra phy, Other, Other Narrative 01/09/2024 5:17 PM CDT RADIOLOGY POST PROCEDURE NOTE ?? 01/09/2024 Otilia Florentino [id number] INFORMEDCONSENT: In my discussion, prior to [...] guidance patient placed in the lateral position [id number]. ??Under CT guidance local anesthesia applied under [...] / TECHNIQUE: Left transgluteal approach EQUIPMENT UTILIZED: Yueh catheter 5 Lao size. CLOSURE: ??none RADIATION DOSE: ?? total [...] Please call with questions. Tavo Ace MD [place] Protocol A. Pre-procedure verification complete yes 1-relevant [...] INR 1.2 <1.3 01/09/2024 5:13 AM CDT [facility] PROTIME 13.1(H) 10.3 - 12.3 sec 01/09/2024 5:13 AM CDT [facility] Blood BLOOD SPECIMEN / Unknown Venipuncture / Unknown 01/09/2024 4:55 AM CDT 01/09/2024 5:01 AM CDT Narrative [facility] - 01/09/2024 5:13 AM CDT ?Therapeutic Range [...] on UFH. Ana Maria Luevano MD HEMATOLOGY [facility] [address] [place] [address], * PLATELET COUNT (01/09/2024 4:54 AM CDT) PLATELET COUNT 371 140 - 440 thou/cu mm 01/09/2024 5:09 AM CDT [facility] MPV 9.1 6.5 - 11.0 fL 01/09/2024 5:09 AM CDT [facility] Blood BLOOD SPECIMEN / Unknown Venipuncture / Unknown 01/09/2024 4:54 AM CDT 01/09/2024 5:00 AM CDT Ana Maria Luevano MD HEMATOLOGY Performing Organization Address [facility] de Phone Number [facility] [address] [place] [address], [place] * (ABNORMAL) WHITE BLOOD COUNT (01/09/2024 4:54 AM CDT) Pathologist [facility] WHITE BLOOD COUNT 18.7(H) 4.5 - 11.0 thou/cu mm 01/09/2024 5:09 AM CDT [facility] NRBC 0.0 % 01/09/2024 5:09 AM CDT [facility] ABS NRBC 0.0 thou /cu mm 01/09/2024 5:09 AM CDT [facility] Blood BLOOD SPECIMEN / Unknown Venipuncture / Unknown 01/09/2024 4:54 AM CDT 01/09/2024 5:00 AM CDT Ana Maria Luevano MD HEMATOLOGY Performing Organization Address [facility] Phone Number [facility] [address] [place] [address], [place] * (ABNORMAL) HEMOGLOBIN (01/09/2024 4:54 AM CDT) Only the most recent of2 resultswithin the time period is included. Pathologist [facility] HEMOGLOBIN 11.1(L) 12.0 - 16.0 g/dL 01/09/2024 5:09 AM CDT [facility] MCV 93 80 - 100 fL 01/09/2024 5:09 AM CDT [facility] Blood BLOOD SPECIMEN / Unknown Venipuncture / Unknown 01/09/2024 4:54 AM CDT 01/09/2024 5:00 AM CDT Ana Maria Luevano MD HEMATOLOGY Performing Organization Address City/[facility]/ZIP Co de Phone Number [facility] [address] [address], [place] * SODIUM (01/09/2024 4:54 AM CDT) SODIUM 140 136 - 145 mmol/L 01/09/2024 5:29 AM CDT [facility] Blood BLOOD SPECIMEN / Unknown Venipuncture / Unknown 01/09/2024 4:54 AM CDT 01/09/2024 5:01 AM CDT Ana Maria Luevano MD CHEMISTRY Performing Organization Address [facility] Co de Phone Number [facility] [address] [address], [place] * POTASSIUM (01/09/2024 4:54 AM CDT) POTASSIUM 3.8 3.5 - 5.1 mmol/L 01/09/2024 5:29 AM CDT [facility] Blood BLOOD SPECIMEN / Unknown Venipuncture / Unknown 01/09/2024 4:54 AM CDT 01/09/2024 5:01 AM CDT Ana Maria Luevano MD CHEMISTRY Performing Organization Address [facility] Co de Phone Number [facility] [address] [place] [address], [place] * (ABNORMAL) CREATININE (01/09/2024 4:54 AM CDT) Only the most recent of2 resultswithin the time period is included. eGFR 56(L) >90 mL/min/1.7 3m2 01/09/2024 5:29 AM CDT [facility] Comment:As of 2021, eG FR is calculated by the CKD-EPI creatinine equation without race adjustment. ??eGFR can be influenced by muscle mass, exercise, and diet. ??The reported eGFR is an estimation only and is only applicable if the renal function is stable. CREATININE 1.11(H) 0.50 - 0.90 mg/dL 01/09/2024 5:29 AM CDT [facility] Blood BLOOD SPECIMEN / Unknown Venipuncture / Unknown 01/09/2024 4:54 AM CDT 01/09/2024 5:01 AM CDT Ana Maria Luevano MD CHEMISTRY [facility] [address] [place] [address], * SCAN-CT INTERPRETATION (01/08/2024 12:00 AM CDT) Only the most recent of2 resultswithin the time period is included. Anatomical Region Laterality Modality Other Scanner OTHER * PATH TISSUE EXAM (12/07/2023 9:25 AM CDT) Case Report Pathology Report ?Case: [id number] ? Authorizing Provider: ??Niya Leyva MD ??Collected: [...] and Ovaries ? 12/10/2023 2:06 PM CDT [facility] Final Diagnosis A) RIGHT [...] Negative for malignancy 12/10/2023 2:06 PM CDT [facility] Clinical Information Álvarez syndrome and PMB 12/10/2023 2:06 PM CDT [facility] Gross Description A) Received [...] discrete fimbriated fallopian tube is identified grossly. [employer] sections are submitted: 1. Anterior cervix 2. [...] 12/07/2023 STN 12/07/2023 12/10/2023 2:06 PM T [facility] Microscopic Description The final diagnosis is based on microscopic examination of appropriate sections of all specimens. 12/10/2023 2:06 PM CDT [facility] Additional Information Interpreted at [facility] - [address] [place] [address] [address] [address] 12/10/2023 2:06 PM CDT [facility] Tissue (Other) 12/07/2023 9: 25 AM CDT 12/07/2023 9:33 AM CDT Tissue specimen (specimen) (Other) 12/07/2023 9:27 AM CDT 12/07/2023 9:33 AM CDT Tissue specimen (specimen) TISSUE SPECIMEN / Unknown 12/07/2023 9:35 AM CDT 12/07/2023 9:58 AM CDT Tissue specimen (specimen) (Uterus, Cervix, Bilateral Fallopian Tubes and Ovaries) 12/07/2023 9:46 AM CDT 12/07/2023 9:58 AM CDT Niya Leyva MD PATHOLOGY/CYTOLO GY [facility] [address] [place] [address], * PATH NON TERRAZZO SUPERVISOR CYTOLOGY (12/07/2023 9:14 AM CDT) Case Report Medical Cytology Report ? Case: [id number] ? Authorizing Provider: ??Niya Leyva MD ??Collected: ? 12/07/2023 0914 ? Ordering Location: ? [facility] ?Received: ?12/07/2023 0959 ? Hospital ? Pathologist: ? Miguel Salazar MD ? Specimen: ?Washings, Pelvic washings ? 12/07/2023 3:15 PM CDT [facility] Final Diagnosis PERITONEAL WASHINGS, CYTOLOGIC MATERIAL: Negative for malignancy in this sample 12/07/2023 3:15 PM T [facility] Gross Description A) SOURCE: Peritoneal washing The specimen consists of 100 cc of colorless hazy fluid from which the following is prepared: ? -1 Papanicolaou stained ThinPrep slide 12/07/2023 3:15 PM T [facility] Microscopic Description Specimen adequacy: Adequate for interpretation. All slides were reviewed. The microscopic appearance substantiates the diagnosis. All slides were reviewed microscopically. Specimen adequacy: Adequate for interpretation. The microscopic appearance substantiates the diagnosis. 12/07/2023 3:15 PM CDT [facility] Additional Information Cytology is screened at [facility] - [address], [place] [address] and [facility] - [address], [place] [address] and [facility] - [address] [place] [address] Interpreted at [facility] - [address], [place] [address] 12/07/2023 3:15 PM CDT [facility] Washing (Washings) 12/07/2023 9:14 AM CDT 12/07/2023 9:59 AM CDT Niya Leyva MD PATHOLOGY/CYTOLO GY [facility] [address] [place] [address], * HCHG TUBE PR1, HCHG STYLET PR1 [...] - 100 mg/dL 12/07/2023 7:36 AM CDT [facility] Blood BLOOD SPECIMEN / Unknown 12/07/2023 7:35 AM CDT 12/07/2023 7:36 AM CDT Niya Leyva MD CHEMISTRY Performing Organization Address [facility]/ZIP Co de Phone Number [facility] [address] [place] [address], * Type & Screen (12/07/2023 6:39 AM CDT) Pathologist [facility] ABORH A Rh Positive 12/07/2023 7:35 AM CDT [facility] BLOOD BANK ANTIBODY SCREEN Negative Negative 12/07/2023 7:35 AM CDT [facility] BLOOD BANK SPECIMEN EXPIRATION DATE/TIME 12/10/23 23:59 12/07/2023 7:35 AM CDT [facility] BLOOD BANK Blood BLOOD SPECIMEN / Unknown Venipuncture / Unknown 12/07/2023 6:39 AM CDT 12/07/2023 6:53 AM CDT Yajaira SÁNCHEZ BLOOD BANK Performing Organization Address [facility] de Phone Number [facility] BLOOD BANK [address] [place] [address], * TOXO NEG COMMENT [id number] (11/02/2023 12:58 PM CDT) [facility] Toxo Neg Comment Comment 11/05/2023 10:06 PM CDT [facility] Comment: It is presumed the patient has not been infected with and is not undergoing an acute infection with Toxoplasma. If symptoms persist, submit a new specimen after three weeks. Blood BLOOD SPECIMEN / Unknown Venipuncture / Unknown 11/02/2023 12:58 PM CDT 11/02/2023 12:59 PM CDT Narrative [facility] - 11/05/2023 10:06 PM CDT Performed at: ??[address] ??[id number] Chief Knowledge Officer: Lyudmila Hewitt MD, Phone: ??[phone] Jazmine Montanez DO SEND OUTS Performing Organization Address City/[facility]/ZIP Co de Phone Number [facility] ([facility]) [address] [place] [address], * TOXOPLASMA GONDII AB IGM (11/02/2023 12:58 PM CDT) [facility] Toxoplasma gondii Ab IgM <3.0 0.0 - 7.9 AU/mL 11/05/2023 10:06 PM CDT [facility] [facility] Comment: ? Negative ?<8.0 ? Equivocal ?8.0 - 9.9 ? Positive ?>9.9 Blood BLOOD SPECIMEN / Unknown Venipuncture / Unknown 11/02/2023 12:58 PM CDT 11/02/2023 12:59 PM CDT Narrative [facility] ([facility]) - 11/05/2023 10:06 PM CDT Performed at: ??01 - [address] ??[id number] Chief Knowledge Officer: Lyudmila Hewitt MD, Phone: ??[phone] Jazmine Montanez DO SEND OUTS Performing Organization Address [facility] de Phone Number [facility] ([facility]) [address] [place] [phone], * TOXOPLASMA GONDII AB IGG (11/02/2023 12:58 PM CDT) [facility] Toxoplasma gondii Ab IgG <3.0 0.0 - 7.1 IU/mL 11/06/2023 5:10 AM CDT [facility] Comment: ? Negative ?<7.2 ? Equivocal ??7.2 - 8.7 ? Positive ?>8.7 Blood BLOOD SPECIMEN / Unknown Venipuncture / Unknown 11/02/2023 12:58 PM CDT 11/02/2023 12:59 PM CDT Narrative [facility] ([facility]) - 11/06/2023 5:10 AM CDT Performed at: ??01 - [facility] [place] (by [email or web address])[facility]and [place], [place] ??[id number] Chief Knowledge Officer: Judson Kay MD, Phone: ??[phone] Jazmine Montanez DO SEND OUTS [facility] ([facility]) [address] [place] [id number], * COLONOSCOPY (07/12/2023 10:16 AM IMMIGRATION ATTORNEY) 07/12/2023 10:1 6 AM IMMIGRATION ATTORNEY Narrative Transcriptions Ramos Le MD - 07/12/2023 [...] candidate for conscious sedation. The endoscope [id number] was passed through the anus andadvanced to [...] 10:16 AM Procedure Code(s): --- Professional --- 65494, Colonoscopy, flexible; with removalof tumor(s), polyp(s), or other lesion(s) bysnare technique 86206, 59, Colonoscopy, flexible; withbiopsy, single or multiple Diagnosis Code(s): --- Professional --- D12.3, Benign neoplasm of transverse colon (hepatic flexure or splenic flexure) Z15.09, Genetic susceptibility to other malignant neoplasm CPT copyright 2021 [employer]. All rights reserved. The codes documented in this report are preliminary and upon gifts officer reviewmay be revised to meet current compliance requirements. Scope In: 10:45:01 AM Scope Withdrawal Time 0 hours 12 minutes 22 seconds Scope Out: 11:00:33 AM Ramos Le MD PROCEDURE ORD * HPV HIGH RISK (11/03/2022 2:30 PM CDT) TYPE 16 Negative Negative 11/08/2022 1:54 PM CDT [facility] TYPE 18 Negative Negative 11/08/2022 1:54 PM CDT [facility] OTHER HIGH RISK TYPES Negative Negative 11/08/2022 1:54 PM CDT [facility] Other (Cervical) Non-Blood / Unknown 11/03/2022 2:30 PM CDT 11/07/2022 9:29 AM CDT Narrative [facility] - 11/08/2022 1:54 PM CDT HPV types 16, 18, 31, 33, 35, 39, 45, 51, 52, 56, 58, 59, 66 and 68 DNA were undetectable or below the pre-set threshold. Methodology: Ryann Lisa 4800 HPV Test Jazmine Joleen Montanez DO MICROBIOLOGY Performing Organization Address City/[facility]/ZIP Co de Phone Number [facility] [address] [place] [address], [place] * (ABNORMAL) LIPID PANEL (05/10/2021 8:30 AM IMMIGRATION ATTORNEY) Pathologist [facility] CHOLESTEROL,TOTAL 177 100 - 199 mg/dL 05/10/2021 6:04 PM IMMIGRATION ATTORNEY [facility] TRIGLYCERIDES 183(H) <150 mg/dL 05/10/2021 6:04 PM IMMIGRATION ATTORNEY [facility] HDL CHOLESTEROL 39(L) >40 mg/dL 6:04 PM IMMIGRATION ATTORNEY [facility] NON-HDL CHOLESTEROL 138 <145 mg/dl 05/10/2021 6:04 PM IMMIGRATION ATTORNEY [facility] CHOL/HDL RATIO 4.54(H) <4.50 05/10/2021 6:04 PM IMMIGRATION ATTORNEY [facility] LDL CHOLESTEROL 101 <=130 mg/dL 05/10/2021 6:04 PM IMMIGRATION ATTORNEY [facility] VLDL CHOLESTEROL 37(H) <=30 mg/dL 05/10/2021 6:04 PM IMMIGRATION ATTORNEY [facility] PROVIDER ORDERED STATUS RANDOM 05/10/2021 6:04 PM IMMIGRATION ATTORNEY [facility] Blood BLOOD SPECIMEN / Unknown Venipuncture / Unknown 05/10/2021 8:30 AM IMMIGRATION ATTORNEY 05/10/2021 8:34 AM IMMIGRATION ATTORNEY Jazmine Joleen Montanez DO CHEMISTRY Performing Organization Address City/[facility]/ZIP Co de Phone Number [facility] [address] [place] [address], [place] * ANTI HCV [56943.2] (01/08/2015 8:07 AM CDT) HEPATITIS C ANTIBODY Non-Reacti ve Non-Reacti ve 01/08/2015 1:31 PM CDT [facility] Blood specimen (specimen) BLOOD SPECIMEN / Unknown Venipuncture / Unknown 01/08/2015 8:07 AM CDT 01/08/2015 8:10 AM CDT Narrative [facility] - 01/08/2015 1:31 PM CDT Antibodies to HCV not detected; does not exclude the possibility of exposure to HCV. Jazmine Montanez DO SEND OUTS [facility] [address] [place] [address], [place] from Last 3 Months or Most [...] Code Status Discussion: Reviewed Preferences Care Teams Communications Station Manager Relationship Specialty Start Date End Date Jazmine Montanez DO PCP - General 05/29/08
--- NOTE | 2024-01-25 11:00 | CRLHL7_ITS ---
For Patients: As a result of the Century Cures Act, medical imaging exams and procedure reports are released immediately into your electronic medical record. You may view this report before your referring provider. If you have questions, please contact your health care provider. Indication: FOLLOW UP POST SURGICAL ABSCESS Technique: CT Abdomen/Pelvis W/ 84CC ISOVUE 370 Please note that all CT scans at this facility use dose modulation, iterative reconstruction, and/or weight-based dosing when appropriate to reduce radiation dose to as low as reasonably achievable. Comparison: 01/08/2024 Findings: Decreased size circumscribed fluid collection within the deep pelvis measuring 5.5 x 2.9 cm, previously measuring 6.9 x 4.2 cm. No free air. No bowel obstruction. No evidence of fistula to the bladder. A few scattered subcentimeter retroperitoneal lymph nodes are unchanged. Small hiatal hernia. Clear lung bases. Normal liver, gallbladder, spleen and pancreas. Adrenal glands normal. Chronic left renal cortical atrophy with left pelviectasis. Right renal stones are similar. No fracture. Impression: Mildly decreased size of the circumscribed fluid collection in the deep pelvis measuring 5.5 cm compared to 6.9 cm on the prior study. Nonobstructing right renal calculi without evidence of pyelonephritis. Improved enhancement pattern of the right kidney compared to the prior study. No bowel obstruction. Improved appearance of small-bowel loops since the prior study. Please note that all CT scans at this facility use dose modulation, iterative reconstruction, and/or weight-based dosing when appropriate to reduce radiation dose to as low as reasonably achievable. Dictated by Yoandy Atkins MD @ 01/25/2024 1:27:49 PM (Electronically Signed)
== END 2024-01-25 10:43 | disposition home or self-care (01) ==
LOC: CT 10:48
PROVIDERS: PCP Family Medicine; Visit Provider Nurse Practitioner Family
DX: N95.0 Postmenopausal bleeding (principal); D05.12 Intraductal carcinoma in situ of left breast; N20.0 Calculus of kidney
CPT/HCPCS: 74177; Q9967

== ENCOUNTER 2024-04-07 10:39 | Outpatient (CLI) | payer BC, SELFPAY ==
--- OUTSIDE RECORDS SUMMARY | 2024-04-07 10:42 | XMS_ITS | Data Portability ---
Author Organization [facility] Address [address] [place] [address] Care Team Providers Care Clay Modeler Name Role Phone LORENA FRANCE Primary Care Provider Assessment No assessment recorded. Plan of Treatment Reminders Order Date Submit Date Provider Last Modified By Organization Details Last Modified Time Details Appointments None recorde d. Lab kidney stone, 24-hour urine panel 2022 023 [email or web address] [facility], [address], [place], [address], 3 08:35:02 Referral None recorde d. Procedures None recorde d. Surgeries cystosc opy, with uretero scopy, with retrogr oz uretero pyelogr am, with stent placeme nt (SURG) 2022 023 [email or web address] Not available 3 15:19:18 Imaging XR, kidney + ureter + bladder - PREV HERE 02/21/232022 023 [facility] , [address] [place], [address], 4 12:58:01 XR, kidney + ureter + bladder [facility]22 [email or web address] , [address] [place], [address], 3 13:12:43 US, kidney 2022 023 [email or web address] [facility], [address] [place], [address], 3 09:10:46 XR, kidney + ureter + bladder 2023 024 [email or web address] , [address], [place], [address], 4 10:02:02 US, kidney - Check Renal U/S - H/O Left hydrone phrosis - [facility] ([facility]) 2023 024 [facility], [address] [place], [address], 4 08:47:18 Medication Orders None recorde d. Patient TargetsNo targets recorded. Patient Instructions Encounter Date Encounter Id Patient Instructions Last Modified By Organization Details Last Modified Time 06/27/2023 [id number] telephone - 6 minutes [email or web address] Not available 06/27/2023 13:26:13 Reason for Referral None Reported. Results Created Date Observation Date Name Description Value Unit Range Abnormal Flag Note LastModifiedBy Organization Detail LastModifiedTime 05/07/2005/10/2023 LITHO LINK 24HR URINE PANEL cystine, urine, qualitative COMMEN T Test not perfo rmed. Previ ous test resul ts on file. Not Available [facility] ([facility]) [address] [facility], [place], [address], 05/10/2023 22:06:13 05/07/20 23 05/10/2023 LITHO LINK 24HR URINE PANEL urine volume (preserved) 1900 mL/24 _HR 500-40 00 Not Available [facility] ([facility]) [address] [facility], [place], [address], 05/10/2023 22:06:13 05/07/20 23 05/10/2023 LITHO LINK 24HR URINE PANEL calcium oxalate saturation 7.51 6.00-1 0.00 Not Available [facility] ([facility]) [address] [facility], [place], [address], 05/10/2023 22:06:13 05/07/20 23 05/10/2023 LITHO LINK 24HR URINE PANEL calcium, urine 219 mg/24 _HR <200 above high normal Not Available [facility] ([facility]) [address] [place], [address], 05/10/2023 22:06:13 05/07/20 23 05/10/2023 LITHO LINK 24HR URINE PANEL oxalate, urine 32 mg/24 _HR 20-40 Not Available [facility] ([facility]) [address] [place], [address], 05/10/2023 22:06:13 05/07/20 23 05/10/2023 LITHO LINK 24HR URINE PANEL citrate, urine 444 mg/24 _HR >550 below low normal Not Available [facility] ([facility]) [address] [place], [address], 05/10/2023 22:06:13 05/07/20 23 05/10/2023 LITHO LINK 24HR URINE PANEL calcium phosphate saturation 0.47 0.50-2 .00 below low normal Not Available [facility] ([facility]) [address] [place], [address], 05/10/2023 22:06:13 05/07/20 23 05/10/2023 LITHO LINK 24HR URINE PANEL pH, 24 HR, urine 5.757 5.800- 6.200 below low normal Not Available [facility] ([facility]) [address] [place], [address], 05/10/2023 22:06:13 05/07/20 23 05/10/2023 LITHO LINK 24HR URINE PANEL uric acid saturation 0.60 <1.00 Not Available [facility] ([facility]) [address] [place], [address], 05/10/2023 22:06:13 05/07/20 23 05/10/2023 LITHO LINK 24HR URINE PANEL uric acid, urine 367 mg/24 _HR <750 Not Available [facility] ([facility]) [address] [place], [address], 05/10/2023 22:06:13 05/07/20 23 05/10/2023 LITHO LINK 24HR URINE PANEL sodium, urine 172 mmol/ 24_HR 50-150 above high normal Not Available [facility] ([facility]) [address] [place], [address], 05/10/2023 22:06:13 05/07/20 23 05/10/2023 LITHO LINK 24HR URINE PANEL potassium, urine 43 mmol/ 24_HR 20-100 Not Available [facility] ([facility]) [address] [place], [address], 05/10/2023 22:06:13 05/07/20 23 05/10/2023 LITHO LINK 24HR URINE PANEL magnesium, urine 47 mg/24 _HR 30-120 Not Available [facility] ([facility]) [address] [place], [address], 05/10/2023 22:06:13 05/07/20 23 05/10/2023 LITHO LINK 24HR URINE PANEL phosphorus, urine 628 mg/24 _HR 600-12 00 Not Available [facility] ([facility]) [address] [place], [address], 05/10/2023 22:06:13 05/07/20 23 05/10/2023 LITHO LINK 24HR URINE PANEL ammonium, urine 22 mmol/ 24_HR 15-60 Not Available [facility] ([facility]) [address] [place], [address], 05/10/2023 22:06:13 05/07/20 23 05/10/2023 LITHO LINK 24HR URINE PANEL chloride, urine 173 mmol/ 24_HR 70-250 Not Available [facility] ([facility]) [address] [facility] [place], [address], 05/10/2023 22:06:13 05/07/20 23 05/10/2023 LITHO LINK 24HR URINE PANEL sulfate, urine 25 mEq/2 4_HR 20-80 Not Available [facility] ([facility]) [address] [facility] [place], [address], 05/10/2023 22:06:13 05/07/20 23 05/10/2023 LITHO LINK 24HR URINE PANEL urea nitrogen, urine 5.86 g/24_ HR 6.00-1 4.00 below low normal Not Available [facility] ([facility]) [address] [facility] [place], [address], 05/10/2023 22:06:13 05/07/20 23 05/10/2023 LITHO LINK 24HR URINE PANEL protein catabolic rate 0.6 g/kg/ 24_HR 0.8-1. 4 below low normal Not Available [facility] ([facility]) [address] [place], [address], 05/10/2023 22:06:13 05/07/20 23 05/10/2023 LITHO LINK 24HR URINE PANEL creatinine, urine 1123 mg/24 _HR not applic . Not Available [facility] ([facility]) [address] [place], [address], 05/10/2023 22:06:13 05/07/20 23 05/10/2023 LITHO LINK 24HR URINE PANEL creatinine/k g body weight 14.2 mg/24 _HR/k g 8.7-20 .3 Not Available [facility] ([facility]) [address] [facility], [place], [address], 05/10/2023 22:06:13 05/07/20 23 05/10/2023 LITHO LINK 24HR URINE PANEL calcium/kg body weight 2.8 mg/24 _HR/k g <4.0 Not Available [facility] ([facility]) [address] [facility], [place], [address], 05/10/2023 22:06:13 05/07/20 23 05/10/2023 LITHO LINK 24HR URINE PANEL calcium/crea tinine ratio 195 mg/g_ creat 51-262 Not Available [facility] ([facility]) [address] [facility], [place], [address], 05/10/2023 22:06:13 05/07/20 23 05/10/2023 LITHO LINK 24HR URINE PANEL comment Note Not Available [facility] ([facility]) [address] [facility], [place], [address], 05/10/2023 22:06:13 02/23/20 23 02/21/2023 CT, abdom en + pelvi s, w/o contr ast EXAM: CT, ABDOME N + PELVIS , W/O CONTRA ST LOCATI ON: [facility] [place] DATE: 023 INDICA TION: Calcul us of [...] Pepe Sanchez MD on 2022 at 08:28 [email or web address] [facility] [place] [address] [facility] [address], [place], [address], 02/27/2023 13:41:39 08/16/19 24 03/05/2022 CT, abdom en + pelvi s, w/ contr ast No observ ation record ed. [email or web address] Not Available 2023 14:12:18 08/22/19 24 08/22/2023 XR, kidne y + urete r + bladd er EXAM: XR, KIDNEY + URETER + BLADDE R LOCATI ON: [facility] [employer] [facility] [place] DATE: 2023 INDICA TION: [...] carranza MD on 2023 at 11:55 [email or web address] [facility] [place] [address], [place], [address], 08/30/2023 16:05:59 09/11/19 24 09/10/2023 Dylan JORDAN ation record ed. [facility] [address] [place], [address], 09/12/2023 08:22:26 Result Notes Documentation Provider Name and Address Organization Details Recorded Time Ct, Abdomen + Pelvis, W/o Contrast : EXAM: CT, ABDOMEN + PELVIS, W/O CONTRAST LOCATION: [facility] [place] DATE: 02/21/2023 INDICATION: Calculus of kidney COMPARISON: [...] on 02/22/2023 at 08:28 OLAMIDE Haq - [facility] 02/27/2023 13:41:39 Xr, Kidney + Ureter + Bladder : EXAM: XR, KIDNEY + URETER + BLADDER [facility]: 08/22/2023 INDICATION: Calculus of kidney. COMPARISON: CT abdomen and pelvis 02/21/2023. IMPRESSION: Similar right renal calculi, the largest in the lower pole measuring 8-9 mm. No convincing calculi overlying the left kidney or ureters. Nonobstructive bowel gas pattern. Calcified uterine fibroids. This report was electronically interpreted by: Howard Gonzalez MD on 08/22/2023 at 11:55 Gilbert Golden MD [address] [place] [address],[address], [address], [facility] 08/30/2023 16:05:59 Problems Name Problem SNOMED Code Status Onset Date Resolution Date Notes Provider Name and Address Organization Details Recorded Time History of calculus of kidney 977076514 Active 022 Gilbert Golden MD [address] [place] [address],[address], [place], [address] , [facility] 16:40:09 Problem Notes None recorded. Procedures Surgical History Date Name Laterality Status Provider Name and Address Organization Details Recorded Time 07/12/19 24 Colonoscopy completed Charlene Peralta [facility] 08/22/2023 12:05:57 04/16/20 23 Cystoscopy with foreign body/stent removal completed Gilbert Golden MD [address] [place] [address],[address] [place] [address], [address], [facility] 04/15/2023 22:48:02 04/03/20 22 Cystoscopy with foreign body/stent removal completed Gilbert Golden MD [address] [place] [address],[address], [address], [facility] 04/03/2022 09:37:49 04/03/20 22 Keflex post Cysto completed Charlene Peralta [facility] 04/03/2022 10:40:54 03/23/20 22 CYSTOSCOPY, WITH URETEROSCOPY, WITH LITHOTRIPSY, WITH INSERTION OF URETERAL STENT (SURG) completed Mohini Rasheed [facility] 03/28/2022 12:46:24 Breast reconstruction completed Charlene Peralta [facility] 03/20/2022 10:22:36 lumpectomy of breast completed Charlene Peralta [facility] 03/20/2022 10:22:46 ligation of fallopian tube completed Charlene Peralta [facility] 03/20/2022 10:22:55 Imaging Results Imaging Date Name Status LastModified by Organiz ation Details LastModified Time 02/21/2023 CT, abdomen + pelvis, w/o contrast completed [facility] [place] [address], [place], [address], 02/27/2023 13:41:39 03/05/2022 CT, abdomen + pelvis, w/ contrast completed [email or web address] Information not available 08/16/2023 14:12:18 08/22/2023 XR, kidney + ureter + bladder completed [email or web address] [facility] [place] [address], [place], [address], 08/30/2023 16:05:59 09/10/2023 US, kidney completed [facility] [address] [place], [address], 09/12/2023 08:22:26 Procedure Notes None recorded. Medical Equipment None Reported. Allergies Allergen ID Allergen Name Allergen Category Reaction Reaction Severity Criticality Documentation Date Start Date Code Code System Note Provider Name and Address Organization Details Recorded Time 540468 adhesive tape environme nt,medica tion Not available Not available Not available 03/20/2022 Charlene fairchild [facility] 2 10:19:53 630024 lactose food,medi cation Not available Not available Not available 03/20/2022 6211 RxNorm Charlene fairchild [facility] 2 10:20:17 721362 latex environme nt,medica tion Not available Not available Not available 03/20/2022 64923 91 RxNorm Charlene fairchild [facility] 2 10:20:34 Medications Name Sig Start [...] Updated DateTime 05/15/2022 154.94 cm 32.5 kg/m2 96979.89 g Gilbert Golden MD [address] [place] [address],[address], [address], [facility] 05/15/2022 16:39:40 Date Recorded Body height Body mass index (BMI) Body weight Provider Name and Address Organization Details Last Updated DateTime 02/21/2023 154.94 cm 33.1 kg/m2 59650.66 g Gilbert Golden MD [address] [place] [address],[address], [address], [facility] 02/21/2023 11:42:39 Date Recorded Body height Body mass index (BMI) Body weight Provider Name and Address Organization Details Last Updated DateTime 04/16/2023 154.94 cm 33.1 kg/m2 97844.66 g Joanne Villalobos [facility] 04/16/2023 10:31:35 Date Recorded Body height Body mass index (BMI) Body weight Provider Name and Address Organization Details Last Updated DateTime 06/27/2023 154.94 cm 33.1 kg/m2 89151.66 g Charlene Peralta [facility] 06/27/2023 12:31:15 Date Recorded Body height Body mass index (BMI) Body weight Provider Name and Address Organization Details Last Updated DateTime 08/22/2023 154.94 cm 34 kg/m2 35763.63 g Charlene Fabian [facility] 08/22/2023 12:05:27 Social History Question Answer Notes LastModified by Organizat ion Details LastModified Time Tobacco Smoking Status Former Smoker Charlene Zuluagaoza [facility] 03/20/2022 10:23:13 When Did You Quit Smoking? 16+yearssinc elastcigaret te [email or web address] Information not available 03/20/2022 What Was The Date Of Your Most Recent Tobacco Screening? 08/22/2023 [email or web address] Information not available 08/22/2023 Sex: Female Functional Status None recorded. Mental Status None recorded. Family History Relationship Description Onset Age of this Age Resolved Age Notes LastModified by Organization Details LastModified Time Paternal Grandmother Family history of cancer of colon [email or web address] Not available 03/04 10:32:12 Sister Family history of cancer of colon [email or web address] Not available 03/04 10:32:12 Mother Family history of malignant neoplasm [email or web address] Not available 03/04 10:32:17 Paternal Aunt Family history of cancer of colon [email or web address] Not available 03/04 10:32:26 Medical History Condition Response Other Y Kidney Stones Y Depression Y Cancer Y High Cholesterol Y Gynecological HistoryNo gynecological history recorded. Obstetrics History GPAL:G 0 P 0 0 0 0 Immunizations Vaccine Type Date Status Provider Name and Address Organization Details Recorded Time Influenza, split virus, quadrivalent, preservative 04/03/2020 popeye Golden MD [address] [place] [address],[address], [address], [facility] 02/21/2023 11:42:45 zoster recombinant 08/02/2021 completed Gilbert simmons MD [address] [place] [address],[address], [address], [facility] 02/21/2023 11:42:45 zoster recombinant 05/10/2021 popeye simmons MD [address] [place] [address],[address], [address], [facility] 02/21/2023 11:42:45 COVID-19, mRNA, LNP-S, PF, 30 mcg/0.3 mL dose 08/28/2020 completed Giblert Golden MD [address] [place] [address],[address], [place], [address], [facility] 02/21/2023 11:42:45 COVID-19, mRNA, LNP-S, PF, 30 mcg/0.3 mL dose 09/18/2020 completed Gilbert Golden MD [address] [place] [address],[address], [place], [address], [facility] 02/21/2023 11:42:45 COVID-19, mRNA, LNP-S, PF, 30 mcg/0.3 mL dose 03/22/2021 completed Gilbert Golden MD [address] [place] [address],[address], [address], [facility] 02/21/2023 11:42:45 COVID-19, mRNA, LNP-S, bivalent, PF, 30 mcg/0.3 mL dose 03/10/2022 completed Gilbert Golden MD [address] [place] [address],[address] [place] [address], [address], [facility] 02/21/2023 11:42:45 Tdap 11/22/2006 completed Gilbert Golden MD [address] [place] [address],[address], [address], [facility] 02/21/2023 11:42:45 Influenza, split virus, trivalent, preservative 02/13/2012 completed Gilbert Golden MD [address] [place] [address],[address], [place], [address], [facility] 02/21/2023 11:42:45 Td (adult), 2 Lf tetanus toxoid, preservative free, adsorbed 03/01/2018 completed Gilbert Golden MD [address] [place] [address],[address] [place] [address], [address], [facility] 02/21/2023 11:42:46 Influenza, split virus, quadrivalent, PF 02/12/2013 completed Gilbert Golden MD [address] [place] [address],[address], [address], [facility] 02/21/2023 11:42:46 Influenza, split virus, quadrivalent, PF 03/01/2018 completed Gilbert Golden MD [address] [place] [address],[address], [place], [address], [facility] 02/21/2023 11:42:46 Influenza, split virus, quadrivalent, PF 03/09/2014 completed Gilbert Golden MD [address] [place] [address],[address], [place], [address], [facility] 02/21/2023 11:42:46 Influenza, split virus, quadrivalent, PF 03/10/2022 completed Gilbert Golden MD [address] [place] [address],[address], [address], [facility] 02/21/2023 11:42:46 Influenza, split virus, quadrivalent, PF 03/14/2017 completed Gilbert Golden MD [address] [place] [address],[address], [address], [facility] 02/21/2023 11:42:46 Influenza, split virus, quadrivalent, PF 04/07/2019 completed Gilbert Golden MD [address] [place] [address],[address] [place] [address], [address], [facility] 02/21/2023 11:42:46 Influenza, split virus, quadrivalent, PF 04/13/2021 completed Gilbert Golden MD [address] [place] [address],[address], [address], [facility] 02/21/2023 11:42:46 Past Encounters Encounter ID Performer Location Encounter Start Date Encounter Closed Date Diagnosis/Indication Diagnosis SNOMED-CT Code Diagnosis ICD10 Code [id number] MD EVRE [facility] [address] [place] [address] 03/20/2022 10:15:08 03/23/2022 16:37:09 Kidney stone 94160700 N20.0 [id number] MD EVER [facility] [address] [place] [address] 04/03/2022 10:22:37 04/06/2022 14:32:09 Kidney stone 41044899 N20.0 [id number] Gilbert Golden MD [facility] [address] [place] [address] 05/15/2022 16:13:10 05/19/2022 13:26:11 Kidney stone 55112137 N20.0 [id number] Gilbert Golden MD [facility] [address] [place] [address] 02/21/2023 11:34:05 03/03/2023 15:27:44 Kidney stone 31851951 N20.0 Hydronephrosis 35074174 N13.30 [id number] Gilbert Golden MD [facility] [address] [place] [address] 04/16/2023 10:29:09 04/23/2023 20:19:01 Kidney stone 58268971 N20.0 Hydronephrosis 01121823 N13.30 [id number] Gilbert Golden MD [facility] [address] [place] [address] 06/27/2023 12:30:09 06/27/2023 15:13:55 Kidney stone 86568590 N20.0 Hydronephrosis 04980241 N13.30 [id number] Gilbert Golden MD [facility] [address] [place] [address] 08/22/2023 11:51:51 08/23/2023 08:43:58 History of calculus of kidney 219861016 Z87.442 Kidney stone 54603014 N2 0.0 Hydronephrosis 13025722 N13.30 Health Concerns Section Related Observation LastModified by Organization Detai ls LastModified Time None Recorded Concern Status LastModified by Organization Details LastModified Time None Recorded Advance Directives Directive None Recorded Payers Encounter Date Sequence Insurance Name Policy Number Policy Sandoval Covered Member ID Sandoval Member ID Guarantor Name 05/15/2022 1 [place] [id number] Otilia Forrest Florentino [id number] Otilia Florentino 02/21/2023 1 [place] [id number] Otilia Clayton Chadd [id number] Otilia Clayton Chadd 04/16/2023 1 [place] [id number] Otilia Clayton Chadd [id number] Otilia Clayton Chadd 06/27/2023 1 [place] [id number] Otilia Clayton Chadd [id number] Otilia Clayton Chadd 08/22/2023 1 [place] [id number] Otilia Clayton Chadd [id number] Otilia Clayton Chadd Notes Date Note [...] Uric acid (0.412) Gilbert Golden MD [address] [facility],[address], [place], [address], [facility] 05/15/2022 19:07:04 02/21/2023 text/html HPI Notes: [...] Uric acid (0.412) Gilbert Golden MD [address] [facility],[address], [place], [address], [facility] 02/27/2023 12:35:35 04/16/2023 text/html HPI Notes: [...] - Uric acid (0.412) Gilbert Golden MD [address] [place] [address],[address], [place], [address], [facility] 04/16/2023 14:22:21 06/27/2023 text/html HPI Notes: [...] and coordinate their care. Gilbert Golden MD [address] [place] [address],[address], [place], [address] 06/27/2023 13:27:28 08/22/2023 text/html HPI [...] 3 mm stones (mid-kidney) Gilbert Golden MD [address] [facility],[address], [place], [address], [facility] 08/22/2023 13:47:28 OBGyn Episode No OBEpisode recorded.
--- OUTSIDE RECORDS SUMMARY | 2024-04-07 10:43 | XMS_ITS | Clinical Summary ---
Author Organization [employer] [facility] [employer] Address [place], [place] [address] Care Team Providers Care Kiln Car Repairer Name Role Phone Jazmine Montanez DO Primary [...] 4000mg in 24 hrs. 0 03/04/2012 Active cyanocobalamin (VITAMIN B12) 1,000 mcg tablet Take 1 tablet by mouth once daily. 90 tablet 3 01/07/2018 Active aspirin chewable 81 mg chewable tablet Take 1 tablet by mouth once daily with a meal. 0 01/07/2018 Active cholecalciferol (VITAMIN D3) 1,000 unit capsule Take 1 Capsule (1,000 units) by mouth once daily. 0 12/27/2020 Active cetirizine (ZYRTEC) 10 mg tablet Take 10 mg by mouth once daily. Active alendronate (FOSAMAX) 70 mg tabletIndications:A ge-related osteoporosis without current pathological fracture Take 1 Tablet (70 mg) by mouth once a week in the morning. Take on empty stomach with full glass of water. Do not lie down for 1 hr. 12 Tablet 3 01/14/2024 Active gemfibroziL (LOPID) 600 mg tabletIndications:M ixed hyperlipidemia TAKE 1 TABLET BY MOUTH DAILY 90 Tablet 03/25/2024 Active venlafaxine (EFFEXOR) 37.5 mg tabletIndications:A nxiety disorder, unspecified type Take 1 Tablet (37.5 mg) by mouth once daily in the morning. 90 Tablet 03/25/2024 Active triamcinolone, 55 mcg each actuation, nasal (Nasacort) 55 mcg nasal sprayIndications:Al lergic rhinitis due to pollen, unspecified seasonality Inhale 2 Sprays in both nostrils once daily. 16.9 mL 2 04/04/2024 Active semaglutide (Rybelsus) 3 mg tabletIndications:O besity (BMI 30-39.9),Other secondary osteoarthritis of both knees Take 1 Tablet (3 mg) by mouth once daily before a meal. 90 Tablet 3 04/04/2024 Active gemfibroziL (LOPID) 600 mg tabletIndications:M ixed hyperlipidemia TAKE 1 TABLET BY MOUTH DAILY 90 Tablet 3 06/06/2023 03/25/20 24 Discontinu ed(*Availa bility/For mulary change/Cos t of medication ) venlafaxine (EFFEXOR) 37.5 mg tabletIndications:A nxiety disorder, unspecified type TAKE 1 TABLET(37.5 MG) BY MOUTH EVERY MORNING 90 Tablet 1 12/20/2023 03/25/20 24 Discontinu ed(*Availa bility/For mulary change/Cos t of medication ) ondansetron (ZOFRAN ODT) 4 mg disintegrating tabletIndications:N ausea Place 1 Tablet (4 mg) on the tongue every 8 hours if needed for Nausea/Vomiting. 30 Tablet 01/11/2024 04/04/20 24 Discontinu ed(*Patien t states no longer taking) oxyCODONE (ROXICODONE) 5 mg immediate release tabletIndications:P elvic abscess in female Take 1 Tablet (5 mg) by mouth every 4 hours if needed for Pain (For moderate to severe pain.). 5 Tablet 01/11/2024 04/01/20 24 Discontinu ed(*Patien t states no longer taking) Active Problems Problem Noted Date Diagnosed Date Pelvic abscess in female 01/08/2024 Overview (01/08/2024): Seen on CT scan at [facility] Nephrolithiasis 01/08/2024 Overview (01/08/2024): Right kidney seen on CT at outside hospital on 01/08/2024 Postmenopausal bleeding 12/07/2023 Hx of breast cancer 09/25/2023 Biceps tendinosis of left shoulder 09/07/2023 Labral tear of shoulder, degenerative, left 04/0 10/2023 Arthritis of left glenohumeral joint 09/07/2023 Chronic left shoulder pain 09/07/2023 Pyelonephritis 03/06/2022 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 yearly UA/pelvic US needed. EGD and colonoscopy 2-3 years. ASA recommended daily. 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 Colonoscopy 05/2022 diverticulosis, repeat in 1 years Colonoscopy 07/2023 3-TA, repeat in 2 years Chondromalacia, knee 12/29/2009 Mixed hyperlipidemia 12/27/2009 HSIL (high grade squamous in traepithelial lesion) on Pap smear of cervix 06/04/1997 Overview (12/11/2022): 1997 HSIL, follow up not noted in [...] Encounters Date Type Department Care Team Description 04/04/2024 11:05 AM CDT Office Visit [address] [address] Jazmine Montanze DO Sinus Problem (right side clogged for about a year) 04/04/2024 Travel 04/02/2024 Travel 04/01/2024 7:50 AM CDT Office Visit [address] [address] Napoleon Stokes MD Musculoskeletal Problem (Consultation for LEFT Shoulder pain/Interested in a Cortisone Injection) 04/01/2024 Travel 03/30/2024 Travel 03/28/2024 Travel 03/23/[address] [address] Jazmine Montanez DO Refill Request (Gemfibrozil, Venlafaxine) 01/25/2024 Orders Only [facility] Scanner 1 scan: (1-Ord) [place], CT ABDOMEN PELVIS W CON, 01/25/2024 01/14/2024 10:40 AM CDT Office Visit [facility] [address] [place] [address] Jazmine Montanez DO Hospital F/U (post operative pelvic hematoma) 01/14/2024 Travel 01/14/2024 Patient Outreach [facility] [address] [place] [address] Chelly Marcano, RN Primary RN Care Management; Hospital F/U (LACE 22) 01/14/2024 Telephone [facility] [address] [place] [address] Jazmine Montanez, Appointment 01/13/2024 Travel 01/08/2024 5:48 PM CDT - 01/11/2024 3:18 PM CDT Hospital Encounter [facility] [address] [place] [address] [facility], MD Alexandru Hernandez, MD Gina Galvin, MD Philipp Noble, MD Akanksha Obregon, True Rushing MD Nausea (Primary Dx); Pelvic abscess in female Discharge Disposition: Home Self Care 01/08/2024 Orders Only [facility] Scanner 1 scan: (1-Ord) [facility], CT ABD PELVIS W CON, 01/08/2024 from Last 3 Months Immunizations Name Administration Dates Next Due COVID-19 VACCINE SPIKEVAX (M ODERNA 50MCG/0.5ML) 12YO+ PFS 08/06/2023 COVID-19 vaccine (Pfizer-Bio NTech 30mcg/0.3mL) 12YO+ BIVALENT PF, MDV 03/10/2022 Influenza, IIV3 (Age >=3 years) 02/13/2012 Influenza, IIV4 03/07/2023, 2,04/13/2021,04/07/20 19,03/01/2018,03/14/2017,03/09/2014,02/12 Influenza, IIV4 (=>6mos) MDV 04/03/2020 Td (Age >=7 Years) 03/01/2018 Tdap 11/22/2006 Zoster (Shingrix-RZV, recombinant) 08/02/2021, Family History Medical History Relation Name Comments Dementia Maternal Grandmother Heart Disease Maternal Uncle AL AT 42 YEA RS Cancer Mother lung [...] 0 03/07/2023 Social Connections Answer Date Recorded Do you often feel lonely or isolated from those around you? 0 03/30/2024 Financial Resource Strain Answer Date R ecorded Difficulty of Paying Living Expenses 3 03/30/2024 Difficulty of Paying Living Expenses Not on file 03/30/2024 Food Insecurity Answer Date Recorded Do you worry your food will run out before you are able to buy more? 1 03/30/2024 Transportation Needs Answer Date Record ed Does lack of transportation keep you from medica l appointments? 1 03/30/2024 Does lack of transportation keep you from work, meetings or getting things that you need? 1 03/30/2024 Housing Stability Answer Date Recorded What is your housing situation today? 1 03/30/2024 Sex and Gender Information Value Date Recorded Sex Assigned at Not on file Gender Identity Not on file Sexual Orientation Not on file Obstetrics History Last Filed Vital Signs Vital Sign Reading Time Taken Comments Blood Pressure 138/63 04/04/2024 10:54 AM CDT Pulse 85 04/04/2024 10:54 AM CDT Temperature 36.8 ??C (98.2 ??F) 01/14/2024 10:44 AM C DT Respiratory Rate 18 01/11/2024 8:00 AM CDT Oxygen Saturation 97% 04/04/2024 10:54 AM CDT Inhaled Oxygen Concentration - - Weight 80.5 kg (177 lb 6.4 oz) 04/04/2024 10:54 AM CDT Height 154.7 cm (5' 0.91) 11/21/2023 8:25 AM CD T Body Mass Index 33.62 11/21/2023 8:25 AM CDT Plan of Treatment Upcoming Encounters Date Type Department Care Team (Late st Contact Info) Description 04/07/2024 2:45 PM METAL SOLDERER Office Visit [facility] [address] [address] [place] [address] Rick Cárdenas MD 35 [facility] [address] [address] Health Maintenance Due Date Last Done Comments HIV for age 15-65 12/02/1975 COVID-19 vaccine series (2023- season) 2024 08/06/2023, 03/10/2022, 03/22/2021, Additional history exists Influenza for age 50-64 02/03/2024 03/07/20 23, [...] series for age 50+ Completed 08/02/2021, 05/10/2021 Pneumococcal series for age 6-64 Aged Out No longer eligible based on patient's age to complete this topic Medical Devices Implanted Type Area Medart Operator Device Identifier Shelf Expiration Date Model / Serial / Lot [id number] 8breast 330cc Lorton Rnd High Smooth Saline Implanted:Qty: 1 on 03/27/2018 by Tarun Cardozo MD at [facility] Explanted:at [facility] (Quantity not on file) Left: Breast [employer]ound 02/06/2022 [id number]# / [id number] / [id number] 5breast 330cc Lorton Rnd High Smooth Saline Implanted:Qty: 1 on 03/27/2018 by Tarun Cardozo MD at [facility] Explanted:at [facility] (Quantity not on file) Right: Breast [employer]hound 01/10/2022 [id number]# / [id number] / [id number] Stent Uret [id number] Silhouette - [id number] Implanted:Qty: 1 on 03/07/2022 by Gilbert Golden MD at [facility] Left: Ureter [employer] Gerda 03/21/2024 [id number] / / [id number] Stent Uret [id number] Contour - [id number] Implanted:Qty: 1 on 03/23/2022 by Gilbert Golden MD at [facility] Right: Ureter [facility] 02/18/2024 [id number] / / [id number] Stent Uret [id number] Percuflex Hydroplus - [id number] Implanted:Qty: 1 on 03/23/2022 by Gilbert Golden MD at [facility] Left: Ureter [facility] 01/12/2025 [id number] / / [id number] Stent Uret [id number] Percuflex Hydroplus - [id number] Implanted:Qty: 1 on 03/15/2023 by Gilbert Golden MD at [facility] Left: Ureter [facility] [id number] / / [id number] Stent Tria Soft 6f X 22cm Implanted:Qty: 1 on 03/15/2023 by Gilbert Golden MD at [facility] Right: Ureter [id number] / / [id number] Description:STENT TRIA SOFT 6F X 22CM Procedures Procedure Name Priority Date/Time Associated Diagnosis Comments SCAN-CT INTERPRETATION 12:00 AM CDT CBC W PLT NO DIFF Early AM 01/11/2024 6:1 5 AM CDT CBC W PLT NO DIFF Today 01/10/2024 12: 25 PM CDT ANAEROBIC CULTURE Today 01/09/2024 3:5 [...] AM 01/09/2024 4:54 AM CDT SCAN-CT INTERPRETATION 12:00 AM CDT COLONOSCOPY 07/12/2023 10:16 AM METAL SOLDERER HPV HIGH RISK Routine 11/03/2022 2:30 PM CDT Screening for cervical cancer LIPID PANEL Routine 05/10/2021 8:30 AM METAL SOLDERER Mixed hyperlipidemia ANTI HCV Routine 01/08/2015 8:07 AM CDT Need for hepatitis C screening test from Last 3 Months or Most Recently Relevant to Health Maintenance Results * SCAN-CT INTERPRETATION (01/25/2024 12:00 AM CDT) Only the most recent of2 resultswithin the time period is included. Anatomical Region Laterality Modality Other Scanner OTHER * (ABNORMAL) CBC W PLT NO DIFF (01/11/2024 6:15 AM CDT) Only the most recent of2 resultswithin the time period is included. WHITE BLOOD COUNT 11.2(H) 4.5 - 11.0 thou/cu mm 01/11/2024 6:45 AM CDT [facility] RED BLOOD COUNT 3.85(L) 4.00 - 5.20 mil/cu mm 01/11/2024 6:45 AM CDT [facility] HEMOGLOBIN 11.0(L) 12.0 - 16.0 g/dL 01/11/2024 6:45 AM CDT [facility] HEMATOCRIT 35.0 33.0 - 51.0 % 01/11/2024 6:45 AM CDT [facility] MCV 91 80 - 100 fL 01/11/2024 6:45 AM CDT [facility] MCH 28.6 26.0 - 34.0 pg 01/11/2024 6:45 AM CDT [facility] MCHC 31.4(L) 32.0 - 36.0 g/dL 01/11/2024 6:45 AM CDT [facility] RDW 12.2 11.5 - 15.5 % 01/11/2024 6:45 AM CDT [facility] PLATELET COUNT 366 140 - 440 thou/cu mm 01/11/2024 6:45 AM CDT [facility] MPV 9.3 6.5 - 11.0 fL 01/11/2024 6:45 AM CDT [facility] NRBC 0.0 % 01/11/2024 6:45 AM CDT [facility] ABS NRBC 0.0 thou /cu mm 01/11/2024 6:45 AM CDT [facility] Blood BLOOD SPECIMEN / Unknown Venipuncture / Unknown 01/11/2024 6:15 AM CDT 01/11/2024 6:30 AM CDT Yajaira SÁNCHEZ HEMATOLOGY Performing Organization Address City/[facility]/ZIP Co de Phone Number [facility] [address] [place] [address], * AEROBIC BACTERIAL CULTURE, STAIN (01/09/2024 3:59 PM CDT) CULTURE No Growth. 01/14/2024 9:35 AM CDT [facility] GRAM STAIN 1+ PMNs 01/14/2024 9:35 AM CDT [facility] GRAM STAIN No RBCs 01/14/2024 9:35 AM CDT [facility] GRAM STAIN No Epithelial cells 01/14/2024 9:35 AM CDT [facility] GRAM STAIN No organisms seen 01/14/2024 9:35 AM CDT [facility] Other SPECIMEN FROM ABSCESS / Unknown Non-Blood / Unknown 01/09/2024 3:59 PM CDT 01/09/2024 4:36 PM CDT Tavo Ace MD MICROBIOLOGY Performing Organization Address [facility] Co de Phone Number [facility] [address] [place] [address], * ANAEROBIC CULTURE (01/09/2024 3:59 PM CDT) CULTURE No anaerobes isolated 01/14/2024 3:19 PM CDT [facility] Other SPECIMEN FROM ABSCESS / Unknown Non-Blood / Unknown 01/09/2024 3:59 PM CDT 01/09/2024 4:36 PM CDT Tavo Ace MD MICROBIOLOGY Performing Organization Address City/[facility]/ZIP Co de Phone Number [facility] [address] [place] [address], * CT ASPIRATION PELVIS (01/09/2024 3:56 PM CDT) Anatomical Region Laterality Modality Pelvis Computed Tomogra phy, Other, Other Narrative 01/09/2024 5:17 PM CDT RADIOLOGY POST PROCEDURE NOTE ?? 01/09/2024 Otilia Florentino [id number] INFORMEDCONSENT: In my discussion, prior to [...] guidance patient placed in the lateral position [id number]. ??Under CT guidance local anesthesia applied under [...] transgluteal approach EQUIPMENT UTILIZED: Yueh catheter 5 Sammarinese size. CLOSURE: ??none RADIATION DOSE: ?? total [...] Please call with questions. Tavo Ace MD [place] Protocol A. Pre-procedure verification complete yes 1-relevant [...] INR 1.2 <1.3 01/09/2024 5:13 AM CDT [facility] PROTIME 13.1(H) 10.3 - 12.3 sec 01/09/2024 5:13 AM CDT [facility] Blood BLOOD SPECIMEN / Unknown Venipuncture / Unknown 01/09/2024 4:55 AM CDT 01/09/2024 5:[address] [facility] - 01/09/2024 5:13 AM CDT ?Therapeutic Range [...] on UFH. Ana Maria Luevano MD HEMATOLOGY Performing Organization Address [facility] Co de Phone Number [facility] [address] [place] [address], * PLATELET COUNT (01/09/2024 4:54 AM CDT) PLATELET COUNT 371 140 - 440 thou/cu mm 01/09/2024 5:09 AM CDT [facility] MPV 9.1 6.5 - 11.0 fL 01/09/2024 5:09 AM CDT [facility] Blood BLOOD SPECIMEN / Unknown Venipuncture / Unknown 01/09/2024 4:54 AM CDT 01/09/2024 5:00 AM CDT Ana Maria Luevano MD HEMATOLOGY Performing Organization Address [facility] Co de Phone Number [facility] [address] [place] [address], * (ABNORMAL) WHITE BLOOD COUNT (01/09/2024 4:54 AM CDT) WHITE BLOOD COUNT 18.7(H) 4.5 - 11.0 thou/cu mm 01/09/2024 5:09 AM CDT [facility] NRBC 0.0 % 01/09/2024 5:09 AM CDT [facility] ABS NRBC 0.0 thou /cu mm 01/09/2024 5:09 AM CDT [facility] Blood BLOOD SPECIMEN / Unknown Venipuncture / Unknown 01/09/2024 4:54 AM CDT 01/09/2024 5:00 AM CDT Ana Maria Luevano MD HEMATOLOGY Performing Organization Address [facility] Co de Phone Number [facility] [address] [place] [address], [place] * (ABNORMAL) HEMOGLOBIN (01/09/2024 4:54 AM CDT) HEMOGLOBIN 11.1(L) 12.0 - 16.0 g/dL 01/09/2024 5:09 AM CDT [facility] MCV 93 80 - 100 fL 01/09/2024 5:09 AM CDT [facility] Blood BLOOD SPECIMEN / Unknown Venipuncture / Unknown 01/09/2024 4:54 AM CDT 01/09/2024 5:00 AM CDT Ana Maria Luevano MD HEMATOLOGY Performing Organization Address [facility] Co de Phone Number [facility] [address] [place] [address], [place] * SODIUM (01/09/2024 4:54 AM CDT) SODIUM 140 136 - 145 mmol/L 01/09/2024 5:29 AM CDT [facility] Blood BLOOD SPECIMEN / Unknown Venipuncture / Unknown 01/09/2024 4:54 AM CDT 01/09/2024 5:01 AM CDT Ana Maria Luevano MD CHEMISTRY Performing Organization Address City/[facility] Co de Phone Number [facility] [address] [place] [address], [place] * POTASSIUM (01/09/2024 4:54 AM CDT) POTASSIUM 3.8 3.5 - 5.1 mmol/L 01/09/2024 5:29 AM CDT [facility] Blood BLOOD SPECIMEN / Unknown Venipuncture / Unknown 01/09/2024 4:54 AM CDT 01/09/2024 5:01 AM CDT Ana Maria Luevano MD CHEMISTRY Performing Organization Address [facility]/ZIP Co de Phone Number [facility] [address] [address], [place] * (ABNORMAL) CREATININE (01/09/2024 4:54 AM CDT) Pathologist [facility] eGFR 56(L) >90 mL/min/1.7 3m2 01/09/2024 5:29 AM CDT [facility] Comment:As of 2021, eG FR is calculated by the CKD-EPI creatinine equation without race adjustment. ??eGFR can be influenced by muscle mass, exercise, and diet. ??The reported eGFR is an estimation only and is only applicable if the renal function is stable. CREATININE 1.11(H) 0.50 - 0.90 mg/dL 01/09/2024 5:29 AM CDT [facility] Blood BLOOD SPECIMEN / Unknown Venipuncture / Unknown 01/09/2024 4:54 AM CDT 01/09/2024 5:01 AM CDT Ana Maria Luevano MD CHEMISTRY Performing Organization Address [facility]/ZIP Co de Phone Number [facility] [address] [place] [address], [place] * COLONOSCOPY (07/12/2023 10:16 AM METAL SOLDERER) 07/12/2023 10:1 6 AM METAL SOLDERER Narrative Transcriptions Ramos Le MD - 07/12/2023 11:14 AM CST Patient Name: Otilia Florentino Procedure Date: 07/12/2023 Gender: Female Date of : 1960 Admit Type: Outpatient Procedure: Colonoscopy Proceduralist: Ramos Le MD , Brenda Roemo (Nurse), Sonia Thomas (Nurse) Indications/Pre-Op Diagnosis: 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 The patient had a stable cardiopulmonary status and judged an adequate candidate for conscious sedation. The endoscope PCF-H190L [id number] was passed through the anus andadvanced to [...] 10:16 AM Procedure Code(s): --- Professional --- 78976, Colonoscopy, flexible; with removalof tumor(s), polyp(s), or other lesion(s) bysnare technique 17907, 59, Colonoscopy, flexible; withbiopsy, single or multiple Diagnosis Code(s): --- Professional --- D12.3, Benign neoplasm of transverse colon (hepatic flexure or splenic flexure) Z15.09, Genetic susceptibility to other malignant neoplasm CPT copyright 2021 [employer]. All rights reserved. The codes documented in this report are preliminary and upon activated sludge attendant reviewmay be revised to meet current compliance requirements. Scope In: 10:45:01 AM Scope Withdrawal Time 0 hours 12 minutes 22 seconds Scope Out: 11:00:33 AM Ramos Le MD PROCEDURE ORD * HPV HIGH RISK (11/03/2022 2:30 PM CDT) TYPE 16 Negative Negative 11/08/2022 1:54 PM CDT [facility] TYPE 18 Negative Negative 11/08/2022 1:54 PM CDT [facility] OTHER HIGH RISK TYPES Negative Negative 11/08/2022 1:54 PM CDT [facility] Other (Cervical) Non-Blood / Unknown 11/03/2022 2:30 PM CDT 11/07/2022 9:29 AM CDT Narrative [facility] - 11/08/2022 1:54 PM CDT HPV types 16, 18, 31, 33, 35, 39, 45, 51, 52, 56, 58, 59, 66 and 68 DNA were undetectable or below the pre-set threshold. Methodology: Ryann Lisa 4800 HPV Test Jazmine Montanez DO MICROBIOLOGY [facility] [address] [place] [address], * (ABNORMAL) LIPID PANEL (05/10/2021 8:30 AM METAL SOLDERER) CHOLESTEROL,TOTAL 177 100 - 199 mg/dL 05/10/2021 6:04 PM [facility] TRIGLYCERIDES 183(H) <150 mg/dL 05/10/2021 6:04 PM [facility] HDL CHOLESTEROL 39(L) >40 mg/dL 6:04 PM [facility] NON-HDL CHOLESTEROL 138 <145 mg/dl 05/10/2021 6:04 PM METAL SOLDERER [facility] CHOL/HDL RATIO 4.54(H) <4.50 05/10/2021 6:04 PM [facility] LDL CHOLESTEROL 101 <=130 mg/dL 05/10/2021 6:04 PM [facility] VLDL CHOLESTEROL 37(H) <=30 mg/dL 05/10/2021 6:04 PM [facility] PROVIDER ORDERED STATUS RANDOM 05/10/2021 6:04 PM METAL SOLDERER [facility] Blood BLOOD SPECIMEN / Unknown Venipuncture / Unknown 05/10/2021 8:30 AM METAL SOLDERER 05/10/2021 8:34 AM METAL SOLDERER Jazmine Montanez DO CHEMISTRY [facility] [address] [place] [address], [place] * ANTI HCV [87415.2] (01/08/2015 8:07 AM CDT) HEPATITIS C ANTIBODY Non-Reacti ve Non-Reacti ve 01/08/2015 1:31 PM CDT [facility] Blood specimen (specimen) BLOOD SPECIMEN / Unknown Venipuncture / Unknown 01/08/2015 8:07 AM CDT 01/08/2015 8:10 AM CDT Narrative [facility] - 01/08/2015 1:31 PM CDT Antibodies to HCV not detected; does not exclude the possibility of exposure to HCV. Jazmine Montanez DO SEND OUTS Performing Organization Address City/[facility]/ZIP Co de Phone Number [facility] [address] [place] [phone], from Last 3 Months or Most Recently [...] Code Status Discussion: Reviewed Preferences Care Teams Kiln Car Repairer Relationship Specialty Start Date End Date Jazmine Montanez DO PCP - General 05/29/08
--- NOTE | 2024-04-07 11:00 | CRLHL7_ITS ---
For Patients: As a result of the Century Cures Act, medical imaging exams and procedure reports are released immediately into your electronic medical record. You may view this report before your referring provider. If you have questions, please contact your health care provider. INDICATION: Follow up postsurgical abscess TECHNIQUE: Volumetric helical scanning of the abdomen and pelvis was performed with 84 cc of Isovue 370 contrast material IV. Coronal and sagittal reconstructions were obtained. COMPARISON: Abdomen/pelvis CT of 01/25/2024 FINDINGS: The previously demonstrated posterior left pelvic abscess has resolved. Scarring at this site is noted. No new fluid collection or free fluid is evident. Colonic diverticulosis is again demonstrated. A normal appendix is noted. The liver is normal in size, shape and attenuation. The bile ducts are within normal limits. The spleen, adrenal glands and pancreas are negative. Left renal parenchymal scarring is again demonstrated along with compensatory hypertrophy of the right kidney. Right renal collecting system stones are again noted. Mild right hydroureter is again demonstrated. No ureteral stone is demonstrated. No lymphadenopathy is evident. Postop changes of total abdominal hysterectomy are again demonstrated. The lung bases are essentially clear, and heart size is normal. IMPRESSION: 1. Resolution of previously demonstrated posterior left pelvic abscess. 2. Left renal parenchymal scarring, compensatory right renal hypertrophy and right renal stones, as before. 3. Post total abdominal hysterectomy 4. Colonic diverticulosis. Please note that all CT scans at this facility use dose modulation, iterative reconstruction, and/or weight-based dosing when appropriate to reduce radiation dose to as low as reasonably achievable. Dictated by Rick Burnette MD @ 04/08/2024 7:17:44 AM (Electronically Signed)
[2024-04-07 11:10] LABS: Creatinine* 0.9 mg/dL (0.5-1.5); Estimated Glomerular Filt Rate 72 ml/min
== END 2024-04-07 10:40 | disposition home or self-care (01) ==
LOC: CT 10:40
PROVIDERS: PCP Family Medicine; Visit Provider Nurse Practitioner Family
DX: N95.0 Postmenopausal bleeding (principal); N20.0 Calculus of kidney; K57.30 Diverticulosis of large intestine without perforation or abscess without bleeding; D05.12 Intraductal carcinoma in situ of left breast
CPT/HCPCS: 36415; 74177; 82565; Q9967

== ENCOUNTER 2024-07-09 13:49 | Outpatient (RCR) | payer BC, SELFPAY | END 2024-08-07 13:26 | disposition home or self-care (01) | PROVIDERS: PCP Family Medicine; Visit Provider Orthopaedic Surgery | DX: M19.011 Primary osteoarthritis, right shoulder (principal); M25.811 Other specified joint disorders, right shoulder; M25.511 Pain in right shoulder; Z51.89 Encounter for other specified aftercare | CPT/HCPCS: 97110; 97162 ==

== ENCOUNTER 2025-01-06 10:00 | Outpatient (CLI) | payer OTHER, SELFPAY ==
[2025-01-06 10:06] VITALS: BMI 34.4
[2025-01-06 10:14] VITALS: BP 140/71; PULSE 80; RESP 16; TEMP 36.9; O2SAT 98
[2025-01-06 10:51] VITALS: BP 127/77; PULSE 82; RESP 16; O2SAT 95
--- NOTE | 2025-01-06 10:53 | P.ANES_ITS ---
Anesthesia Charges Start Date/Time Anesthesia Start Date: 01/06/25 Anesthesia Start Time: 10:39 Stop Date/Time Anesthesia Stop Date: 01/06/25 Anesthesia Stop Time: 10:51 Coding CPT Codes CPT Codes: ANESTH BONE ASPIRATE/BX - 55269 ([id number]) P3 - PATIENT W/SEVERE SYS DISEASE, QK - DIPLOMA MAKER 2-4 CNCRNT ANES PROC, QX - IGNITER CAPPER SVC W/ MD MED DIRECTION
--- NOTE | 2025-01-06 10:53 | W.ANESCHARGE ---
Anesthesia Charges Start Date/Time Anesthesia Start Date: 01/06/25 Anesthesia Start Time: 10:39 Stop Date/Time Anesthesia Stop Date: 01/06/25 Anesthesia Stop Time: 10:51 Coding CPT Codes CPT Codes: ANESTH BONE ASPIRATE/BX - 44566 ([id number]) P3 - PATIENT W/SEVERE SYS DISEASE, QK - SWITCHBOARD WIRER 2-4 CNCRNT ANES PROC, QX - MEDIA EXECUTIVE SVC W/ MD MED DIRECTION
[2025-01-06 11:01] VITALS: BP 139/84; PULSE 77; RESP 16; O2SAT 96
[2025-01-06 11:05] LABS: Hematocrit 38.4 % (33.0-51.0); Hemoglobin* 12.9 gm/dL (12.0-16.0); Immature Granulocytes Abs Auto 0.02 K/uL (0.00-0.30); Immature Granulocytes Pct Auto 0.2 %; Immature Reticulocyte Fraction 10.5 % (3.0-15.9); Lymphocytes Absolute Auto 2.06 K/uL (0.90-2.90); Mean Corpuscular HGB Conc 34 gm/dL (32-36); Mean Corpuscular Hemoglobin 30 pg (26-34); Mean Corpuscular Volume 91 fL (80-100); RDW Coefficient of Variation % 11.8 % (11.5-15.5); Red Blood Count 4.24 m/uL (4.00-5.20); Reticulocyte Hemoglobin Equivi 32.5 pg (29.0-35.0); Reticulocytes Absolute 0.08 # (0.03-0.08); White Blood Count* 8.74 K/uL (4.50-11.00)
[2025-01-06 11:11] VITALS: BP 149/81; PULSE 74; RESP 16; O2SAT 97
[2025-01-06 11:16] LABS: Slide Review Reflex No
--- NOTE | 2025-01-06 11:44 | P.ANES_ITS ---
Anesthesia Charges Start Date/Time Anesthesia Start Date: 01/06/25 Anesthesia Start Time: 10:39 Stop Date/Time Anesthesia Stop Date: 01/06/25 Anesthesia Stop Time: 10:51 Coding CPT Codes CPT Codes: ANESTH BONE ASPIRATE/BX - 94791 ([id number]) QK - BACON STRINGER 2-4 CNCRNT ANES PROC, QX - BAR CAPTAIN SVC W/ MD MED DIRECTION, P3 - PATIENT W/SEVERE SYS DISEASE
--- NOTE | 2025-01-06 11:44 | W.ANESCHARGE ---
Anesthesia Charges Start Date/Time Anesthesia Start Date: 01/06/25 Anesthesia Start Time: 10:39 Stop Date/Time Anesthesia Stop Date: 01/06/25 Anesthesia Stop Time: 10:51 Coding CPT Codes CPT Codes: ANESTH BONE ASPIRATE/BX - 79428 ([id number]) QK - RAIL EXPRESS CLERK 2-4 CNCRNT ANES PROC, QX - CLEANING ASSOCIATE SVC W/ MD MED DIRECTION, P3 - PATIENT W/SEVERE SYS DISEASE
== END 2025-01-06 11:34 | disposition home or self-care (01) ==
PROVIDERS: PCP Family Medicine; Visit Provider Internal Medicine Hematology & Oncology
DX: D72.829 Elevated white blood cell count, unspecified (principal)
CPT/HCPCS: 01112; 36415; 38222; 85025; 85045; 88305; 88311; 88313; J1644; J2003; J2704

== ENCOUNTER 2025-02-03 11:30 | Outpatient (RCR) | payer OTHER, SELFPAY ==
[2024-12-04 12:15] LABS: Qual BCR Result Not Detected; Qual BCR Source Whole Blood
[2024-12-05 13:41] LABS: JAK2 Qual Mutation by PCR Not Detected; JAK2 Qual, Source Whole Blood
== END 2025-05-26 23:59 | disposition home or self-care (01) ==
LOC: CCIC 11:30
PROVIDERS: Internal Medicine Hematology & Oncology; PCP Family Medicine; Referring Provider Family Medicine; Visit Provider Internal Medicine Hematology & Oncology
DX: C50.911 Malignant neoplasm of unspecified site of right female breast (principal); Z17.0 Estrogen receptor positive status [ER+]; Z90.13 Acquired absence of bilateral breasts and nipples
CPT/HCPCS: 36415; 81219; 81270; 81338; 99213; 99214; G0463

== ENCOUNTER 2025-03-04 14:50 | Outpatient (CLI) | payer OTHER, SELFPAY ==
--- NOTE | 2025-03-04 15:00 | CRLHL7_ITS ---
For Patients: As a result of the Century Cures Act, medical imaging exams and procedure reports are released immediately into your electronic medical record. You may view this report before your referring provider. If you have questions, please contact your health care provider. DXA BONE MINERAL DENSITY STUDY Reason for exam: Age-related osteoporosis. Current height (in): 61. Weight (lb): 183. Menopause age: 47. Ethnicity: White. 1. Have you had a previous hip or vertebral fracture? No. 2. Have you had any fractures during your adult life which did not result from significant trauma (e.g., auto accident)? No. 3. Did either of your parents have a hip fracture? Yes. 4. Do you smoke? No. 5. Have you ever taken Glucocorticoids? No. 6. Do you have rheumatoid arthritis? No. 7. Do you have secondary osteoporosis? No. 8. Do you drink 3 or more alcoholic drinks per day? No. 9. Are you being treated for osteoporosis? Yes. 10. Have you ever taken any of the following medications: Actonel, Evista, Fosamax, Miacalcin, Reclast, Boniva, Forteo, HRT (i.e. estrogen/hormone therapy), Protelos, Prolia, Vitamin D, Calcium, other ??? please specify. ANSWER: Yes, Fosamax (i.e., alendronate), vitamin D, and calcium. 11. Do you have any of the following medical conditions: Anorexia or bulimia, asthma or emphysema, end stage renal disease, hyperparathyroidism, any seizure disorders, cancer, inflammatory bowel diseases, hysterectomy, other ??? please specify. ANSWER: Yes, cancer and hysterectomy. 12. What was your maximum height (inches)? 61. 13. Do you perform weight bearing exercise regularly? No. 14. Do you regularly consume dairy products? No. 15. Do you drink caffeinated beverages? Yes. 16. At what age did your period start? 11. 17. Are you premenopausal? No. 18. How many full-term pregnancies have you had? 3. 19. Have you ever missed your period for more than 6 months in a row (not including or menopause)? No. TECHNIQUE: Bone mineral density study was performed using the [employer]. FINDINGS: The results of the study expressed as bone mineral density (BMD) are as follows: Lumbar spine L1 to L4: BMD: 0.896 g/cm2. T-score: -1.4. Z-score: 0.3. Neck Left: BMD: 0.560 g/cm2. T-score: -2.6. Z-score: -1.1. Right: BMD: 0.554 g/cm2. T-score: -2.7. Z-score: -1.2. Total Left: BMD: 0.775 g/cm2. T-score: -1.4. Z-score: -0.2. Right: BMD: 0.777 g/cm2. T-score: -1.3. Z-score: -0.2. IMPRESSION: Osteoporosis. *Comparison exams done prior to 11/2019 were performed on different unit, [employer]. COMPARISON: Compared with scan of 10/11/2022, the bone mineral density has increased by 24.6 percent at the spine and increased by 6.1 percent at the hip. Compared with scan of 06/09/2020, the bone mineral density has decreased by 10.5 percent at the spine and decreased by 6.2 percent at the hip. Yoandy Atkins M.D. Diagnostic Radiologist [email or web address] SITA/[email or web address] ferris/Dictated by: Yoandy Atkins MD @ 03/05/2025 9:40:00 AM (Electronically Signed)
== END 2025-03-04 14:51 | disposition home or self-care (01) ==
LOC: RAD 14:53
PROVIDERS: PCP Family Medicine; Visit Provider Family Medicine
DX: M81.0 Age-related osteoporosis without current pathological fracture (principal); Z78.0 Asymptomatic menopausal state
CPT/HCPCS: 77080